=== PATIENT | female | born 1990 | race Hispanic/Latino ===

== ENCOUNTER 2020-03-03 19:53 | Emergency (ER) | payer SELFPAY ==
[2020-03-03 20:50] LABS: Urine Blood 3+ (NEG); Urine Glucose NEGATIVE (NEG); Urine Protein NEGATIVE (NEG); Urine Specific Gravity >1.030 (1.005-1.030); Urine pH 5.5 (5.0-7.0)
[2020-03-03] MEDS ORDERED: NA CHLORIDE 0.9% 1,000 ML ONE (21:01)
[2020-03-03 21:12] LABS: Absolute Lymphocytes (CBC) 0.6 K/uL (0.7-4.9); Basophils % 0.6 % (0-1.3); Hematocrit 33.3 % (36.0-45.0); Lymphocytes % 8.4 % (15.3-44.8); MPV 8.3 fL (7.6-11.3); RBC Red Blood Cell Count 4.42 M/uL (3.86-4.86)
[2020-03-03 21:35] LABS: ALT/SGPT 21 U/L (12-78); AST/SGOT 15 U/L (15-37); Albumin 2.8 g/dL (3.4-5.0); Alkaline Phosphatase 107 U/L (45-117); BUN Blood Urea Nitrogen 11 mg/dL (7-18); Bicarbonate 23 mmol/L (21-32); Bilirubin Direct 0.1 mg/dL (0-0.2); Bilirubin Total 0.3 mg/dL (0.2-1.0); Glucose Level 104 mg/dL (74-106); Lipase 101 U/L (73-393); Potassium 3.6 mmol/L (3.5-5.1); Protein, Total 7.6 g/dL (6.4-8.2); Sodium Level 139 mmol/L (136-145)
[2020-03-03 22:37] LABS: Blood Morphology Comment NOT SEEN (NOT SEEN); Platelet Estimate ADEQ
[2020-03-03 22:54] LABS: Urine Bacteria 20-50 /HPF (<20); Urine Culture Reflex Order NOT NEEDED; Urine Mucus 1+ /HPF (NONE SEEN); Urine RBC >50 /HPF (NONE SEEN)
--- NOTE | 2020-03-04 00:18 | ER ---
Nurse's Notes [facility] Name: Obdulia Burch Age: 29 yrs Sex: Female : 1990 Arrival Date: 03/03/2020 Time: 19:55 Bed 13 Private MD: Diagnosis: Acute febrile illness. Urinary tract infection Presentation: 03/03 20:09 Chief complaint: Patient states: Completed round of antibiotics on Friday from what was dm5 assumed to be a UTI. Bactrim. Tuesdays started to have back cramps, Friday morning felt worse, was worse but manageable, "everything feels swollen, body aches, fever, chills, Pt drove in from [place] this weekend. Coronavirus screen: Patient denies a cough. Patient denies shortness of breath or difficulty breathing. Patient reports a measured and/or subjective temperature greater than 100.4F. Patient reports travel on a cruise ship or to a country the [facility] currently lists as an affected area. Patient denies contact with known and/or suspected case of COVID-19. Ebola Screen: Patient negative for fever greater than or equal to 101.5 degrees Fahrenheit, and additional compatible Ebola Virus Disease symptoms Patient denies exposure to infectious person. Patient denies travel to an Ebola-affected area in the 21 days before illness onset. No symptoms or risks identified at this time. Initial Sepsis Screen: Does the patient meet any 2 criteria? HR > 90 bpm. No. Patient's initial sepsis screen is negative. Does the patient have a suspected source of infection? Yes: Dysuria/Frequency/Urgency/UTI. Risk Assessment: Do you want to hurt yourself or someone else? Patient reports no desire to harm self or others. Onset of symptoms was February 29, 2020. 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 - Social history:: Smoking status: Patient denies any tobacco usage or history of. Screenin:30 Abuse screen: Denies threats or abuse. Denies injuries from another. Nutritional ca1 screening: No deficits noted. Tuberculosis screening: No symptoms or risk factors identified. Fall Risk IV access (20 points). Assessment: 20:30 General: Appears in no apparent distress. comfortable, Behavior is calm, cooperative, ca1 appropriate for age. General: Reports fever for 12-24 hours. Pain: Complains of pain in left mid back Pain currently is 6 out of 10 on a pain scale. Pain began 1 day ago. Is intermittent. Neuro: Level of Consciousness is awake, alert, obeys commands, Oriented to person, place, time, situation, Appropriate for age. Cardiovascular: Heart tones S1 S2 present Capillary refill < 3 seconds Patient's skin is warm and dry. Respiratory: Airway is patent Respiratory effort is even, unlabored, Respiratory pattern is regular, symmetrical, Breath sounds are clear bilaterally. GI: Abdomen is round non-distended, obese, Bowel sounds present X 4 quads. Abd is soft and non tender X 4 quads. : Urine is clear. EENT: No signs and/or symptoms were reported regarding the EENT system. Derm: Skin is intact, is healthy with good turgor, Skin is pink, warm \\T\\ dry. Musculoskeletal: Circulation, motion, and sensation intact. Capillary refill < 3 seconds. 22:08 Reassessment: Patient appears in no apparent distress at this time. Patient and/or jb4 family updated on plan of care and expected duration. Pain level reassessed. Patient is alert, oriented x 3, equal unlabored respirations, skin warm/dry/pink. 23:00 Reassessment: Patient appears in no apparent distress at this time. Patient and/or jb4 family updated on plan of care and expected duration. Pain level reassessed. Patient is alert, oriented x 3, equal unlabored respirations, skin warm/dry/pink. 23:52 Reassessment: Patient appears in no apparent distress at this time. Patient and/or jb4 family updated on plan of care and expected duration. Pain level reassessed. Patient is alert, oriented x 3, equal unlabored respirations, skin warm/dry/pink. 03/04 00:54 Reassessment: Patient appears in no apparent distress at this time. Patient and/or jb4 family updated on plan of care and expected duration. Pain level reassessed. Patient is alert, oriented x 3, equal unlabored respirations, skin warm/dry/pink. Pt verbalized understanding of d/c and follow up instructions. Denies questions or concerns. Given informational packet on Covid-19. Patient states feeling better. Vital Signs: 03/03 20:09 BP 133 / 93; Pulse 115; Resp 20; Temp 100.6(O); Pulse Ox 98% on R/A; Weight 116.12 kg dm5 (R); Height 5 ft. 0 in. (152.40 cm); Pain 6/10; 22:00 BP 124 / 73; Pulse 89; Resp 16; Temp 98.9(O); Pulse Ox 100% on R/A; jb4 03/04 00:05 BP 125 / 78; Pulse 83; Resp 16; Temp 98.7(O); Pulse Ox 100% on R/A; jb4 00:30 BP 119 / 70; Pulse 75; Resp 16; Temp 98.3(O); Pulse Ox 100% on R/A; jb4 03/03 20:09 Body Mass Index 50.00 (116.12 kg, 152.40 cm) dm5 ED Course: 03/03 19:55 Patient arrived in ED. cf2 20:14 Triage completed. dm5 20:15 Arm band placed on right wrist. dm5 20:24 Mj Aguirre MD is Attending Physician. pkl 20:30 Patient has correct armband on for positive identification. Placed in gown. Bed in low ca1 position. Call light in reach. Side rails up X2. Pulse ox on. NIBP on. 20:40 No provider procedures requiring assistance completed. Inserted saline lock: 20 gauge ca1 in right antecubital area, using aseptic technique. Blood collected. 20:40 Initial lab(s) drawn, by me, sent to lab. Flu and/or RSV swab sent to lab. Strep swab ca1 sent to lab. Covid swab. 20:44 Melo Bragg, RN is Primary Nurse. jb4 21:42 XRAY CXR (1 view) In Process Unspecified. EDMS 22:32 CT Abd/Pelvis - IV Contrast Only In Process Unspecified. EDMS 03/04 00:55 IV discontinued, intact, bleeding controlled, No redness/swelling at site. Pressure jb4 dressing applied. Administered Medications: 03/03 20:59 Drug: NS 0.9% 1000 ml Route: IV; Rate: 1000 ml; Site: right antecubital; ca1 22:00 Follow up: Response: No adverse reaction; IV Status: Completed infusion; IV Intake: jb4 1000ml 03/04 00:41 Drug: Cipro 500 mg Route: PO; jb4 00:41 Follow up: Response: Medication administered at discharge. jb4 Intake: 03/03 22:00 IV: 1000ml; Total: 1000ml. jb4 Outcome: 03/04 00:17 Discharge ordered by . juan 00:23 Discharge ordered by . pkdale 00:55 Discharged to home ambulatory. jb4 00:55 Condition: stable 00:55 Discharge instructions given to patient, Instructed on discharge instructions, follow up and referral plans. medication usage, Demonstrated understanding of instructions, follow-up care, medications, Prescriptions given X 1. 00:56 Patient left the ED. jb4 Addendum: 03/07/2020 14:11 Addendum: Culture Results: Positive urine culture. No further action required. Bacteria i w sensitive to prescribed antibiotic. 03/08/2020 10:18 Addendum: Other attempted to contact pt related to negative COVID-19 swab results - d m5 Left voice mail. 11:24 Addendum: Other pt notified of negative COVID-19 swab results. d m5 Signatures: Dispatcher [employer] Homa Rdz RN RN dm5 Lam, Pin, MD MD pkl Williams, Irene, RN RN iw Bryson, James, RN RN jb4 Acob, Cheryl, RN RN ca1 Frazier, Celesta cf2 Corrections: (The following items were deleted from the chart) 03/03 20:14 20:09 Onset of symptoms was February 29, 2000 mandy galvan
--- NOTE | 2020-03-04 00:19 | EDPHYS ---
Physician Documentation [facility] Name: Obdulia Burch Age: 29 yrs Sex: Female : 1990 Arrival Date: 03/03/2020 Time: 19:55 Bed 13 Private MD: ED Physician Mj Aguirre HPI: 03/03 20:47 This 29 yrs old Female presents to ER via Ambulatory with complaints of Fever, pkl Abdominal Pain, Back Pain, Chills. 20:47 The patient reports fever, with an emergency department temperature of 100.6 degrees pkl Fahrenheit. Onset: The symptoms/episode began/occurred 3 day(s) ago. Associated signs and symptoms: Pertinent positives: chills, body aches and back pain. Patient treated last week for UTI. Given Bactrim. 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 - Social history:: Smoking status: Patient denies any tobacco usage or history of. ROS: 20:47 Eyes: Negative for injury, pain, redness, and discharge, ENT: Negative for injury, pkl pain, and discharge, Neck: Negative for injury, pain, and swelling, Cardiovascular: Negative for chest pain, palpitations, and edema, Respiratory: Negative for shortness of breath, cough, wheezing, and pleuritic chest pain, Abdomen/GI: Negative for abdominal pain, nausea, vomiting, diarrhea, and constipation. 20:47 Back: Positive for flank pain, on the right. 20:47 : Negative for urinary symptoms. 20:47 MS/extremity: Negative for acute changes. 20:47 Skin: Negative for rash. 20:47 Neuro: Negative for altered mental status. Exam: 20:47 Head/Face: Normocephalic, atraumatic. Eyes: Pupils equal round and reactive to light, pkl extra-ocular motions intact. Lids and lashes normal. Conjunctiva and sclera are non-icteric and not injected. Cornea within normal limits. Periorbital areas with no swelling, redness, or edema. ENT: Nares patent. No nasal discharge, no septal abnormalities noted. Tympanic membranes are normal and external auditory canals are clear. Oropharynx with no redness, swelling, or masses, exudates, or evidence of obstruction, uvula midline. Mucous membranes moist. Neck: Trachea midline, no thyromegaly or masses palpated, and no cervical lymphadenopathy. Supple, full range of motion without nuchal rigidity, or vertebral point tenderness. No Meningismus. Chest/axilla: Normal chest wall appearance and motion. Nontender with no deformity. No lesions are appreciated. Cardiovascular: Regular rate and rhythm with a normal S1 and S2. No gallops, murmurs, or rubs. Normal PMI, no JVD. No pulse deficits. Respiratory: Lungs have equal breath sounds bilaterally, clear to auscultation and percussion. No rales, rhonchi or wheezes noted. No increased work of breathing, no retractions or nasal flaring. Abdomen/GI: Soft, non-tender, with normal bowel sounds. No distension or tympany. No guarding or rebound. No evidence of tenderness throughout. 20:47 Back: pain, that is mild, of the right flank. 20:47 : Exam negative for acute changes. 20:47 Musculoskeletal/extremity: Exam is negative for acute changes. 20:47 Skin: Exam negative for rash. 20:47 Neuro: Orientation: is normal, Mentation: is normal, Cranial nerves: grossly normal, Motor: is normal. Vital Signs: 20:09 BP 133 / 93; Pulse 115; Resp 20; Temp 100.6(O); Pulse Ox 98% on R/A; Weight 116.12 kg dm5 (R); Height 5 ft. 0 in. (152.40 cm); Pain 6/10; 22:00 BP 124 / 73; Pulse 89; Resp 16; Temp 98.9(O); Pulse Ox 100% on R/A; jb4 03/04 00:05 BP 125 / 78; Pulse 83; Resp 16; Temp 98.7(O); Pulse Ox 100% on R/A; jb4 00:30 BP 119 / 70; Pulse 75; Resp 16; Temp 98.3(O); Pulse Ox 100% on R/A; jb4 03/03 20:09 Body Mass Index 50.00 (116.12 kg, 152.40 cm) dm5 MDM: 03/03 20:24 Patient medically screened. pkl 03/04 00:13 Data reviewed: vital signs, nurses notes, lab test result(s), radiologic studies, CT pkl scan, plain films. ED course: Patient feeling better. Discussed lab. and imaging results with patient. Advised to follow up with PCP next week and stay home until Covid 19 result is available. Patient understood instructions. 03/03 20:33 Order name: Urine Culture [facility] 03/03 20:33 Order name: Urine Dipstick--Ancillary (enter results); Complete Time: 21:39 [facility] 03/03 20:33 Order name: Urine --Ancillary (enter results); Complete Time: 21:39 [facility] 03/03 20:33 Order name: Urine Microscopic Only; Complete Time: 00:19 [facility] 03/03 20:40 Order name: Basic Metabolic Panel; Complete Time: 21:39 pkl 03/03 20:40 Order name: CBC with Diff; Complete Time: 22:44 pkl 03/03 20:40 Order name: Creatinine for Radiology; Complete Time: 21:39 pkl 03/03 20:40 Order name: Hepatic Function; Complete Time: 21:39 pkl 03/03 20:40 Order name: Lipase; Complete Time: 21:39 pkl 03/03 20:40 Order name: COVID-19 pk 03/03 20:40 Order name: Flu; Complete Time: 22:06 pkl 03/03 20:40 Order name: Strep; Complete Time: 22:06 pkl 03/03 21:51 Order name: Throat Culture [facility] 03/03 22:37 Order name: Manual Differential; Complete Time: 22:44 [facility] 03/03 20:19 Order name: Urine Dipstick-Ancillary (obtain specimen); Complete Time: 20:31 lp1 03/03 20:40 Order name: IV Saline Lock; Complete Time: 21:00 pkl 03/03 20:40 Order name: Labs collected and sent; Complete Time: 21:00 pkl 03/03 20:40 Order name: Document PUI#; Complete Time: 21:44 pkl 03/03 20:40 Order name: Droplet/Contact Precautions; Complete Time: 21:00 pkl 03/03 20:40 Order name: Notify Health Dept [phone]/ ; Complete Time: 21:44 pkl 03/03 20:40 Order name: O2 Per Protocol; Complete Time: 21:00 pkl 03/03 20:40 Order name: XRAY CXR (1 view) pkl 03/03 21:41 Order name: CT Abd/Pelvis - IV Contrast Only pkl Administered Medications: 03/03 20:59 Drug: NS 0.9% 1000 ml Route: IV; Rate: 1000 ml; Site: right antecubital; ca1 22:00 Follow up: Response: No adverse reaction; IV Status: Completed infusion; IV Intake: jb4 1000ml 03/04 00:41 Drug: Cipro 500 mg Route: PO; jb4 00:41 Follow up: Response: Medication administered at discharge. jb4 Disposition: 03/04/20 00:23 Discharged to Home. Impression: Acute febrile illness. Urinary tract infection. - Condition is Stable. - Prescriptions for Cipro 500 mg Oral Tablet - take 1 tablet by ORAL route every 12 hours for 7 days; 14 tablet. - Medication Reconciliation Form, Thank You Letter, Antibiotic Education, Prescription Opioid Use form. - Follow up: Private Physician; When: 2 - 3 days; Reason: Re-evaluation by your physician. - Problem is new. - Symptoms have improved. Signatures: Dispatcher [employer] EDMS Homa Jameson RN RN dmMj Austin MD MD pkl Kim Muro RN RN lp1 Melo Bragg RN RN jb4 Lauren Richardson, RN RN ca1 Corrections: (The following items were deleted from the chart) 00:21 00:17 03/04/2020 00:17 Discharged to Home. Impression: Acute fefrile illness. Viral pkl syndrome. Condition is Stable. Forms are Medication Reconciliation Form, Thank You Letter, Antibiotic Education, Prescription Opioid Use. Follow up: Private Physician; When: 2 - 3 days; Reason: Re-evaluation by your physician. Problem is new. Symptoms have improved. pkl 00:56 00:23 03/04/2020 00:23 Discharged to Home. Impression: Acute febrile illness. Urinary jb4 tract infection. Condition is Stable. Forms are Medication Reconciliation Form, Thank You Letter, Antibiotic Education, Prescription Opioid Use. Follow up: Private Physician; When: 2 - 3 days; Reason: Re-evaluation by your physician. Problem is new. Symptoms have improved. pkl
[2020-03-04] MEDS ORDERED: CIPROFLOXACIN HCL 500 MG TAB ONE (00:45)
[2020-03-04 01:21] VITALS: O2SAT 100
[2020-03-04 01:24] VITALS: BP 119/70; TEMP 98.3
--- NOTE | 2020-03-04 09:37 | RAD REPORT ---
EXAM DESCRIPTION: RAD - Chest Single View - 03/03/2020 9:42 pm CLINICAL HISTORY: FEVER TECHNIQUE: AP portable chest image was obtained 03/03/2020 9:42 pm . FINDINGS: Lungs are clear. Heart and vasculature are normal. No measurable pleural effusion and no p neumothorax. No acute bony abnormality seen. No acute aortic findings suspected. IMPRESSION: No acute cardiopulmonary process.
--- NOTE | 2020-03-04 17:00 | RAD REPORT ---
EXAM DESCRIPTION: CT - Abdomen Pelvis W Contrast - 03/04/2020 12:14 am CLINICAL HISTORY: The patient is 29 years old and is Female; right flank pain;Fever TECHNIQUE: Axial computed tomography images of the abdomen and pelvis with intravenous contrast. S agittal and coronal reformatted images were created and reviewed. This CT exam was performed using one or more of the following dose reduction techniques: automated exposure control, adjustment of t he mA and/or kV according to patient size, and/or use of iterative reconstruction technique. COMPARISON: No relevant prior studies available. FINDINGS: LUNG BASES: Unremarkable. No mass. No consolidation. ABDOMEN: LIVER: The liver is fatty and prominent. GALLBLADDER AND BILE DUCTS: The gallbladder is contracted. PANCREAS: No ductal dilation. No mass. SPLEEN: Unremarkable. ADRENALS: Unremarkable. No mass. KIDNEYS AND URETERS: Unremarkable. The kidneys enhance symmetrically. No obstructing renal or ure teral calculus is seen. No hydronephrosis or hydroureter. No perinephric fluid or stranding. STOMACH AND BOWEL: The stomach is distended with food contents. The small bowel is normal in micaela iber. Stool is present throughout colon. There is no mucosal thickening or evidence of bowel obstruct ion. PELVIS: APPENDIX: The appendix is normal in caliber without surrounding inflammation. BLADDER: The bladder is incompletely distended. REPRODUCTIVE: Unremarkable as visualized. ABDOMEN and PELVIS: INTRAPERITONEAL SPACE: Unremarkable. No free air. No significant fluid collection. BONES/JOINTS: No acute fracture. SOFT TISSUES: The soft tissues are normal. VASCULATURE: Unremarkable. No abdominal aortic aneurysm. LYMPH NODES: Unremarkable. No enlarged lymph nodes. IMPRESSION: No acute findings on this contrasted CT of the abdomen and pelvis to explain the patient 's symptoms. Electronically signed by: Bettina Arroyo MD 03/03/2020 11:56 PM CDT Due to temporary technical issues with the PACS/Fluency reporting system, reports are being signed by the in house radiologist as a courtesy to ensure prompt reporting. The interpreting radiologist is f kellyly responsible for the content of the report.
== END 2020-03-04 00:56 | disposition home or self-care (01) ==
LOC: ER 19:53
DX: N39.0 Urinary tract infection, site not specified (principal); Z20.828 Contact with and (suspected) exposure to other viral communicable diseases
CPT/HCPCS: 36415; 71045; 74177; 80048; 80076; 81003; 81015; 81025; 83690; 85025; 87070; 87077; 87081; 87086; 87088; 87186; 87804; 96360; 99284; J7030; Q9967; U0001

== ENCOUNTER 2021-08-06 08:04 | Emergency (ER) | payer OTHER ==
[2021-08-06] MEDS ORDERED: METHOCARBAMOL 1,000 MG/10 ML VIAL IV ONE (09:44)
[2021-08-06] MEDS ORDERED: NA CHLORIDE 0.9% 100 ML ONE (09:44)
[2021-08-06] MEDS ORDERED: KETOROLAC 30 MG/ML INJ ONE (09:44)
--- NOTE | 2021-08-06 09:49 | RAD REPORT ---
EXAM DESCRIPTION: CT - Thorax Wo Con - 08/06/2021 9:40 am CLINICAL HISTORY: Lateral midthoracic pain;Pain COMPARISON: No comparisons TECHNIQUE: Axial 5 mm thick images of the chest were obtained without IV contrast. All CT scans are performed using dose optimization technique as appropriate and may include automated exposure control or mA/KV adjustment according to patient size. FINDINGS: No mass or infiltrate in the lung parenchyma. No pleural thickening or pleural effusion. N o pneumothorax. No abnormal mediastinal or hilar masses or lymphadenopathy seen. Aorta is normal in diameter. No aort ic calcifications. Aortic lumen shows homogeneous [id number] attenuation. Aortic assessment is othe rwise limited. No pulmonary artery evaluation can be performed. Heart size is normal with no pericard ial thickening or effusion. No chest wall mass or abnormal axillary lymphadenopathy. No acute vertebral body abnormality seen. Central canal detail is inherently limited. No fracture or focal lesion of the ribcage. IMPRESSION: Negative non-contrast CT chest examination.
--- NOTE | 2021-08-06 10:08 | EDPHYS ---
Physician Documentation [facility] Name: Obdulia Burch Age: 31 yrs Sex: Female : 1990 Arrival Date: 08/06/2021 Time: 08:08 Bed 30 Private MD: ED Physician Onel Curiel HPI: 08/06 09:07 This 31 yrs old Female presents to ER via Ambulatory with complaints of Back kdr Pain. 09:07 The patient presents with pain that is chronic, with no known mechanism of injury, and kdr decreased range of motion, Patient states she has her most discomfort when she is tries to sit up straight. The pain is lateral to the midline.. The symptoms are located in the thoracic spine. Onset: The symptoms/episode began/occurred gradually, 1.5 month(s) ago. The pain does not radiate. Associated signs and symptoms: Pertinent positives: none. The problem was sustained without known cause. Severity of symptoms: At their worst the symptoms were mild, moderate, just prior to arrival, in the emergency department the symptoms are unchanged. The patient has experienced similar episodes in the past, but today's symptoms are worse, and the symptoms today are exactly the same, Patient states that she has had intermittent back pain for the past month or more. She denies any injury she denies any specific cause that she can think of. She has not had this previously. She denies any other associated symptoms including fever or cough. Her pain is in her mid thorax. The discomfort is bilateral but lateral to the midline. She has no actual midline spinal pain. She denies any numbness or tingling in her lower extremities. She denies any weakness in her lower extremities. She denies any trouble controlling her bladder or bowels. The patient has not recently seen a physician. She denies any objective fever. She does feel from time to time though that she is hot but when she is taken her temperature it has been normal.. [employer]: 08:36 4, Premature 4, Living 4 es2 Historical: - Allergies: 08:22 No Known Allergies; aa5 - PMHx: 08:22 None; aa5 - PSHx: 08:22 section; aa5 - Immunization history:: Client reports receiving the 2nd dose of the Covid vaccine. - Social history:: Smoking status: Reported history of juuling and/or vaping. ROS: 09:07 Constitutional: Negative for fever, chills, and weight loss, Eyes: Negative for injury, kdr pain, redness, and discharge, ENT: Negative for injury, pain, and discharge, Neck: Negative for injury, pain, and swelling, Cardiovascular: Negative for chest pain, palpitations, and edema, Respiratory: Negative for shortness of breath, cough, wheezing, and pleuritic chest pain, Abdomen/GI: Negative for abdominal pain, nausea, vomiting, diarrhea, and constipation, : Negative for injury, bleeding, discharge, and swelling, MS/Extremity: Negative for injury and deformity, Skin: Negative for injury, rash, and discoloration, Neuro: Negative for headache, weakness, numbness, tingling, and seizure activity. Psych: Negative for depression, anxiety, suicide ideation, homicidal ideation, and hallucinations, Allergy/Immunology: Negative for hives, rash, and allergies, Endocrine: Negative for neck swelling, polydipsia, polyuria, polyphagia, and marked weight changes, Hematologic/Lymphatic: Negative for swollen nodes, abnormal bleeding, and unusual bruising. 09:07 Back: Positive for pain at rest, pain with movement, of the left subscapular area and right subscapular area. Exam: 09:07 Constitutional: This is a well developed, well nourished patient who is awake, alert, kdr and in no acute distress. Head/Face: Normocephalic, atraumatic. Eyes: Pupils equal round and reactive to light, extra-ocular motions intact. Lids and lashes normal. Conjunctiva and sclera are non-icteric and not injected. Cornea within normal limits. Periorbital areas with no swelling, redness, or edema. Neck: Trachea midline, no thyromegaly or masses palpated, and no cervical lymphadenopathy. Supple, full range of motion without nuchal rigidity, or vertebral point tenderness. No Meningismus. Chest/axilla: Normal chest wall appearance and motion. Nontender with no deformity. No lesions are appreciated. Cardiovascular: Regular rate and rhythm with a normal S1 and S2. No gallops, murmurs, or rubs. Normal PMI, no JVD. No pulse deficits. Respiratory: Lungs have equal breath sounds bilaterally, clear to auscultation and percussion. No rales, rhonchi or wheezes noted. No increased work of breathing, no retractions or nasal flaring. Abdomen/GI: Soft, non-tender, with normal bowel sounds. No distension or tympany. No guarding or rebound. No evidence of tenderness throughout. Skin: Warm, dry with normal turgor. Normal color with no rashes, no lesions, and no evidence of cellulitis. MS/ Extremity: Pulses equal, no cyanosis. Neurovascular intact. Full, normal range of motion. Neuro: Awake and alert, GCS 15, oriented to person, place, time, and situation. Cranial nerves II-XII grossly intact. Motor strength 5/5 in all extremities. Sensory grossly intact. Cerebellar exam normal. Normal gait. Psych: Awake, alert, with orientation to person, place and time. Behavior, mood, and affect are within normal limits. 09:07 Back: pain, that is mild, that is moderate, ROM is painful, with extension, normal spinal alignment noted, CVA tenderness, is absent. Vital Signs: 08:20 BP 112 / 50; Pulse 77; Resp 16 S; Temp 97.4(TE); Pulse Ox 100% on R/A; Weight 113.4 kg aa5 (R); Height 5 ft. 0 in. (152.40 cm) (R); 09:48 BP 101 / 56; Pulse 72; Resp 16; Pulse Ox 100% on R/A; es2 08:20 Body Mass Index 48.82 (113.40 kg, 152.40 cm) aa5 MDM: 09:07 Data reviewed: vital signs, nurses notes, lab test result(s), radiologic studies. kdr 10:08 Patient medically screened. kdr 08/06 09:06 Order name: CT Chest Wo Con; Complete Time: 10:06 kdr Administered Medications: 09:27 Drug: Ketorolac 15 mg Route: IVP; Site: right antecubital; es2 09:27 Follow up: Response: No adverse reaction es2 09:27 Drug: Robaxin (methocarbamol) 1 grams Route: IVPB; Infused Over: 1 hrs; Site: right es2 antecubital; 09:27 Follow up: Response: No adverse reaction es2 10:47 Follow up: Response: No adverse reaction; IV Status: Completed infusion es2 Disposition Summary: 08/06/21 10:08 Discharge Ordered Location: Home kdr Condition: Stable kdr Diagnosis - Posterior mid thorax pain, musculoskeletal pain kdr Followup: kdr - With: Private Physician - When: 2 - 3 days - Reason: If symptoms return, Further diagnostic work-up, Recheck today's complaints, Continuance of care, Re-evaluation by your physician Discharge Instructions: - Discharge Summary Sheet kdr - Acute Back Pain, Adult kdr - Musculoskeletal Pain kdr Forms: - Medication Reconciliation Form kdr - Thank You Letter kdr Prescriptions: - Ibuprofen 600 mg Oral Tablet - take 1 tablet by ORAL route every 6 hours As needed take with food; 15 tablet; kdr Refills: 0, Product Selection Permitted - Cyclobenzaprine 10 mg Oral Tablet - take 1 tablet by ORAL route every 8 hours As needed; 15 tablet; Refills: 0, kdr Product Selection Permitted Signatures: Dispatcher [employer] Onel Tello MD MD kdr Queenie Helms RN RN aa5 Michelle Aguirre RN RN es2 Corrections: (The following items were deleted from the chart) 09:18 09:07 Thoracic Spine WO [id number] ordered. EDMS EDMS
--- NOTE | 2021-08-06 10:08 | ER ---
Nurse's Notes [facility] Name: Obdulia Burch Age: 31 yrs Sex: Female : 1990 Arrival Date: 08/06/2021 Time: 08:08 Bed 30 Private MD: Diagnosis: Posterior mid thorax pain, musculoskeletal pain Presentation: 08/06 08:20 Chief complaint: Patient states: mid back pain that began 1 month ago and has been aa5 coming and going. Pt states "I thought it was my bed but today it hurts when I try to take a breath". Denies cough/congestion, denies urinary symptoms. Coronavirus screen: At this time, the client does not indicate any symptoms associated with coronavirus-19. Ebola Screen: Patient negative for fever greater than or equal to 101.5 degrees Fahrenheit, and additional compatible Ebola Virus Disease symptoms. Initial Sepsis Screen: Does the patient meet any 2 criteria? No. Patient's initial sepsis screen is negative. Does the patient have a suspected source of infection? No. Patient's initial sepsis screen is negative. Risk Assessment: Do you want to hurt yourself or someone else? Patient reports no desire to harm self or others. Onset of symptoms was 2020. 08:20 Method Of Arrival: Ambulatory aa5 08:20 Acuity: TERELL 4 aa5 FUR CUTTER: 08:36 4, Premature 4, Living 4 es2 Historical: - Allergies: 08:22 No Known Allergies; aa5 - PMHx: 08:22 None; aa5 - PSHx: 08:22 section; aa5 - Immunization history:: Client reports receiving the 2nd dose of the Covid vaccine. - Social history:: Smoking status: Reported history of juuling and/or vaping. Screenin:30 Abuse screen: Denies threats or abuse. Denies injuries from another. Nutritional es2 screening: No deficits noted. Tuberculosis screening: No symptoms or risk factors identified. Fall Risk Mental Status- Oriented to own ability (0 pts). Assessment: 08:29 General: Appears uncomfortable, well developed, well nourished, Behavior is calm, es2 cooperative, appropriate for age. Pain: Complains of pain in center of back, between shoulder blades \\T\\ ribs. Pain currently is 6 out of 10 on a pain scale. Neuro: Level of Consciousness is awake, alert, obeys commands, Oriented to person, place, time, situation, Appropriate for age Speech is normal. Cardiovascular: Capillary refill < 3 seconds Patient's skin is warm and dry. Respiratory: Airway is patent Respiratory effort is even, Respiratory pattern is regular. GI: No signs and/or symptoms were reported involving the gastrointestinal system. : No signs and/or symptoms were reported regarding the genitourinary system. EENT: No signs and/or symptoms were reported regarding the EENT system. Derm: No signs and/or symptoms reported regarding the dermatologic system. Vital Signs: 08:20 BP 112 / 50; Pulse 77; Resp 16 S; Temp 97.4(TE); Pulse Ox 100% on R/A; Weight 113.4 kg aa5 (R); Height 5 ft. 0 in. (152.40 cm) (R); 09:48 BP 101 / 56; Pulse 72; Resp 16; Pulse Ox 100% on R/A; es2 08:20 Body Mass Index 48.82 (113.40 kg, 152.40 cm) aa5 ED Course: 08:08 Patient arrived in ED. as 08:20 Arm band placed on. aa5 08:22 Triage completed. aa5 08:24 Michelle Aguirre, CHON is Primary Nurse. es2 08:30 Patient has correct armband on for positive identification. Call light in reach. es2 08:39 Onel Curiel MD is Attending Physician. kdr 09:17 Inserted saline lock: 20 gauge in right antecubital area, using aseptic technique. es2 09:41 CT Chest Wo Con In Process Unspecified. EDMS 10:47 IV discontinued, intact, bleeding controlled, No redness/swelling at site. Pressure es2 dressing applied. 10:48 No provider procedures requiring assistance completed. es2 Administered Medications: 09:27 Drug: Ketorolac 15 mg Route: IVP; Site: right antecubital; es2 09:27 Follow up: Response: No adverse reaction es2 09:27 Drug: Robaxin (methocarbamol) 1 grams Route: IVPB; Infused Over: 1 hrs; Site: right es2 antecubital; 09:27 Follow up: Response: No adverse reaction es2 10:47 Follow up: Response: No adverse reaction; IV Status: Completed infusion es2 Outcome: 10:08 Discharge ordered by . ward 10:48 Discharged to home ambulatory. es2 10:48 Condition: stable 10:48 Discharge instructions given to patient, Instructed on discharge instructions, medication usage, Demonstrated understanding of instructions, medications, Prescriptions given X 2. 10:48 Patient left the ED. es2 Signatures: Dispatcher [employer] EDOnel Eckert MD MD kdr Martinez, Amelia as Calderon, Audri RN RN aa5 Michelle Aguirre RN RN es2
[2021-08-06 10:55] VITALS: TEMP 97.4; O2SAT 100
[2021-08-06 10:56] VITALS: BP 101/56
== END 2021-08-06 10:48 | disposition home or self-care (01) ==
LOC: ER 08:04
DX: M79.18 Myalgia, other site (principal)
CPT/HCPCS: 96365; 71250; 96375; 99284; J2800

== ENCOUNTER 2023-05-22 14:12 | Emergency (ER) | payer OTHER ==
--- OUTSIDE RECORDS SUMMARY | 2023-05-22 14:20 | XMS REPORT | Continuity of Care Document ---
:1990 Author Organization [facility] t Address [address] [place] [address] [address] [place] [address] Care Team Providers Name Role Phone PCP, PATIENT DOES NOT HAVE A Primary Care Physician Unavaila ble RADIOLOGY Attending Clinician Unavailable Radiology Attending Clinician Unavailable Doctor Unassigned, [place] Attending Clinician Unavailable MAR, ARELI Admitting Clinician Unavailable Payers Payer Name Policy Type Policy Number Effective Date Expiration Date [facility] [id number] 2022 CHOICE [place] ST[place] 00:00:00 Problems This patient has no known problems. Allergies, Adverse Reactions, Alerts Allergy Allergy Status Severity Reaction(s) Onset Inactive Treating Comm ents Source Name Type Date Date Clinician NO KNOWN Drug Active Univers ALLERGIE Class ity of S [facility] Social History Social Habit Start Date Stop Date Quantity Comments Source History of tobacco 2009-02-18 Cigarette Smoker University of use 00:00:00 [facility] Exposure to 2023-01-07 2023-01-17 Not sure [facility] SARS-CoV-2 (event) 00:00:00 16:52:00 [facility] Alcohol intake 2019-03-12 2019-03-12 0 /d University of 00:00:00 00:00:00 [facility] Cigarettes smoked 2019-02-18 2019-02-18 Univers ity of current (pack per 00:00:00 00:00:00 [facility] ) - Reported Branch Tobacco use and 2019-02-18 2019-02-18 Smokeless Universit y of exposure 00:00:00 00:00:00 tobacco non-user [facility] 1990 [facility] Smoking Status Start Date Stop Date Source Ex-smoker 2019-02-18 00:00:00 2019-02-18 00:00:00 [facility] Medications Ordered Filled Start Stop Current Ordering Indication Dosage Frequency Signature Comments Components Source Medication Medication Date Date Medication? Clinician (SIG) Name Name Dose 2021-0 No Unknown 6-23 00:00: 00 Dose 2022-0 No Unknown 6-23 00:00: 00 Dose 2022-0 No Unknown 6-23 00:00: 00 Dose 2022-0 No Unknown 6-23 00:00: 00 &lt 2022-0 No 6-20 00:00: 00 &lt 2022-0 No 6-20 00:00: 00 &lt 2022-0 No 6-20 00:00: 00 &lt 2022-0 No 6-20 00:00: 00 Dose 2022-0 No Unknown 5-06 00:00: 00 Dose 2022-0 No Unknown 5-06 00:00: 00 Dose 2022-0 No Unknown 5-06 00:00: 00 Dose 2022-0 No Unknown 5-06 00:00: 00 Dose 2022-0 No Unknown 5-06 00:00: 00 Dose 2022-0 No Unknown 5-06 00:00: 00 Dose 2022-0 No Unknown 5-06 00:00: 00 Dose 2022-0 No Unknown 5-06 00:00: 00 Dose 2022-0 No Unknown 5-06 00:00: 00 Dose 2022-0 No Unknown 5-06 00:00: 00 Dose 2022-0 No Unknown 5-06 00:00: 00 Dose 2022-0 No Unknown 5-06 00:00: 00 Dose 2022-0 No Unknown 5-06 00:00: 00 Dose 2022-0 No Unknown 5-06 00:00: 00 Dose 2022-0 No Unknown 5-06 00:00: 00 Dose 2022-0 No Unknown 5-06 00:00: 00 Dose 2022-0 No Unknown 5-06 00:00: 00 Dose 2022-0 No Unknown 5-06 00:00: 00 Dose 2022-0 No Unknown 5-06 00:00: 00 Dose 2022-0 No Unknown 5-06 00:00: 00 Dose 2022-0 No Unknown 5-06 00:00: 00 Dose 2022-0 No Unknown 5-06 00:00: 00 Dose 2022-0 No Unknown 5-06 00:00: 00 Dose 2022-0 No Unknown 5-06 00:00: 00 Dose 2022-0 No Unknown 5-06 00:00: 00 Dose 2022-0 No Unknown 5-06 00:00: 00 Dose 2022-0 No Unknown 5-06 00:00: 00 Dose 2022-0 No Unknown 5-06 00:00: 00 Dose 2022-0 No Unknown 5-06 00:00: 00 Dose 2022-0 No Unknown 5-06 00:00: 00 Dose 2022-0 No Unknown 5-06 00:00: 00 Dose 2022-0 No Unknown 5-06 00:00: 00 Dose 2022-0 No Unknown 5-06 00:00: 00 Dose 2022-0 No Unknown 5-06 00:00: 00 Dose 2022-0 No Unknown 5-06 00:00: 00 Dose 2022-0 No Unknown 5-06 00:00: 00 Dose 2022-0 No Unknown 5-06 00:00: 00 Dose 2022-0 No Unknown 5-06 00:00: 00 Dose 2022-0 No Unknown 5-06 00:00: 00 Dose 2022-0 No Unknown 5-06 00:00: 00 Dose 2022-0 No Unknown 5-06 00:00: 00 Dose 2022-0 No Unknown 5-06 00:00: 00 Dose 2022-0 No Unknown 5-06 00:00: 00 Dose 2022-0 No Unknown 5-06 00:00: 00 Dose 2022-0 No Unknown 5-05 00:00: 00 Dose 2022-0 No Unknown 5-05 00:00: 00 Dose 2022-0 No Unknown 5-05 00:00: 00 Dose 2022-0 No Unknown 5-05 00:00: 00 Dose 2022-0 No Unknown 5-05 00:00: 00 Dose 2022-0 No Unknown 5-05 00:00: 00 Dose 2022-0 No Unknown 5-05 00:00: 00 Dose 2022-0 No Unknown 5-05 00:00: 00 Dose 2022-0 No Unknown 5-05 00:00: 00 Dose 2022-0 No Unknown 5-05 00:00: 00 Dose 2022-0 No Unknown 5-05 00:00: 00 Dose 2022-0 No Unknown 5-05 00:00: 00 Dose 2022-0 No Unknown 5-05 00:00: 00 Dose 2022-0 No Unknown 5-05 00:00: 00 Dose 2022-0 No Unknown 5-05 00:00: 00 Dose 2022-0 No Unknown 5-05 00:00: 00 Dose 2022-0 No Unknown 5-05 00:00: 00 Dose 2022-0 No Unknown 5-05 00:00: 00 Dose 2022-0 No Unknown 5-05 00:00: 00 Dose 2022-0 No Unknown 5-05 00:00: 00 Dose 2022-0 No Unknown 5-05 00:00: 00 Dose 2022-0 No Unknown 5-05 00:00: 00 Dose 2022-0 No Unknown 5-05 00:00: 00 Dose 2022-0 No Unknown 5-05 00:00: 00 Dose 2022-0 No Unknown 5-05 00:00: 00 Dose 2022-0 No Unknown 5-05 00:00: 00 Dose 2022-0 No Unknown 5-05 00:00: 00 Dose 2022-0 No Unknown 5-05 00:00: 00 Dose 2022-0 No Unknown 5-05 00:00: 00 Dose 2022-0 No Unknown 5-05 00:00: 00 Dose 2022-0 No Unknown 5-05 00:00: 00 Dose 2022-0 No Unknown 5-05 00:00: 00 Dose 2022-0 No Unknown 5-05 00:00: 00 Dose 2022-0 No Unknown 5-05 00:00: 00 Dose 2022-0 No Unknown 5-05 00:00: 00 Dose 2022-0 No Unknown 5-05 00:00: 00 Dose 2022-0 No Unknown 5-05 00:00: 00 Dose 2022-0 No Unknown 5-05 00:00: 00 Dose 2022-0 No Unknown 5-05 00:00: 00 Dose 2022-0 No Unknown 5-05 00:00: 00 Dose 2022-0 No Unknown 5-05 00:00: 00 Dose 2022-0 No Unknown 5-05 00:00: 00 Dose 2022-0 No Unknown 5-05 00:00: 00 Dose 2022-0 No Unknown 5-05 00:00: 00 Dose 2022-0 No Unknown 5-05 00:00: 00 Dose 2022-0 No Unknown 5-05 00:00: 00 Dose 2022-0 No Unknown 5-05 00:00: 00 Dose 2022-0 No Unknown 5-05 00:00: 00 Dose 2022-0 No Unknown 5-05 00:00: 00 Dose 2022-0 No Unknown 5-05 00:00: 00 Dose 2022-0 No Unknown 5-05 00:00: 00 Dose 2022-0 No Unknown 5-05 00:00: 00 Dose 2022-0 No Unknown 5-05 00:00: 00 Dose 2022-0 No Unknown 5-05 00:00: 00 Dose 2022-0 No Unknown 5-05 00:00: 00 Dose 2022-0 No Unknown 5-05 00:00: 00 Dose 2022-0 No Unknown 5-05 00:00: 00 Dose 2022-0 No Unknown 5-05 00:00: 00 Dose 2022-0 No Unknown 5-05 00:00: 00 Dose 2022-0 No Unknown 5-05 00:00: 00 Dose 2022-0 No Unknown 5-05 00:00: 00 Dose 2022-0 No Unknown 5-05 00:00: 00 Dose 2022-0 No Unknown 5-05 00:00: 00 Dose 2022-0 No Unknown 5-05 00:00: 00 Dose 2022-0 No Unknown 5-05 00:00: 00 Dose 2022-0 No Unknown 5-05 00:00: 00 Dose 2022-0 No Unknown 5-05 00:00: 00 Dose 2022-0 No Unknown 5-05 00:00: 00 Dose 2022-0 No Unknown 5-05 00:00: 00 Dose 2022-0 No Unknown 5-05 00:00: 00 Dose 2022-0 No Unknown 5-05 00:00: 00 Dose 2022-0 No Unknown 5-05 00:00: 00 Dose 2022-0 No Unknown 5-05 00:00: 00 Dose 2022-0 No Unknown 5-05 00:00: 00 Dose 2022-0 No Unknown 5-05 00:00: 00 Dose 2022-0 No Unknown 5-05 00:00: 00 Dose 2022-0 No Unknown 5-05 00:00: 00 Dose 2022-0 No Unknown 5-05 00:00: 00 Dose 2022-0 No Unknown 5-05 00:00: 00 Dose 2022-0 No Unknown 5-05 00:00: 00 Dose 2022-0 No Unknown 5-05 00:00: 00 Dose 2022-0 No Unknown 5-05 00:00: 00 Dose 2022-0 No Unknown 5-05 00:00: 00 Dose 2022-0 No Unknown 5-05 00:00: 00 Dose 2022-0 No Unknown 5-05 00:00: 00 Dose 2022-0 No Unknown 5-05 00:00: 00 Dose 2022-0 No Unknown 5-05 00:00: 00 Dose 2022-0 No Unknown 5-05 00:00: 00 Dose 2022-0 No Unknown 5-05 00:00: 00 Dose 2022-0 No Unknown 5-05 00:00: 00 Dose 2022-0 No Unknown 5-05 00:00: 00 Dose 2022-0 No Unknown 5-05 00:00: 00 Dose 2022-0 No Unknown 5-05 00:00: 00 Dose 2022-0 No Unknown 5-05 00:00: 00 Dose 2022-0 No Unknown 5-05 00:00: 00 Dose 2022-0 No Unknown 5-05 00:00: 00 Dose 2022-0 No Unknown 5-05 00:00: 00 Dose 2022-0 No Unknown 5-05 00:00: 00 Dose 2022-0 No Unknown 5-05 00:00: 00 Dose 2022-0 No Unknown 5-05 00:00: 00 Dose 2022-0 No Unknown 5-05 00:00: 00 Dose 2022-0 No Unknown 5-05 00:00: 00 Dose 2022-0 No Unknown 5-05 00:00: 00 Dose 2022-0 No Unknown 5-05 00:00: 00 Dose 2022-0 No Unknown 5-05 00:00: 00 Dose 2022-0 No Unknown 5-05 00:00: 00 Dose 2022-0 No Unknown 5-05 00:00: 00 Dose 2022-0 No Unknown 5-05 00:00: 00 Dose 2022-0 No Unknown 5-05 00:00: 00 Dose 2022-0 No Unknown 5-05 00:00: 00 Dose 2022-0 No Unknown 5-05 00:00: 00 Dose 2022-0 No Unknown 5-05 00:00: 00 Dose 2022-0 No Unknown 5-05 00:00: 00 Dose 2022-0 No Unknown 5-05 00:00: 00 Dose 2022-0 No Unknown 5-05 00:00: 00 Dose 2022-0 No Unknown 5-05 00:00: 00 Dose 2022-0 No Unknown 5-05 00:00: 00 Dose 2022-0 No Unknown 5-05 00:00: 00 Dose 2022-0 No Unknown 5-05 00:00: 00 Dose 2022-0 No Unknown 5-05 00:00: 00 Dose 2022-0 No Unknown 5-05 00:00: 00 Dose 2022-0 No Unknown 5-05 00:00: 00 Dose 2022-0 No Unknown 5-05 00:00: 00 Dose 2022-0 No Unknown 5-05 00:00: 00 Dose 2022-0 No Unknown 5-05 00:00: 00 Dose 2022-0 No Unknown 5-05 00:00: 00 Dose 2022-0 No Unknown 5-05 00:00: 00 Dose 2022-0 No Unknown 5-05 00:00: 00 Dose 2022-0 No Unknown 5-05 00:00: 00 Dose 2022-0 No Unknown 5-05 00:00: 00 Dose 2022-0 No Unknown 5-05 00:00: 00 Dose 2022-0 No Unknown 5-05 00:00: 00 Dose 2022-0 No Unknown 5-05 00:00: 00 Dose 2022-0 No Unknown 5-05 00:00: 00 Dose 2022-0 No Unknown 5-05 00:00: 00 Dose 2022-0 No Unknown 5-05 00:00: 00 Dose 2022-0 No Unknown 5-05 00:00: 00 Dose 2022-0 No Unknown 5-05 00:00: 00 Dose 2022-0 No Unknown 5-05 00:00: 00 Dose 2022-0 No Unknown 5-05 00:00: 00 Dose 2022-0 No Unknown 5-05 00:00: 00 Dose 2022-0 No Unknown 5-05 00:00: 00 Dose 2022-0 No Unknown 5-05 00:00: 00 Dose 2022-0 No Unknown 5-05 00:00: 00 Dose 2022-0 No Unknown 5-05 00:00: 00 Dose 2022-0 No Unknown 5-05 00:00: 00 Dose 2022-0 No Unknown 5-05 00:00: 00 Dose 2022-0 No Unknown 5-05 00:00: 00 Dose 2022-0 No Unknown 5-05 00:00: 00 Dose 2022-0 No Unknown 5-05 00:00: 00 Dose 2022-0 No Unknown 5-05 00:00: 00 Dose 2022-0 No Unknown 5-05 00:00: 00 Dose 2022-0 No Unknown 5-05 00:00: 00 Dose 2022-0 No Unknown 5-05 00:00: 00 Dose 2022-0 No Unknown 5-05 00:00: 00 Dose 2022-0 No Unknown 5-05 00:00: 00 Dose 2022-0 No Unknown 5-05 00:00: 00 Dose 2022-0 No Unknown 5-05 00:00: 00 Dose 2022-0 No Unknown 5-05 00:00: 00 Dose 2022-0 No Unknown 5-05 00:00: 00 Dose 2022-0 No Unknown 5-05 00:00: 00 Dose 2022-0 No Unknown 5-05 00:00: 00 Dose 2022-0 No Unknown 5-05 00:00: 00 Dose 2022-0 No Unknown 5-05 00:00: 00 Dose 2022-0 No Unknown 5-05 00:00: 00 Dose 2022-0 No Unknown 5-05 00:00: 00 Dose 2022-0 No Unknown 5-05 00:00: 00 Dose 2022-0 No Unknown 5-05 00:00: 00 Dose 2022-0 No Unknown 5-05 00:00: 00 Dose 2022-0 No Unknown 5-05 00:00: 00 Dose 2022-0 No Unknown 5-05 00:00: 00 Dose 2022-0 No Unknown 5-05 00:00: 00 Dose 2022-0 No Unknown 5-05 00:00: 00 Dose 2022-0 No Unknown 5-05 00:00: 00 Dose 2022-0 No Unknown 5-05 00:00: 00 Dose 2022-0 No Unknown 5-05 00:00: 00 Dose 2022-0 No Unknown 5-05 00:00: 00 Dose 2022-0 No Unknown 5-05 00:00: 00 Dose 2022-0 No Unknown 5-05 00:00: 00 Dose 2022-0 No Unknown 5-05 00:00: 00 Dose 2022-0 No Unknown 5-05 00:00: 00 Dose 2022-0 No Unknown 5-05 00:00: 00 Dose 2022-0 No Unknown 5-05 00:00: 00 Dose 2022-0 No Unknown 5-05 00:00: 00 Dose 2022-0 No Unknown 5-05 00:00: 00 Dose 2022-0 No Unknown 5-05 00:00: 00 Dose 2022-0 No Unknown 5-05 00:00: 00 Dose 2022-0 No Unknown 5-05 00:00: 00 Dose 2022-0 No Unknown 5-05 00:00: 00 Dose 2022-0 No Unknown 5-05 00:00: 00 Dose 2022-0 No Unknown 5-05 00:00: 00 Dose 2022-0 No Unknown 5-05 00:00: 00 Dose 2022-0 No Unknown 5-05 00:00: 00 Dose 2022-0 No Unknown 5-05 00:00: 00 Dose 2022-0 No Unknown 5-05 00:00: 00 Dose 2022-0 No Unknown 5-05 00:00: 00 Dose 2022-0 No Unknown 5-05 00:00: 00 Dose 2022-0 No Unknown 5-05 00:00: 00 Dose 2022-0 No Unknown 5-05 00:00: 00 Dose 2022-0 No Unknown 5-05 00:00: 00 Dose 2022-0 No Unknown 5-05 00:00: 00 Dose 2022-0 No Unknown 5-05 00:00: 00 Dose 2022-0 No Unknown 5-05 00:00: 00 Dose 2022-0 No Unknown 5-05 00:00: 00 Dose 2022-0 No Unknown 5-05 00:00: 00 Dose 2022-0 No Unknown 5-05 00:00: 00 Dose 2022-0 No Unknown 5-05 00:00: 00 Dose 2022-0 No Unknown 5-05 00:00: 00 Dose 2022-0 No Unknown 5-05 00:00: 00 Dose 2022-0 No Unknown 5-05 00:00: 00 Dose 2022-0 No Unknown 5-05 00:00: 00 Dose 2022-0 No Unknown 5-05 00:00: 00 Dose 2022-0 No Unknown 5-05 00:00: 00 Dose 2022-0 No Unknown 5-05 00:00: 00 Dose 2022-0 No Unknown 5-05 00:00: 00 Dose 2022-0 No Unknown 5-05 00:00: 00 Dose 2022-0 No Unknown 5-05 00:00: 00 Dose 2022-0 No Unknown 5-05 00:00: 00 Dose 2022-0 No Unknown 5-05 00:00: 00 Dose 2022-0 No Unknown 5-05 00:00: 00 Dose 2022-0 No Unknown 5-05 00:00: 00 Dose 2022-0 No Unknown 5-05 00:00: 00 Dose 2022-0 No Unknown 5-05 00:00: 00 Dose 2022-0 No Unknown 5-05 00:00: 00 Dose 2022-0 No Unknown 5-05 00:00: 00 Dose 2022-0 No Unknown 5-05 00:00: 00 Dose 2022-0 No Unknown 5-05 00:00: 00 Dose 2022-0 No Unknown 5-05 00:00: 00 Dose 2022-0 No Unknown 5-05 00:00: 00 Dose 2022-0 No Unknown 5-05 00:00: 00 Dose 2022-0 No Unknown 5-05 00:00: 00 Dose 2022-0 No Unknown 5-05 00:00: 00 Dose 2022-0 No Unknown 5-05 00:00: 00 Dose 2022-0 No Unknown 5-05 00:00: 00 Dose 2022-0 No Unknown 5-05 00:00: 00 Dose 2022-0 No Unknown 5-05 00:00: 00 Dose 2022-0 No Unknown 5-05 00:00: 00 Dose 2022-0 No Unknown 5-05 00:00: 00 Dose 2022-0 No Unknown 5-05 00:00: 00 Dose 2022-0 No Unknown 5-05 00:00: 00 Dose 2022-0 No Unknown 5-05 00:00: 00 Dose 2022-0 No Unknown 5-05 00:00: 00 Dose 2022-0 No Unknown 5-05 00:00: 00 Dose 2022-0 No Unknown 5-05 00:00: 00 Dose 2022-0 No Unknown 5-05 00:00: 00 Dose 2022-0 No Unknown 5-05 00:00: 00 Dose 2022-0 No Unknown 5-05 00:00: 00 Dose 2022-0 No Unknown 5-05 00:00: 00 Dose 2022-0 No Unknown 5-05 00:00: 00 Dose 2022-0 No Unknown 5-05 00:00: 00 Dose 2022-0 No Unknown 5-05 00:00: 00 Dose 2022-0 No Unknown 5-05 00:00: 00 Dose 2022-0 No Unknown 5-05 00:00: 00 Dose 2022-0 No Unknown 5-05 00:00: 00 Dose 2022-0 No Unknown 5-05 00:00: 00 Dose 2022-0 No Unknown 5-05 00:00: 00 Dose 2022-0 No Unknown 5-05 00:00: 00 Dose 2022-0 No Unknown 5-05 00:00: 00 Dose 2022-0 No Unknown 5-05 00:00: 00 Dose 2022-0 No Unknown 5-05 00:00: 00 Dose 2022-0 No Unknown 5-05 00:00: 00 Dose 2022-0 No Unknown 5-05 00:00: 00 Dose 2022-0 No Unknown 5-05 00:00: 00 Dose 2022-0 No Unknown 5-05 00:00: 00 Dose 2022-0 No Unknown 5-05 00:00: 00 Dose 2022-0 No Unknown 5-05 00:00: 00 Dose 2022-0 No Unknown 5-05 00:00: 00 Dose 2022-0 No Unknown 5-05 00:00: 00 Dose 2022-0 No Unknown 5-05 00:00: 00 Dose 2022-0 No Unknown 5-05 00:00: 00 Dose 2022-0 No Unknown 5-05 00:00: 00 Dose 2022-0 No Unknown 5-05 00:00: 00 Dose 2022-0 No Unknown 5-05 00:00: 00 Dose 2022-0 No Unknown 5-05 00:00: 00 Dose 2022-0 No Unknown 5-05 00:00: 00 Dose 2022-0 No Unknown 5-05 00:00: 00 Dose 2022-0 No Unknown 5-05 00:00: 00 Dose 2022-0 No Unknown 5-05 00:00: 00 Dose 2022-0 No Unknown 5-05 00:00: 00 Dose 2022-0 No Unknown 5-05 00:00: 00 Dose 2022-0 No Unknown 5-05 00:00: 00 Dose 2022-0 No Unknown 5-05 00:00: 00 Dose 2022-0 No Unknown 5-05 00:00: 00 Dose 2022-0 No Unknown 5-05 00:00: 00 Dose 2022-0 No Unknown 5-05 00:00: 00 Dose 2022-0 No Unknown 5-05 00:00: 00 Dose 2022-0 No Unknown 5-05 00:00: 00 Dose 2022-0 No Unknown 5-05 00:00: 00 Dose 2022-0 No Unknown 5-05 00:00: 00 Dose 2022-0 No Unknown 5-05 00:00: 00 Dose 2022-0 No Unknown 5-05 00:00: 00 Dose 2022-0 No Unknown 5-05 00:00: 00 Dose 2022-0 No Unknown 5-05 00:00: 00 Dose 2022-0 No Unknown 5-05 00:00: 00 Dose 2022-0 No Unknown 5-05 00:00: 00 Dose 2022-0 No Unknown 5-05 00:00: 00 Dose 2022-0 No Unknown 5-05 00:00: 00 Dose 2022-0 No Unknown 5-05 00:00: 00 Dose 2022-0 No Unknown 5-05 00:00: 00 Dose 2022-0 No Unknown 5-05 00:00: 00 Dose 2022-0 No Unknown 5-05 00:00: 00 Dose 2022-0 No Unknown 5-05 00:00: 00 Dose 2022-0 No Unknown 5-05 00:00: 00 Dose 2022-0 No Unknown 5-05 00:00: 00 Dose 2022-0 No Unknown 5-05 00:00: 00 Dose 2022-0 No Unknown 5-05 00:00: 00 Dose 2022-0 No Unknown 5-05 00:00: 00 Dose 2022-0 No Unknown 5-05 00:00: 00 Dose 2022-0 No Unknown 5-05 00:00: 00 Dose 2022-0 No Unknown 5-05 00:00: 00 Dose 2022-0 No Unknown 5-05 00:00: 00 Dose 2022-0 No Unknown 5-05 00:00: 00 Dose 2022-0 No Unknown 5-05 00:00: 00 Dose 2022-0 No Unknown 5-05 00:00: 00 Dose 2022-0 No Unknown 5-05 00:00: 00 Dose 2022-0 No Unknown 5-05 00:00: 00 Dose 2022-0 No Unknown 5-05 00:00: 00 Dose 2022-0 No Unknown 5-05 00:00: 00 Dose 2022-0 No Unknown 5-05 00:00: 00 Dose 2022-0 No Unknown 5-05 00:00: 00 Dose 2022-0 No Unknown 5-05 00:00: 00 Dose 2022-0 No Unknown 5-05 00:00: 00 Dose 2022-0 No Unknown 5-05 00:00: 00 Dose 2022-0 No Unknown 5-05 00:00: 00 Dose 2022-0 No Unknown 5-05 00:00: 00 Dose 2022-0 No Unknown 5-05 00:00: 00 Dose 2022-0 No Unknown 5-05 00:00: 00 Dose 2022-0 No Unknown 5-05 00:00: 00 Dose 2022-0 No Unknown 5-05 00:00: 00 Dose 2022-0 No Unknown 5-05 00:00: 00 Dose 2022-0 No Unknown 5-05 00:00: 00 Dose 2022-0 No Unknown 5-05 00:00: 00 Dose 2022-0 No Unknown 5-05 00:00: 00 Dose 2022-0 No Unknown 5-05 00:00: 00 Dose 2022-0 No Unknown 5-05 00:00: 00 Dose 2022-0 No Unknown 5-05 00:00: 00 Dose 2022-0 No Unknown 5-05 00:00: 00 Dose 2022-0 No Unknown 5-05 00:00: 00 Dose 2022-0 No Unknown 5-05 00:00: 00 Dose 2022-0 No Unknown 5-05 00:00: 00 Dose 2022-0 No Unknown 5-04 00:00: 00 Dose 2022-0 No Unknown 5-04 00:00: 00 Dose 2022-0 No Unknown 5-04 00:00: 00 Dose 2022-0 No Unknown 5-04 00:00: 00 Dose 2022-0 No Unknown 5-04 00:00: 00 Dose 2022-0 No Unknown 5-04 00:00: 00 Dose 2022-0 No Unknown 5-04 00:00: 00 Dose 2022-0 No Unknown 5-04 00:00: 00 Dose 2021-1 No Unknown 1-10 00:00: 00 Dose 2021-1 No Unknown 1-10 00:00: 00 Dose 2021-1 No Unknown 1-10 00:00: 00 Dose 2021-1 No Unknown 1-10 00:00: 00 Dose 2021-0 No Unknown 8-31 00:00: 00 Dose 2021-0 No Unknown 8-31 00:00: 00 Dose 2021-0 No Unknown 8-31 00:00: 00 Dose 2021-0 No Unknown 8-31 00:00: 00 Dose 2021-0 No Unknown 6-04 00:00: 00 Dose 2021-0 No Unknown 6-04 00:00: 00 Dose 2021-0 No Unknown 6-04 00:00: 00 Dose 2021-0 No Unknown 6-04 00:00: 00 Dose 2021-0 No Unknown 5-27 00:00: 00 Dose 2021-0 No Unknown 5-27 00:00: 00 Dose 2021-0 No Unknown 5-27 00:00: 00 Dose 2021-0 No Unknown 5-27 00:00: 00 Dose 2021-0 No Unknown 5-27 00:00: 00 Dose 2021-0 No Unknown 5-27 00:00: 00 Dose 2021-0 No Unknown 5-27 00:00: 00 Dose 2021-0 No Unknown 5-27 00:00: 00 Dose 2021-0 No Unknown 4-27 00:00: 00 Dose 2021-0 No Unknown 4-27 00:00: 00 Strattera 2021-0 No 1mg 40 mg 4-27 capsule 00:00: 00 Strattera 2021-0 No 1mg 40 mg 4-27 capsule 00:00: 00 Dose 2021-0 No Unknown 4-27 00:00: 00 Strattera 2021-0 No 1mg 40 mg 4-27 capsule 00:00: 00 Dose 2021-0 No Unknown 4-27 00:00: 00 Strattera 2021-0 No 1mg 40 mg 4-27 capsule 00:00: 00 Dose 2021-0 No Unknown 4-02 00:00: 00 Strattera 2021-0 No 1mg 40 mg 4-02 capsule 00:00: 00 Dose 2021-0 No Unknown 4-02 00:00: 00 Strattera 2021-0 No 1mg 40 mg 4-02 capsule 00:00: 00 Dose 2021-0 No Unknown 4-02 00:00: 00 Strattera 2021-0 No 1mg 40 mg 4-02 capsule 00:00: 00 Dose 2021-0 No Unknown 4-02 00:00: 00 Strattera 2021-0 No 1mg 40 mg 4-02 capsule 00:00: 00 benzonatate 2021-0 No 1mg 100 mg 3-09 capsule 00:00: 00 benzonatate 2021-0 No 1mg 100 mg 3-09 capsule 00:00: 00 benzonatate 2021-0 No 1mg 100 mg 3-09 capsule 00:00: 00 benzonatate 2021-0 No 1mg 100 mg 3-09 capsule 00:00: 00 Lexapro 10 2021-0 No 1mg mg tablet 3-05 00:00: 00 Strattera 2021-0 No 1mg 40 mg 3-05 capsule 00:00: 00 Lexapro 10 2021-0 No 1mg mg tablet 3-05 00:00: 00 Strattera 2021-0 No 1mg 40 mg 3-05 capsule 00:00: 00 Lexapro 10 2021-0 No 1mg mg tablet 3-05 00:00: 00 Strattera 2021-0 No 1mg 40 mg 3-05 capsule 00:00: 00 Lexapro 10 2021-0 No 1mg mg tablet 3-05 00:00: 00 Strattera 2021-0 No 1mg 40 mg 3-05 capsule 00:00: 00 Lexapro 10 2021-0 No 1mg mg tablet 2-10 00:00: 00 Strattera 2021-0 No 1mg 40 mg 2-10 capsule 00:00: 00 Lexapro 10 2021-0 No 1mg mg tablet 2-10 00:00: 00 Strattera 1-0 No 1mg 40 mg 2-10 capsule 00:00: 00 Lexapro 10 1-0 No 1mg mg tablet 2-10 00:00: 00 Strattera 1-0 No 1mg 40 mg 2-10 capsule 00:00: 00 Lexapro 10 1-0 No 1mg mg tablet 2-10 00:00: 00 Strattera 1-0 No 1mg 40 mg 2-10 capsule 00:00: 00 Lexapro 10 2020-0 No 1mg mg tablet 1-07 00:00: 00 Strattera 1-0 No 1mg 40 mg 1-07 capsule 00:00: 00 Lexapro 10 2020-0 No 1mg mg tablet 1-07 00:00: 00 Strattera 2020-0 No 1mg 40 mg 1-07 capsule 00:00: 00 Lexapro 10 2020-0 No 1mg mg tablet 1-07 00:00: 00 Strattera 2020-0 No 1mg 40 mg 1-07 capsule 00:00: 00 Lexapro 10 2020-0 No 1mg mg tablet 1-07 00:00: 00 Strattera 1-0 No 1mg 40 mg 1-07 capsule 00:00: 00 Lexapro 10 2019-1 No 1mg mg tablet 2-11 00:00: 00 [place] 2019-1 No 1mg 40 mg 2-11 capsule 00:00: 00 Lexapro 10 2019-1 No 1mg mg tablet 2-11 00:00: 00 [place] 2020-1 No 1mg 40 mg 2-11 capsule 00:00: 00 Lexapro 10 2019-1 No 1mg mg tablet 2-11 00:00: 00 [place] 2020-1 No 1mg 40 mg 2-11 capsule 00:00: 00 Lexapro 10 2019-1 No 1mg mg tablet 2-11 00:00: 00 [place] 2020-1 No 1mg 40 mg 2-11 capsule 00:00: 00 [place] 2020-1 No 1mg 40 mg 1-25 capsule 00:00: 00 [place] 2020-1 No 1mg 40 mg 1-25 capsule 00:00: 00 [place] 2020-1 No 1mg 40 mg 1-25 capsule 00:00: 00 [place] 2020-1 No 1mg 40 mg 1-25 capsule 00:00: 00 Lexapro 10 2019-1 No 1mg mg tablet 1-12 00:00: 00 [place] 2019-1 No 1mg 25 mg 1-12 capsule 00:00: 00 Lexapro 2019-1 No 1mg mg tablet 1-12 00:00: 00 [place] 2019-1 No 1mg 25 mg 1-12 capsule 00:00: 00 Lexapro 2019-1 No 1mg mg tablet 1-12 00:00: 00 [place] 2019-1 No 1mg 25 mg 1-12 capsule 00:00: 00 Lexapro 2019-1 No 1mg mg tablet 1-12 00:00: 00 [place] 2019-1 No 1mg 25 mg 1-12 capsule 00:00: 00 Lexapro 2019-1 No 1mg mg tablet 0-13 00:00: 00 hydroxyzine 2020-1 No 1mg HCl 25 mg 0-13 tablet 00:00: 00 Lexapro 2019-1 No 1mg mg tablet 0-13 00:00: 00 hydroxyzine 2019-1 No 1mg HCl 25 mg 0-13 tablet 00:00: 00 Lexapro 2019-1 No 1mg mg tablet 0-13 00:00: 00 hydroxyzine 2019-1 No 1mg HCl 25 mg 0-13 tablet 00:00: 00 Lexapro 2019-1 No 1mg mg tablet 0-13 00:00: 00 hydroxyzine 2020-1 No 1mg HCl 25 mg 0-13 tablet 00:00: 00 hydroxyzine 2020-0 No 1mg HCl 25 mg 9-17 tablet 00:00: 00 Lexapro 2019-0 No 1mg mg tablet 9-17 00:00: 00 hydroxyzine 2020-0 No 1mg HCl 25 mg 9-17 tablet 00:00: 00 Lexapro 10 2019-0 No 1mg mg tablet 9-17 00:00: 00 hydroxyzine 2020-0 No 1mg HCl 25 mg 9-17 tablet 00:00: 00 Lexapro 10 2019-0 No 1mg mg tablet 9-17 00:00: 00 hydroxyzine 2020-0 No 1mg HCl 25 mg 9-17 tablet 00:00: 00 Lexapro 10 2019-0 No 1mg mg tablet 9-17 00:00: 00 Lexapro 10 2020-0 No 1mg mg tablet 8- 00:00: 00 hydroxyzine 2020-0 No 1mg HCl 25 mg 8-19 tablet 00:00: 00 Lexapro 10 2020-0 No 1mg mg tablet 8 00:00: 00 hydroxyzine 2020-0 No 1mg HCl 25 mg 8-19 tablet 00:00: 00 Lexapro 10 2020-0 No 1mg mg tablet 8 00:00: 00 hydroxyzine 2020-0 No 1mg HCl 25 mg 8-19 tablet 00:00: 00 Lexapro 10 2020-0 No 1mg mg tablet 8 00:00: 00 hydroxyzine 2020-0 No 1mg HCl 25 mg 8-19 tablet 00:00: 00 Lexapro 10 2020-0 No 1mg mg tablet 8 00:00: 00 hydroxyzine 2020-0 No 1mg HCl 25 mg 8-06 tablet 00:00: 00 Lexapro 10 2020-0 No 1mg mg tablet 8 00:00: 00 hydroxyzine 2020-0 No 1mg HCl 25 mg 8-06 tablet 00:00: 00 Lexapro 10 2020-0 No 1mg mg tablet 8- 00:00: 00 hydroxyzine 2020-0 No 1mg HCl 25 mg 8-06 tablet 00:00: 00 Lexapro 10 2020-0 No 1mg mg tablet 8 00:00: 00 hydroxyzine 2020-0 No 1mg HCl 25 mg 8-06 tablet 00:00: 00 Keflex 500 2020-0 No 1mg mg capsule 5-08 00:00: 00 Keflex 500 2020-0 No 1mg mg capsule 5-08 00:00: 00 Keflex 500 2020-0 No 1mg mg capsule 5-08 00:00: 00 Keflex 500 2020-0 No 1mg mg capsule 5-08 00:00: 00 Bactrim DS 2020-0 No 1mg 800 mg-160 4-28 mg tablet 00:00: 00 Bactrim DS 2020-0 No 1mg 800 mg-160 4-28 mg tablet 00:00: 00 Bactrim DS 2020-0 No 1mg 800 mg-160 4-28 mg tablet 00:00: 00 Bactrim DS 2020-0 No 1mg 800 mg-160 4-28 mg tablet 00:00: 00 benzonatate Yes [id number] 200mg Take 1 [facility] 200 mg 5-17 capsule by [facility] of capsule 00:00: mouth 3 [place] 00 (three) Medical times Branch daily as needed for Cough. albuterol Yes [id number] 2{puff} Inhale 2 [facility] 90 5-17 Puffs [facility] of mcg/actuati 00:00: every 4 [place] as on inhaler 00 (four) Medical hours as Branch needed for Wheezing or Shortness of Breath. benzonatate Yes [id number] 200mg Take 1 [facility] 200 mg 5-17 capsule by [facility] of capsule 00:00: mouth 3 [place] 00 (three) Medical times [facility] daily as needed for Cough. albuterol Yes [id number] 2{puff} Inhale 2 [facility] 90 5-17 Puffs [facility] of mcg/actuati 00:00: every 4 [place] as on inhaler 00 (four) Medical hours as Branch needed for Wheezing or Shortness of Breath. norethindro Yes [id number] 1{tbl} Take 1 Univers ne-e.estrad 4-25 tablet by ity of iol-iron 00:00: mouth [place] (MICROGESTI 00 daily. Medica l N FE) 1.5 Branch mg-30 mcg (21)/75 mg (7) per tablet norethindro Yes [id number] 1{tbl} Take 1 Univers ne-e.estrad 4-25 tablet by ity of iol-iron 00:00: mouth [place] (MICROGESTI 00 daily. Medica l N FE) 1.5 Branch mg-30 mcg (21)/75 mg (7) per tablet Immunizations Ordered Filled Immunization Date Status Comments [facility] e Immunization Name Name Modernyou COVID-19 2021-07-13 Completed Vaccine 00:00:00 Moderna COVID-19 2021-07-13 Completed Vaccine 00:00:00 Moderna COVID-19 2021-07-13 Completed Vaccine 00:00:00 Moderna COVID-19 2021-07-13 Completed Vaccine 00:00:00 HPV, quadrivalent 2021-06-22 Completed 00:00:00 HPV, quadrivalent 2021-06-22 Completed 00:00:00 HPV, quadrivalent 2021-06-22 Completed 00:00:00 HPV, quadrivalent 2021-06-22 Completed 00:00:00 Moderna COVID-19 2021-06-05 Completed Vaccine 00:00:00 Moderna COVID-19 2021-06-05 Completed Vaccine 00:00:00 Moderna COVID-19 2021-06-05 Completed Vaccine 00:00:00 Moderna COVID-19 2021-06-05 Completed Vaccine 00:00:00 TD, NOS 2006-06-12 Completed University 00:00:00 [facility] TD, NOS 2006-06-12 Completed [facility] 00:00:00 [facility] Vital Signs Vital Name Observation Time Observation Value Comments Source BP Systolic 2022-09-24 08:19:00 113 mm[Hg] BP Diastolic 2022-09-24 08:19:00 76 mm[Hg] Weight Measured 2022-09-24 08:19:00 246.60 pounds Height Measured 2022-09-24 08:19:00 61.00 inches Body Temperature 2022-09-24 08:19:00 98.30 degrees Heart Rate 2022-09-24 08:19:00 95.00 /min Respiratory Rate 2022-09-24 08:19:00 18.00 /min BP Systolic 2022-09-09 08:23:00 125 mm[Hg] BP Diastolic 2022-09-09 08:23:00 77 mm[Hg] Weight Measured 2022-09-09 08:23:00 246.60 pounds Height Measured 2022-09-09 08:23:00 61.00 inches Body Temperature 2022-09-09 08:23:00 98.00 degrees Heart Rate 2022-09-09 08:23:00 79.00 /min Respiratory Rate 2022-09-09 08:23:00 18.00 /min BP Systolic 2022-07-11 16:32:00 128 mm[Hg] BP Diastolic 2022-07-11 16:32:00 84 mm[Hg] Weight Measured 2022-07-11 16:32:00 247.00 pounds Height Measured 2022-07-11 16:32:00 61.00 inches Body Temperature 2022-07-11 16:32:00 98.20 degrees Heart Rate 2022-07-11 16:32:00 82.00 /min Respiratory Rate 2022-07-11 16:32:00 18.00 /min BP Systolic 2022-05-27 13:57:00 117 mm[Hg] BP Diastolic 2022-05-27 13:57:00 81 mm[Hg] Weight Measured 2022-05-27 13:57:00 248.00 pounds Height Measured 2022-05-27 13:57:00 61.00 inches Body Temperature 2022-05-27 13:57:00 98.00 degrees Heart Rate 2022-05-27 13:57:00 84.00 /min Respiratory Rate 2022-05-27 13:57:00 16.00 /min BP Systolic 2022-02-28 08:35:00 129 mm[Hg] BP Diastolic 2022-02-28 08:35:00 85 mm[Hg] Weight Measured 2022-02-28 08:35:00 253.60 pounds Height Measured 2022-02-28 08:35:00 61.00 inches Body Temperature 2022-02-28 08:35:00 98.40 degrees Heart Rate 2022-02-28 08:35:00 77.00 /min Respiratory Rate 2022-02-28 08:35:00 BP Systolic 2021-12-21 15:30:00 129 mm[Hg] BP Diastolic 2021-12-21 15:30:00 83 mm[Hg] Weight Measured 2021-12-21 15:30:00 258.60 pounds Height Measured 2021-12-21 15:30:00 61.00 inches Body Temperature 2021-12-21 15:30:00 98.20 degrees Heart Rate 2021-12-21 15:30:00 78.00 /min Respiratory Rate 2021-12-21 15:30:00 18.00 /min BP Systolic 2021-06-22 14:32:00 130 mm[Hg] BP Diastolic 2021-06-22 14:32:00 84 mm[Hg] Weight Measured 2021-06-22 14:32:00 252.00 pounds Height Measured 2021-06-22 14:32:00 61.00 inches Body Temperature 2021-06-22 14:32:00 99.70 degrees Heart Rate 2021-06-22 14:32:00 76.00 /min Respiratory Rate 2021-06-22 14:32:00 17.00 /min BP Systolic 2021-02-20 08:58:00 BP Diastolic 2021-02-20 08:58:00 Weight Measured 2021-02-20 08:58:00 225.00 pounds Height Measured 2021-02-20 08:58:00 61.00 inches Body Temperature 2021-02-20 08:58:00 Heart Rate 2021-02-20 08:58:00 Respiratory Rate 2021-02-20 08:58:00 BP Systolic 2020-02-22 10:08:00 130 mm[Hg] BP Diastolic 2020-02-22 10:08:00 81 mm[Hg] Weight Measured 2020-02-22 10:08:00 259.60 pounds Height Measured 2020-02-22 10:08:00 62.00 inches Body Temperature 2020-02-22 10:08:00 98.80 degrees Heart Rate 2020-02-22 10:08:00 78.00 /min Respiratory Rate 2020-02-22 10:08:00 16.00 /min Procedures Procedure Date / Time Performed Performing Clinician [facility] e CT ABDOMEN PELVIS WO 2023-01-23 13:40:50 Requisition, Paper [facility] CONTRAST Medical Branch CONSENT/REFUSAL FOR 2023-01-23 13:40:49 [facility] Branch TREATMENT ASSIGNMENT OF BENEFITS 2023-01-23 13:40:33 Doctor Unassigned, No [facility] Name Medical Branch CONSENT/REFUSAL FOR 2023-01-23 13:26:32 Doctor [facility]igned, [facility] Name Medical Branch TREATMENT ASSIGNMENT OF BENEFITS 2023-01-23 13:26:18 Doctor Unassigned, No [facility] Name Medical Branch CONSENT/REFUSAL FOR 2023-01-10 14:28:19 Doctor [facility]igned, [facility] Name Medical Branch TREATMENT ASSIGNMENT OF BENEFITS 2023-01-10 14:28:06 Doctor Unassigned, No [facility] Name Medical Branch Plan of Care Planned Activity Planned Date Details Comments Source Goal Plan of Care Note [code = 66460-1] Goal Plan of Care Note [code = 67771-0] Goal Plan of Care Note [code = 80163-6] Goal Plan of Care Note [code = 50970-4] Goal Plan of Care Note [code = 16732-8] Goal Plan of Care Note [code = 53860-2] Goal Plan of Care Note [code = 15487-9] Goal Plan of Care Note [code = 16774-4] Goal Plan of Care Note [code = 47057-5] Goal Plan of Care Note [code = 98224-9] Goal Plan of Care Note [code = 36187-1] Goal Plan of Care Note [code = 97708-2] Goal Plan of Care Note [code = 46000-9] Goal Plan of Care Note [code = 93392-1] Goal Plan of Care Note [code = 20652-7] Goal Plan of Care Note [code = 73283-4] Goal Plan of Care Note [code = 35646-5] Goal Plan of Care Note [code = 65655-8] Goal Plan of Care Note [code = 64045-7] Goal Plan of Care Note [code = 24714-9] Goal Plan of Care Note [code = 75320-3] Goal Plan of Care Note [code = 08294-9] Goal Plan of Care Note [code = 06260-3] Goal Plan of Care Note [code = 56975-1] Goal Plan of Care Note [code = 65298-3] Goal Plan of Care Note [code = 35460-6] Goal Plan of Care Note [code = 70090-0] Goal Plan of Care Note [code = 21265-4] Goal Plan of Care Note [code = 38891-7] Goal Plan of Care Note [code = 77636-2] Goal Plan of Care Note [code = 03560-3] Goal Plan of Care Note [code = 03327-2] Goal Plan of Care Note [code = 95672-7] Goal Plan of Care Note [code = 35580-8] Goal Plan of Care Note [code = 33256-7] Goal Plan of Care Note [code = 93996-1] Goal Plan of Care Note [code = 32274-7] Goal Plan of Care Note [code = 05294-4] Goal Plan of Care Note [code = 68070-1] Goal Plan of Care Note [code = 77327-3] Goal Plan of Care Note [code = 72695-1] Goal Plan of Care Note [code = 72483-2] Goal Plan of Care Note [code = 48586-5] Goal Plan of Care Note [code = 58392-7] Goal Plan of Care Note [code = 20556-1] Goal Plan of Care Note [code = 71928-3] Goal Plan of Care Note [code = 06229-1] Goal Plan of Care Note [code = 09909-9] Goal Plan of Care Note [code = 69318-3] Goal Plan of Care Note [code = 56756-4] Goal Plan of Care Note [code = 38718-3] Goal Plan of Care Note [code = 76027-2] Goal Plan of Care Note [code = 37133-1] Goal Plan of Care Note [code = 09931-6] Goal Plan of Care Note [code = 42596-3] Goal Plan of Care Note [code = 10096-3] Goal Plan of Care Note [code = 23054-7] Goal Plan of Care Note [code = 24222-1] Goal Plan of Care Note [code = 06804-5] Goal Plan of Care Note [code = 55840-7] Goal Plan of Care Note [code = 41530-6] Goal Plan of Care Note [code = 15016-3] Goal Plan of Care Note [code = 39952-4] Goal Plan of Care Note [code = 89211-5] Goal Plan of Care Note [code = 73313-2] Goal Plan of Care Note [code = 72358-0] Goal Plan of Care Note [code = 76601-7] Goal Plan of Care Note [code = 61547-9] Goal Plan of Care Note [code = 89473-3] Goal Plan of Care Note [code = 31839-9] Goal Plan of Care Note [code = 10708-6] Goal Plan of Care Note [code = 40486-7] Goal Plan of Care Note [code = 82209-6] Goal Plan of Care Note [code = 05518-2] Goal Plan of Care Note [code = 25056-6] Goal Plan of Care Note [code = 32469-3] Goal Plan of Care Note [code = 67388-2] Goal Plan of Care Note [code = 99846-7] Goal Plan of Care Note [code = 34345-1] Goal Plan of Care Note [code = 62137-7] Goal Plan of Care Note [code = 11161-1] Goal Plan of Care Note [code = 51945-6] Goal Plan of Care Note [code = 39808-2] Goal Plan of Care Note [code = 39143-7] Goal Plan of Care Note [code = 91462-3] Goal Plan of Care Note [code = 88052-3] Goal Plan of Care Note [code = 63249-2] Goal Plan of Care Note [code = 83671-7] Goal Plan of Care Note [code = 63857-3] Goal Plan of Care Note [code = 99763-7] Goal Plan of Care Note [code = 00485-5] Goal Plan of Care Note [code = 94514-4] Encounters Start End Encounter Admission Attending Care Care Encounter Source Date/Time Date/Time Type Type Clinicians Facility Department ID 2023-01-23 2023-01-23 Outpatient R RADIOLOGY [facility] [id number] Univers 08:26:34 23:59:00 ity of [facility] 2023-01-23 2023-01-23 [facility] Radiology [facility] [id number] Univers 08:26:34 23:59:00 Encounter [place] 350.1.13.10 ity of [place] 4.2.7.2.686 [facility] [id number] [facility] 801 Branch 2023-01-10 2023-01-10 Outpatient R RADIOLOGY [facility] [id number] Univers 00:00:00 00:00:00 ity of [facility] 2023-01-10 2023-01-10 Orders Doctor FITZPATRICK [id number] Univers 00:00:00 00:00:00 Only Unassigned, PAMELA 350.1.13.10 [facility] 4.2.7.2.686 [facility] [id number] [facility] 009 Branch 2023-01-09 2023-01-09 Outpatient SFA SFA [id number] 023 [place] 14:48:49 14:48:49 0316 F [place] 2022-12-12 2022-12-12 Outpatient SFA SFA [id number] 023 [place] 08:09:41 08:09:41 0216 F Shahz[place] 2022-10-17 2022-10-17 Outpatient SFA SFA [id number] 022 [place] 09:02:24 09:02:24 1222 F Shahzad 2022-09-24 2022-09-24 Outpatient SFA SFA [id number] 022 [place] 08:04:17 08:04:17 1129 F Shahzad 2022-09-24 2022-09-24 Outpatient [id number]- [id number]-4 00:00:00 00:00:00 Visit 3153-431b 153-431b-b -[id number] [id number] 2022-09-09 2022-09-09 Outpatient SFA SFA [id number] 022 [place] 08:06:27 08:06:27 1114 F Shahzad 2022-09-09 2022-09-09 Outpatient [id number]- [id number] [id number] 00:00:00 00:00:00 Visit 278e-4edd 78e-4edd-9 -50f5-a05 7g0-w4895l 47ew49d3h e24a8e 2022-07-11 2022-07-11 Outpatient [id number] 00:00:00 00:00:00 Visit 0n13-3361 p70-2149-b -g0k9-s7e 0k7-w4np77 [id number] 7b71b9 2022-05-27 2022-05-27 Outpatient [id number]- [id number] txa615-4 00:00:00 00:00:00 Visit 2pc8-4162 fe7-4235-8 -8454-d8d 454-d8d2f1 [id number] 7t4100 Results Test Description Test Time Test Comments Results Result Comments Source LIPID PANEL 2022-12-13 05:14:36 Test Item Value Reference Range Interpretation Comme nts CHOLESTEROL (test code = 2210) 146 MG/DL <200 TRIGLYCERIDES (test code = 2232) 56 MG/DL <150 HDL CHOLESTEROL (test code = 63 MG/DL >39 2220) CALC LDL CHOL (test code = 2237) 69 MG/DL <100 NOTE: CALCULATED LDL IS BASED ON DEBBIE-JONES METHOD WHICHINCLUDES A DJUSTABLE TRIGLYCERIDE:VL DL CHOLESTEROL RATIO.THIS FACT OR VARIES BY MEASURED TRIGLY CERIDE AND NON-HDLCHOLESTE ROL CONCENTRATIONS WITH INCREASED CALCULATED LDL SEENIN HIGHER T RIGLYCERIDE OR LOWER NON-HDL S PECIMENS. FOR MOREINFORMATION , SEE CLIENT ANNOUNCEMENT AT [email or web address] LDL/HDL (test code = 1.10 RATIO <3.22 [facility] has important pathology 2238) staff changes e ffective 12/25/2022. New pathology staff will prov darien uninterrupted, excellent patie nt care and clinical consul tation. See URL: [email or web address]. UNLESS OTHERWIS E INDICATED, ALL TESTING PERFORM [facility]. [address] [place] [address] CLIA: [id number], CAP : [id number] COMPREHENSIVE METABOLIC [id number] 05:14:36 Test Item Value Reference Range Interpretation Comments GLUCOSE (test code = 90 MG/DL 70-99 2216) BUN (test code = 15 MG/DL 6-20 2207) CREATININE (test 0.62 MG/DL 0.60-1.30 code = 2214) eGFR (2020 CKD-EPI) 122 >60 (test code = 97006) ML/MIN/1.73 CALC BUN/CREAT (test 24 RATIO 6-28 code = 2235) SODIUM (test code = 140 MEQ/L 617-035 4466) POTASSIUM (test code 4.3 MEQ/L 3.5-5.4 = 2227) CHLORIDE (test code 106 MEQ/L 95-107 = 2215) CARBON DIOXIDE (test 22 MEQ/L 19-31 code = 2206) CALCIUM (test code = 9.2 MG/DL 8.5-10.5 2208) PROTEIN, TOTAL (test 7.2 G/DL 6.1-8.3 code = 2229) ALBUMIN (test code = 4.1 G/DL 3.5-5.2 2200) CALC GLOBULIN (test 3.1 G/DL 1.9-3.7 code = 2240) CALC A/G RATIO (test 1.3 RATIO 1.0-2.6 code = 2234) BILIRUBIN, TOTAL 0.3 MG/DL See_Comment [Automated message] (test code = 2207) The syste m which generated this result transmit jairo reference range : <=1.2. The refe rence range was not u sed to interpret th is result as normal/abnormal . ALKALINE PHOSPHATASE 104 U/L 40-114 (test code = 4) AST (test code = 14 U/L 9-40 8) ALT (test code = 12 U/L 5-40 2218) TSH, THIRD [id number] 04:52:38 Test Item Value Reference Range Interpretation Comments TSH, THIRD GENERATION (test code 1.600 UIU/ML 0.400-4.100 = 2821) CBC W/AUTO DIFF WITH [id number] 03:36:09 Test Item Value Reference Range Interpretation Comments WBC (test code = 8.3 K/UL 3.5-11.0 1001) RBC (test code = 4.59 M/UL 3.80-5.40 1002) HEMOGLOBIN (test code 9.9 G/DL 11.5-15.5 L = 1003) HEMATOCRIT (test code 33.4 % 34.0-45.0 L = 1004) MCV (test code = 72.8 fL 80.0-99.0 L 1005) MCH (test code = 21.6 PG 25.0-33.0 L 1006) MCHC (test code = 29.6 G/DL 31.0-36.0 L 1007) RDW (test code = 15.1 % 11.5-15.0 H 1038) NEUTROPHILS (test 64.2 % code = 1008) LYMPHOCYTES (test 25.3 % code = 1010) MONOCYTES (test code 5.3 % = 1011) EOSINOPHILS (test 4.4 % code = 1012) BASOPHILS (test code 0.6 % = 1013) IMMATURE GRANULOCYTES 0.2 % (test code = 1036) NUCLEATED RBCS (test 0.0 /100 WBC'S See_Comment [Aut omated code = 1065) message] The sy stem which generated this result transmitted reference range : 0.0. The refere nce range was not u sed to interpret th is result as normal/abnormal . PLATELET COUNT (test 398 K/UL 130-400 code = 1015) ABSOLUTE NEUTROPHILS 5.30 K/UL 1.50-7.50 (test code = 1066) ABSOLUTE LYMPHOCYTES 2.09 K/UL 1.00-4.00 (test code = 1067) ABSOLUTE MONOCYTES 0.44 K/UL 0.20-1.00 (test code = 1068) ABSOLUTE EOSINOPHILS 0.36 K/UL 0.00-0.50 (test code = 1040) ABSOLUTE BASOPHILS 0.05 K/UL 0.00-0.20 (test code = 1069) ABS IMMATURE 0.02 K/UL 0.00-0.10 GRANULOCYTES (test code = 1020) ABS NUCLEATED RBCS 0.00 K/UL 0.00-0.11 (test code = 26765) LIPID [id number] 04:50:15 Test Item Value Reference Range Interpretation Comments CHOLESTEROL (test 150 MG/DL <200 code = 2210) TRIGLYCERIDES (test 59 MG/DL <150 code = 2232) HDL CHOLESTEROL (test 55 MG/DL >39 code = 2220) CALC LDL CHOL (test 81 MG/DL <100 NOTE: C ALCULATED LDL code = 2237) IS BASED ON DEBBIE-JONES METHOD WHICHINCLUDES ADJUSTABLE TRIGLYCERIDE:VL DL CHOLESTEROL RAT IO.THIS FACTOR VARIES B Y MEASURED TRIGLY CERIDE AND NON-HDLCHOL ESTEROL CONCENTRATIONS WITH INCREASED CALCU LATED LDL SEENIN HIGH ER TRIGLYCERIDE OR LOWER NON-HDL SPECIME NS. FOR MOREINFORMATION , SEE CLIENT ANNOUNCE MENT AT [email or web address] LDL/HDL 1.47 RATIO <3.22 (test code = 2238) COMPREHENSIVE METABOLIC [id number] 04:50:15 Test Item Value Reference Range Interpretation Comments GLUCOSE (test code = 96 MG/DL 70-99 2216) BUN (test code = 12 MG/DL -2207) CREATININE (test 0.65 MG/DL 0.60-1.30 code = 2214) eGFR (2020 CKD-EPI) 121 >60 (test code = 17567) ML/MIN/1.73 CALC BUN/CREAT (test 18 RATIO 6-28 code = 2235) SODIUM (test code = 140 MEQ/L 112-652 0688) POTASSIUM (test code 4.4 MEQ/L 3.5-5.4 = 2227) CHLORIDE (test code 104 MEQ/L 95-107 = 2215) CARBON DIOXIDE (test 23 MEQ/L 19-31 code = 2206) CALCIUM (test code = 9.2 MG/DL 8.5-10.5 220) PROTEIN, TOTAL (test 7.4 G/DL 6.1-8.3 code = 2229) ALBUMIN (test code = 4.0 G/DL 3.5-5.2 2201) CALC GLOBULIN (test 3.4 G/DL 1.9-3.7 code = 2240) CALC A/G RATIO (test 1.2 RATIO 1.0-2.6 code = 2234) BILIRUBIN, TOTAL <0.2 MG/DL See_Comment [Automated message] (test code = 2207) The syste m which generated this result transmitted ref erence range: <=1.2. T he reference range was not used to int erpret this result as normal/abnormal . ALKALINE PHOSPHATASE 99 U/L 40-112 (test code = 2204) AST (test code = 16 U/L 9-40 2217) ALT (test code = 14 U/L 5-40 UNLESS OTH ERWISE 2218) INDICATED, ALL TESTING PERFORM ED [facility] [place]. [address] [place], [place] [id number] [place] [address] DIRECTOR: JACQUI HONG M.D. IA NUMBER [id number] CAP ACCREDITATION N O. [id number] LIPID [id number] 00:00:00 Test Item Value Reference Range Interpretation Comments CHOLESTEROL (test code = 2210) 150 MG/DL TRIGLYCERIDES (test code = 2232) 59 MG/DL HDL CHOLESTEROL (test code = 2220) 55 MG/DL CALC LDL CHOL (test code = 2237) 81 MG/DL RISK RATIO LDL/HDL (test code = 1.47 RATIO 2238) LIPID [id number] 00:00:00 Test Item Value Reference Range Interpretation Comments CHOLESTEROL (test code = 2210) 150 MG/DL TRIGLYCERIDES (test code = 2232) 59 MG/DL HDL CHOLESTEROL (test code = 2220) 55 MG/DL CALC LDL CHOL (test code = 2237) 81 MG/DL RISK RATIO LDL/HDL (test code = 1.47 RATIO 2238) COMPREHENSIVE METABOLIC [id number] 00:00:00 Test Item Value Reference Range Interpretation Comments GLUCOSE (test code = 2217) 96 MG/DL BUN (test code = 2208) 12 MG/DL CREATININE (test code = 2214) 0.65 MG/DL eGFR (2020 CKD-EPI) (test 121 ML/MIN/1.73 code = 48171) CALC BUN/CREAT (test code = 18 RATIO 2235) SODIUM (test code = 2231) 140 MEQ/L POTASSIUM (test code = 2228) 4.4 MEQ/L CHLORIDE (test code = 2215) 104 MEQ/L CARBON DIOXIDE (test code = 23 MEQ/L 220) CALCIUM (test code = 2209) 9.2 MG/DL PROTEIN, TOTAL (test code = 7.4 G/DL 2228) ALBUMIN (test code = 220) 4.0 G/DL CALC GLOBULIN (test code = 3.4 G/DL 2240) CALC A/G RATIO (test code = 1.2 RATIO 2234) BILIRUBIN, TOTAL (test code = <0.2 MG/DL 2206) ALKALINE PHOSPHATASE (test 99 U/L code = 220) AST (test code = 2218) 16 U/L ALT (test code = 2219) 14 U/L COMPREHENSIVE METABOLIC [id number] 00:00:00 Test Item Value Reference Range Interpretation Comments GLUCOSE (test code = 2217) 96 MG/DL BUN (test code = 2208) 12 MG/DL CREATININE (test code = 2214) 0.65 MG/DL eGFR (2020 CKD-EPI) (test 121 ML/MIN/1.73 code = 22949) CALC BUN/CREAT (test code = 18 RATIO 2235) SODIUM (test code = 2231) 140 MEQ/L POTASSIUM (test code = 2228) 4.4 MEQ/L CHLORIDE (test code = 2215) 104 MEQ/L CARBON DIOXIDE (test code = 23 MEQ/L 220) CALCIUM (test code = 2209) 9.2 MG/DL PROTEIN, TOTAL (test code = 7.4 G/DL 2228) ALBUMIN (test code = 2201) 4.0 G/DL CALC GLOBULIN (test code = 3.4 G/DL 2240) CALC A/G RATIO (test code = 1.2 RATIO 2234) BILIRUBIN, TOTAL (test code = <0.2 MG/DL 2206) ALKALINE PHOSPHATASE (test 99 U/L code = 2204) AST (test code = 2218) 16 U/L ALT (test code = 2219) 14 U/L LIPID [id number] 00:00:00 Test Item Value Reference Range Interpretation Comments CHOLESTEROL (test code = 2210) 150 MG/DL TRIGLYCERIDES (test code = 2232) 59 MG/DL HDL CHOLESTEROL (test code = 2220) 55 MG/DL CALC LDL CHOL (test code = 2237) 81 MG/DL RISK RATIO LDL/HDL (test code = 1.47 RATIO 2238) LIPID [id number] 00:00:00 Test Item Value Reference Range Interpretation Comments CHOLESTEROL (test code = 2210) 150 MG/DL TRIGLYCERIDES (test code = 2232) 59 MG/DL HDL CHOLESTEROL (test code = 2220) 55 MG/DL CALC LDL CHOL (test code = 2237) 81 MG/DL RISK RATIO LDL/HDL (test code = 1.47 RATIO 2238) COMPREHENSIVE METABOLIC [id number] 00:00:00 Test Item Value Reference Range Interpretation Comments GLUCOSE (test code = 2217) 96 MG/DL BUN (test code = 2208) 12 MG/DL CREATININE (test code = 2214) 0.65 MG/DL eGFR (2020 CKD-EPI) (test 121 ML/MIN/1.73 code = 45774) CALC BUN/CREAT (test code = 18 RATIO 2235) SODIUM (test code = 2231) 140 MEQ/L POTASSIUM (test code = 2228) 4.4 MEQ/L CHLORIDE (test code = 2215) 104 MEQ/L CARBON DIOXIDE (test code = 23 MEQ/L 2205) CALCIUM (test code = 2209) 9.2 MG/DL PROTEIN, TOTAL (test code = 7.4 G/DL 2228) ALBUMIN (test code = 2201) 4.0 G/DL CALC GLOBULIN (test code = 3.4 G/DL 2240) CALC A/G RATIO (test code = 1.2 RATIO 2234) BILIRUBIN, TOTAL (test code = <0.2 MG/DL 2206) ALKALINE PHOSPHATASE (test 99 U/L code = 2204) AST (test code = 2218) 16 U/L ALT (test code = 2219) 14 U/L COMPREHENSIVE METABOLIC [id number] 00:00:00 Test Item Value Reference Range Interpretation Comments GLUCOSE (test code = 2217) 96 MG/DL BUN (test code = 2208) 12 MG/DL CREATININE (test code = 2214) 0.65 MG/DL eGFR (2020 CKD-EPI) (test 121 ML/MIN/1.73 code = 86954) CALC BUN/CREAT (test code = 18 RATIO 2235) SODIUM (test code = 2231) 140 MEQ/L POTASSIUM (test code = 2228) 4.4 MEQ/L CHLORIDE (test code = 2215) 104 MEQ/L CARBON DIOXIDE (test code = 23 MEQ/L 2205) CALCIUM (test code = 2209) 9.2 MG/DL PROTEIN, TOTAL (test code = 7.4 G/DL 2228) ALBUMIN (test code = 220) 4.0 G/DL CALC GLOBULIN (test code = 3.4 G/DL 2239) CALC A/G RATIO (test code = 1.2 RATIO 2234) BILIRUBIN, TOTAL (test code = <0.2 MG/DL 2206) ALKALINE PHOSPHATASE (test 99 U/L code = 2204) AST (test code = 2218) 16 U/L ALT (test code = 2219) 14 U/L LIPID [id number] 00:00:00 Test Item Value Reference Range Interpretation Comments CHOLESTEROL (test code = 2210) 150 MG/DL TRIGLYCERIDES (test code = 2232) 59 MG/DL HDL CHOLESTEROL (test code = 2220) 55 MG/DL CALC LDL CHOL (test code = 2237) 81 MG/DL RISK RATIO LDL/HDL (test code = 1.47 RATIO 2238) LIPID [id number] 00:00:00 Test Item Value Reference Range Interpretation Comments CHOLESTEROL (test code = 2210) 150 MG/DL TRIGLYCERIDES (test code = 2232) 59 MG/DL HDL CHOLESTEROL (test code = 2220) 55 MG/DL CALC LDL CHOL (test code = 2237) 81 MG/DL RISK RATIO LDL/HDL (test code = 1.47 RATIO 2238) COMPREHENSIVE METABOLIC [id number] 00:00:00 Test Item Value Reference Range Interpretation Comments GLUCOSE (test code = 2217) 96 MG/DL BUN (test code = 2208) 12 MG/DL CREATININE (test code = 2214) 0.65 MG/DL eGFR (2020 CKD-EPI) (test 121 ML/MIN/1.73 code = 46511) CALC BUN/CREAT (test code = 18 RATIO 2235) SODIUM (test code = 2231) 140 MEQ/L POTASSIUM (test code = 2228) 4.4 MEQ/L CHLORIDE (test code = 2215) 104 MEQ/L CARBON DIOXIDE (test code = 23 MEQ/L 2206) CALCIUM (test code = 2209) 9.2 MG/DL PROTEIN, TOTAL (test code = 7.4 G/DL 222) ALBUMIN (test code = 2201) 4.0 G/DL CALC GLOBULIN (test code = 3.4 G/DL 2240) CALC A/G RATIO (test code = 1.2 RATIO 2234) BILIRUBIN, TOTAL (test code = <0.2 MG/DL 2206) ALKALINE PHOSPHATASE (test 99 U/L code = 2204) AST (test code = 2218) 16 U/L ALT (test code = 2219) 14 U/L COMPREHENSIVE METABOLIC [id number] 00:00:00 Test Item Value Reference Range Interpretation Comments GLUCOSE (test code = 2217) 96 MG/DL BUN (test code = 2208) 12 MG/DL CREATININE (test code = 2214) 0.65 MG/DL eGFR (2020 CKD-EPI) (test 121 ML/MIN/1.73 code = 42286) CALC BUN/CREAT (test code = 18 RATIO 2235) SODIUM (test code = 2231) 140 MEQ/L POTASSIUM (test code = 2228) 4.4 MEQ/L CHLORIDE (test code = 2215) 104 MEQ/L CARBON DIOXIDE (test code = 23 MEQ/L 2205) CALCIUM (test code = 2209) 9.2 MG/DL PROTEIN, TOTAL (test code = 7.4 G/DL 2228) ALBUMIN (test code = 2201) 4.0 G/DL CALC GLOBULIN (test code = 3.4 G/DL 2240) CALC A/G RATIO (test code = 1.2 RATIO 2234) BILIRUBIN, TOTAL (test code = <0.2 MG/DL 2206) ALKALINE PHOSPHATASE (test 99 U/L code = 2204) AST (test code = 2218) 16 U/L ALT (test code = 2219) 14 U/L LIPID [id number] 00:00:00 Test Item Value Reference Range Interpretation Comments CHOLESTEROL (test code = 2210) 150 MG/DL TRIGLYCERIDES (test code = 2232) 59 MG/DL HDL CHOLESTEROL (test code = 2220) 55 MG/DL CALC LDL CHOL (test code = 2237) 81 MG/DL RISK RATIO LDL/HDL (test code = 1.47 RATIO 2238) LIPID [id number] 00:00:00 Test Item Value Reference Range Interpretation Comments CHOLESTEROL (test code = 2210) 150 MG/DL TRIGLYCERIDES (test code = 2232) 59 MG/DL HDL CHOLESTEROL (test code = 2220) 55 MG/DL CALC LDL CHOL (test code = 2237) 81 MG/DL RISK RATIO LDL/HDL (test code = 1.47 RATIO 2238) COMPREHENSIVE METABOLIC [id number] 00:00:00 Test Item Value Reference Range Interpretation Comments GLUCOSE (test code = 2217) 96 MG/DL BUN (test code = 2208) 12 MG/DL CREATININE (test code = 2214) 0.65 MG/DL eGFR (2020 CKD-EPI) (test 121 ML/MIN/1.73 code = 68076) CALC BUN/CREAT (test code = 18 RATIO 2235) SODIUM (test code = 2231) 140 MEQ/L POTASSIUM (test code = 2228) 4.4 MEQ/L CHLORIDE (test code = 2215) 104 MEQ/L CARBON DIOXIDE (test code = 23 MEQ/L 6) CALCIUM (test code = 2209) 9.2 MG/DL PROTEIN, TOTAL (test code = 7.4 G/DL 2228) ALBUMIN (test code = 2201) 4.0 G/DL CALC GLOBULIN (test code = 3.4 G/DL 2240) CALC A/G RATIO (test code = 1.2 RATIO 2234) BILIRUBIN, TOTAL (test code = <0.2 MG/DL 2206) ALKALINE PHOSPHATASE (test 99 U/L code = 2204) AST (test code = 2218) 16 U/L ALT (test code = 2219) 14 U/L COMPREHENSIVE METABOLIC [id number] 00:00:00 Test Item Value Reference Range Interpretation Comments GLUCOSE (test code = 2217) 96 MG/DL BUN (test code = 2208) 12 MG/DL CREATININE (test code = 2214) 0.65 MG/DL eGFR (2021 CKD-EPI) (test 121 ML/MIN/1.73 code = 72351) CALC BUN/CREAT (test code = 18 RATIO 2235) SODIUM (test code = 2231) 140 MEQ/L POTASSIUM (test code = 2228) 4.4 MEQ/L CHLORIDE (test code = 2215) 104 MEQ/L CARBON DIOXIDE (test code = 23 MEQ/L 220) CALCIUM (test code = 2209) 9.2 MG/DL PROTEIN, TOTAL (test code = 7.4 G/DL 2228) ALBUMIN (test code = 2201) 4.0 G/DL CALC GLOBULIN (test code = 3.4 G/DL 2240) CALC A/G RATIO (test code = 1.2 RATIO 2234) BILIRUBIN, TOTAL (test code = <0.2 MG/DL 2206) ALKALINE PHOSPHATASE (test 99 U/L code = 2204) AST (test code = 2218) 16 U/L ALT (test code = 2219) 14 U/L GC AND CHLAMYDIA, AMPLIFIED, [id number] 00:00:00 Test Item Value Reference Range Interpretation Comments GONORRHEA, NAAT (test code = 72902) NEGATIVE CHLAMYDIA, NAAT (test code = 47684) NEGATIVE GC AND CHLAMYDIA, AMPLIFIED, [id number] 00:00:00 Test Item Value Reference Range Interpretation Comments GONORRHEA, NAAT (test code = 48851) NEGATIVE CHLAMYDIA, NAAT (test code = 31534) NEGATIVE GC AND CHLAMYDIA, AMPLIFIED, [id number] 00:00:00 Test Item Value Reference Range Interpretation Comments GONORRHEA, NAAT (test code = 26950) NEGATIVE CHLAMYDIA, NAAT (test code = 82342) NEGATIVE GC AND CHLAMYDIA, AMPLIFIED, [id number] 00:00:00 Test Item Value Reference Range Interpretation Comments GONORRHEA, NAAT (test code = 72797) NEGATIVE CHLAMYDIA, NAAT (test code = 10009) NEGATIVE GC AND CHLAMYDIA, AMPLIFIED, [id number] 00:00:00 Test Item Value Reference Range Interpretation Comments GONORRHEA, NAAT (test code = 98045) NEGATIVE CHLAMYDIA, NAAT (test code = 94689) NEGATIVE GC AND CHLAMYDIA, AMPLIFIED, [id number] 00:00:00 Test Item Value Reference Range Interpretation Comments GONORRHEA, NAAT (test code = 76386) NEGATIVE CHLAMYDIA, NAAT (test code = 87996) NEGATIVE GC AND CHLAMYDIA, AMPLIFIED, [id number] 00:00:00 Test Item Value Reference Range Interpretation Comments GONORRHEA, NAAT (test code = 63994) NEGATIVE CHLAMYDIA, NAAT (test code = 96376) NEGATIVE GC AND CHLAMYDIA, AMPLIFIED, [id number] 00:00:00 Test Item Value Reference Range Interpretation Comments GONORRHEA, NAAT (test code = 47579) NEGATIVE CHLAMYDIA, NAAT (test code = 29934) NEGATIVE HEPATITIS C [id number] 00:00:00 Test Item Value Reference Range Interpretation Comments HEPATITIS C ANTIBODY (test code NON-REACTIVE = 4675) HEPATITIS C [id number] 00:00:00 Test Item Value Reference Range Interpretation Comments HEPATITIS C ANTIBODY (test code NON-REACTIVE = 4675) HIV AB/AG COMBO RFLX [id number] 00:00:00 Test Item Value Reference Range Interpretation Comments HIV 1/2 4TH GEN, RFLX CONF (test NON-REACTIVE code = 3514) HIV AB/AG COMBO RFLX [id number] 00:00:00 Test Item Value Reference Range Interpretation Comments HIV 1/2 4TH GEN, RFLX CONF (test NON-REACTIVE code = 3514) [id number] 00:00:00 Test Item Value Reference Range Interpretation Comments RPR RESULT (test code = NON-REACTIVE 3501) RPR TITER (test code = 3500) NOT INDIC. TITER [id number] 00:00:00 Test Item Value Reference Range Interpretation Comments RPR RESULT (test code = NON-REACTIVE 3501) RPR TITER (test code = 3500) NOT INDIC. TITER [id number] 00:00:00 Test Item Value Reference Range Interpretation Comments RPR RESULT (test code = NON-REACTIVE 3501) RPR TITER (test code = 3500) NOT INDIC. TITER CBC W/AUTO [id number] 00:00:00 Test Item Value Reference Range Interpretation Comments WBC (test code = 1001) 9.1 K/UL RBC (test code = 1002) 4.67 M/UL HEMOGLOBIN (test code = 1003) 10.5 G/DL HEMATOCRIT (test code = 1004) 34.6 % MCV (test code = 1005) 74.1 fL MCH (test code = 1006) 22.5 PG MCHC (test code = 1007) 30.3 G/DL RDW (test code = 1038) 15.3 % NEUTROPHILS (test code = 1008) 66.9 % LYMPHOCYTES (test code = 1010) 24.9 % MONOCYTES (test code = 1011) 5.1 % EOSINOPHILS (test code = 1012) 2.4 % BASOPHILS (test code = 1013) 0.3 % IMMATURE GRANULOCYTES (test 0.4 % code = 1036) NUCLEATED RBCS (test code = 0.0 /100WBC'S 1065) PLATELET COUNT (test code = 427 K/UL 1015) ABSOLUTE NEUTROPHILS (test code 6.07 K/UL = 1066) ABSOLUTE LYMPHOCYTES (test code 2.26 K/UL = 1067) ABSOLUTE MONOCYTES (test code = 0.46 K/UL 1068) ABSOLUTE EOSINOPHILS (test code 0.22 K/UL = 1040) ABSOLUTE BASOPHILS (test code = 0.03 K/UL 1069) ABS IMMATURE GRANULOCYTES (test 0.04 K/UL code = 1020) ABS NUCLEATED RBCS (test code = 0.00 K/UL 94521) CBC W/AUTO [id number] 00:00:00 Test Item Value Reference Range Interpretation Comments WBC (test code = 1001) 9.1 K/UL RBC (test code = 1002) 4.67 M/UL HEMOGLOBIN (test code = 1003) 10.5 G/DL HEMATOCRIT (test code = 1004) 34.6 % MCV (test code = 1005) 74.1 fL MCH (test code = 1006) 22.5 PG MCHC (test code = 1007) 30.3 G/DL RDW (test code = 1038) 15.3 % NEUTROPHILS (test code = 1008) 66.9 % LYMPHOCYTES (test code = 1010) 24.9 % MONOCYTES (test code = 1011) 5.1 % EOSINOPHILS (test code = 1012) 2.4 % BASOPHILS (test code = 1013) 0.3 % IMMATURE GRANULOCYTES (test 0.4 % code = 1036) NUCLEATED RBCS (test code = 0.0 /100WBC'S 1065) PLATELET COUNT (test code = 427 K/UL 1015) ABSOLUTE NEUTROPHILS (test code 6.07 K/UL = 1066) ABSOLUTE LYMPHOCYTES (test code 2.26 K/UL = 1067) ABSOLUTE MONOCYTES (test code = 0.46 K/UL 1068) ABSOLUTE EOSINOPHILS (test code 0.22 K/UL = 1040) ABSOLUTE BASOPHILS (test code = 0.03 K/UL 1069) ABS IMMATURE GRANULOCYTES (test 0.04 K/UL code = 1020) ABS NUCLEATED RBCS (test code = 0.00 K/UL 55730) CBC W/AUTO [id number] 00:00:00 Test Item Value Reference Range Interpretation Comments WBC (test code = 1001) 9.1 K/UL RBC (test code = 1002) 4.67 M/UL HEMOGLOBIN (test code = 1003) 10.5 G/DL HEMATOCRIT (test code = 1004) 34.6 % MCV (test code = 1005) 74.1 fL MCH (test code = 1006) 22.5 PG MCHC (test code = 1007) 30.3 G/DL RDW (test code = 1038) 15.3 % NEUTROPHILS (test code = 1008) 66.9 % LYMPHOCYTES (test code = 1010) 24.9 % MONOCYTES (test code = 1011) 5.1 % EOSINOPHILS (test code = 1012) 2.4 % BASOPHILS (test code = 1013) 0.3 % IMMATURE GRANULOCYTES (test 0.4 % code = 1036) NUCLEATED RBCS (test code = 0.0 /100WBC'S 1065) PLATELET COUNT (test code = 427 K/UL 1015) ABSOLUTE NEUTROPHILS (test code 6.07 K/UL = 1066) ABSOLUTE LYMPHOCYTES (test code 2.26 K/UL = 1067) ABSOLUTE MONOCYTES (test code = 0.46 K/UL 1068) ABSOLUTE EOSINOPHILS (test code 0.22 K/UL = 1040) ABSOLUTE BASOPHILS (test code = 0.03 K/UL 1069) ABS IMMATURE GRANULOCYTES (test 0.04 K/UL code = 1020) ABS NUCLEATED RBCS (test code = 0.00 K/UL 95177) [id number] 00:00:00 Test Item Value Reference Range Interpretation Comments TSH, THIRD GENERATION (test code 1.150 UIU/ML = 2821) [id number] 00:00:00 Test Item Value Reference Range Interpretation Comments TSH, THIRD GENERATION (test code 1.150 UIU/ML = 2821) [id number] 00:00:00 Test Item Value Reference Range Interpretation Comments TSH, THIRD GENERATION (test code 1.150 UIU/ML = 2821) [id number] 00:00:00 Test Item Value Reference Range Interpretation Comments ESTRADIOL (test code = 2505) 85.2 PG/ML [id number] 00:00:00 Test Item Value Reference Range Interpretation Comments ESTRADIOL (test code = 2505) 85.2 PG/ML [id number] 00:00:00 Test Item Value Reference Range Interpretation Comments ESTRADIOL (test code = 2505) 85.2 PG/ML FOLLICLE STIM [id number] 00:00:00 Test Item Value Reference Range Interpretation Comments FOLLICLE STIM HORMONE (test code = 3.2 IU/L 2700) FOLLICLE STIM [id number] 00:00:00 Test Item Value Reference Range Interpretation Comments FOLLICLE STIM HORMONE (test code = 3.2 IU/L 2700) LUTEINIZING [id number] 00:00:00 Test Item Value Reference Range Interpretation Comments LUTEINIZING HORMONE (test code = 5.6 IU/L 2776) LUTEINIZING [id number] 00:00:00 Test Item Value Reference Range Interpretation Comments LUTEINIZING HORMONE (test code = 5.6 IU/L 2776) [id number] 00:00:00 Test Item Value Reference Range Interpretation Comments PROLACTIN (test code = 2800) 11.1 NG/ML [id number] 00:00:00 Test Item Value Reference Range Interpretation Comments PROLACTIN (test code = 2800) 11.1 NG/ML [id number] 00:00:00 Test Item Value Reference Range Interpretation Comments TESTOSTERONE (test code = 2830) 29 NG/DL [id number] 00:00:00 Test Item Value Reference Range Interpretation Comments TESTOSTERONE (test code = 2830) 29 NG/DL HEPATITIS C [id number] 00:00:00 Test Item Value Reference Range Interpretation Comments HEPATITIS C ANTIBODY (test code NON-REACTIVE = 4675) HEPATITIS C [id number] 00:00:00 Test Item Value Reference Range Interpretation Comments HEPATITIS C ANTIBODY (test code NON-REACTIVE = 4675) HIV AB/AG COMBO RFLX [id number] 00:00:00 Test Item Value Reference Range Interpretation Comments HIV 1/2 4TH GEN, RFLX CONF (test NON-REACTIVE code = 3514) HIV AB/AG COMBO RFLX [id number] 00:00:00 Test Item Value Reference Range Interpretation Comments HIV 1/2 4TH GEN, RFLX CONF (test NON-REACTIVE code = 3514) [id number] 00:00:00 Test Item Value Reference Range Interpretation Comments RPR RESULT (test code = NON-REACTIVE 3501) RPR TITER (test code = 3500) NOT INDIC. TITER [id number] 00:00:00 Test Item Value Reference Range Interpretation Comments RPR RESULT (test code = NON-REACTIVE 3501) RPR TITER (test code = 3500) NOT INDIC. TITER [id number] 00:00:00 Test Item Value Reference Range Interpretation Comments RPR RESULT (test code = NON-REACTIVE 3501) RPR TITER (test code = 3500) NOT INDIC. TITER CBC W/AUTO [id number] 00:00:00 Test Item Value Reference Range Interpretation Comments WBC (test code = 1001) 9.1 K/UL RBC (test code = 1002) 4.67 M/UL HEMOGLOBIN (test code = 1003) 10.5 G/DL HEMATOCRIT (test code = 1004) 34.6 % MCV (test code = 1005) 74.1 fL MCH (test code = 1006) 22.5 PG MCHC (test code = 1007) 30.3 G/DL RDW (test code = 1038) 15.3 % NEUTROPHILS (test code = 1008) 66.9 % LYMPHOCYTES (test code = 1010) 24.9 % MONOCYTES (test code = 1011) 5.1 % EOSINOPHILS (test code = 1012) 2.4 % BASOPHILS (test code = 1013) 0.3 % IMMATURE GRANULOCYTES (test 0.4 % code = 1036) NUCLEATED RBCS (test code = 0.0 /100WBC'S 1065) PLATELET COUNT (test code = 427 K/UL 1015) ABSOLUTE NEUTROPHILS (test code 6.07 K/UL = 1066) ABSOLUTE LYMPHOCYTES (test code 2.26 K/UL = 1067) ABSOLUTE MONOCYTES (test code = 0.46 K/UL 1068) ABSOLUTE EOSINOPHILS (test code 0.22 K/UL = 1040) ABSOLUTE BASOPHILS (test code = 0.03 K/UL 1069) ABS IMMATURE GRANULOCYTES (test 0.04 K/UL code = 1020) ABS NUCLEATED RBCS (test code = 0.00 K/UL 34761) CBC W/AUTO [id number] 00:00:00 Test Item Value Reference Range Interpretation Comments WBC (test code = 1001) 9.1 K/UL RBC (test code = 1002) 4.67 M/UL HEMOGLOBIN (test code = 1003) 10.5 G/DL HEMATOCRIT (test code = 1004) 34.6 % MCV (test code = 1005) 74.1 fL MCH (test code = 1006) 22.5 PG MCHC (test code = 1007) 30.3 G/DL RDW (test code = 1038) 15.3 % NEUTROPHILS (test code = 1008) 66.9 % LYMPHOCYTES (test code = 1010) 24.9 % MONOCYTES (test code = 1011) 5.1 % EOSINOPHILS (test code = 1012) 2.4 % BASOPHILS (test code = 1013) 0.3 % IMMATURE GRANULOCYTES (test 0.4 % code = 1036) NUCLEATED RBCS (test code = 0.0 /100WBC'S 1065) PLATELET COUNT (test code = 427 K/UL 1015) ABSOLUTE NEUTROPHILS (test code 6.07 K/UL = 1066) ABSOLUTE LYMPHOCYTES (test code 2.26 K/UL = 1067) ABSOLUTE MONOCYTES (test code = 0.46 K/UL 1068) ABSOLUTE EOSINOPHILS (test code 0.22 K/UL = 1040) ABSOLUTE BASOPHILS (test code = 0.03 K/UL 1069) ABS IMMATURE GRANULOCYTES (test 0.04 K/UL code = 1020) ABS NUCLEATED RBCS (test code = 0.00 K/UL 40230) CBC W/AUTO [id number] 00:00:00 Test Item Value Reference Range Interpretation Comments WBC (test code = 1001) 9.1 K/UL RBC (test code = 1002) 4.67 M/UL HEMOGLOBIN (test code = 1003) 10.5 G/DL HEMATOCRIT (test code = 1004) 34.6 % MCV (test code = 1005) 74.1 fL MCH (test code = 1006) 22.5 PG MCHC (test code = 1007) 30.3 G/DL RDW (test code = 1038) 15.3 % NEUTROPHILS (test code = 1008) 66.9 % LYMPHOCYTES (test code = 1010) 24.9 % MONOCYTES (test code = 1011) 5.1 % EOSINOPHILS (test code = 1012) 2.4 % BASOPHILS (test code = 1013) 0.3 % IMMATURE GRANULOCYTES (test 0.4 % code = 1036) NUCLEATED RBCS (test code = 0.0 /100WBC'S 1065) PLATELET COUNT (test code = 427 K/UL 1015) ABSOLUTE NEUTROPHILS (test code 6.07 K/UL = 1066) ABSOLUTE LYMPHOCYTES (test code 2.26 K/UL = 1067) ABSOLUTE MONOCYTES (test code = 0.46 K/UL 1068) ABSOLUTE EOSINOPHILS (test code 0.22 K/UL = 1040) ABSOLUTE BASOPHILS (test code = 0.03 K/UL 1069) ABS IMMATURE GRANULOCYTES (test 0.04 K/UL code = 1020) ABS NUCLEATED RBCS (test code = 0.00 K/UL 95985) [id number] 00:00:00 Test Item Value Reference Range Interpretation Comments TSH, THIRD GENERATION (test code 1.150 UIU/ML = 2821) [id number] 00:00:00 Test Item Value Reference Range Interpretation Comments TSH, THIRD GENERATION (test code 1.150 UIU/ML = 2821) [id number] 00:00:00 Test Item Value Reference Range Interpretation Comments TSH, THIRD GENERATION (test code 1.150 UIU/ML = 2821) [id number] 00:00:00 Test Item Value Reference Range Interpretation Comments ESTRADIOL (test code = 2505) 85.2 PG/ML [id number] 00:00:00 Test Item Value Reference Range Interpretation Comments ESTRADIOL (test code = 2505) 85.2 PG/ML [id number] 00:00:00 Test Item Value Reference Range Interpretation Comments ESTRADIOL (test code = 2505) 85.2 PG/ML FOLLICLE STIM [id number] 00:00:00 Test Item Value Reference Range Interpretation Comments FOLLICLE STIM HORMONE (test code = 3.2 IU/L 2700) FOLLICLE STIM [id number] 00:00:00 Test Item Value Reference Range Interpretation Comments FOLLICLE STIM HORMONE (test code = 3.2 IU/L 2700) LUTEINIZING [id number] 00:00:00 Test Item Value Reference Range Interpretation Comments LUTEINIZING HORMONE (test code = 5.6 IU/L 2776) LUTEINIZING [id number] 00:00:00 Test Item Value Reference Range Interpretation Comments LUTEINIZING HORMONE (test code = 5.6 IU/L 2776) [id number] 00:00:00 Test Item Value Reference Range Interpretation Comments PROLACTIN (test code = 2800) 11.1 NG/ML [id number] 00:00:00 Test Item Value Reference Range Interpretation Comments PROLACTIN (test code = 2800) 11.1 NG/ML [id number] 00:00:00 Test Item Value Reference Range Interpretation Comments TESTOSTERONE (test code = 2830) 29 NG/DL [id number] 00:00:00 Test Item Value Reference Range Interpretation Comments TESTOSTERONE (test code = 2830) 29 NG/DL HEPATITIS C [id number] 00:00:00 Test Item Value Reference Range Interpretation Comments HEPATITIS C ANTIBODY (test code NON-REACTIVE = 4675) HEPATITIS C [id number] 00:00:00 Test Item Value Reference Range Interpretation Comments HEPATITIS C ANTIBODY (test code NON-REACTIVE = 4675) HIV AB/AG COMBO RFLX [id number] 00:00:00 Test Item Value Reference Range Interpretation Comments HIV 1/2 4TH GEN, RFLX CONF (test NON-REACTIVE code = 3514) HIV AB/AG COMBO RFLX [id number] 00:00:00 Test Item Value Reference Range Interpretation Comments HIV 1/2 4TH GEN, RFLX CONF (test NON-REACTIVE code = 3514) [id number] 00:00:00 Test Item Value Reference Range Interpretation Comments RPR RESULT (test code = NON-REACTIVE 3501) RPR TITER (test code = 3500) NOT INDIC. TITER [id number] 00:00:00 Test Item Value Reference Range Interpretation Comments RPR RESULT (test code = NON-REACTIVE 3501) RPR TITER (test code = 3500) NOT INDIC. TITER [id number] 00:00:00 Test Item Value Reference Range Interpretation Comments RPR RESULT (test code = NON-REACTIVE 3501) RPR TITER (test code = 3500) NOT INDIC. TITER CBC W/AUTO [id number] 00:00:00 Test Item Value Reference Range Interpretation Comments WBC (test code = 1001) 9.1 K/UL RBC (test code = 1002) 4.67 M/UL HEMOGLOBIN (test code = 1003) 10.5 G/DL HEMATOCRIT (test code = 1004) 34.6 % MCV (test code = 1005) 74.1 fL MCH (test code = 1006) 22.5 PG MCHC (test code = 1007) 30.3 G/DL RDW (test code = 1038) 15.3 % NEUTROPHILS (test code = 1008) 66.9 % LYMPHOCYTES (test code = 1010) 24.9 % MONOCYTES (test code = 1011) 5.1 % EOSINOPHILS (test code = 1012) 2.4 % BASOPHILS (test code = 1013) 0.3 % IMMATURE GRANULOCYTES (test 0.4 % code = 1036) NUCLEATED RBCS (test code = 0.0 /100WBC'S 1065) PLATELET COUNT (test code = 427 K/UL 1015) ABSOLUTE NEUTROPHILS (test code 6.07 K/UL = 1066) ABSOLUTE LYMPHOCYTES (test code 2.26 K/UL = 1067) ABSOLUTE MONOCYTES (test code = 0.46 K/UL 1068) ABSOLUTE EOSINOPHILS (test code 0.22 K/UL = 1040) ABSOLUTE BASOPHILS (test code = 0.03 K/UL 1069) ABS IMMATURE GRANULOCYTES (test 0.04 K/UL code = 1020) ABS NUCLEATED RBCS (test code = 0.00 K/UL 47407) CBC W/AUTO [id number] 00:00:00 Test Item Value Reference Range Interpretation Comments WBC (test code = 1001) 9.1 K/UL RBC (test code = 1002) 4.67 M/UL HEMOGLOBIN (test code = 1003) 10.5 G/DL HEMATOCRIT (test code = 1004) 34.6 % MCV (test code = 1005) 74.1 fL MCH (test code = 1006) 22.5 PG MCHC (test code = 1007) 30.3 G/DL RDW (test code = 1038) 15.3 % NEUTROPHILS (test code = 1008) 66.9 % LYMPHOCYTES (test code = 1010) 24.9 % MONOCYTES (test code = 1011) 5.1 % EOSINOPHILS (test code = 1012) 2.4 % BASOPHILS (test code = 1013) 0.3 % IMMATURE GRANULOCYTES (test 0.4 % code = 1036) NUCLEATED RBCS (test code = 0.0 /100WBC'S 1065) PLATELET COUNT (test code = 427 K/UL 1015) ABSOLUTE NEUTROPHILS (test code 6.07 K/UL = 1066) ABSOLUTE LYMPHOCYTES (test code 2.26 K/UL = 1067) ABSOLUTE MONOCYTES (test code = 0.46 K/UL 1068) ABSOLUTE EOSINOPHILS (test code 0.22 K/UL = 1040) ABSOLUTE BASOPHILS (test code = 0.03 K/UL 1069) ABS IMMATURE GRANULOCYTES (test 0.04 K/UL code = 1020) ABS NUCLEATED RBCS (test code = 0.00 K/UL 32790) CBC W/AUTO [id number] 00:00:00 Test Item Value Reference Range Interpretation Comments WBC (test code = 1001) 9.1 K/UL RBC (test code = 1002) 4.67 M/UL HEMOGLOBIN (test code = 1003) 10.5 G/DL HEMATOCRIT (test code = 1004) 34.6 % MCV (test code = 1005) 74.1 fL MCH (test code = 1006) 22.5 PG MCHC (test code = 1007) 30.3 G/DL RDW (test code = 1038) 15.3 % NEUTROPHILS (test code = 1008) 66.9 % LYMPHOCYTES (test code = 1010) 24.9 % MONOCYTES (test code = 1011) 5.1 % EOSINOPHILS (test code = 1012) 2.4 % BASOPHILS (test code = 1013) 0.3 % IMMATURE GRANULOCYTES (test 0.4 % code = 1036) NUCLEATED RBCS (test code = 0.0 /100WBC'S 1065) PLATELET COUNT (test code = 427 K/UL 1015) ABSOLUTE NEUTROPHILS (test code 6.07 K/UL = 1066) ABSOLUTE LYMPHOCYTES (test code 2.26 K/UL = 1067) ABSOLUTE MONOCYTES (test code = 0.46 K/UL 1068) ABSOLUTE EOSINOPHILS (test code 0.22 K/UL = 1040) ABSOLUTE BASOPHILS (test code = 0.03 K/UL 1069) ABS IMMATURE GRANULOCYTES (test 0.04 K/UL code = 1020) ABS NUCLEATED RBCS (test code = 0.00 K/UL 00828) [id number] 00:00:00 Test Item Value Reference Range Interpretation Comments TSH, THIRD GENERATION (test code 1.150 UIU/ML = 2821) [id number] 00:00:00 Test Item Value Reference Range Interpretation Comments TSH, THIRD GENERATION (test code 1.150 UIU/ML = 2821) [id number] 00:00:00 Test Item Value Reference Range Interpretation Comments TSH, THIRD GENERATION (test code 1.150 UIU/ML = 2821) [id number] 00:00:00 Test Item Value Reference Range Interpretation Comments ESTRADIOL (test code = 2505) 85.2 PG/ML [id number] 00:00:00 Test Item Value Reference Range Interpretation Comments ESTRADIOL (test code = 2505) 85.2 PG/ML [id number] 00:00:00 Test Item Value Reference Range Interpretation Comments ESTRADIOL (test code = 2505) 85.2 PG/ML FOLLICLE STIM [id number] 00:00:00 Test Item Value Reference Range Interpretation Comments FOLLICLE STIM HORMONE (test code = 3.2 IU/L 2700) FOLLICLE STIM [id number] 00:00:00 Test Item Value Reference Range Interpretation Comments FOLLICLE STIM HORMONE (test code = 3.2 IU/L 2700) LUTEINIZING [id number] 00:00:00 Test Item Value Reference Range Interpretation Comments LUTEINIZING HORMONE (test code = 5.6 IU/L 2776) LUTEINIZING [id number] 00:00:00 Test Item Value Reference Range Interpretation Comments LUTEINIZING HORMONE (test code = 5.6 IU/L 2776) [id number] 00:00:00 Test Item Value Reference Range Interpretation Comments PROLACTIN (test code = 2800) 11.1 NG/ML [id number] 00:00:00 Test Item Value Reference Range Interpretation Comments PROLACTIN (test code = 2800) 11.1 NG/ML [id number] 00:00:00 Test Item Value Reference Range Interpretation Comments TESTOSTERONE (test code = 2830) 29 NG/DL [id number] 00:00:00 Test Item Value Reference Range Interpretation Comments TESTOSTERONE (test code = 2830) 29 NG/DL HEPATITIS C [id number] 00:00:00 Test Item Value Reference Range Interpretation Comments HEPATITIS C ANTIBODY (test code NON-REACTIVE = 4675) HEPATITIS C [id number] 00:00:00 Test Item Value Reference Range Interpretation Comments HEPATITIS C ANTIBODY (test code NON-REACTIVE = 4675) HIV AB/AG COMBO RFLX [id number] 00:00:00 Test Item Value Reference Range Interpretation Comments HIV 1/2 4TH GEN, RFLX CONF (test NON-REACTIVE code = 3514) HIV AB/AG COMBO RFLX [id number] 00:00:00 Test Item Value Reference Range Interpretation Comments HIV 1/2 4TH GEN, RFLX CONF (test NON-REACTIVE code = 3514) [id number] 00:00:00 Test Item Value Reference Range Interpretation Comments RPR RESULT (test code = NON-REACTIVE 3501) RPR TITER (test code = 3500) NOT INDIC. TITER [id number] 00:00:00 Test Item Value Reference Range Interpretation Comments RPR RESULT (test code = NON-REACTIVE 3501) RPR TITER (test code = 3500) NOT INDIC. TITER [id number] 00:00:00 Test Item Value Reference Range Interpretation Comments RPR RESULT (test code = NON-REACTIVE 3501) RPR TITER (test code = 3500) NOT INDIC. TITER CBC W/AUTO [id number] 00:00:00 Test Item Value Reference Range Interpretation Comments WBC (test code = 1001) 9.1 K/UL RBC (test code = 1002) 4.67 M/UL HEMOGLOBIN (test code = 1003) 10.5 G/DL HEMATOCRIT (test code = 1004) 34.6 % MCV (test code = 1005) 74.1 fL MCH (test code = 1006) 22.5 PG MCHC (test code = 1007) 30.3 G/DL RDW (test code = 1038) 15.3 % NEUTROPHILS (test code = 1008) 66.9 % LYMPHOCYTES (test code = 1010) 24.9 % MONOCYTES (test code = 1011) 5.1 % EOSINOPHILS (test code = 1012) 2.4 % BASOPHILS (test code = 1013) 0.3 % IMMATURE GRANULOCYTES (test 0.4 % code = 1036) NUCLEATED RBCS (test code = 0.0 /100WBC'S 1065) PLATELET COUNT (test code = 427 K/UL 1015) ABSOLUTE NEUTROPHILS (test code 6.07 K/UL = 1066) ABSOLUTE LYMPHOCYTES (test code 2.26 K/UL = 1067) ABSOLUTE MONOCYTES (test code = 0.46 K/UL 1068) ABSOLUTE EOSINOPHILS (test code 0.22 K/UL = 1040) ABSOLUTE BASOPHILS (test code = 0.03 K/UL 1069) ABS IMMATURE GRANULOCYTES (test 0.04 K/UL code = 1020) ABS NUCLEATED RBCS (test code = 0.00 K/UL 56330) CBC W/AUTO [id number] 00:00:00 Test Item Value Reference Range Interpretation Comments WBC (test code = 1001) 9.1 K/UL RBC (test code = 1002) 4.67 M/UL HEMOGLOBIN (test code = 1003) 10.5 G/DL HEMATOCRIT (test code = 1004) 34.6 % MCV (test code = 1005) 74.1 fL MCH (test code = 1006) 22.5 PG MCHC (test code = 1007) 30.3 G/DL RDW (test code = 1038) 15.3 % NEUTROPHILS (test code = 1008) 66.9 % LYMPHOCYTES (test code = 1010) 24.9 % MONOCYTES (test code = 1011) 5.1 % EOSINOPHILS (test code = 1012) 2.4 % BASOPHILS (test code = 1013) 0.3 % IMMATURE GRANULOCYTES (test 0.4 % code = 1036) NUCLEATED RBCS (test code = 0.0 /100WBC'S 1065) PLATELET COUNT (test code = 427 K/UL 1015) ABSOLUTE NEUTROPHILS (test code 6.07 K/UL = 1066) ABSOLUTE LYMPHOCYTES (test code 2.26 K/UL = 1067) ABSOLUTE MONOCYTES (test code = 0.46 K/UL 1068) ABSOLUTE EOSINOPHILS (test code 0.22 K/UL = 1040) ABSOLUTE BASOPHILS (test code = 0.03 K/UL 1069) ABS IMMATURE GRANULOCYTES (test 0.04 K/UL code = 1020) ABS NUCLEATED RBCS (test code = 0.00 K/UL 24046) CBC W/AUTO [id number] 00:00:00 Test Item Value Reference Range Interpretation Comments WBC (test code = 1001) 9.1 K/UL RBC (test code = 1002) 4.67 M/UL HEMOGLOBIN (test code = 1003) 10.5 G/DL HEMATOCRIT (test code = 1004) 34.6 % MCV (test code = 1005) 74.1 fL MCH (test code = 1006) 22.5 PG MCHC (test code = 1007) 30.3 G/DL RDW (test code = 1038) 15.3 % NEUTROPHILS (test code = 1008) 66.9 % LYMPHOCYTES (test code = 1010) 24.9 % MONOCYTES (test code = 1011) 5.1 % EOSINOPHILS (test code = 1012) 2.4 % BASOPHILS (test code = 1013) 0.3 % IMMATURE GRANULOCYTES (test 0.4 % code = 1036) NUCLEATED RBCS (test code = 0.0 /100WBC'S 1065) PLATELET COUNT (test code = 427 K/UL 1015) ABSOLUTE NEUTROPHILS (test code 6.07 K/UL = 1066) ABSOLUTE LYMPHOCYTES (test code 2.26 K/UL = 1067) ABSOLUTE MONOCYTES (test code = 0.46 K/UL 1068) ABSOLUTE EOSINOPHILS (test code 0.22 K/UL = 1040) ABSOLUTE BASOPHILS (test code = 0.03 K/UL 1069) ABS IMMATURE GRANULOCYTES (test 0.04 K/UL code = 1020) ABS NUCLEATED RBCS (test code = 0.00 K/UL 09403) [id number] 00:00:00 Test Item Value Reference Range Interpretation Comments TSH, THIRD GENERATION (test code 1.150 UIU/ML = 2821) [id number] 00:00:00 Test Item Value Reference Range Interpretation Comments TSH, THIRD GENERATION (test code 1.150 UIU/ML = 2821) [id number] 00:00:00 Test Item Value Reference Range Interpretation Comments TSH, THIRD GENERATION (test code 1.150 UIU/ML = 2821) [id number] 00:00:00 Test Item Value Reference Range Interpretation Comments ESTRADIOL (test code = 2505) 85.2 PG/ML [id number] 00:00:00 Test Item Value Reference Range Interpretation Comments ESTRADIOL (test code = 2505) 85.2 PG/ML [id number] 00:00:00 Test Item Value Reference Range Interpretation Comments ESTRADIOL (test code = 2505) 85.2 PG/ML FOLLICLE STIM [id number] 00:00:00 Test Item Value Reference Range Interpretation Comments FOLLICLE STIM HORMONE (test code = 3.2 IU/L 2700) FOLLICLE STIM [id number] 00:00:00 Test Item Value Reference Range Interpretation Comments FOLLICLE STIM HORMONE (test code = 3.2 IU/L 2700) LUTEINIZING [id number] 00:00:00 Test Item Value Reference Range Interpretation Comments LUTEINIZING HORMONE (test code = 5.6 IU/L 2776) LUTEINIZING [id number] 00:00:00 Test Item Value Reference Range Interpretation Comments LUTEINIZING HORMONE (test code = 5.6 IU/L 2776) [id number] 00:00:00 Test Item Value Reference Range Interpretation Comments PROLACTIN (test code = 2800) 11.1 NG/ML [id number] 00:00:00 Test Item Value Reference Range Interpretation Comments PROLACTIN (test code = 2800) 11.1 NG/ML [id number] 00:00:00 Test Item Value Reference Range Interpretation Comments TESTOSTERONE (test code = 2830) 29 NG/DL [id number] 00:00:00 Test Item Value Reference Range Interpretation Comments TESTOSTERONE (test code = 2830) 29 NG/DL SARS-CoV-2 (COVID-19) by RT-PCR (HIGH RISK)2020-12-03 00:00:00 Test Item Value Reference Range Interpretation Comments SARS-CoV-2 INTERPRETATION NEGATIVE (test code = 70886) SOURCE (test code = 77851) NASOPHARYNGEAL SARS-CoV-2 (COVID-19) by RT-PCR (HIGH RISK)2020-12-03 00:00:00 Test Item Value Reference Range Interpretation Comments SARS-CoV-2 INTERPRETATION NEGATIVE (test code = 27904) SOURCE (test code = 38655) NASOPHARYNGEAL SARS-CoV-2 (COVID-19) by RT-PCR (HIGH RISK)2020-12-03 00:00:00 Test Item Value Reference Range Interpretation Comments SARS-CoV-2 INTERPRETATION NEGATIVE (test code = 40656) SOURCE (test code = 17660) NASOPHARYNGEAL SARS-CoV-2 (COVID-19) by RT-PCR (HIGH RISK)2020-12-03 00:00:00 Test Item Value Reference Range Interpretation Comments SARS-CoV-2 INTERPRETATION NEGATIVE (test code = 65632) SOURCE (test code = 57602) NASOPHARYNGEAL SARS-CoV-2 (COVID-19) by RT-PCR (HIGH RISK)2020-12-03 00:00:00 Test Item Value Reference Range Interpretation Comments SARS-CoV-2 INTERPRETATION NEGATIVE (test code = 16231) SOURCE (test code = 44185) NASOPHARYNGEAL SARS-CoV-2 (COVID-19) by RT-PCR (HIGH RISK)2020-12-03 00:00:00 Test Item Value Reference Range Interpretation Comments SARS-CoV-2 INTERPRETATION NEGATIVE (test code = 69701) SOURCE (test code = 14946) NASOPHARYNGEAL SARS-CoV-2 (COVID-19) by RT-PCR (HIGH RISK)2020-12-03 00:00:00 Test Item Value Reference Range Interpretation Comments SARS-CoV-2 INTERPRETATION NEGATIVE (test code = 83695) SOURCE (test code = 41451) NASOPHARYNGEAL SARS-CoV-2 (COVID-19) by RT-PCR (HIGH RISK)2020-12-03 00:00:00 Test Item Value Reference Range Interpretation Comments SARS-CoV-2 INTERPRETATION NEGATIVE (test code = 56633) SOURCE (test code = 15028) NASOPHARYNGEAL
[2023-05-22] MEDS ORDERED: IBUPROFEN 200 MG TAB PO ONE (15:07)
--- NOTE | 2023-05-22 15:08 | RAD REPORT ---
EXAM DESCRIPTION: RAD - Knee Left 3 View - 05/22/2023 3:01 pm CLINICAL HISTORY: PAIN COMPARISON: No comparisons FINDINGS/IMPRESSION: No acute fracture. No malalignment. No significant focal degenerative changes.
--- NOTE | 2023-05-22 15:12 | RAD REPORT ---
EXAM DESCRIPTION: RAD - Sacrum And Coccyx - 05/22/2023 3:02 pm CLINICAL HISTORY: LOWER BACK PAIN COMPARISON: No comparisons FINDINGS/IMPRESSION: No displaced fracture of the sacrum or coccyx identified. Fractures of the sacr um and coccyx without significant displacement can be difficult to appreciate on radiography.
--- NOTE | 2023-05-22 16:12 | ER ---
Nurse's Notes [facility] Name: Obdulia Burch Age: 32 yrs Sex: Female : 1990 Arrival Date: 05/22/2023 Time: 14:12 Bed 10 Private MD: Diagnosis: Unspecified internal derangement of left knee Presentation: 05/22 14:18 Chief complaint: Patient states: fell in the bathtub and twisted left knee, Pt c/o pain aa5 to left knee and left hip. PT denies head injury. Coronavirus screen: At this time, the client does not indicate any symptoms associated with coronavirus-19. Ebola Screen: Patient denies travel to an Ebola-affected area in the 21 days before illness onset. Initial Sepsis Screen: Does the patient meet any 2 criteria? No. Patient's initial sepsis screen is negative. Does the patient have a suspected source of infection? No. Patient's initial sepsis screen is negative. Risk Assessment: Do you want to hurt yourself or someone else? Patient reports no desire to harm self or others. Onset of symptoms was May 22, 2023. 14:18 Acuity: TERELL 4 aa5 14:18 Method Of Arrival: Ambulatory aa5 Historical: - Allergies: 14:18 No Known Allergies; aa5 - PMHx: 14:18 None; aa5 - PSHx: 14:18 section; aa5 - Immunization history:: Adult Immunizations unknown. - Social history:: Smoking status: Reported history of juuling and/or vaping. Screenin:04 [facility] ED Fall Risk Assessment (Adult) History of falling in the last 3 months, me1 including since admission Yes- single mechanical fall (1 pt) Impaired Gait Altered Elimination Score/Fall Risk Level 0 - 2 = Low Risk Oriented to surroundings, Maintained a safe environment, Educated pt \T\ family on fall prevention, incl call for assistance when getting out of bed, Provided non-skid footwear, Hourly rounding (assess needs \T\ fall precautionary measures) done. Abuse screen: Denies threats or abuse. Nutritional screening: No deficits noted. Tuberculosis screening: No symptoms or risk factors identified. Assessment: 15:02 General: Appears uncomfortable, obese, Behavior is calm, cooperative, appropriate for me1 age. General:. Pain: Complains of pain in left knee and left hip Pain does not radiate. Pain currently is 7 out of 10 on a pain scale. Quality of pain is described as sharp, Pain began suddenly, Is. Neuro: Level of Consciousness is awake, alert, obeys commands, Oriented to person, place, time, situation, Cardiovascular: Capillary refill < 3 seconds is brisk in bilateral fingers toes. Respiratory: Respiratory effort is even, unlabored, Respiratory pattern is regular, symmetrical. Musculoskeletal: Reports pain in left knee and left hip. Vital Signs: 14:18 BP 122 / 88; Pulse 71; Resp 18 S; Temp 98(TE); Pulse Ox 100% on R/A; aa5 ED Course: 14:13 Patient arrived in ED. am2 14:15 Foreign Gruber NP is PHCP. pm1 14:15 Wei Funez DO is Attending Physician. pm1 14:18 Triage completed. aa5 14:18 Arm band placed on. aa5 14:56 María Elena Negrete, CHON is Primary Nurse. me1 15:02 Knee Left 3 View XRAY In Process Unspecified. EDMS 15:02 Sacrum And Coccyx XRAY In Process Unspecified. EDMS 15:04 Patient has correct armband on for positive identification. Call light in reach. me1 Provided Education on: POC. 15:04 No provider procedures requiring assistance completed. me1 16:12 Miguel Flores MD is Referral Physician. pm1 16:59 Patient did not have IV access during this emergency room visit. ph 16:59 Knee immobilizer applied on left knee. ph Administered Medications: 15:00 Drug: Ibuprofen PO 600 mg Route: PO; me1 16:21 Follow up: Response: No adverse reaction; Pain is decreased me1 Medication: 16:59 VIS not applicable for this client. ph Outcome: 16:12 Discharge ordered by . pm1 16:59 Discharged to home with crutches, with significant other. ph 16:59 Condition: good 16:59 Discharge instructions given to patient, significant other, Instructed on discharge instructions, follow up and referral plans. crutch walking, Demonstrated understanding of instructions, follow-up care, crutch walking. 17:00 Patient left the ED. ph Signatures: Dispatcher [employer] [facility] Queenie Helms RN RN aa5 Karlie Vasuqez RN RN Foreign Gruber, NET LEAD DEVELOPER NET LEAD DEVELOPER pm1 Johana Montes De Oca am2 María Elena Negrete RN RN me1 Corrections: (The following items were deleted from the chart) 15:04 15:01 General: Appears uncomfortable, obese, well groomed, Behavior is calm, me1 cooperative, appropriate for age, Reports me1
--- NOTE | 2023-05-22 16:12 | EDPHYS ---
Physician Documentation [facility] Name: Obdulia Burch Age: 32 yrs Sex: Female : 1990 Arrival Date: 05/22/2023 Time: 14:12 Bed 10 Private MD: ED Physician Wei Funez HPI: 05/22 14:26 This 32 yrs old Female presents to ER via Ambulatory with complaints of Fall pm1 Injury, Knee Pain, Buttocks. 14:26 Details of fall: The patient fell from an upright position, while standing. Onset: The pm1 symptoms/episode began/occurred 1 hour(s) ago. Associated injuries: The patient sustained medial aspect of left knee, gluteal cleft. prior left knee injuries in the past. The patient has not recently seen a physician. 32-year-old female presenting to the ER with complaints of fall injury. Patient was showering and slipped when her right foot slipped out in front of her, causing her left knee to be buckle medially and patient landed on her buttocks evenly. Patient without headache, head injury, neck pain, LOC. Historical: - Allergies: 14:18 No Known Allergies; aa5 - PMHx: 14:18 None; aa5 - PSHx: 14:18 section; aa5 - Immunization history:: Adult Immunizations unknown. - Social history:: Smoking status: Reported history of juuling and/or vaping. ROS: 14:26 Constitutional: Negative for fever, chills, and weight loss, Neck: Negative for injury, pm1 pain, and swelling, Cardiovascular: Negative for chest pain, palpitations, and edema, Respiratory: Negative for shortness of breath, cough, wheezing, and pleuritic chest pain. 14:26 Skin: Negative for injury, rash, and discoloration, Neuro: Negative for headache, weakness, numbness, tingling, and seizure. 14:26 Back: Positive for of the sacrum. 14:26 MS/extremity: Positive for pain, of the medial aspect of left knee. 14:26 All other systems are negative. Exam: 14:26 Constitutional: This is a well developed, well nourished patient who is awake, alert, pm1 and in no acute distress. Head/Face: Normocephalic, atraumatic. 14:26 Neck: Exam negative for acute changes, External neck: is normal, C-spine: no acute changes, vertebral tenderness, is not appreciated. 14:26 Cardiovascular: Exam negative for acute changes, Rate: normal, Rhythm: regular, Pulses: no pulse deficits are appreciated. 14:26 Respiratory: Exam negative for acute changes, respiratory distress, shortness of breath. 14:26 Back: pain, that is moderate, of the sacrum, Rekha RN present for examination in triage room. 14:26 Musculoskeletal/extremity: Extremities: grossly normal except: noted in the medial aspect of left knee: pain, There is no evidence of pain to right hip. 15:37 Musculoskeletal/extremity: Extremities: noted in the medial aspect of left knee: Pain pm1 with valgus stress and external rotation of tib/fib. Vital Signs: 14:18 BP 122 / 88; Pulse 71; Resp 18 S; Temp 98(TE); Pulse Ox 100% on R/A; aa5 MDM: 14:15 Patient medically screened. pm1 16:10 Data reviewed: vital signs. pm1 16:10 Counseling: I had a detailed discussion with the patient and/or guardian regarding: the pm1 historical points, exam findings, and any diagnostic results supporting the discharge/admit diagnosis, radiology results, the need for outpatient follow up, a orthopedic surgeon. 16:13 ED course: Patient did not want narcotics in the ER and refused narcotic prescription. pm1 Patient said she will j take [id number] pain medications, ibuprofen and/or Tylenol. 05/22 14:36 Order name: Knee Left 3 View XRAY; Complete Time: 15:37 pm1 05/22 14:36 Order name: Sacrum And Coccyx XRAY; Complete Time: 15:37 pm1 05/22 14:36 Order name: Knee Immobilizer; Complete Time: 16:27 pm1 05/22 14:36 Order name: Crutches; Complete Time: 16:27 pm1 Administered Medications: 15:00 Drug: Ibuprofen PO 600 mg Route: PO; me1 16:21 Follow up: Response: No adverse reaction; Pain is decreased me1 Disposition: 17:21 Co-signature as Attending Physician, Wei Funez DO I was immediately available on-site ms3 in the Emergency Department for consultation in the care of the patient. Disposition Summary: 05/22/23 16:12 Discharge Ordered Location: Home pm1 Problem: new pm1 Symptoms: have improved pm1 Condition: Stable pm1 Diagnosis - Unspecified internal derangement of left knee pm1 Followup: pm1 - With: Emergency Department - When: As needed - Reason: Worsening of condition Followup: pm1 - With: Private Physician - When: 2 - 3 days - Reason: Recheck today's complaints, Continuance of care, Re-evaluation by your physician Followup: pm1 - With: Miguel Flores MD - When: 2 - 3 days - Reason: Recheck today's complaints, Continuance of care, Re-evaluation by your physician Discharge Instructions: - Discharge Summary Sheet pm1 - Crutch Use, Adult pm1 - How to Use a Knee Immobilizer pm1 - Acute Knee Pain, Adult pm1 Forms: - Medication Reconciliation Form pm1 - Thank You Letter pm1 - Antibiotic Education pm1 - Prescription Opioid Use pm1 - Patient Portal Instructions pm1 Signatures: Dispatcher [employer] EDQueenie Gillespie, RN RN aa5 Foreign Gruber NP [employer] pm1 Wie Funez DO DO ms3 María Elena Negrete, CHON RN me1
[2023-05-22 17:56] VITALS: BP 122/88; TEMP 98; O2SAT 100
== END 2023-05-22 17:00 | disposition home or self-care (01) ==
LOC: ER 14:12
DX: M23.92 Unspecified internal derangement of left knee (principal)
CPT/HCPCS: 72220; 99283

== ENCOUNTER 2024-03-03 02:17 | Emergency (ER) | payer OTHER ==
--- OUTSIDE RECORDS SUMMARY | 2024-03-03 02:23 | XMS REPORT | Continuity of Care Document ---
Author Name Unknown Address [address] [facility] [address] [place] [address] [facility] thconnect Address [address] [facility] [address] [place] [address] Care Team Providers Care Plant Utility Person Name Role Phone PCP, PATIENT DOES NOT HAVE A Primary Care Physic enrique Unavailable MONIQUE RAO Attending Clinician Unavailabl e TARA_BECKY_Jones_G Attending Clinician Unavail able Senait Jones RD Attending Clinician [phone] RADIOLOGY Attending Clinician Unavailable Radiology Attending Clinician Unavailable Doctor Unassigned, Greasy Attending Clinician U navailable GC_[email or web address]_Jones_G Admitting Clinician Unavail able ISABELA, ARELI Admitting Clinician Unavailable Payers Payer Name Policy Type Policy Number Effective Date Expirati on Date Source [employer] CHOICE POS II [id number] 2023 00:00:00 [employer] - CHOICE (POS II) [id number] 2023 00:00:00 [facility] Gencia TYSON VELVET [id number] 2022 00:00:00 Problems Condition Name Condition Details Condition Category Status Onset Date Resolution Date Last Treatment Date Treating Clinician Comments Source 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 3-30 00:00: 00 [facility] Prediabete s Prediabete s Disease Active 2022-10 0-15 00:00: 00 [facility] Morbid obesity with BMI of 45.0-49.9, adult Morbid obesity with BMI of 45.0-49.9, adult Disease Active 2022-10 0-13 00:00: 00 [facility] Allergies, Adverse Reactions, Alerts Allergy Name Allergy Type Status Severity Reaction(s) Onset Date Inactive Date Treating Clinician Comments Source NO KNOWN ALLERGIE S Drug Class Active [facility] Social History Social Habit Start Date Stop Date Quantity Comments Source Sexual orientation U [facility] Alcoholic beverage intake 2024-02-19 00:00:00 2024-02-19 00:00:00 .71 /d [facility] History of Social function 2024-02-13 00:00:00 2024-02-13 00:00:00 [facility] Tobacco use and exposure 2023-10-13 00:00:00 2023-10-13 00:00:00 Smokeless tobacco non-user [facility] Cigarettes smoked current (pack per day) - Reported 2023-10-13 00:00:00 2023-10-13 00:00:00 [facility] Cigarette pack-years 2023-10-13 00:00:00 2023-10-13 00:00:00 [facility] Alcohol intake 2023-08-10 00:00:00 2023-08-10 00:00:00 .71 /d [facility] Tobacco Comment 2023-08-08 00:00:00 2023-08-08 00:00:00 On and off since 17. No cigarettes 4+ years [facility] Alcohol Comment 2023-08-08 00:00:00 2023-08-08 00:00:00 Every few weeks- not regular [facility] Exposure to SARS-CoV-2 (event) 2023-01-07 00:00:00 2023-01-17 16:52:00 Not sure [facility] History of tobacco use 2009-05-27 00:00:00 2015-05-27 00:00:00 Cigarette Smoker [facility] Sex assigned at 1990 00:00:00 1990 00:00:00 [facility] Smoking Status Start Date Stop Date Source Current Some Day Smoker [facility] Ex-smoker 2023-10-13 00:00:00 2023-10-13 00:00:00 [facility] Medications Ordered Medication Name Filled Medication Name Start Date Stop Date Current Medication? Ordering Clinician Indication Dosage Frequency Signature (SIG) Comments Components Source Fe Fum-FePoly- FA-Vit C-Vit B3 (Integra F) 125-1 MG capsule 3-13 00:00: 00 Yes [id number] 1{capsu le} QD Take 1 capsule by mouth 1 (one) time each day. [facility] thiamine mononitrate (Vitamin B-1) 100 MG tablet 2022-10 00:00: 00 08-24 04:59 :00 No [id number] 100mg [id number] 3D Take 1 tablet (100 mg total) by mouth in the morning and 1 tablet (100 mg total) at noon and 1 tablet (100 mg total) in the evening. [facility] Fe Fum-FePoly- FA-Vit C-Vit B3 (Integra F) 125-1 MG capsule 2022-10 00:00: 00 09-24 05:59 :00 No [id number] 125mg QD Take 125 mg by mouth 1 (one) time each day. [facility] Dose Unknown 2021-0 6-23 00:00: 00 No Dose Unknown 2021-0 623 00:00: 00 No Dose Unknown 2021-0 6-23 00:00: 00 No &lt 2022-0 6-20 00:00: 00 No &lt 2022-0 6-20 00:00: 00 No &lt 2022-0 6-20 00:00: 00 No Dose Unknown 2-0 5-06 00:00: 00 No Dose Unknown 2022-0 5-06 00:00: 00 No Dose Unknown 2022-0 5-06 00:00: 00 No Dose Unknown 2022-0 5-05 00:00: 00 No Dose Unknown 2022-0 5-05 00:00: 00 No Dose Unknown 2022-0 5-05 00:00: 00 No Dose Unknown 2022-0 5-05 00:00: 00 No Dose Unknown 2022-0 5-05 00:00: 00 No Dose Unknown 2022-0 5-05 00:00: 00 No Dose Unknown 2022-0 5-05 00:00: 00 No Dose Unknown 2022-0 5-05 00:00: 00 No Dose Unknown 2022-0 5-05 00:00: 00 No Dose Unknown 2022-0 5-04 00:00: 00 No Dose Unknown 2022-0 5-04 00:00: 00 No Dose Unknown 2022-0 5-04 00:00: 00 No Dose Unknown 2022-0 5-04 00:00: 00 No Dose Unknown 2022-0 5-04 00:00: 00 No Dose Unknown 2022-0 5-04 00:00: 00 No Dose Unknown 2021-1 1-10 00:00: 00 No Dose Unknown 2021-1 1-10 00:00: 00 No Dose Unknown 2021-1 1-10 00:00: 00 No Dose Unknown 2021-0 8-31 00:00: 00 No Dose Unknown 2021-0 8-31 00:00: 00 No Dose Unknown 2021-0 8-31 00:00: 00 No Dose Unknown 2021-0 6-04 00:00: 00 No Dose Unknown 2021-0 6-04 00:00: 00 No Dose Unknown 2021-0 6-04 00:00: 00 No Dose Unknown 2021-0 5-27 00:00: 00 No Dose Unknown 2021-0 5-27 00:00: 00 No Dose Unknown 2021-0 5-27 00:00: 00 No Dose Unknown 2021-0 5-27 00:00: 00 No Dose Unknown 2021-0 5-27 00:00: 00 No Dose Unknown 2021-0 5-27 00:00: 00 No Dose Unknown 2021-0 4-27 00:00: 00 No Strattera 40 mg capsule 2021-0 4-27 00:00: 00 No 1mg Dose Unknown 2021-0 4-27 00:00: 00 No Strattera 40 mg capsule 2021-0 4-27 00:00: 00 No 1mg Dose Unknown 2021-0 4-27 00:00: 00 No Strattera 40 mg capsule 2021-0 4-27 00:00: 00 No 1mg Dose Unknown 2021-0 4-02 00:00: 00 No Strattera 40 mg capsule 1-0 4-02 00:00: 00 No 1mg Dose Unknown 1-0 4-02 00:00: 00 No Strattera 40 mg capsule 1-0 4-02 00:00: 00 No 1mg Dose Unknown 2020-0 4-02 00:00: 00 No Strattera 40 mg capsule 2020-0 4-02 00:00: 00 No 1mg benzonatate 100 mg capsule 1-0 3-09 00:00: 00 No 1mg benzonatate 100 mg capsule 1-0 3-09 00:00: 00 No 1mg benzonatate 100 mg capsule 1-0 3-09 00:00: 00 No 1mg Lexapro 10 mg tablet 1-0 3-05 00:00: 00 No 1mg Strattera 40 mg capsule 1-0 3-05 00:00: 00 No 1mg Lexapro 10 mg tablet 1-0 3-05 00:00: 00 No 1mg Strattera 40 mg capsule 1-0 3-05 00:00: 00 No 1mg Lexapro 10 mg tablet 1-0 3-05 00:00: 00 No 1mg Strattera 40 mg capsule 1-0 3-05 00:00: 00 No 1mg Lexapro 10 mg tablet 1-0 2-10 00:00: 00 No 1mg Strattera 40 mg capsule 1-0 2-10 00:00: 00 No 1mg Lexapro 10 mg tablet 1-0 2-10 00:00: 00 No 1mg Strattera 40 mg capsule 1-0 2-10 00:00: 00 No 1mg Lexapro 10 mg tablet 1-0 2-10 00:00: 00 No 1mg Strattera 40 mg capsule 1-0 2-10 00:00: 00 No 1mg Lexapro 10 mg tablet 1-0 1-07 00:00: 00 No 1mg Strattera 40 mg capsule 1-0 1-07 00:00: 00 No 1mg Lexapro 10 mg tablet 1-0 1-07 00:00: 00 No 1mg Strattera 40 mg capsule 1-0 1-07 00:00: 00 No 1mg Lexapro 10 mg tablet 0 1-07 00:00: 00 No 1mg Strattera 40 mg capsule 0 1-07 00:00: 00 No 1mg Lexapro 10 mg tablet 2019-10 2-11 00:00: 00 No 1mg Strattera 40 mg capsule 2019-10 2- 00:00: 00 No 1mg Lexapro 10 mg tablet 2019-10 2- 00:00: 00 No 1mg Strattera 40 mg capsule 2019-10 2- 00:00: 00 No 1mg Lexapro 10 mg tablet 2019-10 2- 00:00: 00 No 1mg Strattera 40 mg capsule 2019-10 2- 00:00: 00 No 1mg Strattera 40 mg capsule 2019-10 1-25 00:00: 00 No 1mg Strattera 40 mg capsule 2019-10 1-25 00:00: 00 No 1mg Strattera 40 mg capsule 2019-10 1- 00:00: 00 No 1mg Lexapro 10 mg tablet 2019-10 1-12 00:00: 00 No 1mg Strattera 25 mg capsule 2019-10 1-12 00:00: 00 No 1mg Lexapro 10 mg tablet 2019-10 1-12 00:00: 00 No 1mg Strattera 25 mg capsule 2019-10 1-12 00:00: 00 No 1mg Lexapro 10 mg tablet 2019-10 1-12 00:00: 00 No 1mg Strattera 25 mg capsule 2019-10 1-12 00:00: 00 No 1mg Lexapro 10 mg tablet 2019-10 0-13 00:00: 00 No 1mg hydroxyzine HCl 25 mg tablet 2019-10 0-13 00:00: 00 No 1mg Lexapro 10 mg tablet 2019-10 0-13 00:00: 00 No 1mg hydroxyzine HCl 25 mg tablet 2019-10 0-13 00:00: 00 No 1mg Lexapro 10 mg tablet 2019-10 0-13 00:00: 00 No 1mg hydroxyzine HCl 25 mg tablet 2019-10 0-13 00:00: 00 No 1mg hydroxyzine HCl 25 mg tablet 2019-0 9-17 00:00: 00 No 1mg Lexapro 10 mg tablet 0 9-17 00:00: 00 No 1mg Lexapro 10 mg tablet 2019-0 9-17 00:00: 00 No 1mg hydroxyzine HCl 25 mg tablet 2019-0 9-17 00:00: 00 No 1mg Lexapro 10 mg tablet 2019-0 9-17 00:00: 00 No 1mg hydroxyzine HCl 25 mg tablet 2019-0 9-17 00:00: 00 No 1mg Lexapro 10 mg tablet 2019-0 8-19 00:00: 00 No 1mg hydroxyzine HCl 25 mg tablet 2019-0 8-19 00:00: 00 No 1mg Lexapro 10 mg tablet 0 8-19 00:00: 00 No 1mg hydroxyzine HCl 25 mg tablet 2019-0 8-19 00:00: 00 No 1mg Lexapro 10 mg tablet 2019-0 8-19 00:00: 00 No 1mg hydroxyzine HCl 25 mg tablet 2019-0 8-19 00:00: 00 No 1mg Lexapro 10 mg tablet 2019-0 8-06 00:00: 00 No 1mg hydroxyzine HCl 25 mg tablet 2019-0 8-06 00:00: 00 No 1mg Lexapro 10 mg tablet 2019-0 8-06 00:00: 00 No 1mg hydroxyzine HCl 25 mg tablet 2019-0 8-06 00:00: 00 No 1mg Lexapro 10 mg tablet 2019-0 8-06 00:00: 00 No 1mg hydroxyzine HCl 25 mg tablet 2019-0 8-06 00:00: 00 No 1mg Keflex 500 mg capsule 2019-0 5-08 00:00: 00 No 1mg Keflex 500 mg capsule 2019-0 5-08 00:00: 00 No 1mg Keflex 500 mg capsule 0 5-08 00:00: 00 No 1mg Bactrim DS 800 mg-160 mg tablet 2019-0 4-28 00:00: 00 No 1mg Bactrim DS 800 mg-160 mg tablet 2019-0 4-28 00:00: 00 No 1mg Bactrim DS 800 mg-160 mg tablet 0 4-28 00:00: 00 No 1mg benzonatate 200 mg capsule 2018-0 5-17 00:00: 00 Yes [id number] 200mg Take 1 capsule by mouth 3 (three) times daily as needed for Cough. [facility] 03-12 00:00: 00 Yes [id number] 2{puff} Inhale 2 Puffs every 4 (four) hours as needed for Wheezing or Shortness of Breath. [facility] norethindro ne-e.estrad iol-iron (MICROGESTI N FE) 1.5 mg-30 mcg (21)/75 mg (7) per tablet 02-18 00:00: 00 Yes [id number] 1{tbl} Take 1 tablet by mouth daily. [facility] ergocalcife rol (vitamin D2) 1,250 mcg (50,000 unit) capsule TAKE 1 CAPSULE BY MOUTH ONE TIME PER WEEK ergocalcife rol (vitamin D2) 1,250 mcg (50,000 unit) capsule TAKE 1 CAPSULE BY MOUTH ONE TIME PER WEEK No ergocalcif denia (vitamin D2) 1,250 mcg (50,000 unit) capsule TAKE 1 CAPSULE BY MOUTH ONE TIME PER WEEK [facility] fluticasone propionate 50 mcg/actuati on nasal spray,suspe nsion SPRAY 1 SPRAY INTO EACH NOSTRIL TWICE A DAY fluticasone propionate 50 mcg/actuati on nasal spray,suspe nsion SPRAY 1 SPRAY INTO EACH NOSTRIL TWICE A DAY No fluticason e propionate 50 mcg/actuat ion nasal spray,susp ension SPRAY 1 SPRAY INTO EACH NOSTRIL TWICE A DAY [facility] Folivane-F 125 mg-1 mg-40 mg-3 mg capsule TAKE 1 CAPSULE BY MOUTH EVERY DAY Folivane-F 125 mg-1 mg-40 mg-3 mg capsule TAKE 1 CAPSULE BY MOUTH EVERY DAY No Folivane-F 125 mg-1 mg-40 mg-3 mg capsule TAKE 1 CAPSULE BY MOUTH EVERY DAY [facility] phenazopyri dine 200 mg tablet TAKE 1 TABLET 3 TIMES A DAY NEEDED FOR URINARY FREQUENCY/U RGENCY, BLADDER PAIN phenazopyri dine 200 mg tablet TAKE 1 TABLET 3 TIMES A DAY NEEDED FOR URINARY FREQUENCY/U RGENCY, BLADDER PAIN No phenazopyr idine 200 mg tablet TAKE 1 TABLET 3 TIMES A DAY NEEDED FOR URINARY FREQUENCY/ URGENCY, BLADDER PAIN [facility] Vital Signs Vital Name Observation Time Observation Value Comments S ource Systolic blood pressure 2024-02-13 16:00:00 114 mm[Hg] [facility] Diastolic blood pressure 2024-02-13 16:00:00 76 mm[Hg] [facility] Heart rate 2024-02-13 16:00:00 80 /min [facility] Body height 2024-02-13 16:00:00 152.4 cm [facility] Body weight 2024-02-13 16:00:00 111.676 [facility] BMI 2024-02-13 16:00:00 48.08 kg/m2 [facility] Oxygen saturation in Arterial blood by Pulse oximetry 2024-02-13 16:00:00 99 /min [facility] Systolic blood pressure 2024-01-23 16:46:00 121 mm[Hg] [facility] Diastolic blood pressure 2024-01-23 16:46:00 73 mm[Hg] [facility] Heart rate 2024-01-23 16:46:00 84 /min [facility] Body height 2024-01-23 16:46:00 152.4 cm [facility] Body weight 2024-01-23 16:46:00 114.76 kg [facility] BMI 2024-01-23 16:46:00 49.41 kg/m2 [facility] Oxygen saturation in Arterial blood by Pulse oximetry 2024-01-23 16:46:00 98 /min [facility] Systolic blood pressure 2024-01-02 16:26:00 125 mm[Hg] [facility] Diastolic blood pressure 2024-01-02 16:26:00 84 mm[Hg] [facility] Heart rate 2024-01-02 16:26:00 88 /min [facility] Body height 2024-01-02 16:26:00 152.4 cm [facility] Body weight 2024-01-02 16:26:00 122.517 kg [facility] BMI 2024-01-02 16:26:00 52.75 kg/m2 [facility] Oxygen saturation in Arterial blood by Pulse oximetry 2024-01-02 16:26:00 98 /min [facility] Systolic blood pressure 2023-10-14 15:49:00 126 mm[Hg] [facility] Diastolic blood pressure 2023-10-14 15:49:00 80 mm[Hg] [facility] Heart rate 2023-10-14 15:49:00 85 /min [facility] Body temperature 2023-10-14 15:49:00 36.72 Bozena [facility] Body height 2023-10-14 15:49:00 152.4 cm [facility] Body weight 2023-10-14 15:49:00 121.337 kg [facility] BMI 2023-10-14 15:49:00 52.24 kg/m2 [facility] Body height 2023-08-26 13:13:00 152.4 cm [facility] Body weight 2023-08-26 13:13:00 123.514 kg Per last clinic visit. [facility] BMI 2023-08-26 13:13:00 53.18 kg/m2 [facility] Systolic blood pressure 2023-08-05 15:05:00 116 mm[Hg] [facility] Diastolic blood pressure 2023-08-05 15:05:00 73 mm[Hg] [facility] Heart rate 2023-08-05 15:05:00 73 /min [facility] Body temperature 2023-08-05 15:05:00 36.56 Bozena [facility] Body height 2023-08-05 15:05:00 152.4 cm [facility] Body weight 2023-08-05 15:05:00 123.514 kg [facility] BMI 2023-08-05 15:05:00 53.18 kg/m2 [facility] BP Systolic 2022-09-24 08:19:00 113 mm[Hg] BP [...] Procedure Date / Time Performed Performing Clinician Source US PELVIC NONOBSTETRIC REAL-TIME IMAGE COMPLETE 2023-11-28 00:00:00 [facility] US PELVIC NONOBSTETRIC REAL-TIME IMAGE COMPLETE 2023-11-14 00:00:00 [facility] VITAMIN B12 2023-08-05 16:08:00 Monique Rao [facility] FOLATE 2023-08-05 16:08:00 [facility] VITAMIN E 2023-08-05 16:08:00 [facility] VITAMIN A 2023-08-05 16:08:00 [facility] VITAMIN B1, WHOLE BLOOD 2023-08-05 16:08:00 [facility] IRON AND TIBC 2023-08-05 16:08:[address] [facility] [address] ABDOMEN PELVIS WO CONTRAST 2023-01-23 13:40:50 Requisition, Paper [facility] CONSENT/REFUSAL FOR DIAGNOSIS AND TREATMENT 2023-01-23 13:40:49 Doctor Unassigned, Greasy [facility] ASSIGNMENT OF BENEFITS 2023-01-23 13:40:33 Docto r Unassigned, Greasy [facility] CONSENT/REFUSAL FOR DIAGNOSIS AND TREATMENT 2023-01-23 13:26:32 Doctor Unassigned, Greasy [facility] ASSIGNMENT OF BENEFITS 2023-01-23 13:26:18 Docto r Unassigned, Greasy [facility] CONSENT/REFUSAL FOR DIAGNOSIS AND TREATMENT 2023-01-10 14:28:19 Doctor Unassigned, Greasy [facility] ASSIGNMENT OF BENEFITS 2023-01-10 14:28:06 Docto r Unassigned, Greasy [facility] Caes[facility] Section [facility] Plan of Care Planned Activity Planned Date Details Comments Source Goal Plan of Care Note [code = 35944-6] Goal Plan of Care Note [code = 73643-2] Goal Plan of Care Note [code = 56540-5] Goal Plan of Care Note [code = 19752-4] Goal Plan of Care Note [code = 64626-3] Goal Plan of Care Note [code = 60756-3] Goal Plan of Care Note [code = 53432-1] Goal Plan of Care Note [code = 19841-2] Goal Plan of Care Note [code = 54577-1] Goal Plan of Care Note [code = 80564-0] Goal Plan of Care Note [code = 29735-8] Goal Plan of Care Note [code = 00223-9] Goal Plan of Care Note [code = 99679-9] Goal Plan of Care Note [code = 21954-2] Goal Plan of Care Note [code = 53336-5] Goal Plan of Care Note [code = 02282-1] Goal Plan of Care Note [code = 47679-1] Goal Plan of Care Note [code = 74058-8] Goal Plan of Care Note [code = 29872-9] Goal Plan of Care Note [code = 89942-7] Goal Plan of Care Note [code = 86433-4] Goal Plan of Care Note [code = 87281-9] Goal Plan of Care Note [code = 68831-7] Goal Plan of Care Note [code = 30957-0] Goal Plan of Care Note [code = 60577-2] Goal Plan of Care Note [code = 03586-8] Goal Plan of Care Note [code = 59920-4] Goal Plan of Care Note [code = 19374-0] Goal Plan of Care Note [code = 70070-7] Goal Plan of Care Note [code = 46284-3] Goal Plan of Care Note [code = 40408-3] Goal Plan of Care Note [code = 59203-4] Goal Plan of Care Note [code = 87666-6] Goal Plan of Care Note [code = 08990-6] Goal Plan of Care Note [code = 72446-0] Goal Plan of Care Note [code = 67526-1] Goal Plan of Care Note [code = 35413-1] Goal Plan of Care Note [code = 98178-5] Goal Plan of Care Note [code = 35529-1] Goal Plan of Care Note [code = 22466-6] Goal Plan of Care Note [code = 59198-4] Goal Plan of Care Note [code = 87762-5] Goal Plan of Care Note [code = 09772-7] Goal Plan of Care Note [code = 23499-6] Goal Plan of Care Note [code = 11389-9] Goal Plan of Care Note [code = 43840-2] Goal Plan of Care Note [code = 42457-2] Goal Plan of Care Note [code = 44275-1] Goal Plan of Care Note [code = 75151-8] Goal Plan of Care Note [code = 66060-0] Goal Plan of Care Note [code = 09170-9] Goal Plan of Care Note [code = 04826-7] Goal Plan of Care Note [code = 95350-1] Goal Plan of Care Note [code = 29779-7] Goal Plan of Care Note [code = 82275-7] Goal Plan of Care Note [code = 53564-1] Goal Plan of Care Note [code = 63640-2] Goal Plan of Care Note [code = 14197-5] Goal Plan of Care Note [code = 56164-5] Goal Plan of Care Note [code = 82141-3] Goal Plan of Care Note [code = 97402-5] Goal Plan of Care Note [code = 63755-0] Goal Plan of Care Note [code = 81552-0] Goal Plan of Care Note [code = 26414-4] Goal Plan of Care Note [code = 00445-9] Goal Plan of Care Note [code = 71318-1] Goal Plan of Care Note [code = 95441-8] Goal Plan of Care Note [code = 13546-5] Goal Plan of Care Note [code = 97585-6] Goal Plan of Care Note [code = 32693-2] Goal Plan of Care Note [code = 28591-5] Goal Plan of Care Note [code = 13896-3] Goal Plan of Care Note [code = 38789-9] Goal Plan of Care Note [code = 01728-2] Goal Plan of Care Note [code = 09079-6] Goal Plan of Care Note [code = 18116-8] Goal Plan of Care Note [code = 42179-0] Goal Plan of Care Note [code = 93870-6] Goal Plan of Care Note [code = 49093-0] Goal Plan of Care Note [code = 24359-3] Goal Plan of Care Note [code = 88146-1] Goal Plan of Care Note [code = 62102-8] Goal Plan of Care Note [code = 68543-9] Goal Plan of Care Note [code = 62249-7] Goal Plan of Care Note [code = 78448-7] Goal Plan of Care Note [code = 48682-8] Goal Plan of Care Note [code = 41452-7] Goal Plan of Care Note [code = 51508-1] Goal Plan of Care Note [code = 89376-6] Goal Plan of Care Note [code = 86818-6] Goal Plan of Care Note [code = 90274-9] Goal Plan of Care Note [code = 93229-2] Encounters Start Date/Time End Date/Time Encounter Type Admission Type Attending Clinicians Care Facility Care Department Encounter ID Source 2024-03-19 11:40:00 2024-03-19 11:40:00 Outpatient MONIQUE RAO [facility] [id number] [facility] 2024-02-27 10:30:00 2024-02-27 10:30:00 Outpatient MONIQUE RAO [facility] [id number] [facility] 2024-02-13 10:50:00 2024-02-13 11:48:52 Office Visit Monique Rao [facility] [id number] [id number] [id number] [facility] 2024-01-23 11:45:00 2024-01-23 12:18:30 Office Visit Monique Rao [facility] 1.2.840.114 [id number] [id number] [facility] 2024-01-06 10:39:17 2024-01-06 10:39:17 Outpatient [facility] [id number] Marlo Pike 2024-01-02 10:30:00 2024-01-02 11:22:37 Consult MONIQUE RAO [facility] [place] [id number] 350.1.13.58 [id number] [id number] [facility] 2023-11-28 00:00:00 2023-11-28 00:00:00 Gaudencio Goldman MD: [address] [place] [address] , Ph. [facility] - GC_BECKY_ [facility] Office [id number] [facility] 2023-11-27 00:00:00 2023-11-27 00:00:00 Outpatient TARA_BECKY_ Jones_G [facility] [id number] [facility] 2023-11-20 00:00:00 2023-11-20 00:00:00 Outpatient GC_SWHAOMC_ Jones_Amy [facility] [id number] [facility] 2023-11-14 00:00:00 2023-11-14 00:00:00 Outpatient GC_SWHAOMC_ Jones_Amy [facility] [id number] [facility] 2023-11-14 00:00:00 2023-11-14 00:00:00 Gaudencio Goldman MD: [address] [place] [address] , Ph. [facility] GC_SWHAOMC_ [place] Office [id number] [facility] 2023-11-12 00:00:00 2023-11-12 00:00:00 Outpatient GC_SWHAOMC_ Jones_Amy [facility] [id number] [facility] 2023-11-04 00:00:00 2023-11-04 00:00:00 Outpatient GC_SWHAOMC_ Jones_Amy [facility] [id number] [facility] 2023-10-31 15:02:13 2023-10-31 15:02:13 Outpatient SFA SFA [id number] Marlo F Shahzad 2023-10-14 09:45:00 2023-10-14 10:56:37 Office Visit MONIQUE RAO [facility] [place]OM[facility] [id number] [id number] [id number] [id number] [facility] 2023-10-14 08:30:17 2023-10-14 08:30:17 Outpatient SFA SFA [id number] Marlo Yusuf Shahzad 2023-10-08 08:00:00 2023-10-08 08:00:00 Outpatient MONIQUE RAO [facility] [id number] [facility] 2023-09-23 08:01:01 2023-09-23 08:01:01 Outpatient SFA SFA [id number] Marlo Yusuf Shahzad 2023-09-22 08:24:11 2023-09-22 08:24:11 Outpatient SFA SFA [id number] Marlo Pike 2023-09-08 07:53:50 2023-09-08 07:53:50 Outpatient SFA SFA [id number] Marlo Pike 2023-09-01 08:08:04 2023-09-01 08:08:04 Outpatient SFA SFA [id number] Marlo Pike 2023-08-26 08:15:00 2023-08-26 08:41:42 Nutrition Senait Jones [facility] [id number] [id number] [id number] [id number] [facility] 2023-08-22 07:58:17 2023-08-22 07:58:17 Outpatient [facility] 1027 [address] Pike 2023-08-21 08:01:01 2023-08-21 08:01:01 Outpatient [facility] 1026 Marlo Pike 2023-08-14 08:03:29 2023-08-14 08:03:29 Outpatient [facility] [id number] [address] 2023-08-05 10:00:00 2023-08-05 11:24:41 Office Visit Monique Rao [facility] 1.2.840.114 350.1.13.58 9.2.7.2.686 [id number] [facility] 2023-07-08 08:13:20 2023-07-08 08:13:20 Outpatient [facility] 0912 [address] Pike 2023-07-05 12:17:42 2023-07-05 12:17:42 Outpatient S[facility] [id number] [address] P[address] 2023-01-23 08:26:34 2023-01-23 23:59:00 Outpatient R RADIOLOGY [facility] [id number] [facility] 2023-01-23 08:26:34 2023-01-23 23:59:00 Hospital Encounter Radiology [facility] 1..840.114 350.1.13.10 4.2.7.2.686 [id number] [facility] 2023-01-10 00:00:00 2023-01-10 00:00:00 Outpatient R [facility]IOLOGY [facility] [id number] [facility] 2023-01-10 00:00:00 2023-01-10 00:00:00 Orders Only Doctor Unassigned, Greasy [facility] 1..840.114 350.1.13.10 4.2.7.2.686 [id number] [facility] 2023-01-09 14:48:49 2023-01-09 14:48:49 Outpatient [facility] [id number] [address] Pike 2022-12-12 08:09:41 2022-12-12 08:09:41 Outpatient [facility] [id number] [address] Pike 2022-10-17 09:02:24 2022-10-17 09:02:24 Outpatient [facility] [id number] [address] Pike 2022-09-24 08:04:17 2022-09-24 08:04:17 Outpatient [facility] [address] 2022-09-24 00:00:00 2022-09-24 00:00:00 Outpatient Visit [id number] 2022-09-09 08:06:27 2022-09-09 08:06:27 Outpatient [facility] [address] 2022-09-09 00:00:00 2022-09-09 00:00:00 Outpatient Visit [id number] 2022-07-11 00:00:00 2022-07-11 00:00:00 Outpatient Visit [id number] 2022-05-27 00:00:00 2022-05-27 00:00:00 Outpatient Visit [id number] Results Test Description Test Time Test Comments Results Result Co mments Source [facility]/volume] in Serum or [id number] 00:00:00* Test Item Value Reference Range Interpretation Comme nts prolactin (test code = prolactin) 11.0 NG/mL 4.8-23.3 [facility] T4 and TSH panel - Serum or [id number] 00:00:00* Test Item Value Reference Range Interpretation Comme nts TSH (test code = TSH) 1.520 uIU/mL 0.178-4.530 free T4 (test code = free T4) 1.22 NG/dL 0.80-1.73 [facility], progesterone, estrogen 2023-11-18 00:00:00* Test Item Value Reference Range Interpretation Comme nts estradiol (test code = estradiol) 122.0 pg/mL 6.1-91.9 H LH (test code = LH) 3.3 mIU/mL FSH (test code = FSH) 1.9 mIU/mL progesterone (test code = progesterone) 3.99 NG/mL [facility] +2 [id number] 00:00:00* Test Item Value Reference Range Interpretation Comme nts HIV 1+2 Ab (test code = HIV 1+2 Ab) non-reactive non-reactive [facility]ST[facility] [id number] 00:00:00* Test Item Value Reference Range Interpretation Comme nts herpes I Ab.(IgG) (test code = herpes I Ab.(IgG)) 0.12 ai <0.90 herpes II Ab.(IgG) (test cod e = herpes II Ab.(IgG)) 0.10 ai <0.90 RPR (test code = RPR) non-reactive non-reactive hep. B core Ab. total (test code = hep. B core Ab. total) non-reactive non-reactive hep. B surf. Ag (test code = hep. B surf. Ag) non-reactive non-reactive hep. C Ab. (test code = hep. C Ab.) non-reactive non-reactive HIV Ag/Ab (test code = HIV Ag/Ab) non-reactive non-reactive [facility] Medical[facility] P24 [id number] 00:00:00* Test Item Value Reference Range Interpretation Comme nts HIV-1 P24 Ag (test code = HI V-1 P24 Ag) non-reactive non-reactive [facility] MedicalSTI [id number] 00:00:00* Test Item Value Reference Range Interpretation Comme nts HPV thinprep (test code = HP V thinprep) negative negative [facility] Medicaltrichomonas vaginalis thin prep ([facility] [place] 2023-11-17 00:00:00* Test Item Value Reference Range Interpretation Comme nts trichomonas vaginalis thinpr ep (test code = trichomonas vaginalis thinprep) trich neg negative [facility] Medicalaptima combo 2 thinprep (CT/GC) ([facility] [place] 2023-11-17 00:00:00* Test Item Value Reference Range Interpretation Comme nts aptima combo 2 thinprep (CT) (test code = aptima combo 2 thinprep (CT)) CT neg negative aptima combo 2 thinprep (GC) (test code = aptima combo 2 thinprep (GC)) GC neg negative [facility] MedicalIron and [id number] 21:48:00* Test Item Value Reference Range Interpretation Comme nts IRON, TOTAL (test code = 2498-4) 30 See_Comment L [Automated message] The system which generated this result transmitted reference range: 40 - 190 mcg/dL. The reference range was not used to interpret this result as normal/abnormal. IRON BINDING CAPACITY (test code = 2500-7) 357 See_Comment [Automated message] The system which generated this result transmitted reference range: 250 - 450 mcg/dL (calc). The reference range was not used to interpret this result as normal/abnormal. % SATURATION (test code = 2502-3) 8 See_Comment L [Automated message] The system which generated this result transmitted reference range: 16 - 45 % (calc). The reference range was not used to interpret this result as normal/abnormal. RAC (test code = RAC) Performing Organization Information: ? ?Site ID: RGA ? ?Name: [facility] ? ?Address: [address] [place] [phone] ? ?Director: OLAMIDE CARLTON MD,PHD. Lab Interpretation (test code = 53382-4) Abnormal [place] [id number] 21:48:00* Test Item Value Reference Range Interpretation Comme nts FOLATE, SERUM (test code = 2284-8) 16.8 ng/mL ? Reference Range ? Low: ? <3.4 ? Borderline: ? ?3.4-5.4 ? Normal: ?>5.4 RAC (test code = RAC) Performing Organization Information: ? ?Site ID: RGA ? ?Name: [employer] [place] ? ?Address: [address] [place] [phone] ? ?Director: OLAMIDE CARLTON MD,PHD. [facility] [id number] 21:48:00* Test Item Value Reference Range Interpretation Comments VITAMIN A (RETINOL) (test code = 2923-1) 36 See_Comment L Clin Chem Vol. 34.No.8. [id number]. 1998Vitamin supplementation within 24 hours prior to blood draw may affect the accuracy of results. ? This test was developed and its analytical performance characteristics have been determined by [employer]. It has not been cleared or approved by theA. This assay has been validated pursuant to the CLIA regulations and is used for clinical purposes. [Automated message] The system which generated this result transmitted reference range: 38 - 98 mcg/dL. The reference range was not used to interpret this result as normal/abnormal. RAC (test code = RAC) Performing Organization Information: ? ?Site ID: SLI ? ?Name: [employer] [place] ? ?Address: [address] [place] [phone] ? ?Director: GONZALO CANO MD Lab Interpretation (test code = 81921-3) Abnormal [place] Health[facility] B1, whole [id number] 21:48:00* Test Item Value Reference Range Interpretation Comments VITAMIN B1 (THIAMINE), BLOOD, LC/MS/MS (test code = 80971-0) 75 nmol/L 78-185 L (Note) Vitamin supplementation within 24 hours prior to blood draw mayaffect the accuracy of the results. This test was developed and its analytical performance characteristics have been determined by [employer]. It has not been cleared or approved by FDA. This assay has been validated pursuant to the CLIA regulations and is used for clinical purposes. [facility] [address] [place] [address],[address] [place] [address] [id number] ahsan Obregon MD REPORT COMMENT:FASTING:NO RAC (test code = RAC) Performing Organization Information: ? ?Site ID: [id number] ? ?Name: [employer] ? ?Address: [address] [place] [address] [place] [phone] ? ?Director: ASHLEY OBREGON MD Lab Interpretation (test code = 75824-5) Abnormal [place] [facility] [id number] 21:48:00* Test Item Value Reference Range Interpretation Comme nts ALPHA-TOCOPH DENIA (test code = 1823-4) 12.6 mg/L ? ? ?Reference R josé miguel ? ? ?5.7-19.9 mg/L ?Levels of alpha-tocopherol <5 mg/L are ? ? ?consistent with Vitamin E deficiency in ? ? ?adults.Vitamin supplementation within 24 hours prior to blood draw may affect the accuracy of results. ? ? See Note 1 [id number] OCOPHEROL (test code = 45677-0) 1.4 See_Comment See Note 1 Note 1 This test was developed and its analytical performance characteristics have been determined by [employer]. It has not been cleared or approved by theFDA. This assay has been validated pursuant to the CLIA regulations and is used for clinical purposes. [Automated message] The system which generated this result transmitted reference range: <4.4 mg/L . The reference range was not used to interpret this result as normal/abnormal. RAC (test code = RAC) Performing Organization Information: ? ?Site ID: SLI ? ?Name: [employer] [place] ? ?Address: [address] [place] [address] ? ?Director: GONZALO CANO MD [place] [facility] [id number] 21:48:00* Test Item Value Reference Range Interpretation Comme nts VITAMIN B12 (test code = 2132-9) 615 pg/mL 200-1100 RAC (test code = RAC) Performing Organization Information: ? ?Site ID: RGA ? ?Name: [employer] [place] ? ?Address: [address] [place] [address] ? ?Director: OLAMIDE CARLTON MD,PHD. [place] HealthVITAMIN D, 25 [id number] 06:28:31* Test Item Value Reference Range Interpretation Comme [facility] VITAMIN D, 25 [place] (test code = 4958) 6 NG/ML SEE BELOW L EFFECTIVE 06/2023, PLEASE NOTE NEW METHODOLOGY IS ELECTROCHEMILUMINESCENCE BINDING ASSAY. NOTE: 25-HYDROXYVITAMIN D ASSAY INCLUDES 25-HYDROXYVITAMIN D2 AND D3. INTERPRETIVE RANGES PEDIATRIC (<17 YEARS) . . . . . . . . . . . NG/ML 20-100ADULT: INSUFFICIENT . . . . . . . . . . . . . . NG/ML <20 SUBOPTIMAL . . . . . . . . . . . . . . . NG/ML 20-29 OPTIMAL . . . . . . . . . . . . . . . . . NG/ML 30-100 UNLESS OTHERWISE INDICATED, ALL TESTING PERFORMED AT [facility] [address] [place] [address] METER TESTER PRIMARY: SILVESTRE HYMAN M.D. CLIA NUMBER [id number] [facility]. [id number] LIPID [id number] 04:58:40* Test Item Value Reference Range Interpretation Comme nts CHOLESTEROL (test code = 2210) 159 MG/DL <200 TRIGLYCERIDES (test code = 2232) 74 MG/DL <150 HDL CHOLESTEROL (test code = 2220) 64 MG/DL >39 CALC LDL CHOL (test code = 2237) 80 MG/DL <100 NOTE: CALCULATED LDL IS BASED ON DEBBIE-JONES METHOD WHICHINCLUDES ADJUSTABLE TRIGLYCERIDE:VLDL CHOLESTEROL RATIO.THIS FACTOR VARIES BY MEASURED TRIGLYCERIDE AND NON-HDLCHOLESTEROL CONCENTRATIONS WITH INCREASED CALCULATED LDL SEENIN HIGHER TRIGLYCERIDE OR LOWER NON-HDL SPECIMENS. FOR MOREINFORMATION, SEE CLIENT ANNOUNCEMENT AT [email or web address] [email or web address] RATIO LDL/HDL (test code = 2238) 1.25 RATIO <3.22 HEMOGLOBIN [id number] 02:51:24* Test Item Value Reference Range Interpretation Comme nts HEMOGLOBIN A1c (test code = 88292) 5.8 % 4.2-5.6 H [employer] GUIDELINES FOR HGB A1C: PREDIABETES/INCREASED RISK . . . . . . . 5.7-6.4% DIAGNOSIS OF DIABETES . . . . . . . . . >=6.5% WITH CONFIRMATION OR APPROPRIATE SYMPTOMS NOTE: ASSAY MAY BE AFFECTED BY HEMOGLOBINOPATHIES (SICKLE CELL ANEMIA, S-C DISEASE, OTHERS) OR ARTIFICIALLY LOWERED BY DECREASED RED CELL SURVIVAL (HEMOLYTIC ANEMIAS, BLOOD LOSS, ETC.). CONSIDER ALTERNATE TESTING OR LABORATORY CONSULTATION. COMPREHENSIVE METABOLIC [id number] 05:14:36* Test Item Value Reference Range Interpretation Comme nts GLUCOSE (test code = 221) 90 MG/DL 70-99 BUN (test code = 220) 15 MG/DL 6-20 CREATININE (test code = 2214) 0.62 MG/DL 0.60-1.30 eGFR (2020 CKD-EPI) (test code = 74224) 122 ML/MIN/1.73 >60 CALC BUN/CREAT (test code = 223) 24 RATIO 6-28 SODIUM (test code = 223) 140 MEQ/L 133-146 POTASSIUM (test code = 2228) 4.3 MEQ/L 3.5-5.4 CHLORIDE (test code = 2215) 106 MEQ/L 95-107 CARBON DIOXIDE (test code = 2206) 22 MEQ/L 19-31 CALCIUM (test code = 2209) 9.2 MG/DL 8.5-10.5 PROTEIN, TOTAL (test code = 2228) 7.2 G/DL 6.1-8.3 ALBUMIN (test code = 2200) 4.1 G/DL 3.5-5.2 CALC GLOBULIN (test code = 2240) 3.1 G/DL 1.9-3.7 CALC A/G RATIO (test code = 2234) 1.3 RATIO 1.0-2.6 BILIRUBIN, TOTAL (test code = 2207) 0.3 MG/DL See_Comment [Automated me ssage] The system which generated this result transmitted reference range: <=1.2. The reference range was not used to interpret this result as normal/abnormal. ALKALINE PHOSPHATASE (test code = 2204) 104 U/L 40-114 AST (test code = 2218) 14 U/L 9-40 ALT (test code = 2219) 12 U/L 5-40 LIPID [id number] 05:14:36* Test Item Value Reference Range Interpretation Comme nts CHOLESTEROL (test code = 2210) 146 MG/DL <200 TRIGLYCERIDES (test code = 2232) 56 MG/DL <150 HDL CHOLESTEROL (test code = 2220) 63 MG/DL >39 CALC LDL CHOL (test code = 223) 69 MG/DL <100 NOTE: CALCULATED LDL IS BASED ON DEBBIE-JONES METHOD WHICHINCLUDES ADJUSTABLE TRIGLYCERIDE:VLDL CHOLESTEROL RATIO.THIS FACTOR VARIES BY MEASURED TRIGLYCERIDE AND NON-HDLCHOLESTEROL CONCENTRATIONS WITH INCREASED CALCULATED LDL SEENIN HIGHER TRIGLYCERIDE OR LOWER NON-HDL SPECIMENS. FOR MOREINFORMATION, SEE CLIENT ANNOUNCEMENT AT [email or web address] [email or web address] RATIO LDL/HDL (test code = 2238) 1.10 RATIO <3.22 [facility] has i mportant pathology staff changes effective 12/25/2022. New pathology staff will provide uninterrupted, excellent patient care and clinical consultation. See URL: [email or web address] UNLESS OTHERWISE INDICATED, ALL TESTING PERFORMED AT [facility] [address] [facility], [place] CLIA: [id number], CAP: [id number] TSH, THIRD [id number] 04:52:38* Test Item Value Reference Range Interpretation Comme nts TSH, THIRD GENERATION (test code = 2821) 1.600 UIU/ML 0.400-4.100 CBC W/AUTO DIFF WITH [id number] 03:36:09* Test Item Value Reference Range Interpretation Comme nts WBC (test code = 1001) 8.3 K/UL 3.5-11.0 RBC (test code = 1002) 4.59 M/UL 3.80-5.40 HEMOGLOBIN (test code = 1003) 9.9 G/DL 11.5-15.5 L HEMATOCRIT (test code = 1004) 33.4 % 34.0-45.0 L MCV (test code = 1005) 72.8 fL 80.0-99.0 L MCH (test code = 1006) 21.6 PG 25.0-33.0 L MCHC (test code = 1007) 29.6 G/DL 31.0-36.0 L RDW (test code = 1038) 15.1 % 11.5-15.0 H NEUTROPHILS (test code = 1008) 64.2 % LYMPHOCYTES (test code = 1010) 25.3 % MONOCYTES (test code = 1011) 5.3 % EOSINOPHILS (test code = 1012) 4.4 % BASOPHILS (test code = 1013) 0.6 % IMMATURE GRANULOCYTES (test code = 1036) 0.2 % NUCLEATED RBCS (test code = 1065) 0.0 /100 WBC'S See_Comment [Automated messa ge] The system which generated this result transmitted reference range: 0.0. The reference range was not used to interpret this result as normal/abnormal. PLATELET COUNT (test code = 1015) 398 K/UL 130-400 ABSOLUTE NEUTROPHILS (test code = 1066) 5.30 K/UL 1.50-7.50 ABSOLUTE LYMPHOCYTES (test code = 1067) 2.09 K/UL 1.00-4.00 ABSOLUTE MONOCYTES (test code = 1068) 0.44 K/UL 0.20-1.00 ABSOLUTE EOSINOPHILS (test code = 1040) 0.36 K/UL 0.00-0.50 ABSOLUTE BASOPHILS (test code = 1069) 0.05 K/UL 0.00-0.20 ABS IMMATURE GRANULOCYTES (test code = 1020) 0.02 K/UL 0.00-0.10 ABS NUCLEATED RBCS (test code = 64759) 0.00 K/UL 0.00-0.11 LIPID [id number] 04:50:15* Test Item Value Reference Range Interpretation Comme nts CHOLESTEROL (test code = 2210) 150 MG/DL <200 TRIGLYCERIDES (test code = 2232) 59 MG/DL <150 HDL CHOLESTEROL (test code = 2220) 55 MG/DL >39 CALC LDL CHOL (test code = 223) 81 MG/DL <100 NOTE: CALCULATED LDL IS BASED ON DEBBIE-JONES METHOD WHICHINCLUDES ADJUSTABLE TRIGLYCERIDE:VLDL CHOLESTEROL RATIO.THIS FACTOR VARIES BY MEASURED TRIGLYCERIDE AND NON-HDLCHOLESTEROL CONCENTRATIONS WITH INCREASED CALCULATED LDL SEENIN HIGHER TRIGLYCERIDE OR LOWER NON-HDL SPECIMENS. FOR MOREINFORMATION, SEE CLIENT ANNOUNCEMENT AT [email or web address] RISK RATIO LDL/HDL (test code = 2237) 1.47 RATIO <3.22 COMPREHENSIVE METABOLIC [id number] 04:50:15* Test Item Value Reference Range Interpretation Comme nts GLUCOSE (test code = 2216) 96 MG/DL 70-99 BUN (test code = 2207) 12 MG/DL 6-20 CREATININE (test code = 221) 0.65 MG/DL 0.60-1.30 eGFR (2020 CKD-EPI) (test code = 03696) 121 ML/MIN/1.73 >60 CALC BUN/CREAT (test code = 2235) 18 RATIO 6-28 SODIUM (test code = 223) 140 MEQ/L 133-146 POTASSIUM (test code = 2228) 4.4 MEQ/L 3.5-5.4 CHLORIDE (test code = 2215) 104 MEQ/L 95-107 CARBON DIOXIDE (test code = 2206) 23 MEQ/L 19-31 CALCIUM (test code = 2208) 9.2 MG/DL 8.5-10.5 PROTEIN, TOTAL (test code = 2228) 7.4 G/DL 6.1-8.3 ALBUMIN (test code = 2201) 4.0 G/DL 3.5-5.2 CALC GLOBULIN (test code = 2240) 3.4 G/DL 1.9-3.7 CALC A/G RATIO (test code = 223) 1.2 RATIO 1.0-2.6 BILIRUBIN, TOTAL (test code = 2206) <0.2 MG/DL See_Comment [Automated me ssage] The system which generated this result transmitted reference range: <=1.2. The reference range was not used to interpret this result as normal/abnormal. ALKALINE PHOSPHATASE (test code = 2203) 99 U/L 40-112 AST (test code = 2218) 16 U/L 9-40 ALT (test code = 2219) 14 U/L 5-40 UNLESS OTHERWISE INDICATED, [facility] [address] [place] [address] METER TESTER PRIMARY: JACQUI HONG M.D. [place] NUMBER [id number] [facility] [place]. [id number] LIPID [id number] 00:00:00* Test Item Value Reference Range Interpretation Comme nts CHOLESTEROL (test code = 2210) 150 MG/DL TRIGLYCERIDES (test code = 2232) 59 MG/DL HDL CHOLESTEROL (test code = 2220) 55 MG/DL CALC LDL CHOL (test code = 2237) 81 MG/DL RISK RATIO LDL/HDL (test cod e = 2238) 1.47 RATIO LIPID [id number] 00:00:00* Test Item Value Reference Range Interpretation Comme nts CHOLESTEROL (test code = 2210) 150 MG/DL TRIGLYCERIDES (test code = 2232) 59 MG/DL HDL CHOLESTEROL (test code = 2220) 55 MG/DL CALC LDL CHOL (test code = 2237) 81 MG/DL RISK RATIO LDL/HDL (test cod e = 2238) 1.47 RATIO COMPREHENSIVE METABOLIC [id number] 00:00:00* Test Item Value Reference Range Interpretation Comme nts GLUCOSE (test code = 2217) 96 MG/DL BUN (test code = 2208) 12 MG/DL CREATININE (test code = 2214) 0.65 MG/DL eGFR (2020 CKD-EPI) (test code = 34326) 121 ML/MIN/1.73 CALC BUN/CREAT (test code = 2235) 18 RATIO SODIUM (test code = 2231) 140 MEQ/L POTASSIUM (test code = 2228) 4.4 MEQ/L CHLORIDE (test code = 2215) 104 MEQ/L CARBON DIOXIDE (test code = 2206) 23 MEQ/L CALCIUM (test code = 2209) 9.2 MG/DL PROTEIN, TOTAL (test code = 2229) 7.4 G/DL ALBUMIN (test code = 2201) 4.0 G/DL CALC GLOBULIN (test code = 2240) 3.4 G/DL CALC A/G RATIO (test code = 2234) 1.2 RATIO BILIRUBIN, TOTAL (test code = 2207) <0.2 MG/DL ALKALINE PHOSPHATASE (test code = 2204) 99 U/L AST (test code = 2218) 16 U/L ALT (test code = 2219) 14 U/L COMPREHENSIVE METABOLIC [id number] 00:00:00* Test Item Value Reference Range Interpretation Comme nts GLUCOSE (test code = 2217) 96 MG/DL BUN (test code = 2208) 12 MG/DL CREATININE (test code = 2214) 0.65 MG/DL eGFR (2020 CKD-EPI) (test code = 33097) 121 ML/MIN/1.73 CALC BUN/CREAT (test code = 2235) 18 RATIO SODIUM (test code = 2231) 140 MEQ/L POTASSIUM (test code = 2228) 4.4 MEQ/L CHLORIDE (test code = 2215) 104 MEQ/L CARBON DIOXIDE (test code = 2206) 23 MEQ/L CALCIUM (test code = 2209) 9.2 MG/DL PROTEIN, TOTAL (test code = 2229) 7.4 G/DL ALBUMIN (test code = 2201) 4.0 G/DL CALC GLOBULIN (test code = 2240) 3.4 G/DL CALC A/G RATIO (test code = 2234) 1.2 RATIO BILIRUBIN, TOTAL (test code = 2207) <0.2 MG/DL ALKALINE PHOSPHATASE (test code = 2204) 99 U/L AST (test code = 2218) 16 U/L ALT (test code = 2219) 14 U/L LIPID [id number] 00:00:00* Test Item Value Reference Range Interpretation Comme nts CHOLESTEROL (test code = 2210) 150 MG/DL TRIGLYCERIDES (test code = 2232) 59 MG/DL HDL CHOLESTEROL (test code = 2220) 55 MG/DL CALC LDL CHOL (test code = 2237) 81 MG/DL RISK RATIO LDL/HDL (test cod e = 2238) 1.47 RATIO LIPID [id number] 00:00:00* Test Item Value Reference Range Interpretation Comme nts CHOLESTEROL (test code = 2210) 150 MG/DL TRIGLYCERIDES (test code = 2232) 59 MG/DL HDL CHOLESTEROL (test code = 2220) 55 MG/DL CALC LDL CHOL (test code = 2237) 81 MG/DL RISK RATIO LDL/HDL (test cod e = 2238) 1.47 RATIO COMPREHENSIVE METABOLIC [id number] 00:00:00* Test Item Value Reference Range Interpretation Comme nts GLUCOSE (test code = 2217) 96 MG/DL BUN (test code = 2208) 12 MG/DL CREATININE (test code = 2214) 0.65 MG/DL eGFR (2020 CKD-EPI) (test code = 02129) 121 ML/MIN/1.73 CALC BUN/CREAT (test code = 2235) 18 RATIO SODIUM (test code = 2231) 140 MEQ/L POTASSIUM (test code = 2228) 4.4 MEQ/L CHLORIDE (test code = 2215) 104 MEQ/L CARBON DIOXIDE (test code = 2206) 23 MEQ/L CALCIUM (test code = 2209) 9.2 MG/DL PROTEIN, TOTAL (test code = 2229) 7.4 G/DL ALBUMIN (test code = 2201) 4.0 G/DL CALC GLOBULIN (test code = 2240) 3.4 G/DL CALC A/G RATIO (test code = 2234) 1.2 RATIO BILIRUBIN, TOTAL (test code = 2207) <0.2 MG/DL ALKALINE PHOSPHATASE (test code = 2204) 99 U/L AST (test code = 2218) 16 U/L ALT (test code = 2219) 14 U/L COMPREHENSIVE METABOLIC [id number] 00:00:00* Test Item Value Reference Range Interpretation Comme nts GLUCOSE (test code = 2217) 96 MG/DL BUN (test code = 2208) 12 MG/DL CREATININE (test code = 2214) 0.65 MG/DL eGFR (2020 CKD-EPI) (test code = 63580) 121 ML/MIN/1.73 CALC BUN/CREAT (test code = 2235) 18 RATIO SODIUM (test code = 2231) 140 MEQ/L POTASSIUM (test code = 2228) 4.4 MEQ/L CHLORIDE (test code = 2215) 104 MEQ/L CARBON DIOXIDE (test code = 2206) 23 MEQ/L CALCIUM (test code = 2209) 9.2 MG/DL PROTEIN, TOTAL (test code = 2229) 7.4 G/DL ALBUMIN (test code = 2201) 4.0 G/DL CALC GLOBULIN (test code = 2240) 3.4 G/DL CALC A/G RATIO (test code = 2234) 1.2 RATIO BILIRUBIN, TOTAL (test code = 2207) <0.2 MG/DL ALKALINE PHOSPHATASE (test code = 2204) 99 U/L AST (test code = 2218) 16 U/L ALT (test code = 2219) 14 U/L LIPID [id number] 00:00:00* Test Item Value Reference Range Interpretation Comme nts CHOLESTEROL (test code = 2210) 150 MG/DL TRIGLYCERIDES (test code = 2232) 59 MG/DL HDL CHOLESTEROL (test code = 2220) 55 MG/DL CALC LDL CHOL (test code = 2237) 81 MG/DL RISK RATIO LDL/HDL (test cod e = 2238) 1.47 RATIO LIPID [id number] 00:00:00* Test Item Value Reference Range Interpretation Comme nts CHOLESTEROL (test code = 2210) 150 MG/DL TRIGLYCERIDES (test code = 2232) 59 MG/DL HDL CHOLESTEROL (test code = 2220) 55 MG/DL CALC LDL CHOL (test code = 2237) 81 MG/DL RISK RATIO LDL/HDL (test cod e = 2238) 1.47 RATIO COMPREHENSIVE METABOLIC [id number] 00:00:00* Test Item Value Reference Range Interpretation Comme nts GLUCOSE (test code = 2217) 96 MG/DL BUN (test code = 2208) 12 MG/DL CREATININE (test code = 2214) 0.65 MG/DL eGFR (2020 CKD-EPI) (test code = 82396) 121 ML/MIN/1.73 CALC BUN/CREAT (test code = 2235) 18 RATIO SODIUM (test code = 2231) 140 MEQ/L POTASSIUM (test code = 2228) 4.4 MEQ/L CHLORIDE (test code = 2215) 104 MEQ/L CARBON DIOXIDE (test code = 2206) 23 MEQ/L CALCIUM (test code = 2209) 9.2 MG/DL PROTEIN, TOTAL (test code = 2229) 7.4 G/DL ALBUMIN (test code = 2201) 4.0 G/DL CALC GLOBULIN (test code = 2240) 3.4 G/DL CALC A/G RATIO (test code = 2234) 1.2 RATIO BILIRUBIN, TOTAL (test code = 2207) <0.2 MG/DL ALKALINE PHOSPHATASE (test code = 2204) 99 U/L AST (test code = 2218) 16 U/L ALT (test code = 2219) 14 U/L COMPREHENSIVE METABOLIC [id number] 00:00:00* Test Item Value Reference Range Interpretation Comme nts GLUCOSE (test code = 2217) 96 MG/DL BUN (test code = 2208) 12 MG/DL CREATININE (test code = 2214) 0.65 MG/DL eGFR (2020 CKD-EPI) (test code = 53141) 121 ML/MIN/1.73 CALC BUN/CREAT (test code = 2235) 18 RATIO SODIUM (test code = 2231) 140 MEQ/L POTASSIUM (test code = 2228) 4.4 MEQ/L CHLORIDE (test code = 2215) 104 MEQ/L CARBON DIOXIDE (test code = 2206) 23 MEQ/L CALCIUM (test code = 2209) 9.2 MG/DL PROTEIN, TOTAL (test code = 2229) 7.4 G/DL ALBUMIN (test code = 2201) 4.0 G/DL CALC GLOBULIN (test code = 2240) 3.4 G/DL CALC A/G RATIO (test code = 2234) 1.2 RATIO BILIRUBIN, TOTAL (test code = 2207) <0.2 MG/DL ALKALINE PHOSPHATASE (test code = 2204) 99 U/L AST (test code = 2218) 16 U/L ALT (test code = 2219) 14 U/L LIPID [id number] 00:00:00* Test Item Value Reference Range Interpretation Comme nts CHOLESTEROL (test code = 2210) 150 MG/DL TRIGLYCERIDES (test code = 2232) 59 MG/DL HDL CHOLESTEROL (test code = 2220) 55 MG/DL CALC LDL CHOL (test code = 2237) 81 MG/DL RISK RATIO LDL/HDL (test cod e = 2238) 1.47 RATIO LIPID [id number] 00:00:00* Test Item Value Reference Range Interpretation Comme nts CHOLESTEROL (test code = 2210) 150 MG/DL TRIGLYCERIDES (test code = 2232) 59 MG/DL HDL CHOLESTEROL (test code = 2220) 55 MG/DL CALC LDL CHOL (test code = 2237) 81 MG/DL RISK RATIO LDL/HDL (test cod e = 2238) 1.47 RATIO COMPREHENSIVE METABOLIC [id number] 00:00:00* Test Item Value Reference Range Interpretation Comme nts GLUCOSE (test code = 2217) 96 MG/DL BUN (test code = 2208) 12 MG/DL CREATININE (test code = 2214) 0.65 MG/DL eGFR (2020 CKD-EPI) (test code = 83535) 121 ML/MIN/1.73 CALC BUN/CREAT (test code = 2235) 18 RATIO SODIUM (test code = 2231) 140 MEQ/L POTASSIUM (test code = 2228) 4.4 MEQ/L CHLORIDE (test code = 2215) 104 MEQ/L CARBON DIOXIDE (test code = 2206) 23 MEQ/L CALCIUM (test code = 2209) 9.2 MG/DL PROTEIN, TOTAL (test code = 2229) 7.4 G/DL ALBUMIN (test code = 2201) 4.0 G/DL CALC GLOBULIN (test code = 2240) 3.4 G/DL CALC A/G RATIO (test code = 2234) 1.2 RATIO BILIRUBIN, TOTAL (test code = 2207) <0.2 MG/DL ALKALINE PHOSPHATASE (test code = 2204) 99 U/L AST (test code = 2218) 16 U/L ALT (test code = 2219) 14 U/L COMPREHENSIVE METABOLIC [id number] 00:00:00* Test Item Value Reference Range Interpretation Comme nts GLUCOSE (test code = 2217) 96 MG/DL BUN (test code = 2208) 12 MG/DL CREATININE (test code = 2214) 0.65 MG/DL eGFR (2020 CKD-EPI) (test code = 38493) 121 ML/MIN/1.73 CALC BUN/CREAT (test code = 2235) 18 RATIO SODIUM (test code = 2231) 140 MEQ/L POTASSIUM (test code = 2228) 4.4 MEQ/L CHLORIDE (test code = 2215) 104 MEQ/L CARBON DIOXIDE (test code = 2206) 23 MEQ/L CALCIUM (test code = 2209) 9.2 MG/DL PROTEIN, TOTAL (test code = 2229) 7.4 G/DL ALBUMIN (test code = 2201) 4.0 G/DL CALC GLOBULIN (test code = 2240) 3.4 G/DL CALC A/G RATIO (test code = 2234) 1.2 RATIO BILIRUBIN, TOTAL (test code = 2207) <0.2 MG/DL ALKALINE PHOSPHATASE (test code = 2204) 99 U/L AST (test code = 2218) 16 U/L ALT (test code = 2219) 14 U/L GC AND CHLAMYDIA, AMPLIFIED, [id number] 00:00:00* Test Item Value Reference Range Interpretation Comme nts GONORRHEA, NAAT (test code = 19954) NEGATIVE CHLAMYDIA, NAAT (test code = 17280) NEGATIVE GC AND CHLAMYDIA, AMPLIFIED, [id number] 00:00:00* Test Item Value Reference Range Interpretation Comme nts GONORRHEA, NAAT (test code = 52847) NEGATIVE CHLAMYDIA, NAAT (test code = 61810) NEGATIVE GC AND CHLAMYDIA, AMPLIFIED, [id number] 00:00:00* Test Item Value Reference Range Interpretation Comme nts GONORRHEA, NAAT (test code = 47219) NEGATIVE CHLAMYDIA, NAAT (test code = 15222) NEGATIVE GC AND CHLAMYDIA, AMPLIFIED, [id number] 00:00:00* Test Item Value Reference Range Interpretation Comme nts GONORRHEA, NAAT (test code = 70029) NEGATIVE CHLAMYDIA, NAAT (test code = 69693) NEGATIVE GC AND CHLAMYDIA, AMPLIFIED, [id number] 00:00:00* Test Item Value Reference Range Interpretation Comme nts GONORRHEA, NAAT (test code = 05429) NEGATIVE CHLAMYDIA, NAAT (test code = 38947) NEGATIVE GC AND CHLAMYDIA, AMPLIFIED, [id number] 00:00:00* Test Item Value Reference Range Interpretation Comme nts GONORRHEA, NAAT (test code = 79494) NEGATIVE CHLAMYDIA, NAAT (test code = 07588) NEGATIVE GC AND CHLAMYDIA, AMPLIFIED, [id number] 00:00:00* Test Item Value Reference Range Interpretation Comme nts GONORRHEA, NAAT (test code = 85346) NEGATIVE CHLAMYDIA, NAAT (test code = 64640) NEGATIVE GC AND CHLAMYDIA, AMPLIFIED, [id number] 00:00:00* Test Item Value Reference Range Interpretation Comme nts GONORRHEA, NAAT (test code = 79649) NEGATIVE CHLAMYDIA, NAAT (test code = 21269) NEGATIVE HEPATITIS C [id number] 00:00:00* Test Item Value Reference Range Interpretation Comme nts HEPATITIS C ANTIBODY (test c ode = 4675) NON-REACTIVE HEPATITIS C [id number] 00:00:00* Test Item Value Reference Range Interpretation Comme nts HEPATITIS C ANTIBODY (test c ode = 4675) NON-REACTIVE HIV AB/AG COMBO RFLX [id number] 00:00:00* Test Item Value Reference Range Interpretation Comme nts HIV 1/2 4TH GEN, RFLX CONF ( test code = 3514) NON-REACTIVE HIV AB/AG COMBO RFLX [id number] 00:00:00* Test Item Value Reference Range Interpretation Comme nts HIV 1/2 4TH GEN, RFLX CONF ( test code = 3514) NON-REACTIVE [id number] 00:00:00* Test Item Value Reference Range Interpretation Comme nts RPR RESULT (test code = 3501) NON-REACTIVE RPR TITER (test code = 3500) NOT INDIC. TITER [id number] 00:00:00* Test Item Value Reference Range Interpretation Comme nts RPR RESULT (test code = 3501) NON-REACTIVE RPR TITER (test code = 3500) NOT INDIC. TITER [id number] 00:00:00* Test Item Value Reference Range Interpretation Comme nts RPR RESULT (test code = 3501) NON-REACTIVE RPR TITER (test code = 3500) NOT INDIC. TITER CBC W/AUTO [id number] 00:00:00* Test Item Value Reference Range Interpretation Comme nts WBC (test code = 1001) 9.1 K/UL [...] = 1013) 0.3 % IMMATURE GRANULOCYTES (test code = 1036) 0.4 % NUCLEATED RBCS (test code = 1065) 0.0 /100WBC'S PLATELET COUNT (test code = 1015) 427 K/UL ABSOLUTE NEUTROPHILS (test c ode = 1066) 6.07 K/UL ABSOLUTE LYMPHOCYTES (test c ode = 1067) 2.26 K/UL ABSOLUTE MONOCYTES (test cod e = 1068) 0.46 K/UL ABSOLUTE EOSINOPHILS (test c ode = 1040) 0.22 K/UL ABSOLUTE BASOPHILS (test cod e = 1069) 0.03 K/UL ABS IMMATURE GRANULOCYTES (t est code = 1020) 0.04 K/UL ABS NUCLEATED RBCS (test cod e = 67498) 0.00 K/UL CBC W/AUTO [id number] 00:00:00* Test Item Value Reference Range Interpretation Comme nts WBC (test code = 1001) 9.1 K/UL [...] = 1013) 0.3 % IMMATURE GRANULOCYTES (test code = 1036) 0.4 % NUCLEATED RBCS (test code = 1065) 0.0 /100WBC'S PLATELET COUNT (test code = 1015) 427 K/UL ABSOLUTE NEUTROPHILS (test c ode = 1066) 6.07 K/UL ABSOLUTE LYMPHOCYTES (test c ode = 1067) 2.26 K/UL ABSOLUTE MONOCYTES (test cod e = 1068) 0.46 K/UL ABSOLUTE EOSINOPHILS (test c ode = 1040) 0.22 K/UL ABSOLUTE BASOPHILS (test cod e = 1069) 0.03 K/UL ABS IMMATURE GRANULOCYTES (t est code = 1020) 0.04 K/UL ABS NUCLEATED RBCS (test cod e = 22507) 0.00 K/UL CBC W/AUTO [id number] 00:00:00* Test Item Value Reference Range Interpretation Comme nts WBC (test code = 1001) 9.1 K/UL [...] = 1013) 0.3 % IMMATURE GRANULOCYTES (test code = 1036) 0.4 % NUCLEATED RBCS (test code = 1065) 0.0 /100WBC'S PLATELET COUNT (test code = 1015) 427 K/UL ABSOLUTE NEUTROPHILS (test c ode = 1066) 6.07 K/UL ABSOLUTE LYMPHOCYTES (test c ode = 1067) 2.26 K/UL ABSOLUTE MONOCYTES (test cod e = 1068) 0.46 K/UL ABSOLUTE EOSINOPHILS (test c ode = 1040) 0.22 K/UL ABSOLUTE BASOPHILS (test cod e = 1069) 0.03 K/UL ABS IMMATURE GRANULOCYTES (t est code = 1020) 0.04 K/UL ABS NUCLEATED RBCS (test cod e = 89817) 0.00 K/UL [id number] 00:00:00* Test Item Value Reference Range Interpretation Comme nts TSH, THIRD GENERATION (test code = 2821) 1.150 UIU/ML [id number] 00:00:00* Test Item Value Reference Range Interpretation Comme nts TSH, THIRD GENERATION (test code = 2821) 1.150 UIU/ML [id number] 00:00:00* Test Item Value Reference Range Interpretation Comme nts TSH, THIRD GENERATION (test code = 2821) 1.150 UIU/ML [id number] 00:00:00* Test Item Value Reference Range Interpretation Comme nts ESTRADIOL (test code = 2505) 85.2 PG/ML [id number] 00:00:00* Test Item Value Reference Range Interpretation Comme nts ESTRADIOL (test code = 2505) 85.2 PG/ML [id number] 00:00:00* Test Item Value Reference Range Interpretation Comme nts ESTRADIOL (test code = 2505) 85.2 PG/ML FOLLICLE STIM [id number] 00:00:00* Test Item Value Reference Range Interpretation Comme nts FOLLICLE STIM HORMONE (test code = 2700) 3.2 IU/L FOLLICLE STIM [id number] 00:00:00* Test Item Value Reference Range Interpretation Comme nts FOLLICLE STIM HORMONE (test code = 2700) 3.2 IU/L LUTEINIZING [id number] 00:00:00* Test Item Value Reference Range Interpretation Comme nts LUTEINIZING HORMONE (test co de = 2776) 5.6 IU/L LUTEINIZING [id number] 00:00:00* Test Item Value Reference Range Interpretation Comme nts LUTEINIZING HORMONE (test co de = 2776) 5.6 IU/L [id number] 00:00:00* Test Item Value Reference Range Interpretation Comme nts PROLACTIN (test code = 2800) 11.1 NG/ML [id number] 00:00:00* Test Item Value Reference Range Interpretation Comme nts PROLACTIN (test code = 2800) 11.1 NG/ML [id number] 00:00:00* Test Item Value Reference Range Interpretation Comme nts TESTOSTERONE (test code = 2830) 29 NG/DL [id number] 00:00:00* Test Item Value Reference Range Interpretation Comme nts TESTOSTERONE (test code = 2830) 29 NG/DL HEPATITIS C [id number] 00:00:00* Test Item Value Reference Range Interpretation Comme nts HEPATITIS C ANTIBODY (test c ode = 4675) NON-REACTIVE HEPATITIS C [id number] 00:00:00* Test Item Value Reference Range Interpretation Comme nts HEPATITIS C ANTIBODY (test c ode = 4675) NON-REACTIVE HIV AB/AG COMBO RFLX [id number] 00:00:00* Test Item Value Reference Range Interpretation Comme nts HIV 1/2 4TH GEN, RFLX CONF ( test code = 3514) NON-REACTIVE HIV AB/AG COMBO RFLX [id number] 00:00:00* Test Item Value Reference Range Interpretation Comme nts HIV 1/2 4TH GEN, RFLX CONF ( test code = 3514) NON-REACTIVE [id number] 00:00:00* Test Item Value Reference Range Interpretation Comme nts RPR RESULT (test code = 3501) NON-REACTIVE RPR TITER (test code = 3500) NOT INDIC. TITER [id number] 00:00:00* Test Item Value Reference Range Interpretation Comme nts RPR RESULT (test code = 3501) NON-REACTIVE RPR TITER (test code = 3500) NOT INDIC. TITER [id number] 00:00:00* Test Item Value Reference Range Interpretation Comme nts RPR RESULT (test code = 3501) NON-REACTIVE RPR TITER (test code = 3500) NOT INDIC. TITER CBC W/AUTO [id number] 00:00:00* Test Item Value Reference Range Interpretation Comme nts WBC (test code = 1001) 9.1 K/UL [...] = 1013) 0.3 % IMMATURE GRANULOCYTES (test code = 1036) 0.4 % NUCLEATED RBCS (test code = 1065) 0.0 /100WBC'S PLATELET COUNT (test code = 1015) 427 K/UL ABSOLUTE NEUTROPHILS (test c ode = 1066) 6.07 K/UL ABSOLUTE LYMPHOCYTES (test c ode = 1067) 2.26 K/UL ABSOLUTE MONOCYTES (test cod e = 1068) 0.46 K/UL ABSOLUTE EOSINOPHILS (test c ode = 1040) 0.22 K/UL ABSOLUTE BASOPHILS (test cod e = 1069) 0.03 K/UL ABS IMMATURE GRANULOCYTES (t est code = 1020) 0.04 K/UL ABS NUCLEATED RBCS (test cod e = 32160) 0.00 K/UL CBC W/AUTO [id number] 00:00:00* Test Item Value Reference Range Interpretation Comme nts WBC (test code = 1001) 9.1 K/UL [...] = 1013) 0.3 % IMMATURE GRANULOCYTES (test code = 1036) 0.4 % NUCLEATED RBCS (test code = 1065) 0.0 /100WBC'S PLATELET COUNT (test code = 1015) 427 K/UL ABSOLUTE NEUTROPHILS (test c ode = 1066) 6.07 K/UL ABSOLUTE LYMPHOCYTES (test c ode = 1067) 2.26 K/UL ABSOLUTE MONOCYTES (test cod e = 1068) 0.46 K/UL ABSOLUTE EOSINOPHILS (test c ode = 1040) 0.22 K/UL ABSOLUTE BASOPHILS (test cod e = 1069) 0.03 K/UL ABS IMMATURE GRANULOCYTES (t est code = 1020) 0.04 K/UL ABS NUCLEATED RBCS (test cod e = 52883) 0.00 K/UL CBC W/AUTO [id number] 00:00:00* Test Item Value Reference Range Interpretation Comme nts WBC (test code = 1001) 9.1 K/UL [...] = 1013) 0.3 % IMMATURE GRANULOCYTES (test code = 1036) 0.4 % NUCLEATED RBCS (test code = 1065) 0.0 /100WBC'S PLATELET COUNT (test code = 1015) 427 K/UL ABSOLUTE NEUTROPHILS (test c ode = 1066) 6.07 K/UL ABSOLUTE LYMPHOCYTES (test c ode = 1067) 2.26 K/UL ABSOLUTE MONOCYTES (test cod e = 1068) 0.46 K/UL ABSOLUTE EOSINOPHILS (test c ode = 1040) 0.22 K/UL ABSOLUTE BASOPHILS (test cod e = 1069) 0.03 K/UL ABS IMMATURE GRANULOCYTES (t est code = 1020) 0.04 K/UL ABS NUCLEATED RBCS (test cod e = 04608) 0.00 K/UL [id number] 00:00:00* Test Item Value Reference Range Interpretation Comme nts TSH, THIRD GENERATION (test code = 2821) 1.150 UIU/ML [id number] 00:00:00* Test Item Value Reference Range Interpretation Comme nts TSH, THIRD GENERATION (test code = 2821) 1.150 UIU/ML [id number] 00:00:00* Test Item Value Reference Range Interpretation Comme nts TSH, THIRD GENERATION (test code = 2821) 1.150 UIU/ML [id number] 00:00:00* Test Item Value Reference Range Interpretation Comme nts ESTRADIOL (test code = 2505) 85.2 PG/ML [id number] 00:00:00* Test Item Value Reference Range Interpretation Comme nts ESTRADIOL (test code = 2505) 85.2 PG/ML [id number] 00:00:00* Test Item Value Reference Range Interpretation Comme nts ESTRADIOL (test code = 2505) 85.2 PG/ML FOLLICLE STIM [id number] 00:00:00* Test Item Value Reference Range Interpretation Comme nts FOLLICLE STIM HORMONE (test code = 2700) 3.2 IU/L FOLLICLE STIM [id number] 00:00:00* Test Item Value Reference Range Interpretation Comme nts FOLLICLE STIM HORMONE (test code = 2700) 3.2 IU/L LUTEINIZING [id number] 00:00:00* Test Item Value Reference Range Interpretation Comme nts LUTEINIZING HORMONE (test co de = 2776) 5.6 IU/L LUTEINIZING [id number] 00:00:00* Test Item Value Reference Range Interpretation Comme nts LUTEINIZING HORMONE (test co de = 2776) 5.6 IU/L [id number] 00:00:00* Test Item Value Reference Range Interpretation Comme nts PROLACTIN (test code = 2800) 11.1 NG/ML [id number] 00:00:00* Test Item Value Reference Range Interpretation Comme nts PROLACTIN (test code = 2800) 11.1 NG/ML [id number] 00:00:00* Test Item Value Reference Range Interpretation Comme nts TESTOSTERONE (test code = 2830) 29 NG/DL [id number] 00:00:00* Test Item Value Reference Range Interpretation Comme nts TESTOSTERONE (test code = 2830) 29 NG/DL HEPATITIS C [id number] 00:00:00* Test Item Value Reference Range Interpretation Comme nts HEPATITIS C ANTIBODY (test c ode = 4675) NON-REACTIVE HEPATITIS C [id number] 00:00:00* Test Item Value Reference Range Interpretation Comme nts HEPATITIS C ANTIBODY (test c ode = 4675) NON-REACTIVE HIV AB/AG COMBO RFLX [id number] 00:00:00* Test Item Value Reference Range Interpretation Comme nts HIV 1/2 4TH GEN, RFLX CONF ( test code = 3514) NON-REACTIVE HIV AB/AG COMBO RFLX [id number] 00:00:00* Test Item Value Reference Range Interpretation Comme nts HIV 1/2 4TH GEN, RFLX CONF ( test code = 3514) NON-REACTIVE [id number] 00:00:00* Test Item Value Reference Range Interpretation Comme nts RPR RESULT (test code = 3501) NON-REACTIVE RPR TITER (test code = 3500) NOT INDIC. TITER [id number] 00:00:00* Test Item Value Reference Range Interpretation Comme nts RPR RESULT (test code = 3501) NON-REACTIVE RPR TITER (test code = 3500) NOT INDIC. TITER [id number] 00:00:00* Test Item Value Reference Range Interpretation Comme nts RPR RESULT (test code = 3501) NON-REACTIVE RPR TITER (test code = 3500) NOT INDIC. TITER CBC W/AUTO [id number] 00:00:00* Test Item Value Reference Range Interpretation Comme nts WBC (test code = 1001) 9.1 K/UL [...] = 1013) 0.3 % IMMATURE GRANULOCYTES (test code = 1036) 0.4 % NUCLEATED RBCS (test code = 1065) 0.0 /100WBC'S PLATELET COUNT (test code = 1015) 427 K/UL ABSOLUTE NEUTROPHILS (test c ode = 1066) 6.07 K/UL ABSOLUTE LYMPHOCYTES (test c ode = 1067) 2.26 K/UL ABSOLUTE MONOCYTES (test cod e = 1068) 0.46 K/UL ABSOLUTE EOSINOPHILS (test c ode = 1040) 0.22 K/UL ABSOLUTE BASOPHILS (test cod e = 1069) 0.03 K/UL ABS IMMATURE GRANULOCYTES (t est code = 1020) 0.04 K/UL ABS NUCLEATED RBCS (test cod e = 90971) 0.00 K/UL CBC W/AUTO [id number] 00:00:00* Test Item Value Reference Range Interpretation Comme nts WBC (test code = 1001) 9.1 K/UL [...] = 1013) 0.3 % IMMATURE GRANULOCYTES (test code = 1036) 0.4 % NUCLEATED RBCS (test code = 1065) 0.0 /100WBC'S PLATELET COUNT (test code = 1015) 427 K/UL ABSOLUTE NEUTROPHILS (test c ode = 1066) 6.07 K/UL ABSOLUTE LYMPHOCYTES (test c ode = 1067) 2.26 K/UL ABSOLUTE MONOCYTES (test cod e = 1068) 0.46 K/UL ABSOLUTE EOSINOPHILS (test c ode = 1040) 0.22 K/UL ABSOLUTE BASOPHILS (test cod e = 1069) 0.03 K/UL ABS IMMATURE GRANULOCYTES (t est code = 1020) 0.04 K/UL ABS NUCLEATED RBCS (test cod e = 01319) 0.00 K/UL CBC W/AUTO [id number] 00:00:00* Test Item Value Reference Range Interpretation Comme nts WBC (test code = 1001) 9.1 K/UL [...] = 1013) 0.3 % IMMATURE GRANULOCYTES (test code = 1036) 0.4 % NUCLEATED RBCS (test code = 1065) 0.0 /100WBC'S PLATELET COUNT (test code = 1015) 427 K/UL ABSOLUTE NEUTROPHILS (test c ode = 1066) 6.07 K/UL ABSOLUTE LYMPHOCYTES (test c ode = 1067) 2.26 K/UL ABSOLUTE MONOCYTES (test cod e = 1068) 0.46 K/UL ABSOLUTE EOSINOPHILS (test c ode = 1040) 0.22 K/UL ABSOLUTE BASOPHILS (test cod e = 1069) 0.03 K/UL ABS IMMATURE GRANULOCYTES (t est code = 1020) 0.04 K/UL ABS NUCLEATED RBCS (test cod e = 38892) 0.00 K/UL [id number] 00:00:00* Test Item Value Reference Range Interpretation Comme [facility] TSH, THIRD GENERATION (test code = 2821) 1.150 UIU/ML [id number] 00:00:00* Test Item Value Reference Range Interpretation Comme nts TSH, THIRD GENERATION (test code = 2821) 1.150 UIU/ML [id number] 00:00:00* Test Item Value Reference Range Interpretation Comme [facility] TSH, THIRD GENERATION (test code = 2821) 1.150 UIU/ML [id number] 00:00:00* Test Item Value Reference Range Interpretation Comme nts ESTRADIOL (test code = 2505) 85.2 PG/ML [id number] 00:00:00* Test Item Value Reference Range Interpretation Comme nts ESTRADIOL (test code = 2505) 85.2 PG/ML [id number] 00:00:00* Test Item Value Reference Range Interpretation Comme nts ESTRADIOL (test code = 2505) 85.2 PG/ML FOLLICLE STIM [id number] 00:00:00* Test Item Value Reference Range Interpretation Comme nts FOLLICLE STIM HORMONE (test code = 2700) 3.2 IU/L FOLLICLE STIM [id number] 00:00:00* Test Item Value Reference Range Interpretation Comme nts FOLLICLE STIM HORMONE (test code = 2700) 3.2 IU/L LUTEINIZING [id number] 00:00:00* Test Item Value Reference Range Interpretation Comme nts LUTEINIZING HORMONE (test co de = 2776) 5.6 IU/L LUTEINIZING [id number] 00:00:00* Test Item Value Reference Range Interpretation Comme nts LUTEINIZING HORMONE (test co de = 2776) 5.6 IU/L [id number] 00:00:00* Test Item Value Reference Range Interpretation Comme nts PROLACTIN (test code = 2800) 11.1 NG/ML [id number] 00:00:00* Test Item Value Reference Range Interpretation Comme nts PROLACTIN (test code = 2800) 11.1 NG/ML [id number] 00:00:00* Test Item Value Reference Range Interpretation Comme nts TESTOSTERONE (test code = 2830) 29 NG/DL [id number] 00:00:00* Test Item Value Reference Range Interpretation Comme nts TESTOSTERONE (test code = 2830) 29 NG/DL HEPATITIS C [id number] 00:00:00* Test Item Value Reference Range Interpretation Comme nts HEPATITIS C ANTIBODY (test c ode = 4675) NON-REACTIVE HEPATITIS C [id number] 00:00:00* Test Item Value Reference Range Interpretation Comme nts HEPATITIS C ANTIBODY (test c ode = 4675) NON-REACTIVE HIV AB/AG COMBO RFLX [id number] 00:00:00* Test Item Value Reference Range Interpretation Comme nts HIV 1/2 4TH GEN, RFLX CONF ( test code = 3514) NON-REACTIVE HIV AB/AG COMBO RFLX [id number] 00:00:00* Test Item Value Reference Range Interpretation Comme nts HIV 1/2 4TH GEN, RFLX CONF ( test code = 3514) NON-REACTIVE [id number] 00:00:00* Test Item Value Reference Range Interpretation Comme nts RPR RESULT (test code = 3501) NON-REACTIVE RPR TITER (test code = 3500) NOT INDIC. TITER [id number] 00:00:00* Test Item Value Reference Range Interpretation Comme nts RPR RESULT (test code = 3501) NON-REACTIVE RPR TITER (test code = 3500) NOT INDIC. TITER [id number] 00:00:00* Test Item Value Reference Range Interpretation Comme nts RPR RESULT (test code = 3501) NON-REACTIVE RPR TITER (test code = 3500) NOT INDIC. TITER CBC W/AUTO [id number] 00:00:00* Test Item Value Reference Range Interpretation Comme nts WBC (test code = 1001) 9.1 K/UL [...] = 1013) 0.3 % IMMATURE GRANULOCYTES (test code = 1036) 0.4 % NUCLEATED RBCS (test code = 1065) 0.0 /100WBC'S PLATELET COUNT (test code = 1015) 427 K/UL ABSOLUTE NEUTROPHILS (test c ode = 1066) 6.07 K/UL ABSOLUTE LYMPHOCYTES (test c ode = 1067) 2.26 K/UL ABSOLUTE MONOCYTES (test cod e = 1068) 0.46 K/UL ABSOLUTE EOSINOPHILS (test c ode = 1040) 0.22 K/UL ABSOLUTE BASOPHILS (test cod e = 1069) 0.03 K/UL ABS IMMATURE GRANULOCYTES (t est code = 1020) 0.04 K/UL ABS NUCLEATED RBCS (test cod e = 82084) 0.00 K/UL CBC W/AUTO [id number] 00:00:00* Test Item Value Reference Range Interpretation Comme nts WBC (test code = 1001) 9.1 K/UL [...] = 1013) 0.3 % IMMATURE GRANULOCYTES (test code = 1036) 0.4 % NUCLEATED RBCS (test code = 1065) 0.0 /100WBC'S PLATELET COUNT (test code = 1015) 427 K/UL ABSOLUTE NEUTROPHILS (test c ode = 1066) 6.07 K/UL ABSOLUTE LYMPHOCYTES (test c ode = 1067) 2.26 K/UL ABSOLUTE MONOCYTES (test cod e = 1068) 0.46 K/UL ABSOLUTE EOSINOPHILS (test c ode = 1040) 0.22 K/UL ABSOLUTE BASOPHILS (test cod e = 1069) 0.03 K/UL ABS IMMATURE GRANULOCYTES (t est code = 1020) 0.04 K/UL ABS NUCLEATED RBCS (test cod e = 81686) 0.00 K/UL CBC W/AUTO [id number] 00:00:00* Test Item Value Reference Range Interpretation Comme nts WBC (test code = 1001) 9.1 K/UL [...] = 1013) 0.3 % IMMATURE GRANULOCYTES (test code = 1036) 0.4 % NUCLEATED RBCS (test code = 1065) 0.0 /100WBC'S PLATELET COUNT (test code = 1015) 427 K/UL ABSOLUTE NEUTROPHILS (test c ode = 1066) 6.07 K/UL ABSOLUTE LYMPHOCYTES (test c ode = 1067) 2.26 K/UL ABSOLUTE MONOCYTES (test cod e = 1068) 0.46 K/UL ABSOLUTE EOSINOPHILS (test c ode = 1040) 0.22 K/UL ABSOLUTE BASOPHILS (test cod e = 1069) 0.03 K/UL ABS IMMATURE GRANULOCYTES (t est code = 1020) 0.04 K/UL ABS NUCLEATED RBCS (test cod e = 04804) 0.00 K/UL [id number] 00:00:00* Test Item Value Reference Range Interpretation Comme nts TSH, THIRD GENERATION (test code = 2821) 1.150 UIU/ML [id number] 00:00:00* Test Item Value Reference Range Interpretation Comme nts TSH, THIRD GENERATION (test code = 2821) 1.150 UIU/ML [id number] 00:00:00* Test Item Value Reference Range Interpretation Comme nts TSH, THIRD GENERATION (test code = 2821) 1.150 UIU/ML [id number] 00:00:00* Test Item Value Reference Range Interpretation Comme nts ESTRADIOL (test code = 2505) 85.2 PG/ML [id number] 00:00:00* Test Item Value Reference Range Interpretation Comme nts ESTRADIOL (test code = 2505) 85.2 PG/ML [id number] 00:00:00* Test Item Value Reference Range Interpretation Comme nts ESTRADIOL (test code = 2505) 85.2 PG/ML FOLLICLE STIM [id number] 00:00:00* Test Item Value Reference Range Interpretation Comme nts FOLLICLE STIM HORMONE (test code = 2700) 3.2 IU/L FOLLICLE STIM [id number] 00:00:00* Test Item Value Reference Range Interpretation Comme nts FOLLICLE STIM HORMONE (test code = 2700) 3.2 IU/L LUTEINIZING [id number] 00:00:00* Test Item Value Reference Range Interpretation Comme nts LUTEINIZING HORMONE (test co de = 2776) 5.6 IU/L LUTEINIZING [id number] 00:00:00* Test Item Value Reference Range Interpretation Comme nts LUTEINIZING HORMONE (test co de = 2776) 5.6 IU/L [id number] 00:00:00* Test Item Value Reference Range Interpretation Comme nts PROLACTIN (test code = 2800) 11.1 NG/ML [id number] 00:00:00* Test Item Value Reference Range Interpretation Comme nts PROLACTIN (test code = 2800) 11.1 NG/ML [id number] 00:00:00* Test Item Value Reference Range Interpretation Comme nts TESTOSTERONE (test code = 2830) 29 NG/DL [id number] 00:00:00* Test Item Value Reference Range Interpretation Comme nts TESTOSTERONE (test code = 2830) 29 NG/DL SARS-CoV-2 (COVID-19) by RT-PCR (HIGH RISK)2020-12-03 00:00:00* Test Item Value Reference Range Interpretation Comme nts SARS-CoV-2 INTERPRETATION (test code = 39934) NEGATIVE SOURCE (test code = 97015) NASOPHARYNGEAL SARS-CoV-2 (COVID-19) by RT-PCR (HIGH RISK)2020-12-03 00:00:00* Test Item Value Reference Range Interpretation Comme nts SARS-CoV-2 INTERPRETATION (test code = 36655) NEGATIVE SOURCE (test code = 77954) NASOPHARYNGEAL SARS-CoV-2 (COVID-19) by RT-PCR (HIGH RISK)2020-12-03 00:00:00* Test Item Value Reference Range Interpretation Comme nts SARS-CoV-2 INTERPRETATION (test code = 30072) NEGATIVE SOURCE (test code = 54101) NASOPHARYNGEAL SARS-CoV-2 (COVID-19) by RT-PCR (HIGH RISK)2020-12-03 00:00:00* Test Item Value Reference Range Interpretation Comme nts SARS-CoV-2 INTERPRETATION (test code = 76417) NEGATIVE SOURCE (test code = 86748) NASOPHARYNGEAL SARS-CoV-2 (COVID-19) by RT-PCR (HIGH RISK)2020-12-03 00:00:00* Test Item Value Reference Range Interpretation Comme nts SARS-CoV-2 INTERPRETATION (test code = 88795) NEGATIVE SOURCE (test code = 07219) NASOPHARYNGEAL SARS-CoV-2 (COVID-19) by RT-PCR (HIGH RISK)2020-12-03 00:00:00* Test Item Value Reference Range Interpretation Comme nts SARS-CoV-2 INTERPRETATION (test code = 21251) NEGATIVE SOURCE (test code = 70417) NASOPHARYNGEAL SARS-CoV-2 (COVID-19) by RT-PCR (HIGH RISK)2020-12-03 00:00:00* Test Item Value Reference Range Interpretation Comme nts SARS-CoV-2 INTERPRETATION (test code = 06237) NEGATIVE SOURCE (test code = 13291) NASOPHARYNGEAL SARS-CoV-2 (COVID-19) by RT-PCR (HIGH RISK)2020-12-03 00:00:00* Test Item Value Reference Range Interpretation Comme nts SARS-CoV-2 INTERPRETATION (test code = 48370) NEGATIVE SOURCE (test code = 68411) NASOPHARYNGEAL
[2024-03-03] MEDS ORDERED: ONDANSETRON 4 MG/2 ML VIAL ONE (02:36)
[2024-03-03] MEDS ORDERED: MAGNES/ALUMIN/SIMET 30ML UCUP ONE (02:53)
[2024-03-03] MEDS ORDERED: PANTOPRAZOLE 40 MG INJ ONE (02:53)
[2024-03-03] MEDS ORDERED: METOCLOPRAMIDE 10 MG/2mL INJ ONE (02:54)
[2024-03-03] MEDS ORDERED: KETOROLAC 30 MG/ML INJ ONE (02:54)
[2024-03-03] MEDS ORDERED: MORPHINE 4 MG/ML SYR ONE (02:54)
[2024-03-03] MEDS ORDERED: FAMOTIDINE 20 MG/2 ML VIAL IV ONE (02:54)
[2024-03-03] MEDS ORDERED: NA CHLORIDE 0.9% 1,000 ML ONE ×2 (02:54→04:41)
[2024-03-03 03:07] LABS: Absolute Basophils 0.1 K/uL (0-0.5); Absolute Eosinophils 0.1 K/uL (0-0.5); Absolute Lymphocytes (CBC) 2.6 K/uL (0.7-4.9); Absolute Monocytes 0.4 K/uL (0.1-1.3); Absolute Neutrophil 5.9 K/uL (1.8-8.0); Basophils % 0.7 % (0-1.3); Eosinophils % 1.3 % (0-4.4); Hematocrit 35.1 % (36.0-45.0); Hemoglobin 11.4 g/dL (12.0-15.0); MCH 24.5 pg (27.0-35.0); MCHC 32.4 g/dL (32.0-36.0); MCV 75.6 fL (80-100); MPV 9.5 fL (7.6-11.3); Monocytes % 4.9 % (3.3-12.3); Neutrophils % 65.1 % (41.7-73.7); Platelets 359 thou/uL (152-406); RBC Red Blood Cell Count 4.65 M/uL (3.86-4.86); Red Cell Distribution Width 15.4 % (12.1-15.2)
[2024-03-03 03:17] LABS: Specific Gravity > 1.030 (1.005-1.030)
[2024-03-03 03:18] LABS: Albumin/Globulin Ratio 0.7 (1.1-1.8); Anion Gap 11.1 mEq/L (5.0-15.0); Bilirubin Total 0.4 mg/dL (0.2-1.0); Globulin 4.6 g/dL (2.3-3.5); Potassium 3.1 mEq/L (3.5-5.1); Protein, Total 7.6 g/dL (6.4-8.2)
[2024-03-03 03:46] LABS: Specific Gravity > 1.030 (1.005-1.030); Sqamous Epithelial <5 /HPF (None Seen); Urine Bacteria <20 /HPF (<20); Urine Bilirubin NEGATIVE (Negative); Urine Blood Negative (Negative); Urine Clarity Extremely Turbid (Clear); Urine Color Yellow (Yellow); Urine Culture Reflex Order NOT NEEDED; Urine Glucose NEGATIVE (Negative); Urine Ketones 4+ (Over) (Negative); Urine Microscopic Reflex YN ORDER UMIC; Urine Mucus 4+ /HPF (None Seen); Urine Nitrite NEGATIVE (Negative); Urine Protein 1+ (Negative); Urine RBC None Seen /HPF (None Seen); Urine Urobilinogen 1+ (Normal); Urine WBC <5 /HPF (<5); Urine pH 6.5 (5.0-7.0)
[2024-03-03] MEDS ORDERED: PROMETHAZINE INJ 25 MG/ML AMP ONE (05:04)
[2024-03-03] MEDS ORDERED: NS KCL 20MEQ 1,000 ML IV ONE (05:04)
--- NOTE | 2024-03-03 06:11 | ER ---
Nurse's Notes [facility] Name: Obdulia Burch Age: 33 yrs Sex: Female : 1990 Arrival Date: 03/03/2024 Time: 02:17 Bed 18 Private MD: Diagnosis: Acute gastritis;Acute gastroenteritis, acute Vomiting, acute hypokalemia Presentation: 03/03 02:23 Chief complaint: Patient states: I woke up with my nose, mouth, throat and chest jb4 burning. I have been coughing up bile. 6 weeks post op bariatric surgery. Coronavirus screen: At this time, the client does not indicate any symptoms associated with coronavirus-19. Ebola Screen: No symptoms or risks identified at this time. Initial Sepsis Screen: Does the patient meet any 2 criteria? No. Patient's initial sepsis screen is negative. Does the patient have a suspected source of infection? No. Patient's initial sepsis screen is negative. Risk Assessment: Do you want to hurt yourself or someone else? Patient reports no desire to harm self or others. Onset of symptoms was March 03, 2024. Transition of care: patient was not received from another setting of care. 02:23 Method Of Arrival: Ambulatory jb4 02:23 Acuity: TERELL 3 jb4 Historical: - Allergies: 02:25 No Known Allergies; jb4 - PMHx: 02:25 None; jb4 - PSHx: 02:25 section; Bariatric surgery 01/14/2024 ( section); jb4 - Immunization history:: Adult Immunizations up to date. - Infectious Disease History:: Denies. - Social history:: Smoking status: Reported history of juuling and/or vaping. - Family history:: not pertinent. Screenin:25 [facility] ED Fall Risk Assessment (Adult) History of falling in the last 3 months, jj7 including since admission No falls in past 3 months (0 pts) Confusion or Disorientation No (0 pts) Intoxicated or Sedated No (0 pts) Impaired Gait No (0 pts) Mobility Assist Device Used No (0 pt) Altered Elimination No (0 pt) Score/Fall Risk Level 0 - 2 = Low Risk Oriented to surroundings, Maintained a safe environment, Educated pt \T\ family on fall prevention, incl call for assistance when getting out of bed. Abuse screen: Denies threats or abuse. Nutritional screening: No deficits noted. Tuberculosis screening: No symptoms or risk factors identified. Assessment: 02:25 General: Appears in no apparent distress. uncomfortable, Behavior is calm, cooperative, jj7 appropriate for age. Pain: Complains of pain in chest. GI: Pt is actively vomiting clear fluid, Reports nausea, vomiting, BURNING IN CHEST DUE TO POSS ASPIRATION. 04:59 Reassessment: HAVING N/V Patient denies pain at this time. jj7 06:12 Reassessment: PT IS DISCHARGED, BUT DR RILEY WANTS HER TO STAY UNTIL 7A TO GET MORE jj7 KCL IV INFUSION. Vital Signs: 02:23 BP 126 / 79; Pulse 91; Resp 16; Temp 97.9(TE); Pulse Ox 95% on R/A; Weight 107.5 kg; jb4 Height 5 ft. 0 in. (R); Pain 7/10; 03:45 BP 143 / 88; Pulse 66; Resp 19; Pulse Ox 98% ; jj7 04:45 BP 127 / 55; Pulse 52; Resp 19; Pulse Ox 100% ; jj7 05:45 BP 100 / 54; Pulse 50; Resp 16; Pulse Ox 100% ; jj7 06:50 BP 98 / 66; Pulse 55; Resp 17; Pulse Ox 95% ; Pain 0/10; jj7 02:23 Body Mass Index 46.29 (107.50 kg, 152.4 cm) jb4 02:23 Pain Scale: Adult jb4 06:50 Pain Scale: Adult jj7 [place] Coma Score: 02:39 Eye Response: spontaneous(4). Motor Response: obeys commands(6). Verbal Response: sp4 oriented(5). Total: 15. ED Course: 02:19 Patient arrived in ED. jj6 02:25 Triage completed. jb4 02:25 Jorge Carlton MD is Attending Physician. sp4 02:25 Arm band placed on right wrist. jb4 02:25 Patient has correct armband on for positive identification. Bed in low position. Call jj7 light in reach. Adult w/ patient. Provided Education on: USE OF CALL ABDULLAHI. 02:29 Robbie Reardon RN is Primary Nurse. jj7 02:35 Inserted saline lock: 20 gauge in right antecubital area, using aseptic technique. jj7 Blood collected. 02:42 CBC with Diff Sent. jj7 02:42 CMP Sent. jj7 02:42 Lipase Sent. jj7 03:09 Test, Urine Sent. jj7 03:09 Urinalysis w/ reflexes Sent. jj7 04:06 CT Abd/Pelvis - IV Contrast Only In Process Unspecified. EDMS 07:05 Report given to CHACORTA GIVENS. jj7 07:32 No provider procedures requiring assistance completed. IV discontinued, intact, ld1 bleeding controlled, No redness/swelling at site. Administered Medications: 02:42 Drug: Ondansetron IVP 4 mg IVP once; over 2 minutes Route: IVP; Site: right antecubital;jj7 04:53 Follow up: Response: Nausea unchanged jj7 02:42 Drug: Ondansetron IVP 4 mg IVP once; over 2 minutes Route: IVP; Site: right antecubital;jj7 04:53 Follow up: Response: Nausea unchanged jj7 03:10 Drug: NS 0.9% IV 1000 ml IV at 1 bolus Per protocol; 1000 mL bolus Route: IV; Rate: 1 jj7 bolus; Site: right antecubital; 03:10 Drug: Famotidine IVP 20 mg IVP once; dilute with 10 mL 0.9% NaCl; give over 2 minutes jj7 Route: IVP; Site: right antecubital; 04:53 Follow up: Response: Pain is decreased jj7 03:10 Drug: morphine IVP or IV 4 mg IVP once over 4 mins Route: IVP; Infused Over: 4 mins; jj7 Site: right antecubital; 04:52 Follow up: Response: Pain is decreased jj7 03:10 Drug: Alum-Mag Hydroxide-Simeth PO Suspension (200 mg-200 mg-20 mg/5 mL) 30 ml PO once jj7 Route: PO; 04:52 Follow up: Response: Pain is decreased jj7 03:10 Drug: metoCLOPramide IVP 10 mg IVP once; over 1 to 2 minutes Route: IVP; Site: right j antecubital; 04:52 Follow up: Response: Nausea unchanged jj7 03:10 Drug: Ketorolac IVP 30 mg IVP once Route: IVP; Site: right antecubital; jj7 04:53 Follow up: Response: Pain is decreased jj7 03:11 Drug: Pantoprazole IVP 40 mg IVP once Route: IVP; Site: right antecubital; jj7 04:53 Follow up: Response: Pain is decreased jj7 04:52 Drug: NS 0.9% IV 1000 ml IV at 125 ml/hr continuous Route: IV; Rate: 125 ml/hr; Site: j7 right antecubital; 05:24 Drug: Potassium Chloride IV 20 mEq IV at calculated rate once; administer over 1-2 jj7 hours Route: IV; Rate: calculated rate; Site: right antecubital; 05:25 Drug: Promethazine IM 50 mg IM once Route: IM; Site: right deltoid; jj7 06:28 Follow up: Response: Marked relief of symptoms; Nausea is decreased; Vomiting decreased jj7 Medication: 02:25 VIS not applicable for this client. jj7 Outcome: 06:11 Discharge ordered by MD. orta 07:32 Discharged to home ambulatory, ld1 07:32 Condition: stable 07:32 Discharge instructions given to patient, Instructed on discharge instructions, follow up and referral plans. medication usage, Demonstrated understanding of instructions, follow-up care, medications, Prescriptions given X 2, 07:33 Patient left the ED. ld1 Signatures: Dispatcher [employer] EDMS Melo Bragg RN RN jb4 Chacorta Funez RN RN ld1 Dianne Bravo [id number] Robbie Reardon RN RN jj7 Jorge Carlton MD MD sp4 Corrections: (The following items were deleted from the chart) 04:59 03:30 BP 143 / 88; Pulse 66bpm; Resp 19bpm; Pulse Ox 98%; jj7 jj7
--- NOTE | 2024-03-03 06:11 | EDPHYS ---
Physician Documentation [facility] Name: Obdulia Burch Age: 33 yrs Sex: Female : 1990 Arrival Date: 03/03/2024 Time: 02:17 Bed 18 Private MD: ED Physician Jorge Carlton HPI: 03/03 02:25 This 33 yrs old Female presents to ER via Ambulatory with complaints of 6 WKS sp4 POST OP BARIATRIC SURGERY, WOKE UP COUGHING UP BILE, PT STATES THROAT AND CHEST FEEL LIKE THEY ARE ON FIRE. 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 Patient reports multiple episodes of vomiting burning in the chest burning in her throat. Patient has history of x 4 and bilateral tubal ligation. Patient denied bloody emesis denied diarrhea or other symptoms . . Historical: - Allergies: 02:25 No Known Allergies; jb4 - PMHx: 02:25 None; jb4 - PSHx: 02:25 section; Bariatric surgery 01/14/2024 ( section); jb4 - Immunization history:: Adult Immunizations up to date. - Infectious Disease History:: Denies. - Social history:: Smoking status: Reported history of juuling and/or vaping. - Family history:: not pertinent. ROS: 02:39 Constitutional: Negative for fever, chills, and weight loss, positive for abdominal sp4 pain, positive for nausea vomiting, positive for epigastric pain, positive for chills and burning and throat irritation. 02:39 All other systems are negative, Exam: 02:39 Constitutional: This is a well developed, well nourished patient who is awake, alert, sp4 morbidly overweight female dry heaving on exam. Head/Face: Normocephalic, atraumatic. Eyes: Pupils equal round and reactive to light, extra-ocular motions intact. Lids and lashes normal. Conjunctiva and sclera are not injected. Cornea within normal limits. Periorbital areas with no swelling, redness, or edema. ENT: Nares patent. No nasal discharge, no septal abnormalities noted. Tympanic membranes are normal and external auditory canals are clear. Oropharynx with no redness, swelling, or masses, exudates, or evidence of obstruction, uvula midline. Mucous membranes moist. Neck: Trachea midline, no thyromegaly or masses palpated, and no cervical lymphadenopathy. Supple, full range of motion without nuchal rigidity, or vertebral point tenderness. Chest/axilla: Normal chest wall appearance and motion. Nontender with no deformity. No lesions are appreciated. Cardiovascular: Regular rate and rhythm with a normal S1 and S2. No gallops, murmurs, or rubs. Normal PMI, no JVD. No pulse deficits. Respiratory: Lungs have equal breath sounds bilaterally, clear to auscultation and percussion. No rales, rhonchi or wheezes noted. No increased work of breathing, no retractions or nasal flaring. Abdomen/GI: Soft, with normal bowel sounds. No distension or tympany. No guarding or rebound. No evidence of tenderness throughout. Back: No spinal tenderness. No costovertebral tenderness. Skin: Warm, dry with normal turgor. Normal color with no rashes, no lesions, and no evidence of cellulitis. MS/ Extremity: Pulses equal, no cyanosis. Neurovascular intact. Full, normal range of motion. Neuro: Awake and alert, GCS 15, oriented to person, place, time, and situation. Cranial nerves II-XII grossly intact. Motor strength 5/5 in all extremities. Sensory grossly intact. Psych: Awake, alert, with orientation to person, place and time. Behavior, mood, and affect are within normal limits Vital Signs: 02:23 BP 126 / 79; Pulse 91; Resp 16; Temp 97.9(TE); Pulse Ox 95% on R/A; Weight 107.5 kg; jb4 Height 5 ft. 0 in. (R); Pain 7/10; 03:45 BP 143 / 88; Pulse 66; Resp 19; Pulse Ox 98% ; jj7 04:45 BP 127 / 55; Pulse 52; Resp 19; Pulse Ox 100% ; jj7 05:45 BP 100 / 54; Pulse 50; Resp 16; Pulse Ox 100% ; jj7 06:50 BP 98 / 66; Pulse 55; Resp 17; Pulse Ox 95% ; Pain 0/10; jj7 02:23 Body Mass Index 46.29 (107.50 kg, 152.4 cm) jb4 02:23 Pain Scale: Adult jb4 06:50 Pain Scale: Adult jj7 [place] Coma Score: 02:39 Eye Response: spontaneous(4). Motor Response: obeys commands(6). Verbal Response: sp4 oriented(5). Total: 15. MDM: 02:30 Patient medically screened. sp4 06:06 Differential Diagnosis altered mental status, sepsis, flu, obstructed bowel . Data sp4 reviewed: vital signs, nurses notes, lab test result(s), radiologic studies, CT scan. Consideration of Admission/Observation Escalation of care including admission/observation considered. ED course: CLINICAL HISTORY: ABD PAIN COMPARISON: 03/03/2020. TECHNIQUE: CTABDOMEN PELVIS WITH IV CONTRAST on 03/03/2024 2:30 AM CDT This exam was performed according to our departmental dose-optimization program, which includes automated exposure control, adjustment of the mA and/or kV according to patient size and/or use of iterative reconstruction technique. FINDINGS: There is minimal patchy airspace disease at the junction of the right middle and right lower lobe. Abdomen: The liver is normal in appearance. There is no biliary dilatation. Gallbladder is normal in appearance. There are postoperative changes of the upper stomach. The pancreas and spleen are normal in appearance. The adrenal glands and kidneys are unremarkable. Abdominal aorta is normal in course and caliber without aneurysm. There is no free air. There is no retroperitoneal adenopathy. Pelvis: There is no bowel obstruction. Urinary bladder is unremarkable. There is no free fluid. Uterus is normal in size. Appendix is normal. Skeleton: There are no acute osseous findings. No suspicious bony lesions. IMPRESSION: No acute inflammatory process in the abdomen or pelvis. Possible mild right basilar pneumonia. Electronically signed by: Chidi Elaine MD 03/03/2024 05:33 AM. ED course: Patient has improved significantly especially after intramuscular Phenergan. Patient at this time stable for discharge home. CT does not reveal any emergent problem. Will prescribe Reglan and Phenergan as needed nausea at home and recommend clear liquid diet for the next 24 hours. . 03/03 02:30 Order name: CBC with Diff; Complete Time: 04:56 sp4 03/03 02:30 Order name: CMP; Complete Time: 04:56 sp4 03/03 02:30 Order name: Lipase; Complete Time: 04:56 sp4 05/08 02:30 Order name: Urinalysis w/ reflexes; Complete Time: 04:56 sp4 03/03 02:31 Order name: Test, Urine; Complete Time: 04:56 sp4 03/03 02:30 Order name: CT Abd/Pelvis - IV Contrast Only sp4 03/03 02:30 Order name: IV Saline Lock; Complete Time: 02:41 sp4 03/03 02:30 Order name: Labs collected and sent; Complete Time: 02:42 sp4 Administered Medications: 02:42 Drug: Ondansetron IVP 4 mg IVP once; over 2 minutes Route: IVP; Site: right antecubital;jj7 04:53 Follow up: Response: Nausea unchanged jj7 02:42 Drug: Ondansetron IVP 4 mg IVP once; over 2 minutes Route: IVP; Site: right antecubital;jj7 04:53 Follow up: Response: Nausea unchanged jj7 03:10 Drug: NS 0.9% IV 1000 ml IV at 1 bolus Per protocol; 1000 mL bolus Route: IV; Rate: 1 jj7 bolus; Site: right antecubital; 03:10 Drug: Famotidine IVP 20 mg IVP once; dilute with 10 mL 0.9% NaCl; give over 2 minutes jj7 Route: IVP; Site: right antecubital; 04:53 Follow up: Response: Pain is decreased jj7 03:10 Drug: morphine IVP or IV 4 mg IVP once over 4 mins Route: IVP; Infused Over: 4 mins; jj7 Site: right antecubital; 04:52 Follow up: Response: Pain is decreased jj7 03:10 Drug: Alum-Mag Hydroxide-Simeth PO Suspension (200 mg-200 mg-20 mg/5 mL) 30 ml PO once jj7 Route: PO; 04:52 Follow up: Response: Pain is decreased jj7 03:10 Drug: metoCLOPramide IVP 10 mg IVP once; over 1 to 2 minutes Route: IVP; Site: right jj7 antecubital; 04:52 Follow up: Response: Nausea unchanged jj7 03:10 Drug: Ketorolac IVP 30 mg IVP once Route: IVP; Site: right antecubital; jj7 04:53 Follow up: Response: Pain is decreased jj7 03:11 Drug: Pantoprazole IVP 40 mg IVP once Route: IVP; Site: right antecubital; jj7 04:53 Follow up: Response: Pain is decreased jj7 04:52 Drug: NS 0.9% IV 1000 ml IV at 125 ml/hr continuous Route: IV; Rate: 125 ml/hr; Site: j right antecubital; 05:24 Drug: Potassium Chloride IV 20 mEq IV at calculated rate once; administer over 1-2 j7 hours Route: IV; Rate: calculated rate; Site: right antecubital; 05:25 Drug: Promethazine IM 50 mg IM once Route: IM; Site: right deltoid; jj7 06:28 Follow up: Response: Marked relief of symptoms; Nausea is decreased; Vomiting decreased j7 Disposition Summary: 03/03/24 06:11 Discharge Ordered Notes: Location: Home sp4 Problem: new sp4 Symptoms: have improved sp4 Condition: Stable sp4 Diagnosis - Acute gastritis sp4 - Acute gastroenteritis, acute Vomiting, acute hypokalemia sp4 Followup: sp4 - With: Private Physician - When: 7 - 10 days - Reason: Recheck today's complaints Discharge Instructions: - Discharge Summary Sheet sp4 - Clear Liquid Diet, Adult, [id number] sp4 Forms: - Patient Portal Instructions sp4 Prescriptions: - Reglan 10 mg Oral tablet - take 1 tablet ORAL route every 6 hours PRN nausea; 30 tablet; Refills: 0, sp4 Product Selection Permitted - promethazine 25 mg Oral tablet - take 1 tablet ORAL route every 6 hours As needed PRN nausea; 30 tablet; sp4 Refills: 0, Product Selection Permitted Signatures: Dispatcher [employer] Melo Kirkpatrick RN RN jb4 Robbie Reardon RN RN jj7 Jorge Carlton MD MD sp4
[2024-03-03 08:04] VITALS: BP 98/66; TEMP 97.9; O2SAT 95
--- NOTE | 2024-03-03 12:23 | RAD REPORT ---
EXAM DESCRIPTION: CT - Abdomen Pelvis W Contrast - 03/03/2024 6:05 am CLINICAL HISTORY: ABD PAIN COMPARISON: 03/03/2020. TECHNIQUE: CT ABDOMEN PELVIS WITH IV CONTRAST on 03/03/2024 2:30 AM CDT This exam was performed according to our departmental dose-optimization program, which includes autom ated exposure control, adjustment of the mA and/or kV according to patient size and/or use of iterati ve reconstruction technique. FINDINGS: There is minimal patchy airspace disease at the junction of the right middle and right low er lobe. Abdomen: The liver is normal in appearance. There is no biliary dilatation. Gallbladder is normal in appearance. There are postoperative changes of the upper stomach. The pancreas and spleen are normal in appearance. The adrenal glands and kidneys are unremarkable. Abdominal aorta is normal in course and caliber without aneurysm. There is no free air. There is no r etroperitoneal adenopathy. Pelvis: There is no bowel obstruction. Urinary bladder is unremarkable. There is no free fluid. Uteru s is normal in size. Appendix is normal. Skeleton: There are no acute osseous findings. No suspicious bony lesions. IMPRESSION: No acute inflammatory process in the abdomen or pelvis. Possible mild right basilar pneumonia. Electronically signed by: Chidi Elaine MD 03/03/2024 05:33 AM CDT Due to temporary technical issues with the PACS/Fluency reporting system, reports are being signed by the in house radiologist without review as a courtesy to ensure prompt reporting. The interpreting r adiologist is fully responsible for the content of the report.
== END 2024-03-03 07:33 | disposition home or self-care (01) ==
LOC: ER 02:17
DX: K52.9 Noninfective gastroenteritis and colitis, unspecified (principal); K29.00 Acute gastritis without bleeding; E87.6 Hypokalemia; Z98.84 Bariatric surgery status
CPT/HCPCS: 85025; 81001; 36415; 81025; 83690; 80053; 74177; Q9967; J2550; J2765; C9113; J2405; J7030 ×2; J3480

== ENCOUNTER 2024-07-28 07:28 | Emergency (ER) | payer OTHER ==
--- OUTSIDE RECORDS SUMMARY | 2024-07-28 07:32 | XMS REPORT | Continuity of Care Document ---
Author Name Unknown Address [address] [facility] [address]. [address] [place] [address] [facility] thconnect Address [address] [facility]. [address] [place] [address] Care Team Providers Care Duplicate Maker Name Role Phone PCP, PATIENT DOES NOT HAVE A Primary Care Physic enrique Unavailable Monique Rao DO Attending Clinician [phone] MONIQUE RAO Attending Clinician Unav ailable [facility] Attending Clinician Unavail able Senait Jones RD Attending Clinician RADIOLOGY Attending Clinician Unavailable Radiology Attending Clinician Unavailable Doctor Unassigned, [place] Attending Clinician U navailable MONIQUE RAO Admitting Clinician Unav ailable MONIQUE RAO Admitting Clinician Unavailabl e [facility]G Admitting Clinician Unavail able MAR, ARELI Admitting Clinician Unavailable Payers Payer Name Policy Type Policy Number Effective Date Expirati on Date Source [employer] - CHOICE (POS II) [id number] 2023 00:00:00 FORMERLY [facility] [place] STAR [id number] 2022 00:00:00 Problems Condition Name Condition Details Condition Category Status Onset Date Resolution Date Last Treatment Date Treating Clinician Comments Source 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 3 00:00: 00 [facility] Prediabete s Prediabete s Disease Active 2022-10 0 00:00: 00 [facility] Morbid obesity with BMI of 40.0-44.9, adult Morbid obesity with BMI of 40.0-44.9, adult Disease Active 2022-10 0 00:00: 00 [facility] Obesity (BMI 30-39.9) Obesity (BMI 30-39.9) Disease Active [facility] Allergies, Adverse Reactions, Alerts Allergy Name Allergy Type Status Severity Reaction(s) Onset Date Inactive Date Treating Clinician Comments Source NO KNOWN ALLERGIE S Drug Class Active [facility] Social History Social Habit Start Date Stop Date Quantity Comments Source Sexual orientation U [facility] Alcoholic beverage intake 2024-07-15 00:00:00 2024-07-15 00:00:00 .71 /d [facility] History of Social function 2024-04-18 00:00:00 2024-04-18 00:00:00 [facility] Tobacco use and exposure 2023-10-13 00:00:00 2023-10-13 00:00:00 Smokeless tobacco non-user [facility] Cigarettes smoked current (pack per day) - Reported 2023-10-13 00:00:00 2023-10-13 00:00:00 [facility] Cigarette pack-years 2023-10-13 00:00:00 2023-10-13 00:00:00 [facility] Alcohol intake 2023-08-10 00:00:00 2023-08-10 00:00:00 .71 /d [facility] Tobacco Comment 2023-08-08 00:00:00 2023-08-08 00:00:00 On and off since 17. No cigarettes 4+ years [facility] Alcohol Comment 2023-08-08 00:00:00 2023-08-08 00:00:00 Every few weeks- not regular [facility] Exposure to SARS-CoV-2 (event) 2023-01-07 00:00:00 2023-01-17 16:52:00 Not sure [facility] History of tobacco use 2009-05-27 00:00:00 2015-05-27 00:00:00 Cigarette Smoker [facility] Sex assigned at 1990 00:00:00 1990 00:00:00 [facility] Smoking Status Start Date Stop Date Source Current Some Day Smoker [facility] Ex-smoker 2023-10-13 00:00:00 2023-10-13 00:00:00 [facility] Medications Ordered Medication Name Filled Medication Name Start Date Stop Date Current Medication? Ordering Clinician Indication Dosage Frequency Signature (SIG) Comments Components Source Fe Fum-FePoly- FA-Vit C-Vit B3 (Integra F) 125-1 MG capsule 04-11 00:00: 00 Yes [id number] 1{capsu le} QD Take 1 capsule by mouth 1 (one) time each day. [facility] thiamine mononitrate (Vitamin B-1) 100 MG tablet 04-11 00:00: 00 04-12 04:59 :00 No [id number] 100mg Q.[id number] 3D Take 1 tablet (100 mg total) by mouth in the morning and 1 tablet (100 mg total) at noon and 1 tablet (100 mg total) in the evening. [facility] ergocalcife rol (Vitamin D-2) 1.25 MG (80660 UT) capsule 04-11 00:00: 00 08-02 04:59 :00 No [id number] 32659M Take 1 capsule (50,000 Units total) by mouth 1 (one) time per week. [facility] pantoprazol e (Protonix) 40 MG EC tablet 03-19 00:00: 00 05-19 04:59 :00 No [id number] 40mg Take 1 tablet (40 mg total) by mouth 1 (one) time each day before breakfast. Do not crush, chew, or split. [facility] methocarbam ol (Robaxin) 500 MG tablet 03-19 00:00: 00 2024- 06-04 04:59 :00 No [id number] 500mg Q.[id number] 3D Take 1 tablet (500 mg total) by mouth in the morning and 1 tablet (500 mg total) at noon and 1 tablet (500 mg total) in the evening. Do all this for 10 days. [facility] Fe Fum-FePoly- FA-Vit C-Vit B3 (Integra F) 125-1 MG capsule 3-13 00:00: 00 Yes [id number] 1{capsu le} QD Take 1 capsule by mouth 1 (one) time each day. [facility] thiamine mononitrate (Vitamin B-1) 100 MG tablet 2022-10 0 00:00: 00 08-24 04:59 :00 No [id number] 100mg Q.[id number] 3D Take 1 tablet (100 mg total) by mouth in the morning and 1 tablet (100 mg total) at noon and 1 tablet (100 mg total) in the evening. [facility] Fe Fum-FePoly- FA-Vit C-Vit B3 (Integra F) 125-1 MG capsule 2022-10 0 00:00: 00 09-24 05:59 :00 No [id number] 125mg QD Take 125 mg by mouth 1 (one) time each day. [facility] Dose Unknown 2022-0 6-23 00:00: 00 No Dose Unknown 2022-0 6-23 00:00: 00 No Dose Unknown 2-0 6-23 00:00: 00 No &lt 2022-0 6-20 00:00: 00 No &lt 2022-0 6-20 00:00: 00 No &lt 2022-0 6-20 00:00: 00 No Dose Unknown 2022-0 5-06 [...] 00 No Strattera 40 mg capsule 2021-0 4-02 00:00: 00 No 1mg Dose Unknown 2020-0 4-02 00:00: 00 No Strattera 40 mg capsule 2020-0 4-02 00:00: 00 No 1mg Dose Unknown 2020-0 4-02 00:00: 00 No Strattera 40 mg capsule 2020-0 4-02 00:00: 00 No 1mg benzonatate 100 mg capsule 2020-0 3-09 00:00: 00 No 1mg benzonatate 100 mg capsule 2020-0 3-09 00:00: 00 No 1mg benzonatate 100 mg capsule 2020-0 3-09 00:00: 00 No 1mg Lexapro 10 mg tablet 2020-0 3-05 00:00: 00 No 1mg Strattera 40 mg capsule 2020-0 3-05 00:00: 00 No 1mg Lexapro 10 mg tablet 2020-0 3-05 00:00: 00 No 1mg Strattera 40 mg capsule 2020-0 3-05 00:00: 00 No 1mg Lexapro 10 mg tablet 2020-0 3-05 00:00: 00 No 1mg Strattera 40 mg capsule 2020-0 3-05 00:00: 00 No 1mg Lexapro 10 mg tablet 1-0 2-10 00:00: 00 No 1mg Strattera 40 mg capsule 2020-0 2-10 00:00: 00 No 1mg Lexapro 10 mg tablet 1-0 2-10 00:00: 00 No 1mg Strattera 40 mg capsule 1-0 2-10 00:00: 00 No 1mg Lexapro 10 mg tablet 2020-0 2-10 00:00: 00 No 1mg Strattera 40 mg capsule 2020-0 2-10 00:00: 00 No 1mg Lexapro 10 mg tablet 1-0 1-07 00:00: 00 No 1mg Strattera 40 mg capsule 2020-0 1-07 00:00: 00 No 1mg Lexapro 10 mg tablet 1-0 1-07 00:00: 00 No 1mg Strattera 40 mg capsule 1-0 1-07 00:00: 00 No 1mg Lexapro 10 mg tablet 2021-0 1-07 00:00: 00 No 1mg Strattera 40 [...] 00 No 1mg Strattera 40 mg capsule 2019-10- 00:00: 00 No 1mg Strattera 40 mg capsule 2019-10- 00:00: 00 No 1mg Strattera 40 mg capsule 2019-10 00:00: 00 No 1mg Lexapro 10 mg tablet 2019-10 1-12 00:00: 00 No 1mg Strattera 25 mg capsule 2019-10 1-12 00:00: 00 No 1mg Lexapro 10 mg tablet 2019-10-12 00:00: 00 No 1mg Strattera 25 mg capsule 2019-10 1-12 00:00: 00 No 1mg Lexapro 10 mg tablet 2019-10-12 00:00: 00 No 1mg Strattera 25 mg capsule 2019-10-12 00:00: 00 No 1mg Lexapro 10 mg [...] tablet 0 9-17 00:00: 00 No 1mg hydroxyzine HCl 25 mg tablet 0 9-17 00:00: 00 No 1mg Lexapro 10 mg tablet 0 9-17 00:00: 00 No 1mg hydroxyzine HCl 25 mg tablet 0 9-17 00:00: 00 No 1mg Lexapro 10 mg tablet 0 8-19 00:00: 00 No 1mg hydroxyzine HCl 25 mg tablet 0 8- 00:00: 00 No 1mg Lexapro 10 mg tablet 0 8- 00:00: 00 No 1mg hydroxyzine HCl 25 mg tablet 0 8- 00:00: 00 No 1mg Lexapro 10 mg tablet 0 8- 00:00: 00 No 1mg hydroxyzine HCl 25 mg tablet 0 8- 00:00: 00 No 1mg Lexapro 10 mg tablet 0 8-06 00:00: 00 No 1mg hydroxyzine HCl 25 mg tablet 0 8-06 00:00: 00 No 1mg Lexapro 10 mg tablet 0 8-06 00:00: 00 No 1mg hydroxyzine HCl 25 mg tablet 0 8-06 00:00: 00 No 1mg Lexapro 10 mg tablet 0 8-06 00:00: 00 No 1mg hydroxyzine HCl 25 mg tablet 0 8-06 00:00: 00 No 1mg Keflex 500 mg capsule 0 5-08 00:00: 00 No 1mg Keflex 500 mg capsule 0 5-08 00:00: 00 No 1mg Keflex 500 mg capsule 0 5-08 00:00: 00 No 1mg Bactrim DS 800 mg-160 mg tablet 0 4-28 00:00: 00 No 1mg Bactrim DS 800 mg-160 mg tablet 0 4- 00:00: 00 No 1mg Bactrim DS 800 mg-160 mg tablet 0 4- 00:00: 00 No 1mg benzonatate 200 mg capsule 0 5-17 00:00: 00 Yes [id number] 200mg Take 1 capsule by mouth 3 (three) times daily as needed for Cough. [facility] albuterol 90 mcg/actuati on inhaler 03-12 00:00: 00 Yes [id number] 2{puff} Inhale 2 Puffs every 4 (four) hours as needed for Wheezing or Shortness of Breath. [facility] norethindro ne-e.estrad iol-iron (MICROGESTI N FE) 1.5 mg-30 mcg (21)/75 mg (7) per tablet 02-18 00:00: 00 Yes [id number] 1{tbl} Take 1 tablet by mouth daily. [facility] fluticasone propionate 50 mcg/actuati on nasal spray,suspe nsion SPRAY 1 SPRAY INTO EACH NOSTRIL TWICE A DAY fluticasone propionate 50 mcg/actuati on nasal spray,suspe nsion SPRAY 1 SPRAY INTO EACH NOSTRIL TWICE A DAY No fluticason e propionate 50 mcg/actuat ion nasal spray,susp ension SPRAY 1 SPRAY INTO EACH NOSTRIL TWICE A DAY [facility] Medical Folivane-F 125 mg-1 mg-40 mg-3 mg capsule TAKE 1 CAPSULE BY MOUTH EVERY DAY Folivane-F 125 mg-1 mg-40 mg-3 mg capsule TAKE 1 CAPSULE BY MOUTH EVERY DAY No Folivane-F 125 mg-1 mg-40 mg-3 mg capsule TAKE 1 CAPSULE BY MOUTH EVERY DAY [facility] phenazopyri dine 200 mg tablet TAKE 1 TABLET 3 TIMES A DAY NEEDED FOR URINARY FREQUENCY/U RGENCY, BLADDER PAIN phenazopyri dine 200 mg tablet TAKE 1 TABLET 3 TIMES A DAY NEEDED FOR URINARY FREQUENCY/U RGENCY, BLADDER PAIN No phenazopyr idine 200 mg tablet TAKE 1 TABLET 3 TIMES A DAY NEEDED FOR URINARY FREQUENCY/ URGENCY, BLADDER PAIN [facility] Medical Vital Signs Vital Name Observation Time Observation Value Comments S ource Systolic blood pressure 2024-04-16 14:23:00 117 mm[Hg] [facility] Diastolic blood pressure 2024-04-16 14:23:00 74 mm[Hg] [facility] Heart rate 2024-04-16 14:23:00 69 /min [facility] Body height 2024-04-16 14:23:00 152.4 cm [facility] Body weight 2024-04-16 14:23:[facility] 2024-04-16 14:23:00 42.99 kg/m2 [facility] Systolic blood pressure 2024-02-13 16:00:00 114 mm[Hg] [...] by Pulse oximetry 2024-02-13 16:00:00 99 /min [facility] Systolic blood pressure 2024-01-23 16:46:00 121 [...] by Pulse oximetry 2024-01-23 16:46:00 98 /min [facility] Systolic blood pressure 2024-01-02 16:26:00 125 [...] by Pulse oximetry 2024-01-02 16:26:00 98 /min [facility] Systolic blood pressure 2023-10-14 15:49:00 126 [...] 13:13:00 123.514 kg Per last clinic visit. [facility] BMI 2023-08-26 13:13:00 53.18 kg/m2 [facility] Systolic blood pressure 2023-08-05 15:05:00 116 mm[Hg] [facility] Diastolic blood pressure 2023-08-05 15:05:00 73 mm[Hg] [facility] Heart rate 2023-08-05 15:05:00 73 /min [facility] Body temperature 2023-08-05 15:05:00 36.56 [facility] [...] PELVIC NONOBSTETRIC REAL-TIME IMAGE COMPLETE 2023-11-28 00:00:[address] [facility] Medical US PELVIC NONOBSTETRIC REAL-TIME IMAGE COMPLETE 2023-11-14 00:00:00 [facility] VITAMIN B12 2023-08-05 16:08:00 [facility] FOLATE 2023-08-05 16:08:00 Maira [facility] VITAMIN E 2023-08-05 16:08:00 [facility] VITAMIN A 2023-08-05 16:08:00 [facility] VITAMIN B1, WHOLE BLOOD 2023-08-05 16:08[facility]05 [facility] [facility] [address] [facility] PELVIS WO CONTRAST 2023-01-23 13:40:50 Requisition, Paper [facility] CONSENT/REFUSAL FOR DIAGNOSIS AND TREATMENT 2023-01-23 13:40:49 Doctor Unassigned, [place] [facility] ASSIGNMENT OF BENEFITS 2023-01-23 13:40:33 Docto r Unassigned, [place] [facility] CONSENT/REFUSAL FOR DIAGNOSIS AND TREATMENT 2023-01-23 13:26:32 Doctor Unassigned, [place] [facility] ASSIGNMENT OF BENEFITS 2023-01-23 13:26:18 Docto r Unassigned, [place] [facility] CONSENT/REFUSAL FOR DIAGNOSIS AND TREATMENT 2023-01-10 14:28:19 Doctor Unassigned, [place] [facility] ASSIGNMENT OF BENEFITS 2023-01-10 14:28:06 Docto r Unassigned, [place] [facility] Caesarean Section [facility] Plan of Care Planned Activity Planned Date Details Comments Source Goal Plan of Care Note [code = 00087-9] Goal Plan of Care Note [code = 67328-0] Goal Plan of Care Note [code = 93547-0] Goal Plan of Care Note [code = 53224-8] Goal Plan of Care Note [code = 07280-2] Goal Plan of Care Note [code = 40412-5] Goal Plan of Care Note [code = 66638-7] Goal Plan of Care Note [code = 17033-8] Goal Plan of Care Note [code = 60137-3] Goal Plan of Care Note [code = 45023-6] Goal Plan of Care Note [code = 77080-6] Goal Plan of Care Note [code = 06153-9] Goal Plan of Care Note [code = 12590-7] Goal Plan of Care Note [code = 79189-0] Goal Plan of Care Note [code = 14463-2] Goal Plan of Care Note [code = 82099-8] Goal Plan of Care Note [code = 65770-3] Goal Plan of Care Note [code = 02201-4] Goal Plan of Care Note [code = 72227-2] Goal Plan of Care Note [code = 70479-5] Goal Plan of Care Note [code = 20367-3] Goal Plan of Care Note [code = 18731-2] Goal Plan of Care Note [code = 76597-4] Goal Plan of Care Note [code = 62532-8] Goal Plan of Care Note [code = 63706-8] Goal Plan of Care Note [code = 55805-6] Goal Plan of Care Note [code = 04263-2] Goal Plan of Care Note [code = 36147-0] Goal Plan of Care Note [code = 53289-0] Goal Plan of Care Note [code = 57814-1] Goal Plan of Care Note [code = 93456-9] Goal Plan of Care Note [code = 22774-9] Goal Plan of Care Note [code = 42602-8] Goal Plan of Care Note [code = 06427-8] Goal Plan of Care Note [code = 57197-6] Goal Plan of Care Note [code = 31885-3] Goal Plan of Care Note [code = 33750-5] Goal Plan of Care Note [code = 46804-5] Goal Plan of Care Note [code = 14389-1] Goal Plan of Care Note [code = 41943-3] Goal Plan of Care Note [code = 78316-1] Goal Plan of Care Note [code = 64705-9] Goal Plan of Care Note [code = 81028-9] Goal Plan of Care Note [code = 89223-5] Goal Plan of Care Note [code = 75447-0] Goal Plan of Care Note [code = 70225-8] Goal Plan of Care Note [code = 23036-8] Goal Plan of Care Note [code = 79559-6] Goal Plan of Care Note [code = 09359-5] Goal Plan of Care Note [code = 07231-3] Goal Plan of Care Note [code = 29219-8] Goal Plan of Care Note [code = 91216-9] Goal Plan of Care Note [code = 83673-5] Goal Plan of Care Note [code = 41552-4] Goal Plan of Care Note [code = 33361-3] Goal Plan of Care Note [code = 31997-3] Goal Plan of Care Note [code = 60912-2] Goal Plan of Care Note [code = 03190-1] Goal Plan of Care Note [code = 22143-9] Goal Plan of Care Note [code = 42941-1] Goal Plan of Care Note [code = 08917-9] Goal Plan of Care Note [code = 31414-8] Goal Plan of Care Note [code = 62476-4] Goal Plan of Care Note [code = 11489-6] Goal Plan of Care Note [code = 80612-4] Goal Plan of Care Note [code = 19181-2] Goal Plan of Care Note [code = 69223-0] Goal Plan of Care Note [code = 08459-4] Goal Plan of Care Note [code = 29314-4] Goal Plan of Care Note [code = 39032-0] Goal Plan of Care Note [code = 99675-1] Goal Plan of Care Note [code = 05480-2] Goal Plan of Care Note [code = 84779-6] Goal Plan of Care Note [code = 41433-6] Goal Plan of Care Note [code = 43654-9] Goal Plan of Care Note [code = 63722-8] Goal Plan of Care Note [code = 67469-6] Goal Plan of Care Note [code = 74723-6] Goal Plan of Care Note [code = 90160-1] Goal Plan of Care Note [code = 20966-3] Goal Plan of Care Note [code = 82203-1] Goal Plan of Care Note [code = 55971-3] Goal Plan of Care Note [code = 15216-1] Goal Plan of Care Note [code = 59693-9] Goal Plan of Care Note [code = 80662-4] Goal Plan of Care Note [code = 54738-8] Goal Plan of Care Note [code = 99643-2] Goal Plan of Care Note [code = 89169-6] Goal Plan of Care Note [code = 78547-1] Goal Plan of Care Note [code = 48984-0] Goal Plan of Care Note [code = 01714-9] Goal Plan of Care Note [code = 42477-1] Encounters Start Date/Time End Date/Time Encounter Type Admission Type Attending [facility] Care Department Encounter ID Source 2024-07-09 09:00:00 2024-07-09 10:38:02 Telemedici ne Monique Roa [facility] [place] [facility] [place] [address] AND [place]OM[place] 1.2.840.114 350.1.13.58 9.2.7.2.686 [id number] [facility] 2024-04-16 09:00:00 2024-04-16 09:48:58 Office Visit Monique Rao [facility] [place] [facility] [place] [address] [place] 1.2.840.114 350.1.13.58 9.2.7.2.686 [id number] [facility] 2024-03-19 11:40:00 2024-03-19 12:01:06 Telemedici ne Monique Rao [facility] [place] [facility] [place]OM[place] 1.2.840.114 350.1.13.58 9.2.7.2.686 [id number] [facility] 2024-02-27 10:30:00 2024-02-27 10:30:00 Outpatient MONIQUE RAO [facility] [id number] [facility] 2024-02-13 10:50:00 2024-02-13 11:48:52 Office Visit Monique Rao [facility] [place] [address] AND [place]OM[place] 1.2.840.114 350.1.13.58 9.2.7.2.686 [id number] [facility] 2024-01-23 11:45:00 2024-01-23 12:18:30 Office Visit Monique Rao [facility] [place] [facility] [place] [address] [place]OM[place] 1.2.840.114 350.1.13.58 9.2.7.2.686 [id number] [facility] 2024-01-14 06:23:00 2024-01-16 10:08:00 Inpatient MONIQUE RAO [facility] [id number] [facility] 2024-01-14 09:30:00 2024-01-14 09:30:00 Outpatient MONIQUE RAO [facility] [id number] [facility] 2024-01-06 10:39:17 2024-01-06 10:39:[address] [facility] [id number] Marlo Pike 2024-01-02 10:30:00 2024-01-02 11:22:37 Consult MONIQUE RAO [facility] AND [place]OM[place] 1.2.840.114 350.1.13.58 9.2.7.2.686 [id number] [facility] 2023-11-28 00:00:00 2023-11-28 00:00:00 Gaudencio Goldman MD: [place] [address] , Ph. [facility] [place] [facility] [id number] [facility] 2023-11-27 00:00:00 2023-11-27 00:00:00 Outpatient [facility] [place] [id number] [facility] 2023-11-20 00:00:00 2023-11-20 00:00:00 Outpatient [facility] [place] [id number] [facility] 2023-11-14 00:00:00 2023-11-14 00:00:00 Outpatient [facility] [place] [facility] [id number] [facility] 2023-11-14 00:00:00 2023-11-14 00:00:00 Gaudencio Goldman MD: [place] [address] , Ph. [facility] [place] [facility] [id number] [facility] 2023-11-12 00:00:00 2023-11-12 00:00:00 Outpatient [facility] [place] [facility] [id number] [facility] 2023-11-04 00:00:00 2023-11-04 00:00:00 Outpatient [facility] [place] [facility] [id number] [facility] 2023-10-31 15:02:13 2023-10-31 15:02:13 Outpatient [facility] [id number] Marlo Goldberg [place] 2023-10-14 09:45:00 2023-10-14 10:56:37 Office Visit MONIQUE RAO [facility] [place] [facility] [address] [place] 1.2.840.114 350.1.13.58 9.2.7.2.686 [id number] [facility] 2023-10-14 08:30:17 2023-10-14 08:30:17 Outpatient [facility] 1219 Marlo Goldberg Shahz[place] 2023-10-08 06:24:00 2023-10-08 08:55:00 Outpatient MONIQUE RAO [facility] [id number] [facility] 2023-10-08 08:00:00 2023-10-08 08:00:00 Outpatient MONIQUE RAO [facility] [id number] [facility] 2023-09-23 08:01:01 2023-09-23 08:01:01 Outpatient [facility] [id number] Marlo Goldberg [place] 2023-09-22 08:24:11 2023-09-22 08:24:11 Outpatient [facility] [id number] Marlo Goldberg [place] 2023-09-08 07:53:50 2023-09-08 07:53:50 Outpatient [facility] [id number] Marlo Goldberg [place] 2023-09-01 08:08:04 2023-09-01 08:08:04 Outpatient [facility] [id number] Marlo Goldberg [place] 2023-08-26 08:15:00 2023-08-26 08:41:[address] [facility] 1..840.114 350.1.13.58 9.2.7.2.686 [id number] [facility] 2023-08-22 07:58:17 2023-08-22 07:58:[address] [facility] 1027 Marlo Pike 2023-08-21 08:01:01 2023-08-21 08:01:01 Outpatient [facility] [id number] Marlo Pike 2023-08-14 08:03:29 2023-08-14 08:03:29 Outpatient [facility] [id number] Marlo Pike 2023-08-05 10:00:00 2023-08-05 11:24:41 Office Visit Monique Rao [facility] [place] 1.840.114 350.1.13.58 9.2.7.2.686 [id number] [facility] 2023-07-08 08:13:20 2023-07-08 08:13:[address] [facility] [id number] Marlo Goldberg [place] 2023-07-05 12:17:42 2023-07-05 12:17:[address] [facility] [id number] Marlo Goldberg [place] 2023-01-23 08:26:34 2023-01-23 23:59:00 Outpatient R RADIOLOGY [facility] [id number] [facility] 2023-01-23 08:26:34 2023-01-23 23:59:00 Hospital Encounter Radiology [facility] 1..114 350.1.13.10 4.2.7.2.686 [id number] [facility] 2023-01-10 00:00:00 2023-01-10 00:00:00 Outpatient R RADIOLOGY [facility] [id number] [facility] 2023-01-10 00:00:00 2023-01-10 00:00:00 Orders Only Doctor Unassigned, [place] [facility] 1.0.114 350.1.13.10 4.2.7.2.686 [id number] [facility] 2023-01-09 14:48:49 2023-01-09 14:48:[address] [facility] [id number] Marlo Pike 2022-12-12 08:09:41 2022-12-12 08:09:[address] [facility] [id number] Marlo Pike 2022-10-17 09:02:24 2022-10-17 09:02:24 Outpatient [facility] [id number] Marlo Pike 2022-09-24 08:04:17 2022-09-24 08:04:17 Outpatient [facility] [id number] 2022-09-24 00:00:00 2022-09-24 00:00:00 Outpatient Visit [id number] 2022-09-09 08:06:27 2022-09-09 08:06:[address] [facility] [facility] [address] 2022-09-09 00:00:00 2022-09-09 00:00:00 Outpatient Visit [id number] 2022-07-11 00:00:00 2022-07-11 00:00:00 Outpatient Visit [id number] 2022-05-27 00:00:00 2022-05-27 00:00:00 Outpatient Visit [id number] Results Test Description Test Time Test Comments Results Result Co mments Source [facility] [Mass/volume] in Serum or [id number] 00:00:00* Test Item Value Reference Range Interpretation Comme [facility] prolactin (test code = prolactin) 11.0 NG/mL 4.8-23.3 [facility] T4 and TSH panel - Serum or [id number] 00:00:00* Test Item Value Reference Range Interpretation Comme nts TSH (test code = TSH) 1.520 uIU/mL 0.178-4.530 free T4 (test code = free T4) 1.22 NG/dL 0.80-1.73 [facility], progesterone, estrogen 2023-11-18 00:00:00* Test Item Value Reference Range Interpretation Comme nts estradiol (test code = estradiol) 122.0 pg/mL 6.1-91.9 H LH (test code = LH) 3.3 mIU/mL FSH (test code = FSH) 1.9 mIU/mL progesterone (test code = progesterone) 3.99 NG/mL [facility] +2 [id number] 00:00:00* Test Item Value Reference Range Interpretation Comme nts HIV 1+2 Ab (test code = HIV 1+2 Ab) non-reactive non-reactive [facility] [id number] 00:00:00* Test Item Value Reference Range Interpretation [...] (test code = HIV Ag/Ab) non-reactive non-reactive [facility]-1 P24 [id number] 00:00:00* Test Item Value Reference Range Interpretation Comme [facility] HIV-1 P24 Ag (test code = HI V-1 P24 Ag) non-reactive non-reactive [facility] [id number] 00:00:00* Test Item Value Reference Range Interpretation Comme nts HPV thinprep (test code = HP V thinprep) negative negative [facility] 2023-11-17 00:00:00* Test Item Value Reference Range Interpretation Comme nts trichomonas vaginalis thinpr ep (test code = trichomonas vaginalis thinprep) trich neg negative [facility] combo 2 thinprep (CT/GC) (hl) 2023-11-17 00:00:00* Test Item Value Reference Range Interpretation Comme nts aptima combo 2 thinprep (CT) (test code = aptima combo 2 thinprep (CT)) CT neg negative aptima combo 2 thinprep (GC) (test code = aptima combo 2 thinprep (GC)) GC neg negative [facility] and [id number] 21:48:00* Test Item Value Reference Range Interpretation [...] Information: ? ?Site ID: RGA ? ?Name: [employer] ? ?Address: [address] [place] [phone] ? ?Director: OLAMIDE CARLTON MD,PHD. Lab Interpretation (test code = 83743-3) Abnormal [id number] 21:48:00* Test Item Value Reference Range Interpretation Comme nts FOLATE, SERUM (test code = 2284-8) 16.8 ng/mL ? Reference Range ? Low: ? <3.4 ? Borderline: ? ?3.4-5.4 ? Normal: ?>5.4 RAC (test code = RAC) Performing Organization Information: ? ?Site ID: RGA ? ?Name: [employer] ? ?Address: [address] [place] [address] ? ?Director: OLAMIDE CARLTON MD,PHD. [facility] [id number] 21:48:00* Test Item Value Reference Range Interpretation Comments VITAMIN A (RETINOL) (test code = 2923-1) 36 See_Comment L Clin Chem Vol. 34.No.8. [id number]. 1998Vitamin supplementation within 24 hours prior to blood draw may affect the accuracy of results. ? This test was developed and its analytical performance characteristics have been determined by [facility]. It has not been cleared or approved [...] Information: ? ?Site ID: SLI ? ?Name: [employer] [facility] ? ?Address: [address] [place] [phone] ? ?Director: GONZALO CANO MD Lab Interpretation (test code = 24494-2) Abnormal [facility] B1, whole [id number] 21:48:00* Test Item Value Reference Range Interpretation Comments VITAMIN B1 (THIAMINE), BLOOD, LC/MS/MS (test code = 93646-6) 75 nmol/L 78-185 L (Note) Vitamin supplementation within 24 hours prior to blood draw mayaffect the accuracy of the results. This test was developed and its analytical performance characteristics have been determined by [facility]. It has not been cleared or approved by FDA. This assay has been validated pursuant to the CLIA regulations and is used for clinical purposes. MDFmed [id number] [address],[address] [id number] ahsan Obregon MD REPORT COMMENT:FASTING:NO RAC (test code = RAC) Performing Organization Information: ? ?Site ID: [id number] ? ?Name: [employer] ? ?Address: [address] [place] [address] [place] [phone] ? ?Director: ASHLEY OBREGON MD Lab Interpretation (test code = 46016-9) Abnormal [facility] [id number] 21:48:00* Test Item Value Reference Range Interpretation Comme nts ALPHA-TOCOPH LILLIAM (test code = 1823-4) 12.6 mg/L ? ? ?Reference R josé miguel ? ? ?5.7-19.9 mg/L ?Levels of alpha-tocopherol <5 mg/L are ? ? ?consistent with Vitamin E deficiency in ? ? ?adults.Vitamin supplementation within 24 hours prior to blood draw may affect the accuracy of results. ? ? See Note 1 [id number] OCOPHEROL (test code = 44791-4) 1.4 See_Comment See Note 1 Note 1 This test was developed and its analytical performance characteristics have been determined by [facility]. It has not been cleared or approved [...] Information: ? ?Site ID: SLI ? ?Name: [employer] [place] ? ?Address: [address] [place] [address] ? ?Director: GONZALO CANO MD [place] [facility] [id number] 21:48:00* Test Item Value Reference Range Interpretation Comme nts VITAMIN B12 (test code = 2132-9) 615 pg/mL 200-1100 RAC (test code = RAC) Performing Organization Information: ? ?Site ID: RGA ? ?Name: [employer] [facility] ? ?Address: [address] [place] [address] ? ?Director: OLAMIDE CARLTON MD,PHD. [place] HealthVITAMIN D, 25 [id number] 06:28:31* Test Item Value Reference Range Interpretation Comme [facility] VITAMIN D, 25 OH (test code = [...] INDICATED, ALL TESTING PERFORMED AT [facility] [address] [place] [address] CHILD WELFARE SOCIAL WORKER: SILVESTRE HYMAN M.D. CLIA NUMBER [id number] [facility] [place]. [id number] LIPID [id number] 04:58:40* Test Item Value Reference Range Interpretation [...] SPECIMENS. FOR MOREINFORMATION, SEE CLIENT ANNOUNCEMENT AT [email or web address] /[email or web address] RISK RATIO LDL/HDL (test code = 2238) 1.25 RATIO <3.22 HEMOGLOBIN [id number] 02:51:24* Test Item Value Reference Range Interpretation Comme [facility] HEMOGLOBIN A1c (test code = 93920) 5.8 % 4.2-5.6 H [employer] GUIDELINES FOR HGB A1C: [...] ALTERNATE TESTING OR LABORATORY CONSULTATION. COMPREHENSIVE METABOLIC [id number] 05:14:36* Test Item Value Reference Range Interpretation Comme nts GLUCOSE (test code = 2216) 90 MG/DL 70-99 BUN (test code = 2207) 15 MG/DL 6-20 CREATININE (test code = 2214) 0.62 MG/DL 0.60-1.30 eGFR (2020 CKD-EPI) (test code = 38952) 122 ML/MIN/1.73 >60 CALC BUN/CREAT (test code = 2235) 24 RATIO 6-28 SODIUM (test code = 2230) 140 MEQ/L 133-146 POTASSIUM (test code = 2228) 4.3 MEQ/L 3.5-5.4 CHLORIDE (test code = 2215) 106 MEQ/L 95-107 CARBON DIOXIDE (test code = 2206) 22 MEQ/L 19-31 CALCIUM (test code = 2209) 9.2 MG/DL 8.5-10.5 PROTEIN, TOTAL (test code = 222) 7.2 G/DL 6.1-8.3 ALBUMIN (test code = 2201) 4.1 G/DL 3.5-5.2 CALC GLOBULIN (test code = 2240) 3.1 G/DL 1.9-3.7 CALC A/G RATIO (test code = 2234) 1.3 RATIO 1.0-2.6 BILIRUBIN, TOTAL (test code = 220) 0.3 MG/DL See_Comment [Automated me ssage] The system which generated this result transmitted reference range: <=1.2. The reference range was not used to interpret this result as normal/abnormal. ALKALINE PHOSPHATASE (test code = 4) 104 U/L 40-114 AST (test code = 2218) 14 U/L 9-40 ALT (test code = 2219) 12 U/L 5-40 LIPID [id number] 05:14:36* Test Item Value Reference Range Interpretation [...] SPECIMENS. FOR MOREINFORMATION, SEE CLIENT ANNOUNCEMENT AT [email or web address] /CalcLDL-C RISK RATIO LDL/HDL (test code = 2238) 1.10 RATIO <3.22 [facility] has i mportant pathology staff changes effective 12/25/2022. New pathology staff will provide uninterrupted, excellent patient care and clinical consultation. See URL: [email or web address]. UNLESS OTHERWISE INDICATED, ALL TESTING PERFORMED AT [facility] [address] [place] [address] CLIA: [id number], CAP: [id number] TSH, THIRD [id number] 04:52:38* Test Item Value Reference Range Interpretation Comme nts TSH, THIRD GENERATION (test code = 2821) 1.600 UIU/ML 0.400-4.100 CBC W/AUTO DIFF WITH [id number] 03:36:09* Test Item Value Reference Range Interpretation [...] = 1065) 0.0 /100 WBC'S See_Comment [Automated [employer]] The system which generated this result [...] 0.00-0.10 ABS NUCLEATED RBCS (test code = 56674) 0.00 K/UL 0.00-0.11 LIPID [id number] 04:50:15* Test Item Value Reference Range Interpretation Comme nts CHOLESTEROL (test code = 2210) 150 MG/DL <200 TRIGLYCERIDES (test code = 2232) 59 MG/DL <150 HDL CHOLESTEROL (test code = 2220) 55 MG/DL >39 CALC LDL CHOL (test code = 2237) 81 MG/DL <100 NOTE: CALCULATED LDL IS BASED ON DEBBIE-JONES METHOD WHICHINCLUDES ADJUSTABLE TRIGLYCERIDE:VLDL CHOLESTEROL RATIO.THIS FACTOR VARIES BY MEASURED TRIGLYCERIDE AND NON-HDLCHOLESTEROL CONCENTRATIONS WITH INCREASED CALCULATED LDL SEENIN HIGHER TRIGLYCERIDE OR LOWER NON-HDL SPECIMENS. FOR MOREINFORMATION, SEE CLIENT ANNOUNCEMENT AT [email or web address] /CalcLDL-C RISK RATIO LDL/HDL (test code = 2238) 1.47 RATIO <3.22 COMPREHENSIVE METABOLIC [id number] 04:50:15* Test Item Value Reference Range Interpretation Comme nts GLUCOSE (test code = 2216) 96 MG/DL 70-99 BUN (test code = 2207) 12 MG/DL 6-20 CREATININE (test code = 2213) 0.65 MG/DL 0.60-1.30 eGFR (2020 CKD-EPI) (test code = 90928) 121 ML/MIN/1.73 >60 CALC BUN/CREAT (test code = 2234) 18 RATIO 6-28 SODIUM (test code = 223) 140 MEQ/L 133-146 POTASSIUM (test code = 2228) 4.4 MEQ/L 3.5-5.4 CHLORIDE (test code = 2214) 104 MEQ/L 95-107 CARBON DIOXIDE (test code = 2205) 23 MEQ/L 19-31 CALCIUM (test code = 2208) 9.2 MG/DL 8.5-10.5 PROTEIN, TOTAL (test code = 2228) 7.4 G/DL 6.1-8.3 ALBUMIN (test code = 2200) 4.0 G/DL 3.5-5.2 CALC GLOBULIN (test code = 2240) 3.4 G/DL 1.9-3.7 CALC A/G RATIO (test code = 2233) 1.2 RATIO 1.0-2.6 BILIRUBIN, TOTAL (test code [...] 5-40 UNLESS OTHERWISE INDICATED, [facility] [address] [facility] [address] CHILD WELFARE SOCIAL WORKER: JACQUI HONG M.D. CLIA NUMBER [id number] [facility] [place]. [id number] LIPID [id number] 00:00:00* Test Item Value Reference Range Interpretation Comme nts CHOLESTEROL (test code = 2209) 150 MG/DL TRIGLYCERIDES (test code = 2231) 59 MG/DL HDL CHOLESTEROL (test code = 2220) 55 MG/DL CALC LDL CHOL (test code = 2237) 81 MG/DL RISK RATIO LDL/HDL (test cod e = 2238) 1.47 RATIO COMPREHENSIVE METABOLIC [id number] 00:00:00* Test Item Value Reference Range Interpretation Comme nts GLUCOSE (test code = 2217) 96 MG/DL BUN (test code = 2208) 12 MG/DL CREATININE (test code = 2214) 0.65 MG/DL eGFR (2020 CKD-EPI) (test code = 42777) 121 ML/MIN/1.73 CALC BUN/CREAT (test code = [...] (test code = 2219) 14 U/L LIPID [id number] 00:00:00* Test Item Value Reference Range Interpretation Comme nts CHOLESTEROL (test code = 2210) 150 MG/DL TRIGLYCERIDES (test code = 2232) 59 MG/DL HDL CHOLESTEROL (test code = 2220) 55 MG/DL CALC LDL CHOL (test code = 2237) 81 MG/DL RISK RATIO LDL/HDL (test cod e = 2238) 1.47 RATIO COMPREHENSIVE METABOLIC [id number] 00:00:00* Test Item Value Reference Range Interpretation Comme nts GLUCOSE (test code = 2217) 96 MG/DL BUN (test code = 2208) 12 MG/DL CREATININE (test code = 2214) 0.65 MG/DL eGFR (2020 CKD-EPI) (test code = 82059) 121 ML/MIN/1.73 CALC BUN/CREAT (test code = [...] (test code = 2219) 14 U/L LIPID [id number] 00:00:00* Test Item Value Reference Range Interpretation Comme nts CHOLESTEROL (test code = 2210) 150 MG/DL TRIGLYCERIDES (test code = 2232) 59 MG/DL HDL CHOLESTEROL (test code = 2220) 55 MG/DL CALC LDL CHOL (test code = 2237) 81 MG/DL RISK RATIO LDL/HDL (test cod e = 2238) 1.47 RATIO COMPREHENSIVE METABOLIC [id number] 00:00:00* Test Item Value Reference Range Interpretation Comme nts GLUCOSE (test code = 2217) 96 MG/DL BUN (test code = 2208) 12 MG/DL CREATININE (test code = 2214) 0.65 MG/DL eGFR (2020 CKD-EPI) (test code = 56435) 121 ML/MIN/1.73 CALC BUN/CREAT (test code = [...] (test code = 2219) 14 U/L LIPID [id number] 00:00:00* Test Item Value Reference Range Interpretation Comme nts CHOLESTEROL (test code = 2210) 150 MG/DL TRIGLYCERIDES (test code = 2232) 59 MG/DL HDL CHOLESTEROL (test code = 2220) 55 MG/DL CALC LDL CHOL (test code = 2237) 81 MG/DL RISK RATIO LDL/HDL (test cod e = 2238) 1.47 RATIO COMPREHENSIVE METABOLIC [id number] 00:00:00* Test Item Value Reference Range Interpretation Comme nts GLUCOSE (test code = 2217) 96 MG/DL BUN (test code = 2208) 12 MG/DL CREATININE (test code = 2214) 0.65 MG/DL eGFR (2020 CKD-EPI) (test code = 28064) 121 ML/MIN/1.73 CALC BUN/CREAT (test code = [...] 2219) 14 U/L GC AND CHLAMYDIA, AMPLIFIED, [id number] 00:00:00* Test Item Value Reference Range Interpretation Comme nts GONORRHEA, NAAT (test code = 22908) NEGATIVE CHLAMYDIA, NAAT (test code = 27770) NEGATIVE GC AND CHLAMYDIA, AMPLIFIED, [id number] 00:00:00* Test Item Value Reference Range Interpretation Comme nts GONORRHEA, NAAT (test code = 09613) NEGATIVE CHLAMYDIA, NAAT (test code = 34584) NEGATIVE GC AND CHLAMYDIA, AMPLIFIED, [id number] 00:00:00* Test Item Value Reference Range Interpretation Comme nts GONORRHEA, NAAT (test code = 18140) NEGATIVE CHLAMYDIA, NAAT (test code = 12076) NEGATIVE GC AND CHLAMYDIA, AMPLIFIED, [id number] 00:00:00* Test Item Value Reference Range Interpretation Comme nts GONORRHEA, NAAT (test code = 93514) NEGATIVE CHLAMYDIA, NAAT (test code = 38731) NEGATIVE HEPATITIS C [id number] 00:00:00* Test Item Value Reference Range Interpretation Comme nts HEPATITIS C ANTIBODY (test c ode = 4675) NON-REACTIVE HIV AB/AG COMBO RFLX [id number] 00:00:00* Test Item Value Reference Range Interpretation Comme nts HIV 1/2 4TH GEN, RFLX CONF ( test code = 3514) NON-REACTIVE [id number] 00:00:00* Test Item Value Reference Range Interpretation Comme nts RPR RESULT (test code = 3501) NON-REACTIVE RPR TITER (test code = 3500) NOT INDIC. TITER CBC W/AUTO [id number] 00:00:00* Test Item Value Reference Range Interpretation [...] ABS NUCLEATED RBCS (test cod e = 07089) 0.00 K/UL [id number] 00:00:00* Test Item Value Reference Range Interpretation Comme nts TSH, THIRD GENERATION (test code = 2821) 1.150 UIU/ML [id number] 00:00:00* Test Item Value Reference Range Interpretation Comme nts ESTRADIOL (test code = 2505) 85.2 PG/ML FOLLICLE STIM [id number] 00:00:00* Test Item Value Reference Range Interpretation Comme nts FOLLICLE STIM HORMONE (test code = 2700) 3.2 IU/L LUTEINIZING [id number] 00:00:00* Test Item Value Reference Range Interpretation Comme nts LUTEINIZING HORMONE (test co de = 2776) 5.6 IU/L [id number] 00:00:00* Test Item Value Reference Range Interpretation Comme nts PROLACTIN (test code = 2800) 11.1 NG/ML [id number] 00:00:00* Test Item Value Reference Range Interpretation Comme nts TESTOSTERONE (test code = 2830) 29 NG/DL HEPATITIS C [id number] 00:00:00* Test Item Value Reference Range Interpretation Comme nts HEPATITIS C ANTIBODY (test c ode = 4675) NON-REACTIVE HIV AB/AG COMBO RFLX [id number] 00:00:00* Test Item Value Reference Range Interpretation Comme nts HIV 1/2 4TH GEN, RFLX CONF ( test code = 3514) NON-REACTIVE [id number] 00:00:00* Test Item Value Reference Range Interpretation Comme nts RPR RESULT (test code = 3501) NON-REACTIVE RPR TITER (test code = 3500) NOT INDIC. TITER CBC W/AUTO [id number] 00:00:00* Test Item Value Reference Range Interpretation [...] ABS NUCLEATED RBCS (test cod e = 02698) 0.00 K/UL [id number] 00:00:00* Test Item Value Reference Range Interpretation Comme nts TSH, THIRD GENERATION (test code = 2821) 1.150 UIU/ML [id number] 00:00:00* Test Item Value Reference Range Interpretation Comme nts ESTRADIOL (test code = 2505) 85.2 PG/ML FOLLICLE STIM [id number] 00:00:00* Test Item Value Reference Range Interpretation Comme nts FOLLICLE STIM HORMONE (test code = 5460) 3.2 IU/L LUTEINIZING [id number] 00:00:00* Test Item Value Reference Range Interpretation Comme nts LUTEINIZING HORMONE (test co de = 9166) 5.6 IU/L [id number] 00:00:00* Test Item Value Reference Range Interpretation Comme nts PROLACTIN (test code = 2800) 11.1 NG/ML [id number] 00:00:00* Test Item Value Reference Range Interpretation Comme nts TESTOSTERONE (test code = 2830) 29 NG/DL HEPATITIS C [id number] 00:00:00* Test Item Value Reference Range Interpretation Comme nts HEPATITIS C ANTIBODY (test c ode = 4675) NON-REACTIVE HIV AB/AG COMBO RFLX [id number] 00:00:00* Test Item Value Reference Range Interpretation Comme nts HIV 1/2 4TH GEN, RFLX CONF ( test code = 3514) NON-REACTIVE [id number] 00:00:00* Test Item Value Reference Range Interpretation Comme nts RPR RESULT (test code = 3501) NON-REACTIVE RPR TITER (test code = 3500) NOT INDIC. TITER CBC W/AUTO [id number] 00:00:00* Test Item Value Reference Range Interpretation [...] ABS NUCLEATED RBCS (test cod e = 12166) 0.00 K/UL [id number] 00:00:00* Test Item Value Reference Range Interpretation Comme nts TSH, THIRD GENERATION (test code = 2821) 1.150 UIU/ML [id number] 00:00:00* Test Item Value Reference Range Interpretation Comme nts ESTRADIOL (test code = 2505) 85.2 PG/ML FOLLICLE STIM [id number] 00:00:00* Test Item Value Reference Range Interpretation Comme nts FOLLICLE STIM HORMONE (test code = 2700) 3.2 IU/L LUTEINIZING [id number] 00:00:00* Test Item Value Reference Range Interpretation Comme nts LUTEINIZING HORMONE (test co de = 2776) 5.6 IU/L [id number] 00:00:00* Test Item Value Reference Range Interpretation Comme nts PROLACTIN (test code = 2800) 11.1 NG/ML [id number] 00:00:00* Test Item Value Reference Range Interpretation Comme nts TESTOSTERONE (test code = 2830) 29 NG/DL HEPATITIS C [id number] 00:00:00* Test Item Value Reference Range Interpretation Comme nts HEPATITIS C ANTIBODY (test c ode = 4675) NON-REACTIVE HIV AB/AG COMBO RFLX [id number] 00:00:00* Test Item Value Reference Range Interpretation Comme nts HIV 1/2 4TH GEN, RFLX CONF ( test code = 3514) NON-REACTIVE [id number] 00:00:00* Test Item Value Reference Range Interpretation Comme nts RPR RESULT (test code = 3501) NON-REACTIVE RPR TITER (test code = 3500) NOT INDIC. TITER CBC W/AUTO [id number] 00:00:00* Test Item Value Reference Range Interpretation [...] ABS NUCLEATED RBCS (test cod e = 03857) 0.00 K/UL [id number] 00:00:00* Test Item Value Reference Range Interpretation Comme nts TSH, THIRD GENERATION (test code = 2821) 1.150 UIU/ML [id number] 00:00:00* Test Item Value Reference Range Interpretation Comme nts ESTRADIOL (test code = 2505) 85.2 PG/ML FOLLICLE STIM [id number] 00:00:00* Test Item Value Reference Range Interpretation Comme nts FOLLICLE STIM HORMONE (test code = 2700) 3.2 IU/L LUTEINIZING [id number] 00:00:00* Test Item Value Reference Range Interpretation Comme nts LUTEINIZING HORMONE (test co de = 2776) 5.6 IU/L [id number] 00:00:00* Test Item Value Reference Range Interpretation Comme nts PROLACTIN (test code = 2800) 11.1 NG/ML [id number] 00:00:00* Test Item Value Reference Range Interpretation Comme nts TESTOSTERONE (test code = 2830) 29 NG/DL SARS-CoV-2 (COVID-19) by RT-PCR (HIGH RISK)2020-12-03 00:00:00* Test Item Value Reference Range Interpretation Comme nts SARS-CoV-2 INTERPRETATION (test code = 66869) NEGATIVE SOURCE (test code = 77927) NASOPHARYNGEAL SARS-CoV-2 (COVID-19) by RT-PCR (HIGH RISK)2020-12-03 00:00:00* Test Item Value Reference Range Interpretation Comme nts SARS-CoV-2 INTERPRETATION (test code = 79227) NEGATIVE SOURCE (test code = 90125) NASOPHARYNGEAL SARS-CoV-2 (COVID-19) by RT-PCR (HIGH RISK)2020-12-03 00:00:00* Test Item Value Reference Range Interpretation Comme nts SARS-CoV-2 INTERPRETATION (test code = 09685) NEGATIVE SOURCE (test code = 99930) NASOPHARYNGEAL SARS-CoV-2 (COVID-19) by RT-PCR (HIGH RISK)2020-12-03 00:00:00* Test Item Value Reference Range Interpretation Comme nts SARS-CoV-2 INTERPRETATION (test code = 24337) NEGATIVE SOURCE (test code = 17119) NASOPHARYNGEAL
[2024-07-28] MEDS ORDERED: TRAMADOL HCL 50 MG TAB ONE (07:47)
--- NOTE | 2024-07-28 09:22 | RAD REPORT ---
Exam:Knee Left 3 View HISTORY: Left knee pain FINDINGS: No fracture or dislocation seen Small joint effusion
--- NOTE | 2024-07-28 09:23 | RAD REPORT ---
EXAMINATION: Tib Fib Left CLINICAL INDICATION: Leg pain FINDINGS: No fracture is seen
--- NOTE | 2024-07-28 09:23 | RAD REPORT ---
Exam:Ankle Left 3 View HISTORY: left ankle pain FINDINGS: No fracture or dislocation is seen
--- NOTE | 2024-07-28 09:25 | RAD REPORT ---
Exam:Foot Left 3 View CLINICAL HISTORY: Left foot pain FINDINGS: No fracture or dislocation seen Hallux valgus deformity is present. Mild lateral subluxation second through fifth proximal phalanges. I suspect this is a chronic finding for the patient.
--- NOTE | 2024-07-28 09:45 | ER ---
Nurse's Notes [facility] Name: Obdulia Burch Age: 34 yrs Sex: Female : 1990 Arrival Date: 07/28/2024 Time: 07:28 Bed 14 Private MD: Diagnosis: Sprain of unspecified site of left knee, initial encounter;Contusion of left lower leg Presentation: 07/28 07:34 Chief complaint: Patient states: "I tripped, fell down some stairs and now I'm having rs5 pain in my left leg". 07:34 Care prior to arrival: None. Mechanism of Injury: Fall. rs5 07:34 Acuity: TERELL 3 rs5 07:34 Method Of Arrival: Wheelchair rs5 07:34 Coronavirus screen: At this time, the client does not indicate any symptoms associated rs5 with coronavirus-19. 07:34 Ebola Screen: No symptoms or risks identified at this time. Initial Sepsis Screen: Does rs5 the patient meet any 2 criteria? No. Patient's initial sepsis screen is negative. Does the patient have a suspected source of infection? No. Patient's initial sepsis screen is negative. Risk Assessment: Do you want to hurt yourself or someone else? Patient reports no desire to harm self or others. Onset of symptoms was July 28, 2024. Historical: - Allergies: 07:33 No Known Allergies; ll1 - PSHx: 07:33 Bariatric surgery 01/14/2024 (an); section; ll1 - Immunization history:: Adult Immunizations up to date. - Infectious Disease History:: Denies. - Social history:: Smoking status: Patient denies any tobacco usage or history of. - Family history:: not pertinent. - Hospitalizations: : No recent hospitalization is reported. Screenin:33 [facility] ED Fall Risk Assessment (Adult) History of falling in the last 3 months, rs5 including since admission Yes- single mechanical fall (1 pt) Confusion or Disorientation No (0 pts) Intoxicated or Sedated No (0 pts) Impaired Gait Yes (1 pt) Mobility Assist Device Used Yes (1 pt) Altered Elimination No (0 pt) Score/Fall Risk Level 0 - 2 = Low Risk Oriented to surroundings, Maintained a safe environment. Abuse screen: Denies threats or abuse. Nutritional screening: No deficits noted. Tuberculosis screening: No symptoms or risk factors identified. Assessment: 07:33 General: Appears in no apparent distress. uncomfortable, Behavior is calm, cooperative. rs5 07:34 Pain: Complains of pain in left leg. rs5 07:34 Neuro: Level of Consciousness is awake, alert, obeys commands, Oriented to person, rs5 place, time, situation. Cardiovascular: Patient's skin is warm and dry. Respiratory: Airway is patent Respiratory effort is even, unlabored, Respiratory pattern is regular, symmetrical. GI: Abdomen is round non-distended, Abd is soft and non tender X 4 quads. : No signs and/or symptoms were reported regarding the genitourinary system. EENT: No signs and/or symptoms were reported regarding the EENT system. Derm: Skin is intact, Skin is pink, warm \\T\\ dry. Musculoskeletal: Range of motion: limited in left leg. 08:41 Reassessment: Patient and/or family updated on plan of care and expected duration. Pain rs5 level reassessed. Patient is alert, oriented x 3, equal unlabored respirations, skin warm/dry/pink. Patient states feeling better. 09:41 Reassessment: No changes from previously documented assessment. rs5 09:45 Reassessment: to bedside for knee immobilizer application, crutches provided to pt per rs5 md orders . Vital Signs: 07:34 BP 105 / 77; Pulse 80; Resp 17; Temp 98(O); Pulse Ox 99% ; rs5 10:00 BP 110 / 74; Pulse 77; Resp 17; Pulse Ox 99% on R/A; rs5 ED Course: 07:31 Patient arrived in ED. ra3 07:33 Arm band placed on Patient placed in an exam room, on a stretcher. ll1 07:33 Patient has correct armband on for positive identification. Placed in gown. Bed in low rs5 position. Call light in reach. Side rails up X2. 07:33 No provider procedures requiring assistance completed. rs5 07:34 Yury Gibbs MD is Attending Physician. rn 07:44 Larry Rosas RN is Primary Nurse. rs5 07:53 Triage completed. rs5 08:58 XRAY Foot LEFT 3 View In Process Unspecified. EDMS 08:58 XRAY Ankle LEFT 3 view In Process Unspecified. EDMS 08:58 XRAY Tib Fib LEFT In Process Unspecified. EDMS 08:58 XRAY Knee LEFT 3 view In Process Unspecified. EDMS 09:43 Miguel Flores MD is Referral Physician. rn 10:10 Provided Education on: discharge instructions. rs5 10:10 Patient did not have IV access during this emergency room visit. rs5 Administered Medications: 07:51 Drug: traMADol PO 50 mg PO once Route: PO; rs5 09:01 Follow up: Response: No adverse reaction; Pain is decreased rs5 Medication: 07:57 VIS not applicable for this client. rs5 Outcome: 09:44 Discharge ordered by MD. rn 10:10 Discharged to home with crutches, with family, rs5 10:10 Condition: stable rs5 10:10 Discharge instructions given to patient, family, Instructed on discharge instructions, follow up and referral plans. Demonstrated understanding of instructions, follow-up care, 10:13 Patient left the ED. rs5 Signatures: Dispatcher [employer] EDMO Yury Gibbs MD MD rn Lewis, Lynsay, RN RN ll1 Larry Rosas RN RN rs5 Abi Villa ra3 Corrections: (The following items were deleted from the chart) 07:57 07:54 General: Appears in no apparent distress. uncomfortable, Behavior is calm, rs5 cooperative, rs5 07:57 07:54 Pain: Complains of pain in left leg rs5 rs5
--- NOTE | 2024-07-28 09:45 | EDPHYS ---
Physician Documentation [facility] Name: Obdulia Burch Age: 34 yrs Sex: Female : 1990 Arrival Date: 07/28/2024 Time: 07:28 Bed 14 Private MD: ED Physician Yury Gibbs HPI: 07/28 09:40 This 34 yrs old Female presents to ER via Wheelchair with complaints of Fall rn Injury, Leg Pain - left. 09:40 Details of fall: The patient fell from a height, down approximately 2 stairs. Onset: rn The symptoms/episode began/occurred yesterday. Associated injuries: The patient sustained Left leg. Severity of symptoms: At their worst the symptoms were moderate, in the emergency department the symptoms are unchanged. The patient has not experienced similar symptoms in the past. The patient has not recently seen a physician. Patient reports left lower leg pain after missing a step and twisted her left lower leg. Patient reports left leg bent behind and reports pain from the left knee to the left ankle. Hurts to ambulate.. Historical: - Allergies: 07:33 No Known Allergies; ll1 - PSHx: 07:33 Bariatric surgery 01/14/2024 (an); section; ll1 - Immunization history:: Adult Immunizations up to date. - Infectious Disease History:: Denies. - Social history:: Smoking status: Patient denies any tobacco usage or history of. - Family history:: not pertinent. - Hospitalizations: : No recent hospitalization is reported. ROS: 09:40 Constitutional: Negative for fever, chills, and weight loss, ENT: Negative for injury, rn pain, and discharge, Neck: Negative for injury, pain, and swelling, Cardiovascular: Negative for chest pain, palpitations, and edema, Respiratory: Negative for shortness of breath, cough, wheezing, and pleuritic chest pain, Abdomen/GI: Negative for abdominal pain, nausea, vomiting, diarrhea, and constipation, Back: Negative for injury and pain, MS/Extremity: Positive for left lower leg pain and injury Skin: Negative for injury, rash, and discoloration, Neuro: Negative for headache, weakness, numbness, tingling, and seizure, Exam: 09:40 Constitutional: This is a well developed, well nourished patient who is awake, alert, rn and in no acute distress. MS/ Extremity: Pulses equal, no cyanosis. Neurovascular intact. Tenderness left proximal fibula and knee without gross deformity. Mild tenderness lateral malleolus. No focal foot tenderness or deformity. No ecchymosis or swelling noted. No open wounds. Vital Signs: 07:34 BP 105 / 77; Pulse 80; Resp 17; Temp 98(O); Pulse Ox 99% ; rs5 10:00 BP 110 / 74; Pulse 77; Resp 17; Pulse Ox 99% on R/A; rs5 MDM: 07:34 Patient medically screened. rn 09:40 Differential diagnosis: contusion, fracture, sprain, strain. Data reviewed: vital rn signs, nurses notes, radiologic studies, plain films, and as a result, I will discharge patient. Counseling: I had a detailed discussion with the patient and/or guardian regarding the historical points, exam findings, and any diagnostic results supporting the discharge/admit diagnosis, radiology results, the need for outpatient follow up, to return to the emergency department if symptoms worsen or persist or if there are any questions or concerns that arise at home. Special discussion: I discussed with the patient/guardian in detail that at this point there is no indication for admission to the hospital. It is understood, however, that if the symptoms persist or worsen the patient needs to return immediately for re-evaluation. Based on the history and exam findings, there is no indication for further emergent testing or inpatient evaluation. I discussed with the patient/guardian the need to see the orthopedic surgeon for further evaluation of the symptoms. 07/28 07:44 Order name: XRAY Foot LEFT 3 View; Complete Time: 09:32 rn 07/28 07:44 Order name: XRAY Ankle LEFT 3 view; Complete Time: :32 rn 07/28 07:44 Order name: XRAY Tib Fib LEFT; Complete Time: 09:32 rn 07/28 07:44 Order name: XRAY Knee LEFT 3 view; Complete Time: :32 rn 07/28 09:43 Order name: Knee Immobilizer; Complete Time: 09:51 rn 07/28 09:43 Order name: Crutches; Complete Time: 09:51 rn Administered Medications: 07:51 Drug: traMADol PO 50 mg PO once Route: PO; rs5 09:01 Follow up: Response: No adverse reaction; Pain is decreased rs5 Disposition Summary: 07/28/24 09:44 Discharge Ordered Notes: Location: Home rn Problem: new rn Symptoms: have improved rn Condition: Stable rn Diagnosis - Sprain of unspecified site of left knee, initial encounter rn - Contusion of left lower leg rn Followup: rn - With: Miguel Flores MD - When: As needed - Reason: Recheck today's complaints, Re-evaluation by your physician Discharge Instructions: - Discharge Summary Sheet rn - Contusion rn - Crutch Use, Adult rn - How to Use a Knee Immobilizer rn - Knee Sprain, Adult rn Forms: - Medication Reconciliation Form 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 EDAR EDMS
[2024-07-28 22:26] VITALS: BP 105/77; TEMP 98; O2SAT 99
== END 2024-07-28 10:13 | disposition home or self-care (01) ==
LOC: ER 07:28
DX: S80.12XA Contusion of left lower leg, initial encounter (principal); S83.92XA Sprain of unspecified site of left knee, initial encounter; W10.9XXA Fall (on) (from) unspecified stairs and steps, initial encounter; Y93.9 Activity, unspecified; Y92.9 Unspecified place or not applicable
CPT/HCPCS: 99283

== ENCOUNTER 2024-10-30 13:52 | Emergency (ER) | payer OTHER ==
--- OUTSIDE RECORDS SUMMARY | 2024-10-30 14:11 | XMS REPORT | Continuity of Care Document ---
Author Name Unknown Address [address] [facility] [place]. [address] [place] [address] [facility] thconnect Address [address] [facility]. [address] [place] [address] Care Team Providers Care Primary Products Inspectors Name Role Phone PCP, PATIENT DOES NOT HAVE A Primary Care Physic enrique Unavailable Monique Rao DO Attending Clinician [phone] MONIQUE RAO Attending Clinician Unav ailable [facility]G Attending Clinician Unavail able Senait Jones RD Attending Clinician [phone] RADIOLOGY Attending Clinician Unavailable Radiology Attending Clinician Unavailable Doctor Unassigned, Xenia Attending Clinician U navailable MONIQUE RAO Admitting Clinician Unav ailable MONIQUE RAO Admitting Clinician Unavailabl e [facility]G Admitting Clinician Unavail able MAR, ARELI Admitting Clinician Unavailable Payers Payer Name Policy Type Policy Number Effective Date Expirati on Date Source [employer] - CHOICE (POS II) [id number] 2023 00:00:00 [facility] [place] ST[place] [id number] 2022 00:00:00 Problems Condition Name Condition Details Condition Category Status Onset Date Resolution Date Last Treatment Date Treating Clinician Comments Source 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 3 00:00: 00 [facility] Prediabete s Prediabete s Disease Active 2022-10 0 00:00: 00 [facility] Morbid obesity with BMI of 40.0-44.9, adult Morbid obesity with BMI of 40.0-44.9, adult Disease Active 2022-10 0 00:00: 00 [facility] Obesity (BMI 30-39.9) Obesity (BMI 30-39.9) Disease Active [facility] Allergies, Adverse Reactions, Alerts Allergy Name Allergy Type Status Severity Reaction(s) Onset Date Inactive Date Treating Clinician Comments Source NO KNOWN ALLERGIE S Drug Class Active [facility] Social History Social Habit Start Date Stop Date Quantity Comments Source Sexual orientation U [facility] Alcoholic beverage intake 2024-07-15 00:00:00 2024-07-15 00:00:00 .71 /d [facility] History of Social function 2024-04-18 00:00:00 2024-04-18 00:00:00 [facility] Tobacco use and exposure 2023-10-13 00:00:00 2023-10-13 00:00:00 Smokeless tobacco non-user [facility] Cigarettes smoked current (pack per day) - Reported 2023-10-13 00:00:00 2023-10-13 00:00:00 [facility] Cigarette pack-years 2023-10-13 00:00:00 2023-10-13 00:00:00 [facility] Alcohol intake 2023-08-10 00:00:00 2023-08-10 00:00:00 .71 /d [facility] Tobacco Comment 2023-08-08 00:00:00 2023-08-08 00:00:00 On and off since 16. No cigarettes 4+ years [facility] Alcohol Comment 2023-08-08 00:00:00 2023-08-08 00:00:00 Every few weeks- not regular [facility] Exposure to SARS-CoV-2 (event) 2023-01-07 00:00:00 2023-01-17 16:52:00 Not sure [facility] History of tobacco use 2009-05-27 00:00:00 2015-05-27 00:00:00 Cigarette Smoker [facility] Sex assigned at 1990 00:00:00 1990 00:00:00 [facility] Smoking Status Start Date Stop Date Source Current Some Day Smoker [facility] Ex-smoker 2023-10-13 00:00:00 2023-10-13 00:00:00 [facility] Medications Ordered Medication Name Filled Medication Name Start Date Stop Date Current Medication? Ordering Clinician Indication Dosage Frequency Signature (SIG) Comments Components Source Fe Fum-FePoly- FA-Vit C-Vit B3 (Integra F) 125-1 MG capsule 04-11 00:00: 00 Yes [id number] 1{capsu le} QD Take 1 capsule by mouth 1 (one) time each day. [facility] thiamine mononitrate (Vitamin B-1) 100 MG tablet 04-11 00:00: 00 04-12 04:59 :00 No [id number] 100mg Q.[id number] 3D Take 1 tablet (100 mg total) by mouth in the morning and 1 tablet (100 mg total) at noon and 1 tablet (100 mg total) in the evening. [facility] ergocalcife rol (Vitamin D-2) 1.25 MG (26826 UT) capsule 04-11 00:00: 00 08-02 04:59 :00 No [id number] 19655E Take 1 capsule (50,000 Units total) by mouth 1 (one) time per week. [facility] pantoprazol e (Protonix) 40 MG EC tablet 03-19 00:00: 00 05-19 04:59 :00 No [id number] 40mg Take 1 tablet (40 mg total) by mouth 1 (one) time each day before breakfast. Do not crush, chew, or split. [facility] methocarbam ol (Robaxin) 500 MG tablet 03-19 00:00: 00 2024- 06-04 04:59 :00 No [id number] 500mg Q.[id number] 3D Take 1 tablet (500 mg total) by mouth in the morning and 1 tablet (500 mg total) at noon and 1 tablet (500 mg total) in the evening. Do all this for 10 days. [facility] Fe Fum-FePoly- FA-Vit C-Vit B3 (Integra F) 125-1 MG capsule 3-13 00:00: 00 Yes [id number] 1{capsu le} QD Take 1 capsule by mouth 1 (one) time each day. [facility] thiamine mononitrate (Vitamin B-1) 100 MG tablet 2022-10 0 00:00: 00 08-24 04:59 :00 No [id number] 100mg Q.[id number] 3D Take 1 tablet (100 mg total) by mouth in the morning and 1 tablet (100 mg total) at noon and 1 tablet (100 mg total) in the evening. [facility] Fe Fum-FePoly- FA-Vit C-Vit B3 (Integra F) 125-1 MG capsule 2022-10 0 00:00: 00 09-24 05:59 :00 No [id number] 125mg QD Take 125 mg by mouth 1 (one) time each day. [facility] Dose Unknown 2022-0 6-23 00:00: 00 No [...] mg capsule 0 5-17 00:00: 00 Yes [id number] 200mg Take 1 capsule by mouth 3 (three) times daily as needed for Cough. [facility] albuterol 90 mcg/actuati on inhaler 03-12 00:00: 00 Yes [id number] 2{puff} Inhale 2 Puffs every 4 (four) hours as needed for Wheezing or Shortness of Breath. [facility] norethindro ne-e.estrad iol-iron (MICROGESTI N FE) 1.5 mg-30 mcg (21)/75 mg (7) per tablet 02-18 00:00: 00 Yes [id number] 1{tbl} Take 1 tablet by mouth daily. [facility] fluticasone propionate 50 mcg/actuati on nasal spray,suspe nsion SPRAY 1 SPRAY INTO EACH NOSTRIL TWICE A DAY fluticasone propionate 50 mcg/actuati on nasal spray,suspe nsion SPRAY 1 SPRAY INTO EACH NOSTRIL TWICE A DAY No fluticason e propionate 50 mcg/actuat ion nasal spray,susp ension SPRAY 1 SPRAY INTO EACH NOSTRIL TWICE A DAY [facility] Medical Folivane-F 125 mg-1 mg-40 mg-3 mg capsule TAKE 1 CAPSULE BY MOUTH EVERY DAY Folivane-F 125 mg-1 mg-40 mg-3 mg capsule TAKE 1 CAPSULE BY MOUTH EVERY DAY No Folivane-F 125 mg-1 mg-40 mg-3 mg capsule TAKE 1 CAPSULE BY MOUTH EVERY DAY [facility] phenazopyri dine 200 mg tablet TAKE 1 TABLET 3 TIMES A DAY NEEDED FOR URINARY FREQUENCY/U RGENCY, BLADDER PAIN phenazopyri dine 200 mg tablet TAKE 1 TABLET 3 TIMES A DAY NEEDED FOR URINARY FREQUENCY/U RGENCY, BLADDER PAIN No phenazopyr idine 200 mg tablet TAKE 1 TABLET 3 TIMES A DAY NEEDED FOR URINARY FREQUENCY/ URGENCY, BLADDER PAIN [facility] Vital Signs Vital Name Observation Time Observation Value Comments S ource Systolic blood pressure 2024-04-16 14:23:00 117 mm[Hg] [facility] Diastolic blood pressure 2024-04-16 14:23:00 74 mm[Hg] [facility] Heart rate 2024-04-16 14:23:00 69 /min [facility] Body height 2024-04-16 14:23:00 152.4 cm [facility] Body weight 2024-04-16 14:23:00 99.837 kg [facility] BMI 2024-04-16 14:23:00 42.99 kg/m2 [facility] [...] by Pulse oximetry 2024-02-13 16:00:00 99 /min [facility] Systolic blood pressure 2024-01-23 16:46:00 121 [...] by Pulse oximetry 2024-01-23 16:46:00 98 /min [facility] Systolic blood pressure 2024-01-02 16:26:00 125 [...] 13:13:00 123.514 kg Per last clinic visit. [facility] BMI 2023-08-26 13:13:00 53.18 kg/m2 [facility] Systolic blood pressure 2023-08-05 15:05:00 116 mm[Hg] [facility] Diastolic blood pressure 2023-08-05 15:05:00 73 mm[Hg] [facility] Heart rate 2023-08-05 15:05:00 73 /min [facility] Body temperature 2023-08-05 15:05:00 36.56 Bozena [...] PELVIC NONOBSTETRIC REAL-TIME IMAGE COMPLETE 2023-11-28 00:00:00 [facility] Medical US PELVIC NONOBSTETRIC REAL-TIME IMAGE COMPLETE 2023-11-14 00:00:00 [facility] VITAMIN B12 2023-08-05 16:08:00 [facility] FOLATE 2023-08-05 16:08:00 [facility] VITAMIN E 2023-08-05 16:08:00 [facility] VITAMIN A 2023-08-05 16:08:00 [facility] VITAMIN B1, WHOLE BLOOD 2023-08-05 16:08:00 [facility] 2023-08-05 16:08:[address] [facility] [address] ABDOMEN PELVIS WO CONTRAST 2023-01-23 13:40:50 Requisition, Paper [facility] CONSENT/REFUSAL FOR DIAGNOSIS AND TREATMENT 2023-01-23 13:40:49 Doctor Unassigned, Xenia [facility] ASSIGNMENT OF BENEFITS 2023-01-23 13:40:33 Docto r Unassigned, Xenia [facility] CONSENT/REFUSAL FOR DIAGNOSIS AND TREATMENT 2023-01-23 13:26:32 Doctor Unassigned, Xenia [facility] ASSIGNMENT OF BENEFITS 2023-01-23 13:26:18 Docto r Unassigned, Xenia [facility] CONSENT/REFUSAL FOR DIAGNOSIS AND TREATMENT 2023-01-10 14:28:19 Doctor Unassigned, Xenia [facility] ASSIGNMENT OF BENEFITS 2023-01-10 14:28:06 Docto r Unassigned, Xenia [facility] Caesarean Section [facility] Tubal L[facility] Plan of Care Planned Activity Planned Date Details Comments Source Goal Plan of Care Note [code = 86789-7] Goal Plan of Care Note [code = 05583-7] Goal Plan of Care Note [code = 28919-2] Goal Plan of Care Note [code = 07629-8] Goal Plan of Care Note [code = 96393-8] Goal Plan of Care Note [code = 81138-2] Goal Plan of Care Note [code = 42368-1] Goal Plan of Care Note [code = 86383-8] Goal Plan of Care Note [code = 89040-9] Goal Plan of Care Note [code = 09177-3] Goal Plan of Care Note [code = 87366-5] Goal Plan of Care Note [code = 16835-0] Goal Plan of Care Note [code = 83603-2] Goal Plan of Care Note [code = 12912-7] Goal Plan of Care Note [code = 74400-7] Goal Plan of Care Note [code = 88822-7] Goal Plan of Care Note [code = 62870-2] Goal Plan of Care Note [code = 72575-1] Goal Plan of Care Note [code = 69257-1] Goal Plan of Care Note [code = 11439-1] Goal Plan of Care Note [code = 26469-7] Goal Plan of Care Note [code = 68284-4] Goal Plan of Care Note [code = 75947-9] Goal Plan of Care Note [code = 06335-3] Goal Plan of Care Note [code = 79134-8] Goal Plan of Care Note [code = 21972-8] Goal Plan of Care Note [code = 13540-3] Goal Plan of Care Note [code = 97562-0] Goal Plan of Care Note [code = 34846-5] Goal Plan of Care Note [code = 66008-2] Goal Plan of Care Note [code = 75670-6] Goal Plan of Care Note [code = 60351-7] Goal Plan of Care Note [code = 51261-6] Goal Plan of Care Note [code = 53107-2] Goal Plan of Care Note [code = 76343-3] Goal Plan of Care Note [code = 22694-8] Goal Plan of Care Note [code = 32428-7] Goal Plan of Care Note [code = 31944-1] Goal Plan of Care Note [code = 73854-9] Goal Plan of Care Note [code = 00458-1] Goal Plan of Care Note [code = 61931-7] Goal Plan of Care Note [code = 48160-8] Goal Plan of Care Note [code = 65933-2] Goal Plan of Care Note [code = 94722-6] Goal Plan of Care Note [code = 56797-2] Goal Plan of Care Note [code = 11134-2] Goal Plan of Care Note [code = 19815-2] Goal Plan of Care Note [code = 87820-1] Goal Plan of Care Note [code = 10764-9] Goal Plan of Care Note [code = 45263-8] Goal Plan of Care Note [code = 59850-2] Goal Plan of Care Note [code = 94284-6] Goal Plan of Care Note [code = 86504-4] Goal Plan of Care Note [code = 22800-9] Goal Plan of Care Note [code = 67512-2] Goal Plan of Care Note [code = 26157-7] Goal Plan of Care Note [code = 61160-5] Goal Plan of Care Note [code = 98916-4] Goal Plan of Care Note [code = 06689-1] Goal Plan of Care Note [code = 65917-8] Goal Plan of Care Note [code = 46613-5] Goal Plan of Care Note [code = 43921-7] Goal Plan of Care Note [code = 73228-9] Goal Plan of Care Note [code = 85035-9] Goal Plan of Care Note [code = 28666-2] Goal Plan of Care Note [code = 43158-5] Goal Plan of Care Note [code = 36646-2] Goal Plan of Care Note [code = 72602-2] Goal Plan of Care Note [code = 41284-4] Goal Plan of Care Note [code = 44374-9] Goal Plan of Care Note [code = 72034-2] Goal Plan of Care Note [code = 01644-3] Goal Plan of Care Note [code = 68403-3] Goal Plan of Care Note [code = 05187-6] Goal Plan of Care Note [code = 26836-7] Goal Plan of Care Note [code = 80534-4] Goal Plan of Care Note [code = 21417-3] Goal Plan of Care Note [code = 83406-4] Goal Plan of Care Note [code = 67591-5] Goal Plan of Care Note [code = 32954-8] Goal Plan of Care Note [code = 84714-4] Goal Plan of Care Note [code = 20478-1] Goal Plan of Care Note [code = 33642-8] Goal Plan of Care Note [code = 84008-2] Goal Plan of Care Note [code = 06507-2] Goal Plan of Care Note [code = 88561-9] Goal Plan of Care Note [code = 38306-8] Goal Plan of Care Note [code = 69931-1] Goal Plan of Care Note [code = 02138-4] Goal Plan of Care Note [code = 00330-1] Goal Plan of Care Note [code = 31285-8] Goal Plan of Care Note [code = 99852-5] Encounters Start Date/Time End Date/Time Encounter Type Admission Type Attending [facility] Facility Care Department Encounter ID Source 2024-07-09 09:00:00 2024-07-09 10:38:[address] [facility] [place]OM[place] 1.2.840.114 350.1.13.58 9.2.7.2.686 [id number] [facility] 2024-04-16 09:00:00 2024-04-16 09:48:58 Office Visit Monique Rao [facility] [place] 1.2.840.114 350.1.13.58 9.2.7.2.686 [id number] [facility] 2024-03-19 11:40:00 2024-03-19 12:01:06 [address] [facility] [place]OM[place] 1.2.840.114 350.1.13.58 9.2.7.2.686 [id number] [facility] 2024-02-27 10:30:00 2024-02-27 10:30:00 Outpatient [facility]IQUE RAO [facility] [id number] [facility] 2024-02-13 10:50:00 2024-02-13 11:48:52 Office Visit Monique Rao [facility] [place] 1.2.840.114 350.1.13.58 9.2.7.2.686 [id number] [facility] 2024-01-23 11:45:00 2024-01-23 12:18:30 Office Visit Monique Rao [facility] [place] 1.2.840.114 350.1.13.58 9.2.7.2.686 [id number] [facility] 2024-01-14 06:23:00 2024-01-16 10:08:00 Inpatient MONIQUE RAO [facility] [id number] [facility] 2024-01-14 09:30:00 2024-01-14 09:30:00 Outpatient MONIQUE RAO [facility] [id number] [facility] 2024-01-06 10:39:17 2024-01-06 10:39:17 Outpatient [facility] [id number] Marlo Pike 2024-01-02 10:30:00 2024-01-02 11:22:[address] [facility] [place] AND [place]OM[place] 1.2.840.114 350.1.13.58 9.2.7.2.686 [id number] [facility] 2023-11-28 00:00:00 2023-11-28 00:00:00 Gaudencio Goldman MD: [place] [address] , Ph. [facility] - [facility] [place] Office [id number] [facility] 2023-11-27 00:00:00 2023-11-27 00:00:00 Outpatient [facility] [place] [id number] [facility] 2023-11-20 00:00:00 2023-11-20 00:00:00 Outpatient [facility] [place] [facility] [id number] [facility] 2023-11-14 00:00:00 2023-11-14 00:00:00 Outpatient [facility] [place] [facility] [id number] [facility] 2023-11-14 00:00:00 2023-11-14 00:00:00 Gaudencio Goldman MD: [place] [address] , Ph. [facility] - [facility] [place] Office [id number] [facility] 2023-11-12 00:00:00 2023-11-12 00:00:00 Outpatient [facility] [place] [facility] [id number] [facility] 2023-11-04 00:00:00 2023-11-04 00:00:00 Outpatient [facility] [place] [facility] [id number] [facility] 2023-10-31 15:02:13 2023-10-31 15:02:13 Outpatient [facility] [id number] Marlo Goldberg Shahzad 2023-10-14 09:45:00 2023-10-14 10:56:37 Office Visit MONIQUE RAO [facility] [place] 1.2.840.114 350.1.13.58 9.2.7.2.686 [id number] [facility] 2023-10-14 08:30:17 2023-10-14 08:30:17 Outpatient [facility] 1219 Marlo Goldberg Shahzad 2023-10-08 06:24:00 2023-10-08 08:55:00 Outpatient MONIQUE RAO [facility] MIGUE [id number] [facility] 2023-10-08 08:00:00 2023-10-08 08:00:00 Outpatient MONIQUE RAO [facility] [id number] [facility] 2023-09-23 08:01:01 2023-09-23 08:01:01 Outpatient [facility] [id number] Marlo Goldberg [facility] 2023-09-22 08:24:11 2023-09-22 08:24:11 Outpatient [facility] [id number] Marlo Goldberg [facility] 2023-09-08 07:53:50 2023-09-08 07:53:50 Outpatient [facility] [id number] Marlo Goldberg [facility] 2023-09-01 08:08:04 2023-09-01 08:08:04 Outpatient [facility] [id number] Marlo Goldberg [facility] 2023-08-26 08:15:00 2023-08-26 08:41:42 Nutrition Senait Jones [facility] 1..840.114 350.1.13.58 9.2.7.2.686 [id number] [facility] 2023-08-22 07:58:17 2023-08-22 07:58:17 Outpatient [facility] [id number] Marlo Pike 2023-08-21 08:01:01 2023-08-21 08:01:01 Outpatient [facility] [id number] Marlo Pike 2023-08-14 08:03:29 2023-08-14 08:03:29 Outpatient [facility] [id number] Marlo Pike 2023-08-05 10:00:00 2023-08-05 11:24:41 Office Visit Monique Rao [facility] [place] 1.840.114 350.1.13.58 9.2.7.2.686 [id number] [facility] 2023-07-08 08:13:20 2023-07-08 08:13:20 Outpatient [facility] [id number] Marlo Goldberg Shahzad 2023-07-05 12:17:42 2023-07-05 12:17:42 Outpatient [facility] [id number] Marlo Goldberg [facility] 2023-01-23 08:26:34 2023-01-23 23:59:00 Outpatient R RADIOLOGY [facility] [id number] [facility] 2023-01-23 08:26:34 2023-01-23 23:59:00 Hospital Encounter Radiology [facility] 1..114 350.1.13.10 4.2.7.2.686 [id number] [facility] 2023-01-10 00:00:00 2023-01-10 00:00:00 Outpatient R RADIOLOGY [facility] [id number] [facility] 2023-01-10 00:00:00 2023-01-10 00:00:00 Orders Only Doctor Unassigned, Xenia [facility] 1.0.114 350.1.13.10 4.2.7.2.686 [id number] [facility] 2023-01-09 14:48:49 2023-01-09 14:48:49 Outpatient [facility] [id number] Marlo Pike 2022-12-12 08:09:41 2022-12-12 08:09:41 Outpatient [facility] [id number] Marlo Pike 2022-10-17 09:02:24 2022-10-17 09:02:24 Outpatient [facility] [id number] Marlo Pike 2022-09-24 08:04:17 2022-09-24 08:04:17 Outpatient [facility] [id number] Marlo Pike 2022-09-24 00:00:00 2022-09-24 00:00:00 Outpatient Visit [id number] 2022-09-09 08:06:27 2022-09-09 08:06:27 Outpatient [facility] [id number] Marlo Pike 2022-09-09 00:00:00 2022-09-09 00:00:00 Outpatient Visit [id number] 2022-07-11 00:00:00 2022-07-11 00:00:00 Outpatient Visit [id number] 2022-05-27 00:00:00 2022-05-27 00:00:00 Outpatient Visit [id number] Results Test Description Test Time Test Comments Results Result Co mments Source [facility] [Mass/volume] in Serum or [id number] 00:00:00* Test Item Value Reference Range Interpretation Comme [facility] prolactin (test code = prolactin) 11.0 NG/mL 4.8-23.3 [facility] T4 and TSH panel - Serum or [id number] 00:00:00* Test Item Value Reference Range Interpretation Comme nts TSH (test code = TSH) 1.520 uIU/mL 0.178-4.530 free T4 (test code = free T4) 1.22 NG/dL 0.80-1.73 [facility], progesterone, estrogen 2023-11-18 00:00:00* Test Item Value Reference Range Interpretation Comme nts estradiol (test code = estradiol) 122.0 pg/mL 6.1-91.9 H LH (test code = LH) 3.3 mIU/mL FSH (test code = FSH) 1.9 mIU/mL progesterone (test code = progesterone) 3.99 NG/mL [facility] +2 [id number] 00:00:00* Test Item Value Reference Range Interpretation Comme nts HIV 1+2 Ab (test code = HIV 1+2 Ab) non-reactive [facility]-reactive [facility] [id number] 00:00:00* Test Item Value Reference Range Interpretation [...] (test code = HIV Ag/Ab) non-reactive non-reactive [facility] P24 [id number] 00:00:00* Test Item Value Reference Range Interpretation Comme [facility] HIV-1 P24 Ag (test code = HI V-1 P24 Ag) non-reactive non-reactive [facility] Medical[facility] [id number] 00:00:00* Test Item Value Reference Range Interpretation Comme nts HPV thinprep (test code = HP V thinprep) negative negative [facility] vaginal[facility] thin [facility] ([facility]) 2023-11-17 00:00:00* Test Item Value Reference [...] combo 2 thinprep (GC)) GC neg negative [facility] MedicalIron and [id number] 21:48:00* Test Item Value Reference Range Interpretation [...] Information: ? ?Site ID: RGA ? ?Name: [facility] ? ?Address: [address] [place] [id number] ? ?Director: OLAMIDE CARLTON MD,PHD. Lab Interpretation (test code = 65120-5) [facility]normal [id number] 21:48:00* Test Item Value Reference Range Interpretation Comme nts FOLATE, SERUM (test code = 2284-8) 16.8 ng/mL ? Reference Range ? Low: ? <3.4 ? Borderline: ? ?3.4-5.4 ? Normal: ?>5.4 RAC (test code = RAC) Performing Organization Information: ? ?Site ID: RGA ? ?Name: [facility] ? ?Address: [address] [place] [address] ? ?Director: OLAMIDE CARLTON MD,PHD. [facility] [id number] 21:48:00* Test Item Value Reference Range Interpretation Comments VITAMIN A (RETINOL) (test code = 2923-1) 36 See_Comment L Clin Chem Vol. 34.No.8. [id number]. 1998Vitamin supplementation within 24 hours prior to blood draw may affect the accuracy of results. ? This test was developed and its analytical performance characteristics have been determined by [employer]. It has not been cleared or approved [...] Information: ? ?Site ID: [id number] ? ?Name: [facility] ? ?Address: [address] [place] [id number] ? ?Director: GONZALO CANO MD Lab Interpretation (test code = 30693-7) Abnormal [facility] B1, whole [id number] 21:48:00* Test Item Value Reference Range Interpretation Comments VITAMIN B1 (THIAMINE), BLOOD, LC/MS/MS (test code = 94988-7) 75 nmol/L 78-185 L (Note) Vitamin supplementation within 24 hours prior to blood draw mayaffect the accuracy of the results. This test was developed and its analytical performance characteristics have been determined by [facility]. It has not been cleared or approved by FDA. This assay has been validated pursuant to the CLIA regulations and is used for clinical purposes. [facility] [id number] [address],[address] [id number] ahsan Obregon MD REPORT COMMENT:FASTING:NO RAC (test code = RAC) Performing Organization Information: ? ?Site ID: [id number] ? ?Name: [facility] ? ?Address: [address] [place] [address] [place] [id number] ? ?Director: ASHLEY OBREGON MD Lab Interpretation (test code = 48928-8) [facility]normal [id number] 21:48:00* Test Item Value Reference Range Interpretation Comme nts ALPHA-TOCOPH LILLIAM (test code = 1823-4) 12.6 mg/L ? ? ?Reference R josé miguel ? ? ?5.7-19.9 mg/L ?Levels of alpha-tocopherol <5 mg/L are ? ? ?consistent with Vitamin E deficiency in ? ? ?adults.Vitamin supplementation within 24 hours prior to blood draw may affect the accuracy of results. ? ? See Note 1 VAUQ-CZMBV-G OCOPHEROL (test code = 12534-8) 1.4 See_Comment See Note 1 Note 1 This test was developed and its analytical performance characteristics have been determined by [employer]. It has not been cleared or approved [...] Information: ? ?Site ID: SLI ? ?Name: [facility] ? ?Address: [address] [place] [address] ? ?Director: GONZALO CANO MD [facility] [id number] 21:48:00* Test Item Value Reference Range Interpretation Comme nts VITAMIN B12 (test code = 2132-9) 615 pg/mL 200-1100 RAC (test code = RAC) Performing Organization Information: ? ?Site ID: RGA ? ?Name: [facility] ? ?Address: [address] [place] [address] ? ?Director: OLAMIDE CARLTON MD,PHD. [facility] Health[facility]IT[facility] D, 25 [id number] 06:28:31* Test Item Value Reference Range Interpretation Comme [facility] VITAMIN D, 25 [place] (test code [...] INDICATED, ALL TESTING PERFORMED AT [facility] [address] [place] [address] REGIONAL SALES TRAINER: SILVESTRE HYMAN M.D. CLIA NUMBER [id number] [facility] [place]. [id number] LIPID [id number] 04:58:40* Test Item Value Reference Range Interpretation [...] SPECIMENS. FOR MOREINFORMATION, SEE CLIENT ANNOUNCEMENT AT [email or web address] RISK RATIO LDL/HDL (test code = 2238) 1.25 RATIO <3.22 HEMOGLOBIN [id number] 02:51:24* Test Item Value Reference Range Interpretation Comme [facility] HEMOGLOBIN A1c (test code = 24244) 5.8 % 4.2-5.6 H [employer] GUIDELINES FOR HGB A1C: [...] ALTERNATE TESTING OR LABORATORY CONSULTATION. COMPREHENSIVE METABOLIC [id number] 05:14:36* Test Item Value Reference Range Interpretation Comme nts GLUCOSE (test code = 2216) 90 MG/DL 70-99 BUN (test code = 2207) 15 MG/DL 6-20 CREATININE (test code = 2214) 0.62 MG/DL 0.60-1.30 eGFR (2020 CKD-EPI) (test code = 19843) 122 ML/MIN/1.73 >60 CALC BUN/CREAT (test code [...] code = 2219) 12 U/L 5-40 LIPID [id number] 05:14:36* Test Item Value Reference Range Interpretation [...] SPECIMENS. FOR MOREINFORMATION, SEE CLIENT ANNOUNCEMENT AT [email or web address] RISK RATIO LDL/HDL (test code = 2238) 1.10 RATIO <3.22 [facility] has i mportant pathology staff changes effective 12/25/2022. New pathology staff will provide uninterrupted, excellent patient care and clinical consultation. See URL: [email or web address]. UNLESS OTHERWISE INDICATED, ALL TESTING PERFORMED AT [facility] [address] [place] [address] CLIA: [id number], CAP: [id number] TSH, THIRD [id number] 04:52:38* Test Item Value Reference Range Interpretation Comme nts TSH, THIRD GENERATION (test code = 2821) 1.600 UIU/ML 0.400-4.100 CBC W/AUTO DIFF WITH [id number] 03:36:09* Test Item Value Reference Range Interpretation [...] 0.00-0.10 ABS NUCLEATED RBCS (test code = 67949) 0.00 K/UL 0.00-0.11 COMPREHENSIVE METABOLIC [id number] 04:50:15* Test Item Value Reference Range Interpretation Comme nts GLUCOSE (test code = 2217) 96 MG/DL 70-99 BUN (test code = 2208) 12 MG/DL 6-20 CREATININE (test code = 2214) 0.65 MG/DL 0.60-1.30 eGFR (2020 CKD-EPI) (test code = 05189) 121 ML/MIN/1.73 >60 CALC BUN/CREAT (test code = 2235) 18 RATIO 6-28 SODIUM (test code = 2231) 140 MEQ/L 133-146 POTASSIUM (test code = 2228) 4.4 MEQ/L 3.5-5.4 CHLORIDE (test code = 2215) 104 MEQ/L 95-107 CARBON DIOXIDE (test code = 2205) 23 MEQ/L 19-31 CALCIUM (test code = 2209) 9.2 MG/DL 8.5-10.5 PROTEIN, TOTAL (test code = 222) 7.4 G/DL 6.1-8.3 ALBUMIN (test code = 2201) 4.0 G/DL 3.5-5.2 CALC GLOBULIN (test code = 2240) 3.4 G/DL 1.9-3.7 CALC A/G RATIO (test code = 2234) 1.2 RATIO 1.0-2.6 BILIRUBIN, TOTAL (test code = 220) <0.2 MG/DL See_Comment [Automated me ssage] The system which generated this result transmitted reference range: <=1.2. The reference range was not used to interpret this result as normal/abnormal. ALKALINE PHOSPHATASE (test code = 220) 99 U/L 40-112 AST (test code = 2218) 16 U/L 9-40 ALT (test code = 221) 14 U/L 5-40 UNLESS OTHERWISE INDICATED, ALL TESTING PERFORMED [facility] [address] [place] [address] REGIONAL SALES TRAINER: JACQUI HONG M.D. CLIA NUMBER [id number] [facility] [place]. [id number] LIPID [id number] 04:50:15* Test Item Value Reference Range Interpretation [...] SPECIMENS. FOR MOREINFORMATION, SEE CLIENT ANNOUNCEMENT AT [email or web address] RISK RATIO LDL/HDL (test code = 2238) 1.47 RATIO <3.22 LIPID [id number] 00:00:00* Test Item Value Reference Range Interpretation Comme nts CHOLESTEROL (test code = 2210) 150 MG/DL TRIGLYCERIDES (test code = 2232) 59 MG/DL HDL CHOLESTEROL (test code = 2220) 55 MG/DL CALC LDL CHOL (test code = 2237) 81 MG/DL RISK RATIO LDL/HDL (test cod e = 2238) 1.47 RATIO COMPREHENSIVE METABOLIC [id number] 00:00:00* Test Item Value Reference Range Interpretation Comme nts GLUCOSE (test code = 2217) 96 MG/DL BUN (test code = 2208) 12 MG/DL CREATININE (test code = 2214) 0.65 MG/DL eGFR (2020 CKD-EPI) (test code = 77335) 121 ML/MIN/1.73 CALC BUN/CREAT (test code = [...] (test code = 2219) 14 U/L LIPID [id number] 00:00:00* Test Item Value Reference Range Interpretation Comme nts CHOLESTEROL (test code = 2210) 150 MG/DL TRIGLYCERIDES (test code = 2232) 59 MG/DL HDL CHOLESTEROL (test code = 2220) 55 MG/DL CALC LDL CHOL (test code = 2237) 81 MG/DL RISK RATIO LDL/HDL (test cod e = 2238) 1.47 RATIO COMPREHENSIVE METABOLIC [id number] 00:00:00* Test Item Value Reference Range Interpretation Comme nts GLUCOSE (test code = 2217) 96 MG/DL BUN (test code = 2208) 12 MG/DL CREATININE (test code = 2214) 0.65 MG/DL eGFR (2020 CKD-EPI) (test code = 76621) 121 ML/MIN/1.73 CALC BUN/CREAT (test code = [...] (test code = 2219) 14 U/L LIPID [id number] 00:00:00* Test Item Value Reference Range Interpretation Comme nts CHOLESTEROL (test code = 2210) 150 MG/DL TRIGLYCERIDES (test code = 2232) 59 MG/DL HDL CHOLESTEROL (test code = 2220) 55 MG/DL CALC LDL CHOL (test code = 2237) 81 MG/DL RISK RATIO LDL/HDL (test cod e = 2238) 1.47 RATIO COMPREHENSIVE METABOLIC [id number] 00:00:00* Test Item Value Reference Range Interpretation Comme nts GLUCOSE (test code = 2217) 96 MG/DL BUN (test code = 2208) 12 MG/DL CREATININE (test code = 2214) 0.65 MG/DL eGFR (2020 CKD-EPI) (test code = 42399) 121 ML/MIN/1.73 CALC BUN/CREAT (test code = [...] (test code = 2219) 14 U/L LIPID [id number] 00:00:00* Test Item Value Reference Range Interpretation Comme nts CHOLESTEROL (test code = 2210) 150 MG/DL TRIGLYCERIDES (test code = 2232) 59 MG/DL HDL CHOLESTEROL (test code = 2220) 55 MG/DL CALC LDL CHOL (test code = 2237) 81 MG/DL RISK RATIO LDL/HDL (test cod e = 2238) 1.47 RATIO COMPREHENSIVE METABOLIC [id number] 00:00:00* Test Item Value Reference Range Interpretation Comme nts GLUCOSE (test code = 2217) 96 MG/DL BUN (test code = 2208) 12 MG/DL CREATININE (test code = 2214) 0.65 MG/DL eGFR (2020 CKD-EPI) (test code = 80727) 121 ML/MIN/1.73 CALC BUN/CREAT (test code = [...] 2219) 14 U/L GC AND CHLAMYDIA, AMPLIFIED, [id number] 00:00:00* Test Item Value Reference Range Interpretation Comme nts GONORRHEA, NAAT (test code = 60423) NEGATIVE CHLAMYDIA, NAAT (test code = 96825) NEGATIVE GC AND CHLAMYDIA, AMPLIFIED, [id number] 00:00:00* Test Item Value Reference Range Interpretation Comme nts GONORRHEA, NAAT (test code = 33646) NEGATIVE CHLAMYDIA, NAAT (test code = 67958) NEGATIVE GC AND CHLAMYDIA, AMPLIFIED, [id number] 00:00:00* Test Item Value Reference Range Interpretation Comme nts GONORRHEA, NAAT (test code = 22866) NEGATIVE CHLAMYDIA, NAAT (test code = 82370) NEGATIVE GC AND CHLAMYDIA, AMPLIFIED, [id number] 00:00:00* Test Item Value Reference Range Interpretation Comme nts GONORRHEA, NAAT (test code = 58408) NEGATIVE CHLAMYDIA, NAAT (test code = 22905) NEGATIVE HEPATITIS C [id number] 00:00:00* Test Item Value Reference Range Interpretation Comme nts HEPATITIS C ANTIBODY (test c ode = 4675) NON-REACTIVE HIV AB/AG COMBO RFLX [id number] 00:00:00* Test Item Value Reference Range Interpretation Comme nts HIV 1/2 4TH GEN, RFLX CONF ( test code = 3514) NON-REACTIVE [id number] 00:00:00* Test Item Value Reference Range Interpretation Comme nts RPR RESULT (test code = 3501) NON-REACTIVE RPR TITER (test code = 3500) NOT INDIC. TITER CBC W/AUTO [id number] 00:00:00* Test Item Value Reference Range Interpretation [...] ABS NUCLEATED RBCS (test cod e = 76083) 0.00 K/UL [id number] 00:00:00* Test Item Value Reference Range Interpretation Comme nts TSH, THIRD GENERATION (test code = 2821) 1.150 UIU/ML [id number] 00:00:00* Test Item Value Reference Range Interpretation Comme nts ESTRADIOL (test code = 2505) 85.2 PG/ML FOLLICLE STIM [id number] 00:00:00* Test Item Value Reference Range Interpretation Comme nts FOLLICLE STIM HORMONE (test code = 2700) 3.2 IU/L LUTEINIZING [id number] 00:00:00* Test Item Value Reference Range Interpretation Comme nts LUTEINIZING HORMONE (test co de = 2776) 5.6 IU/L [id number] 00:00:00* Test Item Value Reference Range Interpretation Comme nts PROLACTIN (test code = 2800) 11.1 NG/ML [id number] 00:00:00* Test Item Value Reference Range Interpretation Comme nts TESTOSTERONE (test code = 2830) 29 NG/DL HEPATITIS C [id number] 00:00:00* Test Item Value Reference Range Interpretation Comme nts HEPATITIS C ANTIBODY (test c ode = 4675) NON-REACTIVE HIV AB/AG COMBO RFLX [id number] 00:00:00* Test Item Value Reference Range Interpretation Comme nts HIV 1/2 4TH GEN, RFLX CONF ( test code = 3514) NON-REACTIVE [id number] 00:00:00* Test Item Value Reference Range Interpretation Comme nts RPR RESULT (test code = 3501) NON-REACTIVE RPR TITER (test code = 3500) NOT INDIC. TITER CBC W/AUTO [id number] 00:00:00* Test Item Value Reference Range Interpretation [...] ABS NUCLEATED RBCS (test cod e = 11882) 0.00 K/UL [id number] 00:00:00* Test Item Value Reference Range Interpretation Comme nts TSH, THIRD GENERATION (test code = 2821) 1.150 UIU/ML [id number] 00:00:00* Test Item Value Reference Range Interpretation Comme nts ESTRADIOL (test code = 2505) 85.2 PG/ML FOLLICLE STIM [id number] 00:00:00* Test Item Value Reference Range Interpretation Comme nts FOLLICLE STIM HORMONE (test code = 9270) 3.2 IU/L LUTEINIZING [id number] 00:00:00* Test Item Value Reference Range Interpretation Comme nts LUTEINIZING HORMONE (test co de = 8846) 5.6 IU/L [id number] 00:00:00* Test Item Value Reference Range Interpretation Comme nts PROLACTIN (test code = 2800) 11.1 NG/ML [id number] 00:00:00* Test Item Value Reference Range Interpretation Comme nts TESTOSTERONE (test code = 2830) 29 NG/DL HEPATITIS C [id number] 00:00:00* Test Item Value Reference Range Interpretation Comme nts HEPATITIS C ANTIBODY (test c ode = 4675) NON-REACTIVE HIV AB/AG COMBO RFLX [id number] 00:00:00* Test Item Value Reference Range Interpretation Comme nts HIV 1/2 4TH GEN, RFLX CONF ( test code = 3514) NON-REACTIVE [id number] 00:00:00* Test Item Value Reference Range Interpretation Comme nts RPR RESULT (test code = 3501) NON-REACTIVE RPR TITER (test code = 3500) NOT INDIC. TITER CBC W/AUTO [id number] 00:00:00* Test Item Value Reference Range Interpretation [...] ABS NUCLEATED RBCS (test cod e = 06097) 0.00 K/UL [id number] 00:00:00* Test Item Value Reference Range Interpretation Comme nts TSH, THIRD GENERATION (test code = 2821) 1.150 UIU/ML [id number] 00:00:00* Test Item Value Reference Range Interpretation Comme nts ESTRADIOL (test code = 2505) 85.2 PG/ML FOLLICLE STIM [id number] 00:00:00* Test Item Value Reference Range Interpretation Comme nts FOLLICLE STIM HORMONE (test code = 2700) 3.2 IU/L LUTEINIZING [id number] 00:00:00* Test Item Value Reference Range Interpretation Comme nts LUTEINIZING HORMONE (test co de = 2776) 5.6 IU/L [id number] 00:00:00* Test Item Value Reference Range Interpretation Comme nts PROLACTIN (test code = 2800) 11.1 NG/ML [id number] 00:00:00* Test Item Value Reference Range Interpretation Comme nts TESTOSTERONE (test code = 2830) 29 NG/DL HEPATITIS C [id number] 00:00:00* Test Item Value Reference Range Interpretation Comme nts HEPATITIS C ANTIBODY (test c ode = 4675) NON-REACTIVE HIV AB/AG COMBO RFLX [id number] 00:00:00* Test Item Value Reference Range Interpretation Comme nts HIV 1/2 4TH GEN, RFLX CONF ( test code = 3514) NON-REACTIVE [id number] 00:00:00* Test Item Value Reference Range Interpretation Comme nts RPR RESULT (test code = 3501) NON-REACTIVE RPR TITER (test code = 3500) NOT INDIC. TITER CBC W/AUTO [id number] 00:00:00* Test Item Value Reference Range Interpretation [...] ABS NUCLEATED RBCS (test cod e = 87726) 0.00 K/UL [id number] 00:00:00* Test Item Value Reference Range Interpretation Comme nts TSH, THIRD GENERATION (test code = 2821) 1.150 UIU/ML [id number] 00:00:00* Test Item Value Reference Range Interpretation Comme nts ESTRADIOL (test code = 2505) 85.2 PG/ML FOLLICLE STIM [id number] 00:00:00* Test Item Value Reference Range Interpretation Comme nts FOLLICLE STIM HORMONE (test code = 2700) 3.2 IU/L LUTEINIZING [id number] 00:00:00* Test Item Value Reference Range Interpretation Comme nts LUTEINIZING HORMONE (test co de = 2776) 5.6 IU/L [id number] 00:00:00* Test Item Value Reference Range Interpretation Comme nts PROLACTIN (test code = 2800) 11.1 NG/ML [id number] 00:00:00* Test Item Value Reference Range Interpretation Comme nts TESTOSTERONE (test code = 2830) 29 NG/DL SARS-CoV-2 (COVID-19) by RT-PCR (HIGH RISK)2020-12-03 00:00:00* Test Item Value Reference Range Interpretation Comme nts SARS-CoV-2 INTERPRETATION (test code = 68510) NEGATIVE SOURCE (test code = 21103) NASOPHARYNGEAL SARS-CoV-2 (COVID-19) by RT-PCR (HIGH RISK)2020-12-03 00:00:00* Test Item Value Reference Range Interpretation Comme nts SARS-CoV-2 INTERPRETATION (test code = 02338) NEGATIVE SOURCE (test code = 27034) NASOPHARYNGEAL SARS-CoV-2 (COVID-19) by RT-PCR (HIGH RISK)2020-12-03 00:00:00* Test Item Value Reference Range Interpretation Comme nts SARS-CoV-2 INTERPRETATION (test code = 54009) NEGATIVE SOURCE (test code = 14138) NASOPHARYNGEAL SARS-CoV-2 (COVID-19) by RT-PCR (HIGH RISK)2020-12-03 00:00:00* Test Item Value Reference Range Interpretation Comme nts SARS-CoV-2 INTERPRETATION (test code = 29903) NEGATIVE SOURCE (test code = 93428) NASOPHARYNGEAL
--- NOTE | 2024-10-30 14:30 | RAD REPORT ---
EXAMINATION: ONE VIEW CHEST XR CLINICAL INDICATION: COUGH TECHNIQUE: Frontal chest projection is submitted. Examination is limited by patient positioning and t echnique. COMPARISON: 03/03/2020 FINDINGS: The lungs are well inflated and clear. The heart is mildly prominent in size. No displaced fractures identified. IMPRESSION: No acute intrathoracic abnormalities.
[2024-10-30] MEDS ORDERED: NA CHLORIDE 0.9% 1,000 ML ONE (14:38)
[2024-10-30 14:39] LABS: Absolute Eosinophils 0.1 K/uL (0-0.5); Absolute Lymphocytes (CBC) 1.4 K/uL (0.7-4.9); Absolute Monocytes 0.5 K/uL (0.1-1.3); Absolute Neutrophil 5.8 K/uL (1.8-8.0); Basophils % 0.4 % (0-1.3); Eosinophils % 1.1 % (0-4.4); Hematocrit 27.5 % (36.0-45.0); Hemoglobin 8.6 g/dL (12.0-15.0); Lymphocytes % 18.2 % (15.3-44.8); MCH 22.7 pg (27.0-35.0); MCHC 31.4 g/dL (32.0-36.0); MCV 72.3 fL (80-100); MPV 8.3 fL (7.6-11.3); Monocytes % 6.2 % (3.3-12.3); Neutrophils % 74.1 % (41.7-73.7); Platelets 363 thou/uL (152-406); Red Cell Distribution Width 15.6 % (12.1-15.2)
[2024-10-30 15:07] LABS: Anion Gap 7.7 mEq/L (5.0-15.0); BUN Blood Urea Nitrogen 11 mg/dL (7-18); Bicarbonate 26 mEq/L (21-32); Glomerular Filtration Rate 122 ml/min (=/>90); Glucose Level 106 mg/dL (74-106); Potassium 3.7 mEq/L (3.5-5.1); Sodium Level 142 mEq/L (136-145)
[2024-10-30 15:08] LABS: Troponin High Sensitivity < 3.0 pg/mL (<58.9)
--- NOTE | 2024-10-30 16:08 | ER ---
Nurse's Notes [facility] Name: Obdulia Burch Age: 34 yrs Sex: Female : 1990 Arrival Date: 10/30/2024 Time: 13:52 Bed 18 Private MD: Diagnosis: Syncope Presentation: 10/30 14:05 Chief complaint: EMS states: SYNCOPAL EPISODE, DIZZINESS AND NAUSEA STATES WAS AT [facility] SH[facility] TODAY, HR INCREASED WITH AMBULATION GIVEN 4MG IV ZOFRAN. Coronavirus screen: Client denies travel out of the [place] in the last 14 days. At this time, the client does not indicate any symptoms associated with coronavirus-19. Ebola Screen: Patient negative for fever greater than or equal to 101.5 degrees Fahrenheit, and additional compatible Ebola Virus Disease symptoms Patient denies exposure to infectious person. Patient denies travel to an Ebola-affected area in the 21 days before illness onset. No symptoms or risks identified at this time. Initial Sepsis Screen: Does the patient meet any 2 criteria? No. Patient's initial sepsis screen is negative. Does the patient have a suspected source of infection? No. Patient's initial sepsis screen is negative. Risk Assessment: Do you want to hurt yourself or someone else? Patient reports no desire to harm self or others. Onset of symptoms was October 30, 2024. 14:05 Method Of Arrival: EMS: [facility] db 14:05 Acuity: TERELL 2 db 14:24 Care prior to arrival: Medication(s) given: Normal saline infusion, 250 ML zofran 4 mg, db IV initiated. 20 GA, in the right antecubital area, Glucose check: 138. Triage Assessment: 14:24 General: Appears in no apparent distress. comfortable, Behavior is calm, cooperative. db Pain: Complains of pain in head. Neuro: Level of Consciousness is awake, alert, obeys commands, Oriented to person, place, time, situation, Reports dizziness, headache. Respiratory: Airway is patent Respiratory effort is even, unlabored, Respiratory pattern is regular, symmetrical. Historical: - Allergies: 14:24 NSAIDS; db - PSHx: 14:24 Bariatric surgery 01/14/2024; section; db - Immunization history:: Adult Immunizations unknown. - Infectious Disease History:: Denies. - Social history:: Smoking status: Reported history of juuling and/or vaping. Screenin:10 [facility] ED Fall Risk Assessment (Adult) History of falling in the last 3 months, rs5 including since admission Yes- single mechanical fall (1 pt) Confusion or Disorientation No (0 pts) Intoxicated or Sedated No (0 pts) Impaired Gait Yes (1 pt) Mobility Assist Device Used Yes (1 pt) Altered Elimination No (0 pt) Score/Fall Risk Level 3 or more points = High Risk Oriented to surroundings, Maintained a safe environment, Hourly rounding (assess needs \T\ fall precautionary measures) done. Abuse screen: Denies threats or abuse. Nutritional screening: No deficits noted. Tuberculosis screening: No symptoms or risk factors identified. Assessment: 14:10 General: Appears in no apparent distress. comfortable, Behavior is calm, cooperative. rs5 Pain: Denies pain. Neuro: Level of Consciousness is awake, alert, obeys commands. Cardiovascular: Patient's skin is warm and dry. Rhythm is regular. Respiratory: Airway is patent Respiratory effort is even, unlabored, Respiratory pattern is regular, symmetrical. GI: Abdomen is round non-distended, Abd is soft and non tender X 4 quads. : No signs and/or symptoms were reported regarding the genitourinary system. EENT: No signs and/or symptoms were reported regarding the EENT system. Derm: Skin is intact, Skin is pink, warm \T\ dry. Musculoskeletal: Range of motion: intact in all extremities. 15:15 Reassessment: Patient and/or family updated on plan of care and expected duration. Pain rs5 level reassessed. Patient is alert, oriented x 3, equal unlabored respirations, skin warm/dry/pink. 16:47 Reassessment: Patient and/or family updated on plan of care and expected duration. Pain rs5 level reassessed. Patient is alert, oriented x 3, equal unlabored respirations, skin warm/dry/pink. Patient states feeling better. General:. Vital Signs: 14:05 BP 109 / 53; Pulse 67; Resp 16; Temp 98.3; Pulse Ox 100% ; Weight 77.11 kg; Height 5 db ft. 0 in. ; Pain 6/10; 15:00 BP 102 / 85; Pulse 92; Resp 14; Pulse Ox 98% ; db 16:05 BP 105 / 59 Supine; Pulse 53; db 16:10 BP 98 / 56 Sitting; Pulse 54; db 16:15 BP 108 / 81 Standing; Pulse 68; db 16:48 BP 107 / 62; Pulse 71; Resp 16; Pulse Ox 99% on R/A; rs5 14:05 Body Mass Index 33.20 (77.11 kg, 152.4 cm) db 14:05 Pain Scale: Adult db ED Course: 14:08 Patient arrived in ED. ec2 14:08 Nikolai Vallejo MD is Attending Physician. ec2 14:10 Patient has correct armband on for positive identification. Bed in low position. Call rs5 light in reach. Side rails up X2. 14:10 No provider procedures requiring assistance completed. rs5 14:18 Adri Love, RN is Primary Nurse. db 14:24 Triage completed. db 14:25 Arm band placed on Patient placed in an exam room. db 14:28 XRAY Chest (1 view) In Process Unspecified. EDMS 14:35 Maintain EMS IV. Dressing intact. Good blood return noted. Site clean \T\ dry. Gauge \T\ db site: 20 G RAC. 16:48 Provided Education on: discharge instructions . rs5 16:48 IV discontinued, intact, bleeding controlled, No redness/swelling at site. Pressure rs5 dressing applied. Administered Medications: 14:38 Drug: NS 0.9% IV 1000 ml IV at 1 bolus Per protocol; to be given as a bolus over 60 db minutes Route: IV; Rate: 1 bolus; Site: right antecubital; 16:46 Follow up: Response: No adverse reaction; IV Status: Completed infusion; IV Intake: rs5 999ml Medication: 16:47 VIS not applicable for this client. rs5 Intake: 16:46 IV: 999ml; Total: 999ml. rs5 Outcome: 16:07 Discharge ordered by . ec2 16:48 Discharged to home via wheelchair, with family, rs5 16:48 Condition: stable 16:48 Discharge instructions given to patient, family, Instructed on discharge instructions, follow up and referral plans. Demonstrated understanding of instructions, follow-up care, 16:49 Patient left the ED. rs5 Signatures: Dispatcher [employer] EDMS Adri Love RN RN db Sotelo, Ricky, RN RN rs5 Nikolai Vallejo MD MD ec2 Corrections: (The following items were deleted from the chart) 14:25 14:05 Onset of symptoms was October 30, 2024 db db 16:49 16:48 BP 107 / 62; Pulse 17bpm; Resp 16bpm; Pulse Ox 99% RA; rs5 rs5
--- NOTE | 2024-10-30 16:08 | EDPHYS ---
Physician Documentation [facility] Name: Obdulia Burch Age: 34 yrs Sex: Female : 1990 Arrival Date: 10/30/2024 Time: 13:52 Bed 18 Private MD: ED Physician Nikolai Vallejo HPI: 10/30 14:14 This 34 yrs old Female presents to ER via Unassigned with complaints of ec2 Syncope. 14:14 Patient arrives today for evaluation of a syncopal episode. Patient became lightheaded ec2 started having palpitations and had a syncopal episode. EMS reports tachycardia on arrival, no hypotension, improved with the crystalloid. Patient reports no chest pain or difficulty breathing, no abdominal pain. History of bilateral tubal ligation.. Historical: - Allergies: 14:24 NSAIDS; db - PSHx: 14:24 Bariatric surgery 01/14/2024; section; db - Immunization history:: Adult Immunizations unknown. - Infectious Disease History:: Denies. - Social history:: Smoking status: Reported history of juuling and/or vaping. ROS: 14:15 Constitutional: as per hpi ec2 Exam: 14:15 Constitutional: GEN: NAD Head: atraumatic Eyes: EOMI Ears: External ears are ec2 normal. CV: regular rate LUNGS: no respiratory distress ABD: non-distended, soft, nontender, not guarding, not rigid SKIN: no evidence of rashes MSK: no evidence of trauma Vital Signs: 14:05 BP 109 / 53; Pulse 67; Resp 16; Temp 98.3; Pulse Ox 100% ; Weight 77.11 kg; Height 5 db ft. 0 in. ; Pain 6/10; 15:00 BP 102 / 85; Pulse 92; Resp 14; Pulse Ox 98% ; db 16:05 BP 105 / 59 Supine; Pulse 53; db 16:10 BP 98 / 56 Sitting; Pulse 54; db 16:15 BP 108 / 81 Standing; Pulse 68; db 16:48 BP 107 / 62; Pulse 71; Resp 16; Pulse Ox 99% on R/A; rs5 14:05 Body Mass Index 33.20 (77.11 kg, 152.4 cm) db 14:05 Pain Scale: Adult db MDM: 14:08 Medical Screening Exam initiated ec2 14:15 Data reviewed: vital signs, nurses notes. ED course: Patient arrives today for ec2 evaluation of a syncopal episode. Examination revealing for nontoxic dividual is hemodynamically stable. Will obtain a cardiac workup. Differential includes anemia, electrolyte disturbances, dehydration, .. 14:56 ED course: EKG independently reviewed and interpreted by me, shows normal sinus rhythm, ec2 rate of 55, no acute ST segment elevations, intervals are nonactionable.. 16:07 ED course: On reassessment patient is well-appearing no acute distress and has ec2 resolution symptoms. Lab work does indicate iron deficiency anemia and instructed patient to follow-up with PCP. Additionally I instructed her to take her iron supplementation as she has been told in the past that she has iron deficiency. 10/30 14:08 Order name: Basic Metabolic Panel; Complete Time: 15:29 ec2 10/30 14:08 Order name: CBC with Diff; Complete Time: 15:03 ec2 10/30 14:08 Order name: Troponin HS; Complete Time: 15:29 ec2 10/30 14:08 Order name: Test, Serum; Complete Time: 15:03 ec2 10/30 14:08 Order name: XRAY Chest (1 view); Complete Time: 14:31 ec2 10/30 14:08 Order name: Cardiac monitoring; Complete Time: 14:26 ec2 10/30 14:08 Order name: EKG - Nurse/Tech; Complete Time: 14:46 ec2 10/30 14:08 Order name: IV Saline Lock; Complete Time: 14:26 ec2 10/30 14:08 Order name: Labs collected and sent; Complete Time: 14:46 ec2 10/30 14:08 Order name: O2 Per Protocol; Complete Time: 14:26 ec2 10/30 14:08 Order name: O2 Sat Monitoring; Complete Time: 14:26 ec2 10/30 14:56 Order name: Misc. Order: orthostatics after fluids; Complete Time: 16:46 ec2 Administered Medications: 14:38 Drug: NS 0.9% IV 1000 ml IV at 1 bolus Per protocol; to be given as a bolus over 60 db minutes Route: IV; Rate: 1 bolus; Site: right antecubital; 16:46 Follow up: Response: No adverse reaction; IV Status: Completed infusion; IV Intake: rs5 999ml Disposition Summary: 10/30/24 16:07 Discharge Ordered Notes: Location: Home ec2 Condition: Stable ec2 Diagnosis - Syncope ec2 Followup: ec2 - With: Private Physician - When: - Reason: Re-evaluation by your physician Discharge Instructions: - Discharge Summary Sheet ec2 - Syncope, [id number] ec2 Forms: - Medication Reconciliation Form ec2 - Antibiotic Education ec2 - Prescription Opioid Use ec2 - Patient Portal Instructions ec2 - Leadership Thank You Letter ec2 Signatures: Dispatcher [employer] Adri Baptiste, RN RN db Nikolai Vallejo MD MD ec2 Larry Rosas RN rs5 Corrections: (The following items were deleted from the chart) 14:08 14:08 Chest Single View+[email or web address] ordered. STALIN GANT
[2024-10-30 16:54] VITALS: TEMP 98.3
[2024-10-30 16:58] VITALS: BP 107/62; O2SAT 99
--- NOTE | 2024-11-08 11:17 | EKG ---
Test Date: 2024-10-30 Test Time: 14:43:19 Curtain Worker: SHUKRI MEASUREMENT RESULTS: Intervals: Rate: 55 [place]: 142 QRSD: 74 QT: 478 QTc: 457 [place]: P: 24 NJ: 142 QRS: 0 T: 11 INTERPRETIVE STATEMENTS: Sinus bradycardia with sinus arrhythmia Low voltage QRS Borderline ECG Compared to ECG 06/14/2006 21:34:02 Low QRS voltage now present Sinus rhythm no longer present Left-axis deviation no longer present Electronically Signed On 11-08-24 11:04:21 STAFFING ACCOUNT MANAGER by Dallin Green
== END 2024-10-30 16:49 | disposition home or self-care (01) ==
LOC: ER 13:52
DX: R55 Syncope and collapse (principal); R00.2 Palpitations
CPT/HCPCS: 96361; 93005; 85025; 80048; 36415; 84703; 84484; 71045; 96360; 99284; J7030

== ENCOUNTER 2024-11-11 16:23 | Emergency (ER) | payer OTHER ==
--- OUTSIDE RECORDS SUMMARY | 2024-11-11 16:28 | XMS REPORT | Continuity of Care Document ---
Author Name Unknown Address [address] [facility] [address]. [address] [place] [address] [facility] thconnect Address [address] [facility]. [address] [place] [address] Care Team Providers Care Prescription Clerk Name Role Phone PCP, PATIENT DOES NOT HAVE A Primary Care Physic enrique Unavailable Monique Rao DO Attending Clinician [phone] MONIQUE RAO Attending Clinician Unav ailable [facility] Attending Clinician Unavail able Senait Jones RD Attending Clinician [phone] RADIOLOGY Attending Clinician Unavailable Radiology Attending Clinician Unavailable Doctor Unassigned, [place] Attending Clinician U navailable MONIQUE RAO Admitting Clinician Unav ailable MONIQUE RAO Admitting Clinician Unavailabl e [facility]G Admitting Clinician Unavail able MAR, ARELI Admitting Clinician Unavailable Payers Payer Name Policy Type Policy Number Effective Date Expirati on Date Source [employer] - CHOICE (POS II) [id number] 2023 00:00:00 [facility] [place] ST[place] [id number] 2022 00:00:00 Problems Condition Name Condition Details Condition Category Status Onset Date Resolution Date Last Treatment Date Treating Clinician Comments Source 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 3 00:00: 00 [facility] Prediabete s Prediabete s Disease Active 2022-10 0 00:00: 00 [facility] Morbid obesity with BMI of 40.0-44.9, adult Morbid obesity with BMI of 40.0-44.9, adult Disease Active 2022-10 0 00:00: 00 [facility] Obesity (BMI 30-39.9) Obesity (BMI 30-39.9) Disease Active [facility] Allergies, Adverse Reactions, Alerts Allergy Name Allergy Type Status Severity Reaction(s) Onset Date Inactive Date Treating Clinician Comments Source NO KNOWN ALLERGIE S Drug Class Active [facility] Social History Social Habit Start Date Stop Date Quantity Comments Source Sexual orientation U [facility] Alcoholic beverage intake 2024-07-15 00:00:00 2024-07-15 00:00:00 .71 /d [facility] History of Social function 2024-04-18 00:00:00 2024-04-18 00:00:00 [facility] Tobacco use and exposure 2023-10-13 00:00:00 2023-10-13 00:00:00 Smokeless tobacco non-user [facility] Cigarettes smoked current (pack per day) - Reported 2023-10-13 00:00:00 2023-10-13 00:00:00 [facility] Cigarette pack-years 2023-10-13 00:00:00 2023-10-13 00:00:00 [facility] Alcohol intake 2023-08-10 00:00:00 2023-08-10 00:00:00 .71 /d [facility] Tobacco Comment 2023-08-08 00:00:00 2023-08-08 00:00:00 On and off since 17. No cigarettes 4+ years [facility] Alcohol Comment 2023-08-08 00:00:00 2023-08-08 00:00:00 Every few weeks- not regular [facility] Exposure to SARS-CoV-2 (event) 2023-01-07 00:00:00 2023-01-17 16:52:00 Not sure [facility] History of tobacco use 2009-05-27 00:00:00 2015-05-27 00:00:00 Cigarette Smoker [facility] Sex assigned at 1990 00:00:00 1990 00:00:00 [facility] Smoking Status Start Date Stop Date Source Current Some Day Smoker [facility] Ex-smoker 2023-10-13 00:00:00 2023-10-13 00:00:00 [facility] Medications Ordered Medication Name Filled Medication Name Start Date Stop Date Current Medication? Ordering Clinician Indication Dosage Frequency Signature (SIG) Comments Components Source Fe Fum-FePoly- FA-Vit C-Vit B3 (Integra F) 125-1 MG capsule 04-11 00:00: 00 Yes [id number] 1{capsu le} QD Take 1 capsule by mouth 1 (one) time each day. [facility] thiamine mononitrate (Vitamin B-1) 100 MG tablet 04-11 00:00: 00 04-12 04:59 :00 No [id number] 100mg Q.[id number] 3D Take 1 tablet (100 mg total) by mouth in the morning and 1 tablet (100 mg total) at noon and 1 tablet (100 mg total) in the evening. [facility] ergocalcife rol (Vitamin D-2) 1.25 MG (66552 UT) capsule 04-11 00:00: 00 08-02 04:59 :00 No [id number] Take 1 capsule (50,000 Units total) by mouth 1 (one) time per week. [facility] pantoprazol e (Protonix) 40 MG EC tablet 03-19 00:00: 00 05-19 04:59 :00 No [id number] 40mg Take 1 tablet (40 mg total) by mouth 1 (one) time each day before breakfast. Do not crush, chew, or split. [facility] methocarbam ol (Robaxin) 500 MG tablet 03-19 00:00: 00 2024- 06-04 04:59 :00 No [id number] 500mg Q.[id number] 3D Take 1 tablet (500 mg total) by mouth in the morning and 1 tablet (500 mg total) at noon and 1 tablet (500 mg total) in the evening. Do all this for 10 days. [facility] Fe Fum-FePoly- FA-Vit C-Vit B3 (Integra F) 125-1 MG capsule 3-13 00:00: 00 Yes [id number] 1{capsu le} QD Take 1 capsule by mouth 1 (one) time each day. [facility] thiamine mononitrate (Vitamin B-1) 100 MG tablet 2022-10 0 00:00: 00 08-24 04:59 :00 No [id number] 100mg Q.[id number] 3D Take 1 tablet (100 mg total) by mouth in the morning and 1 tablet (100 mg total) at noon and 1 tablet (100 mg total) in the evening. [facility] Fe Fum-FePoly- FA-Vit C-Vit B3 (Integra F) 125-1 MG capsule 2022-10 0 00:00: 00 09-24 05:59 :00 No [id number] 125mg QD Take 125 mg by mouth 1 (one) time each day. [facility] Dose Unknown 2022-0 6-23 00:00: 00 No [...] mg capsule 0 5-17 00:00: 00 Yes [id number] 200mg Take 1 capsule by mouth 3 (three) times daily as needed for Cough. [facility] albuterol 90 mcg/actuati on inhaler 03-12 00:00: 00 Yes [id number] 2{puff} Inhale 2 Puffs every 4 (four) hours as needed for Wheezing or Shortness of Breath. [facility] norethindro ne-e.estrad iol-iron (MICROGESTI N FE) 1.5 mg-30 mcg (21)/75 mg (7) per tablet 02-18 00:00: 00 Yes [id number] 1{tbl} Take 1 tablet by mouth daily. [facility] fluticasone propionate 50 mcg/actuati on nasal spray,suspe nsion SPRAY 1 SPRAY INTO EACH NOSTRIL TWICE A DAY fluticasone propionate 50 mcg/actuati on nasal spray,suspe nsion SPRAY 1 SPRAY INTO EACH NOSTRIL TWICE A DAY No fluticason e propionate 50 mcg/actuat ion nasal spray,susp ension SPRAY 1 SPRAY INTO EACH NOSTRIL TWICE A DAY [facility] Folivane-F 125 mg-1 mg-40 mg-3 mg capsule TAKE 1 CAPSULE BY MOUTH EVERY DAY Folivane-F 125 mg-1 mg-40 mg-3 mg capsule TAKE 1 CAPSULE BY MOUTH EVERY DAY No Folivane-F 125 mg-1 mg-40 mg-3 mg capsule TAKE 1 CAPSULE BY MOUTH EVERY DAY [facility] phenazopyri dine 200 mg tablet TAKE 1 TABLET 3 TIMES A DAY NEEDED FOR URINARY FREQUENCY/U RGENCY, BLADDER PAIN phenazopyri dine 200 mg tablet TAKE 1 TABLET 3 TIMES A DAY NEEDED FOR URINARY FREQUENCY/U RGENCY, BLADDER PAIN No phenazopyr idine 200 mg tablet TAKE 1 TABLET 3 TIMES A DAY NEEDED FOR URINARY FREQUENCY/ URGENCY, BLADDER PAIN [facility] Vital Signs Vital Name Observation Time Observation Value Comments S ource Systolic blood pressure 2024-04-16 14:23:00 117 mm[Hg] [facility] Diastolic blood pressure 2024-04-16 14:23:00 74 mm[Hg] [facility] Heart rate 2024-04-16 14:23:00 69 /min [facility] Body height 2024-04-16 14:23:00 152.4 cm [facility] Body weight 2024-04-16 14:23:00 99.837 [facility] BMI 2024-04-16 14:23:00 42.99 kg/m2 [facility] [...] by Pulse oximetry 2024-02-13 16:00:00 99 /min [facility] Systolic blood pressure 2024-01-23 16:46:00 121 [...] by Pulse oximetry 2024-01-23 16:46:00 98 /min [facility] Systolic blood pressure 2024-01-02 16:26:00 125 [...] 13:13:00 123.514 kg Per last clinic visit. [facility] BMI 2023-08-26 13:13:00 53.18 kg/m2 [facility] Systolic blood pressure 2023-08-05 15:05:00 116 mm[Hg] [facility] Diastolic blood pressure 2023-08-05 15:05:00 73 mm[Hg] [facility] Heart rate 2023-08-05 15:05:00 73 /min [facility] Body temperature 2023-08-05 15:05:00 36.56 Bo[facility] [...] PELVIC NONOBSTETRIC REAL-TIME IMAGE COMPLETE 2023-11-28 00:00:00 [facility] US PELVIC NONOBSTETRIC REAL-TIME IMAGE COMPLETE 2023-11-14 00:00:00 [facility] VITAMIN B12 2023-08-05 16:08:00 [facility] FOLATE 2023-08-05 16:08:00 [facility] VITAMIN E 2023-08-05 16:08:00 [facility] VITAMIN A 2023-08-05 16:08:00 [facility] VITAMIN B1, WHOLE BLOOD 2023-08-05 [facility]:08[facility]23-08-05 16:08[facility] [facility] [address] ABDOMEN PELVIS WO CONTRAST 2023-01-23 13:40:50 Requisition, Paper [facility] CONSENT/REFUSAL FOR DIAGNOSIS AND TREATMENT 2023-01-23 13:40:49 Doctor Unassigned, [place] [facility] ASSIGNMENT OF BENEFITS 2023-01-23 13:40:33 Docto r Unassigned, [place] [facility] CONSENT/REFUSAL FOR DIAGNOSIS AND TREATMENT 2023-01-23 13:26:32 Doctor Unassigned, [place] [facility] ASSIGNMENT OF BENEFITS 2023-01-23 13:26:18 Docto r Unassigned, [place] [facility] CONSENT/REFUSAL FOR DIAGNOSIS AND TREATMENT 2023-01-10 14:28:19 Doctor Unassigned, [place] [facility] ASSIGNMENT OF BENEFITS 2023-01-10 14:28:06 Docto r Unassigned, [place] [facility] Caesarean Section [facility] Tub[facility] Plan of Care Planned Activity Planned Date Details Comments Source Goal Plan of Care Note [code = 04529-7] Goal Plan of Care Note [code = 60549-1] Goal Plan of Care Note [code = 94345-7] Goal Plan of Care Note [code = 60711-3] Goal Plan of Care Note [code = 30545-5] Goal Plan of Care Note [code = 86977-2] Goal Plan of Care Note [code = 49373-0] Goal Plan of Care Note [code = 31632-2] Goal Plan of Care Note [code = 09811-6] Goal Plan of Care Note [code = 17406-9] Goal Plan of Care Note [code = 93306-0] Goal Plan of Care Note [code = 68398-8] Goal Plan of Care Note [code = 95661-9] Goal Plan of Care Note [code = 44063-6] Goal Plan of Care Note [code = 21735-9] Goal Plan of Care Note [code = 31042-9] Goal Plan of Care Note [code = 04196-1] Goal Plan of Care Note [code = 32318-7] Goal Plan of Care Note [code = 49831-6] Goal Plan of Care Note [code = 60910-3] Goal Plan of Care Note [code = 05636-3] Goal Plan of Care Note [code = 75268-3] Goal Plan of Care Note [code = 07539-6] Goal Plan of Care Note [code = 70618-5] Goal Plan of Care Note [code = 33149-6] Goal Plan of Care Note [code = 61385-4] Goal Plan of Care Note [code = 80910-0] Goal Plan of Care Note [code = 19580-3] Goal Plan of Care Note [code = 25764-4] Goal Plan of Care Note [code = 27191-0] Goal Plan of Care Note [code = 69928-8] Goal Plan of Care Note [code = 23015-5] Goal Plan of Care Note [code = 87604-2] Goal Plan of Care Note [code = 74933-1] Goal Plan of Care Note [code = 44609-6] Goal Plan of Care Note [code = 98749-4] Goal Plan of Care Note [code = 93862-3] Goal Plan of Care Note [code = 75881-3] Goal Plan of Care Note [code = 52804-2] Goal Plan of Care Note [code = 18490-3] Goal Plan of Care Note [code = 42950-8] Goal Plan of Care Note [code = 45712-2] Goal Plan of Care Note [code = 62984-1] Goal Plan of Care Note [code = 56364-7] Goal Plan of Care Note [code = 88305-9] Goal Plan of Care Note [code = 53216-9] Goal Plan of Care Note [code = 44530-1] Goal Plan of Care Note [code = 03795-9] Goal Plan of Care Note [code = 44274-0] Goal Plan of Care Note [code = 24520-3] Goal Plan of Care Note [code = 55254-4] Goal Plan of Care Note [code = 30724-0] Goal Plan of Care Note [code = 62235-6] Goal Plan of Care Note [code = 85690-9] Goal Plan of Care Note [code = 67669-8] Goal Plan of Care Note [code = 67523-6] Goal Plan of Care Note [code = 51516-7] Goal Plan of Care Note [code = 67196-0] Goal Plan of Care Note [code = 61628-4] Goal Plan of Care Note [code = 67080-1] Goal Plan of Care Note [code = 18060-1] Goal Plan of Care Note [code = 48056-0] Goal Plan of Care Note [code = 21590-5] Goal Plan of Care Note [code = 27334-9] Goal Plan of Care Note [code = 98671-4] Goal Plan of Care Note [code = 20235-6] Goal Plan of Care Note [code = 95252-3] Goal Plan of Care Note [code = 79143-8] Goal Plan of Care Note [code = 46471-1] Goal Plan of Care Note [code = 21981-7] Goal Plan of Care Note [code = 81959-8] Goal Plan of Care Note [code = 46638-2] Goal Plan of Care Note [code = 60969-6] Goal Plan of Care Note [code = 54952-6] Goal Plan of Care Note [code = 68498-8] Goal Plan of Care Note [code = 23041-1] Goal Plan of Care Note [code = 57729-7] Goal Plan of Care Note [code = 14963-8] Goal Plan of Care Note [code = 48599-5] Goal Plan of Care Note [code = 37773-5] Goal Plan of Care Note [code = 62044-9] Goal Plan of Care Note [code = 12098-1] Goal Plan of Care Note [code = 93631-3] Goal Plan of Care Note [code = 43723-4] Goal Plan of Care Note [code = 41611-6] Goal Plan of Care Note [code = 75968-6] Goal Plan of Care Note [code = 11234-6] Goal Plan of Care Note [code = 84665-3] Goal Plan of Care Note [code = 73184-7] Goal Plan of Care Note [code = 56823-9] Goal Plan of Care Note [code = 30360-4] Goal Plan of Care Note [code = 22980-5] Encounters Start Date/Time End Date/Time Encounter Type Admission Type Attending [facility] Facility Care Department Encounter ID Source 2024-07-09 09:00:00 2024-07-09 10:38:02 Telemedici ne Monique Rao [facility] [place] [address] [place] 1.2.840.114 350.1.13.58 9.2.7.2.686 [id number] [facility] 2024-04-16 09:00:00 2024-04-16 09:48:58 Office Visit Monique Rao [facility] [place] [address] [place] 1.2.840.114 350.1.13.58 9.2.7.2.686 [id number] [facility] 2024-03-19 11:40:00 2024-03-19 12:01:06 Telemedici ne Mnoique Rao [facility] [place] [address] [place] 1.2.840.114 350.1.13.58 9.2.7.2.686 [id number] [facility] 2024-02-27 10:30:00 2024-02-27 10:30:00 Outpatient MONIQUE RAO [facility] [id number] [facility] 2024-02-13 10:50:00 2024-02-13 11:48:52 Office Visit Monique Rao [facility] [place] [address] [place] 1.2.840.114 350.1.13.58 9.2.7.2.686 [id number] [facility] 2024-01-23 11:45:00 2024-01-23 12:18:30 Office Visit Monique Rao [facility] [place] [address] [place] 1.2.840.114 350.1.13.58 9.2.7.2.686 [id number] [facility] 2024-01-14 06:23:00 2024-01-16 10:08:00 Inpatient MONIQUE RAO [facility] [id number] [facility] 2024-01-14 09:30:00 2024-01-14 09:30:00 Outpatient MONIQUE RAO [facility] [id number] [facility] 2024-01-06 10:39:17 2024-01-06 10:39:17 Outpatient [facility] [id number] 0312 Marlo Pike 2024-01-02 10:30:00 2024-01-02 11:22:37 Consult MONIQUE RAO [facility] [address] [place] 1.2.840.114 350.1.13.58 9.2.7.2.686 [id number] [facility] 2023-11-28 00:00:00 2023-11-28 00:00:00 Gaudencio Goldman MD: [place] [address] , Ph. Counts include 234 beds at the [facility] - [facility] [place] Office [id number] [facility] 2023-11-27 00:00:00 2023-11-27 00:00:00 Outpatient [facility] [place] [id number] [facility] 2023-11-20 00:00:00 2023-11-20 00:00:00 Outpatient [facility] [place] [facility] [id number] [facility] 2023-11-14 00:00:00 2023-11-14 00:00:00 Outpatient [facility] [place] [facility] [id number] [facility] 2023-11-14 00:00:00 2023-11-14 00:00:00 Gaudencio Goldman MD: [place] [address] , Ph. Counts include 234 beds at the [facility] - [facility] [place] Office [id number] [facility] 2023-11-12 00:00:00 2023-11-12 00:00:00 Outpatient [facility] [place] [facility] [id number] [facility] 2023-11-04 00:00:00 2023-11-04 00:00:00 Outpatient [facility] [place] [facility] [id number] [facility] 2023-10-31 15:02:13 2023-10-31 15:02:13 Outpatient [facility] [id number] Marlo Goldberg Shahz[place] 2023-10-14 09:45:00 2023-10-14 10:56:37 Office Visit MONIQUE RAO [facility] [place] [address] [place] 1.2.840.114 350.1.13.58 9.2.7.2.686 [id number] [facility] 2023-10-14 08:30:17 2023-10-14 08:30:17 Outpatient [facility] 1219 Marlo Goldberg Shahzad 2023-10-08 06:24:00 2023-10-08 08:55:00 Outpatient MONIQUE RAO [facility] MIGUE [id number] [facility] 2023-10-08 08:00:00 2023-10-08 08:00:00 Outpatient MONIQUE RAO [facility] [id number] [facility] 2023-09-23 08:01:01 2023-09-23 08:01:01 Outpatient [facility] [id number] Marlo Goldberg [place] 2023-09-22 08:24:11 2023-09-22 08:24:11 Outpatient [facility] 1127 Marlo Goldberg [place] 2023-09-08 07:53:50 2023-09-08 07:53:50 Outpatient [facility] 1113 Marlo Goldberg [place] 2023-09-01 08:08:04 2023-09-01 08:08:04 Outpatient [facility] 1106 Marlo Goldberg [place] 2023-08-26 08:15:00 2023-08-26 08:41:42 Nutrition Senait Jones [facility] 1..840.114 350.1.13.58 9.2.7.2.686 [id number] [facility] 2023-08-22 07:58:17 2023-08-22 07:58:17 Outpatient [facility] 1027 Marlo Pike 2023-08-21 08:01:01 2023-08-21 08:01:01 Outpatient [facility] 1026 Marlo Pike 2023-08-14 08:03:29 2023-08-14 08:03:29 Outpatient [facility] 1019 Marlo Pike 2023-08-05 10:00:00 2023-08-05 11:24:41 Office Visit Monique Rao [facility] [place] 1.840.114 350.1.13.58 9.2.7.2.686 [id number] [facility] 2023-07-08 08:13:20 2023-07-08 08:13:20 Outpatient [facility] [id number] Marlo Goldberg Shahz[place] 2023-07-05 12:17:42 2023-07-05 12:17:42 Outpatient [facility] [id number] Marlo Goldberg [place] 2023-01-23 08:26:34 2023-01-23 23:59:00 Outpatient R RADIOLOGY [facility] [id number] [facility] 2023-01-23 08:26:34 2023-01-23 23:59:00 Hospital Encounter Radiology [facility] 1..114 350.1.13.10 4.2.7.2.686 [id number] [facility] 2023-01-10 00:00:00 2023-01-10 00:00:00 Outpatient R RADIOLOGY [facility] [id number] [facility] 2023-01-10 00:00:00 2023-01-10 00:00:00 Orders Only Doctor Unassigned, [place] [facility] 1.0.114 350.1.13.10 4.2.7.2.686 [id number] [facility] 2023-01-09 14:48:49 2023-01-09 14:48:49 Outpatient [facility] 0316 Marlo Pike 2022-12-12 08:09:41 2022-12-12 08:09:41 Outpatient [facility] 0216 Marlo Pike 2022-10-17 09:02:24 2022-10-17 09:02:24 Outpatient [facility] 1222 Marlo Pike 2022-09-24 08:04:17 2022-09-24 08:04:17 Outpatient [facility] [id number] Marlo Pike 2022-09-24 00:00:00 2022-09-24 00:00:00 Outpatient Visit [id number] 2022-09-09 08:06:27 2022-09-09 08:06:27 Outpatient [facility] 1114 Marlo Pike 2022-09-09 00:00:00 2022-09-09 00:00:00 Outpatient Visit [id number] 2022-07-11 00:00:00 2022-07-11 00:00:00 Outpatient Visit [id number] 2022-05-27 00:00:00 2022-05-27 00:00:00 Outpatient Visit [id number] Results Test Description Test Time Test Comments Results Result Co mments Source [facility] [Mass/volume] in Serum or [id number] 00:00:00* Test Item Value Reference Range Interpretation Comme [facility] prolactin (test code = prolactin) 11.0 NG/mL 4.8-23.3 [facility] T4 and TSH panel - Serum or [id number] 00:00:00* Test Item Value Reference Range Interpretation Comme nts TSH (test code = TSH) 1.520 uIU/mL 0.178-4.530 free T4 (test code = free T4) 1.22 NG/dL 0.80-1.73 [facility], progesterone, estrogen 2023-11-18 00:00:00* Test Item Value Reference Range Interpretation Comme nts estradiol (test code = estradiol) 122.0 pg/mL 6.1-91.9 H LH (test code = LH) 3.3 mIU/mL FSH (test code = FSH) 1.9 mIU/mL progesterone (test code = progesterone) 3.99 NG/mL [facility] +2 [id number] 00:00:00* Test Item Value Reference Range Interpretation Comme nts HIV 1+2 Ab (test code = HIV 1+2 Ab) non-reactive non-reactive [facility] [id number] 00:00:00* Test Item Value Reference Range Interpretation [...] (test code = HIV Ag/Ab) non-reactive non-reactive [facility] P24 [id number] 00:00:00* Test Item Value Reference Range Interpretation Comme [facility] HIV-1 P24 Ag (test code = HI V-1 P24 Ag) non-reactive non-reactive [facility] [id number] 00:00:00* Test Item Value Reference Range Interpretation Comme nts HPV thinprep (test code = HP V thinprep) negative negative [facility] thin prep ([facility]) 2023-11-17 00:00:00* Test Item Value Reference [...] combo 2 thinprep (GC)) GC neg negative [facility] and [id number] 21:48:00* Test Item Value Reference Range Interpretation [...] Information: ? ?Site ID: [id number] ? ?Name: [employer] [place] ? ?Address: [address] [place] [id number] ? ?Director: OLAMIDE CARLTON MD,PHD. Lab Interpretation (test code = 68003-6) [facility]normal [facility]41-39 21:48:00* Test Item Value Reference Range Interpretation Comme nts FOLATE, SERUM (test code = 2284-8) 16.8 ng/mL ? Reference Range ? Low: ? <3.4 ? Borderline: ? ?3.4-5.4 ? Normal: ?>5.4 RAC (test code = RAC) Performing Organization Information: ? ?Site ID: RGA ? ?Name: [employer] [place] ? ?Address: [address] [place] [address] ? ?Director: OLAMIDE CARLTON MD,PHD. [facility] [id number] 21:48:00* Test Item Value Reference Range Interpretation Comments VITAMIN A (RETINOL) (test code = 2923-1) 36 See_Comment L Clin Chem Vol. 34.No.8. [id number]. 1998Vitamin supplementation within 24 hours prior to blood draw may affect the accuracy of results. ? This test was developed and its analytical performance characteristics have been determined by [employer] It's what's in store. It has not been cleared or approved [...] Information: ? ?Site ID: [id number] ? ?Name: [employer] [facility] ? ?Address: [address] [place] [phone] ? ?Director: GONZALO CANO MD Lab Interpretation (test code = 64115-8) Abnormal CO HealthVitamin B1, whole [id number] 21:48:00* Test Item Value Reference Range Interpretation Comments VITAMIN B1 (THIAMINE), BLOOD, LC/MS/MS (test code = 15552-9) 75 nmol/L 78-185 L (Note) Vitamin supplementation within 24 hours prior to blood draw mayaffect the accuracy of the results. This test was developed and its analytical performance characteristics have been determined by [employer] [facility]. It has not been cleared or approved by FDA. This assay has been validated pursuant to the CLIA regulations and is used for clinical purposes. [facility] [id number] [address],[address] [phone] ahsan Obregon MD REPORT COMMENT:FASTING:NO RAC (test code = RAC) Performing Organization Information: ? ?Site ID: [id number] ? ?Name: [facility] ? ?Address: [address] [place], [place] [address] [place] [id number] ? ?Director: ASHLEY OBREGON MD Lab Interpretation (test code = 89402-9) [facility]normal [facility] [id number] 21:48:00* Test Item Value Reference Range Interpretation Comme nts ALPHA-TOCOPH LILLIAM (test code = 1823-4) 12.6 mg/L ? ? ?Reference R josé miguel ? ? ?5.7-19.9 mg/L ?Levels of alpha-tocopherol <5 mg/L are ? ? ?consistent with Vitamin E deficiency in ? ? ?adults.Vitamin supplementation within 24 hours prior to blood draw may affect the accuracy of results. ? ? See Note 1 [id number]-ASUWF-T OCOPHEROL (test code = 19505-1) 1.4 See_Comment See Note 1 Note 1 This test was developed and its analytical performance characteristics have been determined by [employer]'s what's in store. It has not been cleared or approved [...] Information: ? ?Site ID: [id number] ? ?Name: [employer] [place] ? ?Address: [address] [place] [address] ? ?Director: GONZALO CANO MD [place] [facility] [id number] 21:48:00* Test Item Value Reference Range Interpretation Comme nts VITAMIN B12 (test code = 2132-9) 615 pg/mL 200-1100 RAC (test code = RAC) Performing Organization Information: ? ?Site ID: RGA ? ?Name: [employer] [place] ? ?Address: [address] [place] [address] ? ?Director: OLAMIDE CARLTON MD,PHD. [place] HealthVITAMIN D, 25 [id number] 06:28:31* Test Item Value Reference Range Interpretation Comme [facility] VITAMIN D, 25 [place] (test code [...] INDICATED, ALL TESTING PERFORMED AT [facility] [address] [place] [address] TAP BUILDER: SILVESTRE HYMAN M.D. CLIA NUMBER [id number] [facility] [place]. [id number] LIPID [id number] 04:58:40* Test Item Value Reference Range Interpretation [...] SPECIMENS. FOR MOREINFORMATION, SEE CLIENT ANNOUNCEMENT AT [email or web address] [email or web address] RATIO LDL/HDL (test code = 2238) 1.25 RATIO <3.22 HEMOGLOBIN [id number] 02:51:24* Test Item Value Reference Range Interpretation Comme [facility] HEMOGLOBIN A1c (test code = 06062) 5.8 % 4.2-5.6 H [employer] GUIDELINES FOR HGB A1C: [...] ALTERNATE TESTING OR LABORATORY CONSULTATION. COMPREHENSIVE METABOLIC [id number] 05:14:36* Test Item Value Reference Range Interpretation Comme nts GLUCOSE (test code = 2216) 90 MG/DL 70-99 BUN (test code = 2207) 15 MG/DL 6-20 CREATININE (test code = 2214) 0.62 MG/DL 0.60-1.30 eGFR (2020 CKD-EPI) (test code = 68318) 122 ML/MIN/1.73 >60 CALC BUN/CREAT (test code [...] code = 2219) 12 U/L 5-40 LIPID [id number] 05:14:36* Test Item Value Reference Range Interpretation [...] SPECIMENS. FOR MOREINFORMATION, SEE CLIENT ANNOUNCEMENT AT [email or web address] RISK RATIO LDL/HDL (test code = 2238) 1.10 RATIO <3.[address] [facility] has i mportant pathology staff changes effective 12/25/2022. New pathology staff will provide uninterrupted, excellent patient care and clinical consultation. See URL: [email or web address]. UNLESS OTHERWISE INDICATED, ALL TESTING PERFORMED AT [facility] [address] [place] [address] CLIA: [id number], CAP: [id number] TSH, THIRD [id number] 04:52:38* Test Item Value Reference Range Interpretation Comme nts TSH, THIRD GENERATION (test code = 2821) 1.600 UIU/ML 0.400-4.100 CBC W/AUTO DIFF WITH [id number] 03:36:09* Test Item Value Reference Range Interpretation [...] = 1065) 0.0 /100 WBC'S See_Comment [Automated [employer]] The system which generated this result [...] 0.00-0.10 ABS NUCLEATED RBCS (test code = 73418) 0.00 K/UL 0.00-0.11 LIPID [id number] 04:50:15* Test Item Value Reference Range Interpretation [...] SPECIMENS. FOR MOREINFORMATION, SEE CLIENT ANNOUNCEMENT AT [email or web address] [email or web address] RATIO LDL/HDL (test code = 2238) 1.47 RATIO <3.22 COMPREHENSIVE METABOLIC [id number] 04:50:15* Test Item Value Reference Range Interpretation Comme nts GLUCOSE (test code = 2216) 96 MG/DL 70-99 BUN (test code = 2207) 12 MG/DL 6-20 CREATININE (test code = 2213) 0.65 MG/DL 0.60-1.30 eGFR (2020 CKD-EPI) (test code = 73963) 121 ML/MIN/1.73 >60 CALC BUN/CREAT (test code [...] 5-40 UNLESS OTHERWISE INDICATED, ALL TESTING [facility]FOR[facility] [address] [place] [address] TAP BUILDER: JACQUI HONG M.D. CLIA NUMBER [id number] [facility] [place]. [id number] LIPID [id number] 00:00:00* Test Item Value Reference Range Interpretation Comme nts CHOLESTEROL (test code = 2209) 150 MG/DL TRIGLYCERIDES (test code = 2231) 59 MG/DL HDL CHOLESTEROL (test code = 2220) 55 MG/DL CALC LDL CHOL (test code = 2237) 81 MG/DL RISK RATIO LDL/HDL (test cod e = 2238) 1.47 RATIO COMPREHENSIVE METABOLIC [id number] 00:00:00* Test Item Value Reference Range Interpretation Comme nts GLUCOSE (test code = 2217) 96 MG/DL BUN (test code = 2208) 12 MG/DL CREATININE (test code = 2214) 0.65 MG/DL eGFR (2020 CKD-EPI) (test code = 66661) 121 ML/MIN/1.73 CALC BUN/CREAT (test code = [...] (test code = 2219) 14 U/L LIPID [id number] 00:00:00* Test Item Value Reference Range Interpretation Comme nts CHOLESTEROL (test code = 2210) 150 MG/DL TRIGLYCERIDES (test code = 2232) 59 MG/DL HDL CHOLESTEROL (test code = 2220) 55 MG/DL CALC LDL CHOL (test code = 2237) 81 MG/DL RISK RATIO LDL/HDL (test cod e = 2238) 1.47 RATIO COMPREHENSIVE METABOLIC [id number] 00:00:00* Test Item Value Reference Range Interpretation Comme nts GLUCOSE (test code = 2217) 96 MG/DL BUN (test code = 2208) 12 MG/DL CREATININE (test code = 2214) 0.65 MG/DL eGFR (2020 CKD-EPI) (test code = 58418) 121 ML/MIN/1.73 CALC BUN/CREAT (test code = [...] (test code = 2219) 14 U/L LIPID [id number] 00:00:00* Test Item Value Reference Range Interpretation Comme nts CHOLESTEROL (test code = 2210) 150 MG/DL TRIGLYCERIDES (test code = 2232) 59 MG/DL HDL CHOLESTEROL (test code = 2220) 55 MG/DL CALC LDL CHOL (test code = 2237) 81 MG/DL RISK RATIO LDL/HDL (test cod e = 2238) 1.47 RATIO COMPREHENSIVE METABOLIC [id number] 00:00:00* Test Item Value Reference Range Interpretation Comme nts GLUCOSE (test code = 2217) 96 MG/DL BUN (test code = 2208) 12 MG/DL CREATININE (test code = 2214) 0.65 MG/DL eGFR (2020 CKD-EPI) (test code = 79646) 121 ML/MIN/1.73 CALC BUN/CREAT (test code = [...] (test code = 2219) 14 U/L LIPID [id number] 00:00:00* Test Item Value Reference Range Interpretation Comme nts CHOLESTEROL (test code = 2210) 150 MG/DL TRIGLYCERIDES (test code = 2232) 59 MG/DL HDL CHOLESTEROL (test code = 2220) 55 MG/DL CALC LDL CHOL (test code = 2237) 81 MG/DL RISK RATIO LDL/HDL (test cod e = 2238) 1.47 RATIO COMPREHENSIVE METABOLIC [id number] 00:00:00* Test Item Value Reference Range Interpretation Comme nts GLUCOSE (test code = 2217) 96 MG/DL BUN (test code = 2208) 12 MG/DL CREATININE (test code = 2214) 0.65 MG/DL eGFR (2020 CKD-EPI) (test code = 78149) 121 ML/MIN/1.73 CALC BUN/CREAT (test code = [...] 2219) 14 U/L GC AND CHLAMYDIA, AMPLIFIED, [id number] 00:00:00* Test Item Value Reference Range Interpretation Comme nts GONORRHEA, NAAT (test code = 84214) NEGATIVE CHLAMYDIA, NAAT (test code = 81516) NEGATIVE GC AND CHLAMYDIA, AMPLIFIED, [id number] 00:00:00* Test Item Value Reference Range Interpretation Comme nts GONORRHEA, NAAT (test code = 21801) NEGATIVE CHLAMYDIA, NAAT (test code = 71482) NEGATIVE GC AND CHLAMYDIA, AMPLIFIED, [id number] 00:00:00* Test Item Value Reference Range Interpretation Comme nts GONORRHEA, NAAT (test code = 16070) NEGATIVE CHLAMYDIA, NAAT (test code = 58715) NEGATIVE GC AND CHLAMYDIA, AMPLIFIED, [id number] 00:00:00* Test Item Value Reference Range Interpretation Comme nts GONORRHEA, NAAT (test code = 65136) NEGATIVE CHLAMYDIA, NAAT (test code = 77363) NEGATIVE HEPATITIS C [id number] 00:00:00* Test Item Value Reference Range Interpretation Comme nts HEPATITIS C ANTIBODY (test c ode = 4675) NON-REACTIVE HIV AB/AG COMBO RFLX [id number] 00:00:00* Test Item Value Reference Range Interpretation Comme nts HIV 1/2 4TH GEN, RFLX CONF ( test code = 3514) NON-REACTIVE [id number] 00:00:00* Test Item Value Reference Range Interpretation Comme nts RPR RESULT (test code = 3501) NON-REACTIVE RPR TITER (test code = 3500) NOT INDIC. TITER CBC W/AUTO [id number] 00:00:00* Test Item Value Reference Range Interpretation [...] ABS NUCLEATED RBCS (test cod e = 51482) 0.00 K/UL [id number] 00:00:00* Test Item Value Reference Range Interpretation Comme nts TSH, THIRD GENERATION (test code = 2821) 1.150 UIU/ML [id number] 00:00:00* Test Item Value Reference Range Interpretation Comme nts ESTRADIOL (test code = 2505) 85.2 PG/ML FOLLICLE STIM [id number] 00:00:00* Test Item Value Reference Range Interpretation Comme nts FOLLICLE STIM HORMONE (test code = 2700) 3.2 IU/L LUTEINIZING [id number] 00:00:00* Test Item Value Reference Range Interpretation Comme nts LUTEINIZING HORMONE (test co de = 2776) 5.6 IU/L [id number] 00:00:00* Test Item Value Reference Range Interpretation Comme nts PROLACTIN (test code = 2800) 11.1 NG/ML [id number] 00:00:00* Test Item Value Reference Range Interpretation Comme nts TESTOSTERONE (test code = 2830) 29 NG/DL HEPATITIS C [id number] 00:00:00* Test Item Value Reference Range Interpretation Comme nts HEPATITIS C ANTIBODY (test c ode = 4675) NON-REACTIVE HIV AB/AG COMBO RFLX [id number] 00:00:00* Test Item Value Reference Range Interpretation Comme nts HIV 1/2 4TH GEN, RFLX CONF ( test code = 3514) NON-REACTIVE [id number] 00:00:00* Test Item Value Reference Range Interpretation Comme nts RPR RESULT (test code = 3501) NON-REACTIVE RPR TITER (test code = 3500) NOT INDIC. TITER CBC W/AUTO [id number] 00:00:00* Test Item Value Reference Range Interpretation [...] ABS NUCLEATED RBCS (test cod e = 28115) 0.00 K/UL [id number] 00:00:00* Test Item Value Reference Range Interpretation Comme nts TSH, THIRD GENERATION (test code = 2821) 1.150 UIU/ML [id number] 00:00:00* Test Item Value Reference Range Interpretation Comme nts ESTRADIOL (test code = 2505) 85.2 PG/ML FOLLICLE STIM [id number] 00:00:00* Test Item Value Reference Range Interpretation Comme nts FOLLICLE STIM HORMONE (test code = 0420) 3.2 IU/L LUTEINIZING [id number] 00:00:00* Test Item Value Reference Range Interpretation Comme nts LUTEINIZING HORMONE (test co de = 9516) 5.6 IU/L [id number] 00:00:00* Test Item Value Reference Range Interpretation Comme nts PROLACTIN (test code = 2800) 11.1 NG/ML [id number] 00:00:00* Test Item Value Reference Range Interpretation Comme nts TESTOSTERONE (test code = 2830) 29 NG/DL HEPATITIS C [id number] 00:00:00* Test Item Value Reference Range Interpretation Comme nts HEPATITIS C ANTIBODY (test c ode = 4675) NON-REACTIVE HIV AB/AG COMBO RFLX [id number] 00:00:00* Test Item Value Reference Range Interpretation Comme nts HIV 1/2 4TH GEN, RFLX CONF ( test code = 3514) NON-REACTIVE [id number] 00:00:00* Test Item Value Reference Range Interpretation Comme nts RPR RESULT (test code = 3501) NON-REACTIVE RPR TITER (test code = 3500) NOT INDIC. TITER CBC W/AUTO [id number] 00:00:00* Test Item Value Reference Range Interpretation [...] ABS NUCLEATED RBCS (test cod e = 14789) 0.00 K/UL [id number] 00:00:00* Test Item Value Reference Range Interpretation Comme nts TSH, THIRD GENERATION (test code = 2821) 1.150 UIU/ML [id number] 00:00:00* Test Item Value Reference Range Interpretation Comme nts ESTRADIOL (test code = 2505) 85.2 PG/ML FOLLICLE STIM [id number] 00:00:00* Test Item Value Reference Range Interpretation Comme nts FOLLICLE STIM HORMONE (test code = 2700) 3.2 IU/L LUTEINIZING [id number] 00:00:00* Test Item Value Reference Range Interpretation Comme nts LUTEINIZING HORMONE (test co de = 2776) 5.6 IU/L [id number] 00:00:00* Test Item Value Reference Range Interpretation Comme nts PROLACTIN (test code = 2800) 11.1 NG/ML [id number] 00:00:00* Test Item Value Reference Range Interpretation Comme nts TESTOSTERONE (test code = 2830) 29 NG/DL HEPATITIS C [id number] 00:00:00* Test Item Value Reference Range Interpretation Comme nts HEPATITIS C ANTIBODY (test c ode = 4675) NON-REACTIVE HIV AB/AG COMBO RFLX [id number] 00:00:00* Test Item Value Reference Range Interpretation Comme nts HIV 1/2 4TH GEN, RFLX CONF ( test code = 3514) NON-REACTIVE [id number] 00:00:00* Test Item Value Reference Range Interpretation Comme nts RPR RESULT (test code = 3501) NON-REACTIVE RPR TITER (test code = 3500) NOT INDIC. TITER CBC W/AUTO [id number] 00:00:00* Test Item Value Reference Range Interpretation [...] ABS NUCLEATED RBCS (test cod e = 92745) 0.00 K/UL [id number] 00:00:00* Test Item Value Reference Range Interpretation Comme nts TSH, THIRD GENERATION (test code = 2821) 1.150 UIU/ML [id number] 00:00:00* Test Item Value Reference Range Interpretation Comme nts ESTRADIOL (test code = 2505) 85.2 PG/ML FOLLICLE STIM [id number] 00:00:00* Test Item Value Reference Range Interpretation Comme nts FOLLICLE STIM HORMONE (test code = 2700) 3.2 IU/L LUTEINIZING [id number] 00:00:00* Test Item Value Reference Range Interpretation Comme nts LUTEINIZING HORMONE (test co de = 2776) 5.6 IU/L [id number] 00:00:00* Test Item Value Reference Range Interpretation Comme nts PROLACTIN (test code = 2800) 11.1 NG/ML [id number] 00:00:00* Test Item Value Reference Range Interpretation Comme nts TESTOSTERONE (test code = 2830) 29 NG/DL SARS-CoV-2 (COVID-19) by RT-PCR (HIGH RISK)2020-12-03 00:00:00* Test Item Value Reference Range Interpretation Comme nts SARS-CoV-2 INTERPRETATION (test code = 14622) NEGATIVE SOURCE (test code = 70756) NASOPHARYNGEAL SARS-CoV-2 (COVID-19) by RT-PCR (HIGH RISK)2020-12-03 00:00:00* Test Item Value Reference Range Interpretation Comme nts SARS-CoV-2 INTERPRETATION (test code = 36363) NEGATIVE SOURCE (test code = 05907) NASOPHARYNGEAL SARS-CoV-2 (COVID-19) by RT-PCR (HIGH RISK)2020-12-03 00:00:00* Test Item Value Reference Range Interpretation Comme nts SARS-CoV-2 INTERPRETATION (test code = 34062) NEGATIVE SOURCE (test code = 73148) NASOPHARYNGEAL SARS-CoV-2 (COVID-19) by RT-PCR (HIGH RISK)2020-12-03 00:00:00* Test Item Value Reference Range Interpretation Comme nts SARS-CoV-2 INTERPRETATION (test code = 65787) NEGATIVE SOURCE (test code = 34884) NASOPHARYNGEAL
--- NOTE | 2024-11-11 17:31 | EDPHYS ---
Physician Documentation [facility] Name: Obdulia Burch Age: 34 yrs Sex: Female : 1990 Arrival Date: 11/11/2024 Time: 16:23 Bed DX4 Private MD: MARIE Physician Raymond Hickey HPI: 11/11 17:25 This 34 yrs old Female presents to ER via Ambulatory with complaints of simeon Abnormal Lab Results - EKG. 17:25 sent for abnormal ekg. Onset: The symptoms/episode began/occurred 1 day(s) ago. simeon Severity of symptoms: At their worst the symptoms were none, in the emergency department the symptoms are unchanged. no complaint. Historical: - Allergies: 16:50 NSAIDS; told not to take; ll1 - PMHx: 16:50 None; ll1 - PSHx: 16:50 Bariatric surgery 01/14/2024; section; fallopian tubes removed ( ll1 section); - Immunization history:: Adult Immunizations. - Social history:: Smoking status: Reported history of juuling and/or vaping. ROS: 17:27 Constitutional: Negative for fever, chills, and weight loss, Eyes: Negative for injury, simeon pain, redness, and discharge, ENT: Negative for injury, pain, and discharge, Neck: Negative for injury, pain, and swelling, Cardiovascular: Negative for chest pain, palpitations, and edema, Respiratory: Negative for shortness of breath, cough, wheezing, and pleuritic chest pain, Abdomen/GI: Negative for abdominal pain, nausea, vomiting, diarrhea, and constipation, Back: Negative for injury and pain, : Negative for injury, bleeding, discharge, and swelling, MS/Extremity: Negative for injury and deformity, Skin: Negative for injury, rash, and discoloration, Neuro: Negative for headache, weakness, numbness, tingling, and seizure, Psych: Negative for depression, anxiety, suicide ideation, homicidal ideation, and hallucinations, Allergy/Immunology: Negative for hives, rash, and allergies, Endocrine: Negative for neck swelling, polydipsia, polyuria, polyphagia, and marked weight changes, Hematologic/Lymphatic: Negative for swollen nodes, abnormal bleeding, and unusual bruising, Exam: 17:27 Constitutional: This is a well developed, well nourished patient who is awake, alert, simeon and in no acute distress. Head/Face: Normocephalic, atraumatic. Eyes: Pupils equal round and reactive to light, extra-ocular motions intact. Lids and lashes normal. Conjunctiva and sclera are non-icteric and not injected. Cornea within normal limits. Periorbital areas with no swelling, redness, or edema. ENT: Nares patent. No nasal discharge, no septal abnormalities noted. Tympanic membranes are normal and external auditory canals are clear. Oropharynx with no redness, swelling, or masses, exudates, or evidence of obstruction, uvula midline. Mucous membranes moist. Neck: Trachea midline, no thyromegaly or masses palpated, and no cervical lymphadenopathy. Supple, full range of motion without nuchal rigidity, or vertebral point tenderness. No Meningismus. Chest/axilla: Normal chest wall appearance and motion. Nontender with no deformity. No lesions are appreciated. Cardiovascular: Regular rate and rhythm with a normal S1 and S2. No gallops, murmurs, or rubs. Normal PMI, no JVD. No pulse deficits. Respiratory: Lungs have equal breath sounds bilaterally, clear to auscultation and percussion. No rales, rhonchi or wheezes noted. No increased work of breathing, no retractions or nasal flaring. Abdomen/GI: Soft, non-tender, with normal bowel sounds. No distension or tympany. No guarding or rebound. No evidence of tenderness throughout. Back: No spinal tenderness. No costovertebral tenderness. Full range of motion. Skin: Warm, dry with normal turgor. Normal color with no rashes, no lesions, and no evidence of cellulitis. MS/ Extremity: Pulses equal, no cyanosis. Neurovascular intact. Full, normal range of motion., bilateral aka Neuro: Awake and alert, GCS 15, oriented to person, place, time, and situation. Cranial nerves II-XII grossly intact. Motor strength 5/5 in all extremities. Sensory grossly intact. Cerebellar exam normal. Normal gait. Psych: Awake, alert, with orientation to person, place and time. Behavior, mood, and affect are within normal limits. 17:27 ECG was reviewed by the Attending Physician. 17:28 Musculoskeletal/extremity: DVT Exam: No signs of deep vein thrombosis. no pain, no simeon swelling, no tenderness, negative Homans' sign noted on exam, no appreciated bluish discoloration, no erythema, no increased warmth, Vital Signs: 16:51 BP 120 / 78; Pulse 87; Resp 17; Temp 98.8; Pulse Ox 100% on R/A; Weight 77.11 kg; ll1 Height 5 ft. 0 in. ; Pain 0/10; 16:51 Body Mass Index 33.20 (77.11 kg, 152.4 cm) ll1 16:51 Pain Scale: Adult ll1 MDM: 17:02 Medical Screening Exam initiated simeon 17:28 Differential diagnosis: arrythmia, dehydration, stress disorder. Differential Diagnosis simeon altered mental status, sepsis, flu. Data reviewed: vital signs, nurses notes, lab test result(s), EKG, radiologic studies, plain films. Consideration of Admission/Observation Escalation of care including admission/observation considered. I considered the following discharge prescriptions or medication management in the emergency department Medications were administered in the Emergency Department. See MAR. Independent interpretation of the following test(s) in the Emergency Department EKG: See my EKG interpretation above. Test considered but Not performed: CT: no ct head. Historians other than the Patient: pt well informed. Care significantly affected by the following chronic conditions: none , anemia. Counseling: I had a detailed discussion with the patient and/or guardian regarding the historical points, exam findings, and any diagnostic results supporting the discharge/admit diagnosis, lab results, radiology results, the need for outpatient follow up, for definitive care, a managing editor, a family practitioner. 11/11 17:02 Order name: EKG; Complete Time: 17:03 ss 11/11 17:02 Order name: EKG - Nurse/Tech; Complete Time: 17:02 ss EC:27 Rate is 70 beats/min. Rhythm is regular. QRS [place] is Normal. OR interval is normal. QRS simeon interval is normal. QT interval is normal. No Q waves. T waves are Normal. No ST changes noted. Clinical impression: Normal ECG and No evidence of ischemia. Interpreted by me. Reviewed by me. Administered Medications: No medications were administered Disposition Summary: 11/11/24 17:31 Discharge Ordered Notes: Location: Home simeon Problem: new simeon Symptoms: have improved simeon Condition: Stable simeon Diagnosis - Iron deficiency anemia, unspecified simeon - Iron deficiency anemia secondary to blood loss (chronic) simeon - Syncope Near [facility] Followup: simeon - With: Private Physician - When: 2 - 3 days - Reason: Recheck today's complaints, Re-evaluation by your physician Followup: simeon - With: See Garcia MD - When: 2 - 3 days - Reason: Recheck today's complaints, Re-evaluation by your physician Discharge Instructions: - Discharge Summary Sheet simeon - Iron Deficiency Anemia, Adult simeon - Anemia simeon - Near-Syncope simeon - Near-Syncope, Qmgw-vr-Xcwc simeon - Iron Deficiency Anemia, Adult, Bpdv-jb-Jneh [facility] Forms: - Medication Reconciliation Form simeon - Antibiotic Education simeon - Prescription Opioid Use simeon - Patient Portal Instructions [facility] - Leadership Thank You Letter [facility] Prescriptions: - Ferrous Sulfate 325 mg (65 mg Iron) Oral Tablet - take 1 tablet ORAL route every 8 hours; 90 tablet; Refills: 0, Product [facility] Selection Permitted Signatures: Raymond Hickey MD MD cha Blanchard, Shelby, RN RN ss Power Newby RN RN ll1
--- NOTE | 2024-11-11 17:31 | ER ---
Nurse's Notes [facility] Name: Obdulia Burch Age: 34 yrs Sex: Female : 1990 Arrival Date: 11/11/2024 Time: 16:23 Bed DX4 Private MD: Diagnosis: Iron deficiency anemia, unspecified;Iron deficiency anemia secondary to blood loss (chronic);Syncope Near Presentation: 11/11 16:51 Chief complaint: Patient states: Syncopal event on the 4th. Came here, was following up ll1 today with Dr. Mendiola. Was told to come back to ED for sinus arrhythmia found on EKG. Still has fatigue, fogginess, and near syncope events. Coronavirus screen: Client denies travel out of the [place] in the last 14 days. At this time, the client does not indicate any symptoms associated with coronavirus-19. Ebola Screen: Patient denies travel to an Ebola-affected area in the 21 days before illness onset. Initial Sepsis Screen: Does the patient meet any 2 criteria? No. Patient's initial sepsis screen is negative. Does the patient have a suspected source of infection? No. Patient's initial sepsis screen is negative. Risk Assessment: Do you want to hurt yourself or someone else? Patient reports no desire to harm self or others. Onset of symptoms was October 30, 2024. 16:51 Method Of Arrival: Ambulatory ll1 16:51 Acuity: TERELL 3 ll1 Triage Assessment: 16:50 General: Appears uncomfortable, Behavior is calm, cooperative, appropriate for age, [id number] Reports fatigue for. Pain: Denies pain. Neuro: Reports a syncopal episode weakness fogginess and near syncope feeling. Historical: - Allergies: 16:50 NSAIDS; told not to take; ll1 - PMHx: 16:50 None; ll1 - PSHx: 16:50 Bariatric surgery 01/14/2024; section; fallopian tubes removed ( ll1 section); - Immunization history:: Adult Immunizations. - Social history:: Smoking status: Reported history of juuling and/or vaping. Screenin:44 Abuse screen: Denies threats or abuse. Denies injuries from another. Nutritional ss screening: No deficits noted. Tuberculosis screening: Never had TB. Assessment: 17:44 General: Appears in no apparent distress. comfortable, Behavior is calm, cooperative. ss Neuro: Level of Consciousness is awake, alert, obeys commands, Oriented to person, place, time, situation. Respiratory: Airway is patent Respiratory effort is even, unlabored, Respiratory pattern is regular, symmetrical. Derm: Skin is intact, is healthy with good turgor, Skin is pink, warm \T\ dry. normal. Vital Signs: 16:51 BP 120 / 78; Pulse 87; Resp 17; Temp 98.8; Pulse Ox 100% on R/A; Weight 77.11 kg; ll1 Height 5 ft. 0 in. ; Pain 0/10; 16:51 Body Mass Index 33.20 (77.11 kg, 152.4 cm) ll1 16:51 Pain Scale: Adult ll1 ED Course: 16:25 Patient arrived in ED. im 16:54 Triage completed. ll1 16:54 Arm band placed on. ll1 17:02 Raymond Hickey MD is Attending Physician. [facility] 17:30 See Garcia MD is Referral Physician. [facility] 17:43 Melva Herbert, RN is Primary Nurse. ss 17:44 Patient has correct armband on for positive identification. Bed in low position. Call ss light in reach. 17:44 No provider procedures requiring assistance completed. Patient did not have IV access ss during this emergency room visit. Administered Medications: No medications were administered Medication: 17:44 VIS not applicable for this client. ss Outcome: 17:31 Discharge ordered by . [facility] 18:09 Discharged to home ambulatory, ss 18:09 Condition: good 18:09 Discharge instructions given to patient, family, Instructed on discharge instructions, follow up and referral plans. medication usage, Demonstrated understanding of instructions, follow-up care, medications, Prescriptions given X 1, 18:10 Patient left the ED. ss Signatures: Raymond Hickey MD MD cha Blanchard, Shelby, RN RN Meol Bragg, CHON RN [email or web address] Power Newby RN RN ll1 Keila Leal
[2024-11-12 03:09] VITALS: BP 120/78; TEMP 98.8; O2SAT 100
== END 2024-11-11 18:10 | disposition home or self-care (01) ==
LOC: ER 16:23
DX: D50.0 Iron deficiency anemia secondary to blood loss (chronic) (principal); R55 Syncope and collapse
CPT/HCPCS: 99283